=== PATIENT | male | born 1960 | race Caucasian/White ===

== ENCOUNTER 2023-03-04 15:20 | Emergency (ER) | payer MEDICARE, SELFPAY ==
[2023-03-04] VITALS (20 sets, daily range): BP systolic 123–149; BP diastolic 86–107; PULSE 112–156; RESP 24–41; TEMP 37.7–38.7; O2SAT 56–100
--- NOTE | ~2023-03-04 | XR_ITS ---
XR chest 1V portable DATE: 03/04/2023 15:42 INDICATION: Dyspnea. History of COPD. TECHNIQUE: Portable AP chest views on 03/04/2023 at 1545 hours COMPARISON: None FINDINGS: There is bilateral hyperinflation. No pulmonary infiltrate or consolidation, pleural effusi on or pulmonary vascular congestion or pneumothorax is detected. Normal heart size. Mild aortic arch calcification. No hilar or mediastinal enlargement. IMPRESSION: Bilateral hyperinflation; no active cardiopulmonary disease Reviewed, dictated and finalized at location L. EDICAL ENGINEER
--- NOTE | 2023-03-04 15:30 | ECG_ITS ---
Measurements Intervals [place] Rate: 155 P: 73 AL: 133 QRS: 266 QRSD: 93 T: 74 QT: 266 QTc: 428 Interpretive Statements ATRIAL FLUTTER/TACHYCARDIA WITH RAPID VENTRICULAR RESPONSE LEFT AXIS DEVIATION CANNOT RULE OUT SEPTAL INFARCT, AGE INDETERMINATE CONSIDER INFERIOR INFARCT, AGE INDETERMINATE BASELINE ARTIFACT- I, II, III, AVR, AVF, V1-V6 ABNORMAL ECG NO PREVIOUS ECG AVAILABLE FOR COMPARISON Electronically Signed On 03-04-2023 16:02:26 FOREIGN EXCHANGE STUDENT COORDINATOR by Dain Barber D.O.
[2023-03-04] MEDS: IPRATROPIUM 0.5 MG/ALBUTEROL SULFATE 2.5 MG AMPUL.NEB 3 ML (15:32)
[2023-03-04] MEDS: MAGNESIUM SULF 2 GM/WATER 50ML 2 GM/50 ML BAG IVPB (15:51)
[2023-03-04] MEDS: methylPREDNISolone SOD SUCC 125 MG VIAL IV PUSH (15:51)
[2023-03-04 15:55] LABS: Basophils Absolute Auto 0.06 K/mm3 (0.00-0.10); Basophils Percent Auto 0.3 % (0.0-1.0); Eosinophils Absolute Auto 0.08 K/mm3 (0.02-0.50); Eosinophils Percent Auto 0.4 % (1.0-6.0); Hematocrit 47.3 % (40.0-54.0); Hemoglobin 16.5 g/dL (14.0-18.0); Immature Granulocyte Absolute 0.17 K/mm3 (0.00-0.00); Immature Granulocyte Percent A 0.9 % (0.0-0.0); Lymphocytes Absolute Auto 0.39 K/mm3 (1.10-4.50); Lymphocytes Percent Auto 2.2 % (18.0-42.0); Mean Corpuscular HGB Conc 34.9 g/dL (32.0-36.0); Mean Corpuscular Hemoglobin 36.7 pg (27.0-31.0); Mean Corpuscular Volume 105.1 fL (78.0-102.0); Mean Platelet Volume 10.1 fl (8.7-11.0); Monocytes Absolute Auto 1.32 K/mm3 (0.10-0.90); Monocytes Percent Auto 7.3 % (2.0-11.0); Neutrophils Absolute Auto 16.1 K/mm3 (1.7-7.2); Neutrophils Percent Auto 88.9 % (50.0-70.0); Platelet Count Result 157 K/mm3 (150-420); Red Cell Distribution Width 14.5 % (11.6-14.4); White Blood Count 18.1 K/mm3 (4.8-10.8)
--- NOTE | 2023-03-04 16:04 | PC.NURSE ---
PT HAS RECEIVED A NEB TX, COLOR HAS IMPROVED, CAP REFILL HAS IMPROVED. PT IS NOW ON 3L O2. RESP STATUS HAS IMPROVED. PT REMAINS TACHYPNEIC. WILL CONTINUE TO MONITOR.
[2023-03-04 16:05] LABS: Base Excess ABG -0.8 mmol/L (0-2); HCO3 ABG 24.5 mmol/L (23-29); Oxygen Content ABG 23.8 %vol (16.0-22.0); Oxyhemoglobin 94.9 % (94-100); PCO2 ABG 42.6 mmHg (35-45); PO2 ABG 94.1 mmHg (80-90); Total Hemoglobin 17.8 g/dL (12.0-18.0); pH ABG 7.38 (7.35-7.45)
[2023-03-04 16:06] LABS: Device NASAL CANNULA; Modified Allen's Test Pass; Site Drawn LEFT RADIAL
[2023-03-04] MEDS: ACETAMINOPHEN 500 MG TABLET 1000 MG PO (16:10)
[2023-03-04 16:12] LABS: Influenza A QL RT-PCR Positive (Negative); Influenza B QL RT-PCR Negative (Negative); RSV RNA, RT-PCR Negative (Negative); SARS-CoV-2 RNA PCR Negative (Negative)
[2023-03-04 16:14] LABS: D Dimer 0.49 mg/L (0.19-0.50); INR 1.1; Partial Thromboplastin Time 33.6 SEC (23.90-30.70); Prothrombin Time 11.5 Seconds (9.50-12.10)
[2023-03-04 16:18] LABS: Lactic Acid Reflex 2.2 mmol/L (0.4-2.0)
[2023-03-04 16:23] LABS: Alanine Aminotransferase 39 U/L (16-63); Albumin Level 3.4 g/dL (3.4-5.0); Alkaline Phosphatase 99 U/L (46-116); Anion Gap 11 mmol/L (8-16); Aspartate Amino Transferase 56 U/L (15-37); Bilirubin,Total 1.1 mg/dL (0.00-1.00); Blood Urea Nitrogen 35 mg/dL (7-18); Calcium 9.1 mg/dL (8.5-10.1); Carbon Dioxide 28 mmol/L (21-32); Chloride 97 mmol/L (98-108); Estimated CRCL calculation 54 ml/min; Estimated Glomerular Filt Rate > 60; Glucose 142 mg/dL (70-99); Magnesium 2.1 mg/dL (1.8-2.4); NT Pro B Type Natriuretic Pept 977 pg/mL (0-125); Osmolality Calculated 292 mOsm/kg (285-295); Potassium 4.1 mmol/L (3.5-5.1); Sodium 136 mmol/L (136-145); Total Protein 7.5 g/dL (6.4-8.2); Troponin I 40.7 ng/L (0.00-60.4)
[2023-03-04] MEDS: SODIUM CHLORIDE 0.9% IV 1,000 ML 999 ML IV CONT (16:30)
[2023-03-04 16:31] LABS: CRP > 25.0 mg/dL (0.0-0.9)
[2023-03-04] MEDS: dilTIAZem HCl INJ 25 MG/5 ML VIAL 10 MG IV PUSH (16:32)
--- NOTE | 2023-03-04 16:49 | PC.NURSE ---
PT WAS RESTING ON STRETCHER IN EXAM ROOM WITH IVF AND MEDICATION INFUSION WHEN FRIEND ARRIVED AT BEDSIDE. PT IS AWAITING RESULTS AT THIS TIME. PT REPORTS HE NEEDS TO GO HOME, EDUCATED PT ON PT STATUS AND AWAITING RESULTS AT THIS TIME. PT DENIES ANY NEEDS OR COMPLAINTS AT PRESENT. WILL CONTINUE TO MONITOR.
--- NOTE | 2023-03-04 17:03 | ED.SOB ---
HPI - SOB/Dyspnea General Chief Complaint: Shortness of Breath/Dyspnea Stated Complaint: short of breath Time Seen by Provider: 03/04/23 15:29 Source: patient Mode of arrival: ambulatory Limitations: no limitations History of Present Illness HPI Narrative: this is a 62-year-old male that presents with some shortness of breath history of COPD and noncompliant with his medication presents with some shortness of breath with some cough that is nonproductive initially is respiratory rate was around 40 and O2 sats around 56 on room air placed on 3L of oxygen and currently satting at 94%. There is no chest pain, does have a temperature of 101.5?, with no nausea no vomiting no abdominal pain no dysuria. MD elicited complaint: shortness of breath and cough Pertinent past history: COPD Onset (ago): day(s) Severity: moderate Known history of: COPD Related Data Allergies Allergy/AdvReac Type Severity Reaction Status Date / Time No Known Allergies Allergy Verified 03/04/23 15:33 Review of Systems Review of Systems: All systems reviewed & are unremarkable except as noted in HPI and below [facility] Past Medical History Medical History COPD (chronic obstructive pulmonary disease) Exam Const: General: no acute distress and ill appearing Nutritional Appearance: thin Orientation/consciousness: patient oriented x3 Limitations: no limitations Eyes: Conjunctivae: conjunctivae normal Neck: Neck: normal visual inspection, no lymphadenopathy and no meningeal signs Chest: Chest palpation & inspection: normal inspection of the chest Resp: Effort & Inspection: normal respiratory effort Auscultation: diminished lung sounds Cardio: Rate: tachycardic Rhythm: regular rhythm GI: GI Palp: Yes Soft to palpation Auscultation: normal bowel sounds Back/Spine/Pelvis: Back: no CVA tenderness Skin: General skin exam: normal color Rashes: no rashes Neuro: General: patient oriented x3 and moves all extremities Extrem: General: normal to inspection, no clubbing, cyanosis or edema and no pedal edema Course Course Emergency Course: patient had a breathing treatment with DuoNebs currently satting at 94% currently on 3L patient received IV Solu-Medrol and normal [place] [address] and the patient did test positive for influenza. Patient with tachycardia 154 heart rate which appeared to be multifocal atrial tachycardia patient received 10mg IV Cardizem and current heart rate 1 and a dose of p.o. diltiazem was given. Patient after long discussion to be admitted to the hospital refused and is willing to sign out against medical advice. Vital Signs Vital signs: Vital Signs Temperature 38.7 C H 03/04/23 15:20 Pulse Rate 154 H 03/04/23 15:20 Respiratory Rate 40 H 03/04/23 15:20 Pulse Oximetry 56 L 03/04/23 15:20 Oxygen Delivery Room Air 03/04/23 15:20 Oxygen Flow Rate 6 03/04/23 15:20 Temperature 38.2 C H 03/04/23 16:50 Pulse Rate 112 H 03/04/23 16:46 Respiratory Rate 32 H 03/04/23 16:46 Blood Pressure 123/86 03/04/23 16:45 Pulse Oximetry 94 03/04/23 16:46 Oxygen Delivery Nasal Cannula 03/04/23 16:16 Oxygen Flow Rate 3 03/04/23 16:16 MDM - SOB/Dyspnea Lab Data 03/04/23 15:50 03/04/23 15:50 Labs: Lab Results 03/04/23 Range/Units 15:50 WBC 18.1 H (4.8-10.8) K/mm3 RBC 4.50 L (4.70-6.10) M/mm3 Hgb 16.5 (14.0-18.0) g/dL Hct 47.3 (40.0-54.0) % MCV 105.1 H (78.0-102.0) fL MCH 36.7 H (27.0-31.0) pg MCHC 34.9 (32.0-36.0) g/dL RDW 14.5 H (11.6-14.4) % Plt Count 157 (150-420) K/mm3 MPV 10.1 (8.7-11.0) fl Immature Gran % (Auto) 0.9 H (0.0-0.0) % Neut % (Auto) 88.9 H (50.0-70.0) % Lymph % (Auto) 2.2 L (18.0-42.0) % Starke % (Auto) 7.3 (2.0-11.0) % Eos % (Auto) 0.4 L (1.0-6.0) % Baso % (Auto) 0.3 (0.0-1.0) % Lymph # (Auto) 0.39 L (1.10-4.50)
[2023-03-04] MEDS: dilTIAZem HCL CD 120 MG CAP.24HR PO (17:08)
--- NOTE | 2023-03-04 17:13 | PC.NURSE ---
PT IS REFUSING ADMISSION. ERP AT BEDSIDE REVIEWING STATUS AND EDUCATING PT, HE CONTINUES TO REFUSE ADMISSION, REPORTS HE CANNOT STAY, HE HAS TOO MANY ANIMALS AT HOME TO CARE FOR. PT REPORTS HE HAS ACCESS TO OXYGEN AT HOME, IF HE NEEDS IT HE WILL WEAR IT. PT SIGNS AMA.
[2023-03-04 17:56] LABS: Reflex Lactic Acid Yes or No No Lactic Reflex
--- NOTE | 2023-03-10 12:26 | PC.NURSE ---
blood culture reviewed, no growth noted
== END 2023-03-04 17:20 | disposition left against medical advice (07) ==
PROVIDERS: Emergency Provider Emergency Medicine; PCP Emergency Medicine
DX: J44.9 Chronic obstructive pulmonary disease, unspecified (principal); J11.1 Influenza due to unidentified influenza virus with other respiratory manifestations; I47.19 Other supraventricular tachycardia; Z20.822 Contact with and (suspected) exposure to COVID-19
CPT/HCPCS: 36415; 36600; 71045; 80053; 82805; 83605; 83735; 83880; 84484; 85025; 85380; 85610; 85730; 86140; 87040; 87637; 93005; 94640; 96361; 96365; 96375; 99284; A9270; J2930; J3475; J7030

== ENCOUNTER 2023-04-12 14:25 | Emergency (ER) | payer MEDICARE, SELFPAY ==
[2023-04-12] VITALS (27 sets, daily range): BP systolic 129–164; BP diastolic 78–124; PULSE 86–123; RESP 17–20; TEMP 36.6–37.3; O2SAT 89–100
--- NOTE | ~2023-04-12 | XR_ITS ---
EXAMINATION: XR chest 1V portable DATE: 04/12/2023 15:10 INDICATION: Shortness of breath. TECHNIQUE: A single frontal view of the chest was obtained. COMPARISON: Chest single view 03/04/2023 FINDINGS: There is no pneumonia, pleural effusion, or pneumothorax. The heart size is normal. IMPRESSION: 1. No acute cardiopulmonary disease. Reviewed, dictated and finalized at location A. FLUME WATCHER
[2023-04-12] MEDS: IPRATROPIUM 0.5 MG/ALBUTEROL SULFATE 2.5 MG AMPUL.NEB 3 ML INHALATION (14:44)
--- NOTE | 2023-04-12 15:03 | ED.GENADULT ---
HPI - General Adult General Chief complaint: Shortness of Breath/Dyspnea Stated complaint: SOB Time Seen by Provider: 04/12/23 14:28 History of Present Illness HPI narrative: 63yo man history of COPD, recently started on home o2 2 Lpm, recent Influenza infection 2 weeks ago, presents with shortness of breath and feeling like he never get better since diagnosed with the flu. Still having fever over the weekend. +intermittent productive cough. No chest pain, leg pain, or leg swelling. Related Data Allergies Allergy/AdvReac Type Severity Reaction Status Date / Time No Known Allergies Allergy Verified 04/12/23 15:25 Review of Systems Review of Systems: All systems reviewed & are unremarkable except as noted in HPI and below Constitutional: Constitutional: Reports chills, Reports fatigue, Reports fever(s) and Reports weakness ENT: Denies dysphagia and Denies dizziness Cardiovascular: Cardiovascular: Denies chest pain Respiratory: Respiratory: Reports chest congestion, Reports cough, Reports dyspnea and Reports wheezing Gastrointestinal: Gastrointestinal: Denies abdominal pain Musculoskeletal: Musculoskeletal: Reports myalgias PMFSH Past Medical History Medical History COPD (chronic obstructive pulmonary disease) Exam Const: General: healthy appearing and no acute distress Nutritional Appearance: well nourished and thin Orientation/consciousness: patient oriented x3 HENMT: Head: normal to inspection Eyes: Conjunctivae: conjunctivae normal Resp: Effort & Inspection: labored and uses accessory muscles Auscultation: rhonchi and wheezes Cardio: Rate: tachycardic Rhythm: regular rhythm Heart sounds: no murmurs GI: Inspection: non-distended Skin: General skin exam: normal color, no jaundice and no pallor Neuro: General: patient oriented x3 Extrem: General: no clubbing, cyanosis or edema Course Vital Signs Vital signs: Vital Signs Pulse Rate 110 H 04/12/23 14:45 Respiratory Rate 18 04/12/23 14:45 Pulse Oximetry 95 04/12/23 14:45 Oxygen Flow Rate 2 04/12/23 14:45 Pulse Rate 111 H 04/12/23 14:56 Respiratory Rate 18 04/12/23 14:56 Pulse Oximetry 93 04/12/23 14:56 Oxygen Flow Rate 2 04/12/23 14:56 Medical Decision Making MDM Narrative Medical decision making narrative: acute dyspnea with continued postviral malaise or re-sickening, fever not yet resolved. Likely post-Influenza pneumonia. Start community acquired pneumonia coverage. Bronchodilators. Corticosteroids. Level of oxygen support is unchanged from home baseline. Vital Signs Vital Signs: Vital Signs Pulse Rate 110 H 04/12/23 14:45 Respiratory Rate 18 04/12/23 14:45 Pulse Oximetry 95 04/12/23 14:45 Oxygen Flow Rate 2 04/12/23 14:45 Pulse Rate 111 H 04/12/23 14:56 Respiratory Rate 18 04/12/23 14:56 Pulse Oximetry 93 04/12/23 14:56 Oxygen Flow Rate 2 04/12/23 14:56 Discharge Plan Discharge Clinical Impression: Community acquired bacterial pneumonia COPD (chronic obstructive pulmonary disease) Qualifiers: COPD type: COPD with acute lower respiratory infection Qualified Code(s): J44.0 - Chronic obstructive pulmonary disease with (acute) lower respiratory infection Patient Disposition: Home, Self-Care Condition: Stable Instructions: Antibiotic Form Additional Instructions: Take the prescribed medications for the next 5 days to clear infection from your lungs, reduce wheezing, and improve your breathing. Continue to use your home oxygen as prescribed. Prescriptions: New azithromycin 250 mg tablet 250 mg PO DAILY 5 Days Qty: 5 0RF dexamethasone 4 mg tablet 4 mg PO BID Qty: 10 0RF cefdinir 300 mg capsule 300 mg PO BID Qty: 10 0RF Follow-up/Referrals: UNKNOWN,DOCTOR [Primary Care Provider] - Time of Disposition: 16:26
--- NOTE | 2023-04-12 15:30 | PC.NURSE ---
patient receiving breathing treatment at this time. unable to give PO medication, will administer once treatment is done.
[2023-04-12] MEDS: ALBUTEROL SULFATE NEB 2.5 MG/3 ML INH 10 MG INHALATION (15:32)
[2023-04-12] MEDS: ALBUTEROL SULFATE NEB 2.5 MG/3 ML INH 7.5 MG (15:37)
[2023-04-12 15:55] LABS: Influenza A QL RT-PCR Negative (Negative); Influenza B QL RT-PCR Negative (Negative); RSV RNA, RT-PCR Negative (Negative); SARS-CoV-2 RNA PCR Positive (Negative)
[2023-04-12] MEDS: cefTRIAXone 1 GM, LIDOCAINE HCL 1% LOCAL INJ 2.1 ML IM (16:16)
[2023-04-12] MEDS: AZITHROMYCIN 250 MG TABLET 500 MG PO (16:16)
== END 2023-04-12 16:53 | disposition home or self-care (01) ==
PROVIDERS: Emergency Provider Emergency Medicine
DX: J18.9 Pneumonia, unspecified organism (principal); J44.0 Chronic obstructive pulmonary disease with (acute) lower respiratory infection; Z99.81 Dependence on supplemental oxygen; Z20.822 Contact with and (suspected) exposure to COVID-19
CPT/HCPCS: 71045; 87637; 94640; 96372; 99284; A9270; J0696; J1100

== ENCOUNTER 2024-04-08 10:30 | Emergency (ER) | payer MEDICARE, SELFPAY ==
[2024-04-08] VITALS (40 sets, daily range): BP systolic 101–151; BP diastolic 73–108; PULSE 76–120; RESP 13–33; TEMP 36.1–36.9; O2SAT 96–100
--- NOTE | ~2024-04-08 | CT_ITS ---
EXAMINATION: CT brain wo con DATE: 04/08/2024 11:11 INDICATION: Head injury. Altered mental status. TECHNIQUE: Computed tomography (CT) of the head was performed without intravenous contrast. The mA wa s adjusted according to patient size. Iterative reconstruction technique was employed. The dose-lengt h product was 681.00 mGy-cm. COMPARISON: None FINDINGS: Motion artifact is noted. There is no intracranial hemorrhage, acute infarction, or abnorma l intracranial mass lesion. The ventricles are normal in size. There is mucosal thickening in the par anasal sinuses. The mastoid air cells are normal. The orbits are normal. IMPRESSION: 1. Normal brain. Sensitivity is moderately decreased by motion artifact Reviewed, dictated and finalized at location A. AGE ATTENDANT
--- NOTE | ~2024-04-08 | CT_ITS ---
EXAMINATION: CT chest abdomen pelvis w con DATE: 04/08/2024 12:43 INDICATION: Abdominal pain. TECHNIQUE: Computed tomography (CT) of the chest, abdomen, and pelvis was performed with 100 mL Omnip aque 350 intravenous contrast. Automated exposure control and iterative reconstruction technique were employed. The dose-length product was 329.77 mGy-cm. COMPARISON: None FINDINGS: CHEST CT: There is mild scarring at the lung apices. There is moderate emphysema. There is bronchiectasis in th e inferior lungs. There are tree-in-bud opacities in right lower lobe. Calcified left lung nodules ar e consistent with old edematous disease. No pleural effusion. The heart size is normal. There are cor onary artery calcifications. No pericardial effusion. There is mild bilateral gynecomastia. There are compression fractures of T1, T3, T4, T6. There is mild chronic anterior wedging of multiple vertebra l bodies. ABDOMEN/PELVIS CT: There is diffuse hepatic steatosis. The gallbladder is distended. The spleen, pancreas, and adrenal g lands are normal. There is cortical thinning of the kidneys. There are changes of inguinal hernia rep airs. There is diverticulosis of the colon without evidence of diverticulitis. The appendix is normal . There are no dilated loops of bowel. There are no pathologically enlarged lymph nodes. There is no free intraperitoneal fluid. There is mild lumbar spondylosis. IMPRESSION: 1. Mild right lower lobe pneumonia. 2. Moderate emphysema. 3. Compression fractures of T1, T3, T4, and T6, most likely acute or subacute. 4. Gallbladder distention, which may be secondary to fasting or acute cholecystitis. Correlate with p hysical exam. Reviewed, dictated and finalized at location A. ESS CHEESE COOKER IMPRESSION: 1. Mild right lower lobe pneumonia. 2. Moderate emphysema. 3. Compression fractures of T1, T3, T4, and T6, most likely acute or subacute. 4. Gallbladder distention, which may be secondary to fasting or acute cholecyst itis. Correlate with physical exam.
--- OUTSIDE RECORDS SUMMARY | 2024-04-08 10:34 | XMS_ITS | Clinical Summary ---
Author Organization [facility] Address [address] [place] [address] Care Team Providers Care Multiple Needle Stitcher Name Role Phone Akin Lay MD Primary Care Provider [phone] Phoebe Stringer MD Unavailable Allergies No known active allergies Medications albuterol sulfate HFA 108 (90 Base) MCG/ACT inhaler Inhale 2 puffs into the lungs every 6 (six) hours as needed for Wheezing. Active apixaban (ELIQUIS) 5 MG tablet Take 1 tablet (5 mg total) by mouth 2 (two) times daily. 180 tablet 2 09/22/2023 Active aspirin EC (ECOTRIN) 81 MG tablet Take 1 tablet (81 mg total) by mouth daily. Active metoprolol tartrate (LOPRESSOR) 25 MG tablet Take 1 tablet (25 mg total) by mouth 2 (two) times daily. 180 tablet 1 10/28/2023 Active nitroglycerin (NITROSTAT) 0.[address] 1 tablet (0.4 mg total) under the tongue every 5 (five) minutes as needed for Chest Pain. Maximum of 3 doses. 30 tablet 1 10/28/2023 Active rosuvastatin (CRESTOR) 10 MG tablet TAKE 1 TABLET (10 MG TOTAL) BY MOUTH NIGHTLY AT BEDTIME. 90 tablet 1 01/19/2024 Active Active Problems No known active problems Family History Medical History Relation Comments Heart Attack Brother Open Heart Brother Heart Attack Father Open Heart Mother Heart Attack Sister Open Heart Sister Relation Status Comments Brother Father Mother Sister Social History Tobacco Use Types Packs/Day Years Used Date Smoking Tobacco: Every Day Cigarettes Smokeless Tobacco: Never Tobacco Cessation:Ready to Q uit: Not Asked; Counseling Given: Not Answered Alcohol Use Standard Drinks/Week Comments Yes 0 (1 standard drink = 0.6 oz pur e alcohol) socially Sex and Gender Information Value Date Recorded Sex Assigned at Not on file Legal Sex Male 10:26 PM CDT Gender Identity Male 07/02/2021 11:06 AM CDT Sexual Orientation Straight 07/02/2021 11 :06 AM CDT Last Filed Vital Signs Vital Sign Reading Time Taken Comments Blood Pressure 132/84 10/28/2023 10:56 AM CDT Pulse 102 10/28/2023 10:56 AM CDT Temperature 36.1 C (97 F) 12/05/2021 3:37 PM CDT Respiratory Rate 16 10/28/2023 10:56 AM CDT Oxygen Saturation 92% 10/28/2023 10:56 AM CDT Inhaled Oxygen Concentration - - Weight 69.4 kg (153 lb) 10/28/2023 10:56 AM CDT Height 188 cm (6' 2 ) 10/28/2023 10:56 AM CDT Body Mass Index 19.64 10/28/2023 10:56 AM CDT Plan of Treatment Upcoming Encounters Date Type Department Care Team (Late st Contact Info) Description 10/27/2024 11:45 AM CDT Office Visit [facility] [place] [phone] Phoebe Stringer MD [address] [place] [id number] Health Maintenance Due Date Last Done Comments Colorectal Cancer Screening Colonoscopy (10 Years) 1960 Pneumococcal Vaccine: 65+ Ye ars (1 of 2 - PCV) 1965 Pneumococcal Vaccine: Pediat rics (0 to 5 Years) and At-Risk Patients (6 to 64 Years) (1 of 2 - PCV) 1965 Hepatitis C 1977 DTaP, Tdap and Td Vaccines ( 1 - Tdap) 1978 Zoster Vaccines (1 of 2) 2009 RSV Immunization or 60+ Years (1 - Risk 60-74 years 1-dose series) 2019 COVID-19 Vaccine (2023-2 5 season) 2023 Influenza Adult (#1) 2023 AAA SCREENING Completed 10/21/2023 Meningococcal B Vaccine Aged Out No l onger eligible based on patient's age to complete this topic Meningococcal Vaccine Aged Out No lydia tamara eligible based on patient's age to complete this topic RSV Immunizations Under 20 Months Aged Out No longer eligible based on patient's age to complete this topic Procedures Procedure Name Priority Date/Time Associated Diagnosis Comments USV AAA SCREENING Routine 10/21/2023 10: 16 AM CDT CAD (coronary artery disease) A-fib (CMS/HCC [facility]) from Last 3 Months or Most Recently Relevant to Health Maintenance Results * USV AAA SCREENING (10/21/2023 10:16 AM CDT) Anatomical Region Laterality Modality NA Ultrasound 10/21/2023 9:51 AM CDT Narrative 10/22/2023 4:54 AM CDT SJS PVI DUPLEX SCAN-AAA Screening Pat.Name: JAYLAN MELGOZA Pat.ID: [id number] St.Date: 10/21/2023 Refer.MD: PHOEBE STRINGER Exam Time: 9:51:00 AM Study Type:PVI DUPLEX SCAN-AAA Screening Age: 1 1960,63Y Sex: M Sonogrphr: Maranda Mcmullen RVT Pat. Stat.:Outpatient CPT - 4: [id number] AAA Screening Reason for Study:AAA screening Race: W ++++++++++++++++++++++++++++++++++++ FINDINGS: ++++++++++++++++++++++++++++++++++++ AO: Patent aorta noted. Ectasia of the suprarenal abdominal aorta noted measuring 2.7 cm. R Iliac: No evidence of iliac artery aneurysm or ectasia noted. L Iliac: No evidence of iliac artery aneurysm or ectasia noted. ++++++++++++++++++++++++++++++++++++ MEASUREMENTS: ++++++++++++++++++++++++++++++++++++ DOPPLER Supra AO Supra AO PSV 67 cm/s Supra AO Dim 2 2.7 cm Supra AO Dim 1 2.7 cm Juxta AO Juxta AO PSV 40 cm/s Juxta AO Dim 2 2 cm Juxta AO Dim 1 2.1 cm Infra AO Infra AO PSV 62 cm/s Infra AO Dim 2 1.7 cm Infra AO Dim 1 1.7 cm Rt Prox Common Iliac Common Iliac PS 74 cm/s Common Iliac Di 1.24 cm Common Iliac Di 1.3 cm Lt Prox Common Iliac Common Iliac PS 80 cm/s Common Iliac Di 1.3 cm Common Iliac Di 1.3 cm <Electronic Signature> 10/22/2023 04:54 AM Phoebe Stringer M.D. Procedure Note Phoebe Stringer MD - 10/22/2023 [facility] PVI DUPLEX SCAN-AAA Screening Pat.Name: JAYLAN MELGOZA Pat.ID: [id number] St.Date: 10/21/2023 Refer.MD: PHOEBE STRINGER Exam Time: 9:51:00 AM Study Type:PVI DUPLEX SCAN-AAA Screening Age: 1 1960,63Y Sex: M Sonogrphr: Maranda White, RVT Pat. Stat.:Outpatient CPT - 4: [id number] AAA Screening Reason for Study:AAA screening Race: W ++++++++++++++++++++++++++++++++++++ FINDINGS: ++++++++++++++++++++++++++++++++++++ AO: Patent aorta noted. Ectasia of the suprarenal abdominal aorta noted measuring 2.7 cm. R Iliac: No evidence of iliac artery aneurysm or ectasia noted. L Iliac: No evidence of iliac artery aneurysm or ectasia noted. ++++++++++++++++++++++++++++++++++++ MEASUREMENTS: ++++++++++++++++++++++++++++++++++++ DOPPLER Supra AO Supra AO PSV 67 cm/s Supra AO Dim 2 2.7 cm Supra AO Dim 1 2.7 cm Juxta AO Juxta AO PSV 40 cm/s Juxta AO Dim 2 2 cm Juxta AO Dim 1 2.1 cm Infra AO Infra AO PSV 62 cm/s Infra AO Dim 2 1.7 cm Infra AO Dim 1 1.7 cm Rt Prox Common Iliac Common Iliac PS 74 cm/s Common Iliac Di 1.24 cm Common Iliac Di 1.3 cm Lt Prox Common Iliac Common Iliac PS 80 cm/s Common Iliac Di 1.3 cm Common Iliac Di 1.3 cm <Electronic Signature> 10/22/2023 04:54 AM Phoebe Stringer M.D. Phoebe Stringer MD VASC Final Result from Last 3 Months or Most Recently Relevant to Health Maintenance Insurance [employer] Care Teams Multiple Needle Stitcher Relationship Specialty Start Date End Date Akin Lay MD PCP - General FAMILY PRACTICE 06/23/21 Phoebe Stringer MD [address] [place] [address] Consulting Physician CARDIOVASCULAR DISEASE 5/31/24
--- OUTSIDE RECORDS SUMMARY | 2024-04-08 10:34 | XMS_ITS | Encounter Summary ---
Author Organization [facility] Address [address] [place] [address] Care Team Providers Care Sock Folder Name Role Phone Akin Lay MD Primary Care Provider [phone] Phoebe Casper MD Unavailable Encounter Details Date Type Department Care Team (Late Contact Info) Description 08/06/2018 Abstract [facility]FL CONVERSION [address] [place] [address] , Generic ConversionMD Social History Tobacco Use Types Packs/Day Years Used Date Smoking Tobacco: Never Assessed Sex and Gender Information Value Date Recorded Sex Assigned at Not on file Legal Sex Male 10:26 PM CDT Gender Identity Male 07/02/2021 11:06 AM CDT Sexual Orientation Straight 07/02/2021 11 :06 AM CDT documented as of this encounter Plan of Treatment Upcoming Encounters Date Type Department Care Team ([facility] Contact Info) Description 10/27/2024 11:45 AM CDT Office Visit [facility] [phone] Phoebe Casper MD [address] [place], [place] [phone] documented as of this encounter Visit Diagnoses Not on filedocumented in this encounter Additional Health Concerns Infection Onset Date Last Indicated Resolved Time COVID-19 Rule Out 07/05/2021 07/05/2021 07/05/2021 6:52 PM CDT COVID-19 Rule Out 12/05/2021 12/05/2021 12/05/2021 4:04 PM CDT documented as of this encounter Care Teams Sock Folder Relationship Specialty Start Date End Date Akin Lay MD PCP - General FAMILY PRACTICE 06/23/21 Phoebe Casper MD [address] [place] [address] Consulting Physician CARDIOVASCULAR DISEASE 07/30/23 documented as of this encounter
--- OUTSIDE RECORDS SUMMARY | 2024-04-08 10:34 | XMS_ITS | Data Portability ---
Author Organization [facility], [address] Neurology ([place]) Address [address] 4th [place] [address] Care Team Providers Care Serging Machine Operator Name Role Phone SUSHIL CAMPO Primary Care Provider RICARDO HERRERA Human Resources Support Specialist Assessment Encounter Date Assessment Date Assessment LastModified by Organization Details LastModified Time 11/19/2023 11/19/2023 RESULTS/DATA: Room air saturation 91%. He walked 195 meters. It darrell to 93%. Pulmonary function test shows very severe obstruction with air trapping and reduced diffusion capacity. IMPRESSION AND PLAN: Discontinue Trelegy. Trial of Anoro 1 q. day. Continue Ventolin as rescue therapy. Discontinue supplemental oxygen. Check quantitative immunoglobulins . If cough becomes productive, we will collect sputa. Flu shot was given. Prevnar 20 was given. He was advised to get the RSV and COVID vaccines. Repeat CT scan of the chest without contrast. See me after above. [email or web address] Not available 11/19/2023 15:13:09 Plan of Treatment Reminders Order Date Submit Date Provider Last Modified By Organization Details Last Modified Time Details Appointments None recorded. Lab iga, quantitativ e, serum 2023 024 STORMY [facility] Only - [facility], [facility] [address] [place] [address], [id number], 4 10:38:39 igm, quantitativ e, serum 2023 024 ST[facility] Only - [facility], [address] [place] [address], [id number], 4 10:38:41 igg, quantitativ e, serum 2023 STORMY [facility] Only - [facility], [address] [place] [address], [address], 10:38:40 Referral None recorded. Procedures None recorded. Surgeries None recorded. Imaging CT, chest, w/o contrast 2023 [email or web address] [facility] Only - [facility], [address] [facility], [place], [address], 09:21:52 Medication Orders Anoro Ellipta 62.5 mcg-25 mcg/actuati on powder for inhalation 2023 [email or web address] [facility], [address] [place], [address], 15:19:51 Ventolin HFA 90 mcg/actuati on aerosol inhaler 2023 024 [email or web address] [facility], [address] [place], [address], 15:19:51 Patient TargetsNo targets recorded. Patient Instructions Encounter Date Encounter Id Patient Instructions Last Modified By Organization Details Last Modified Time 11/19/2023 [id number] I spent time goi ng over the results of the CAT scan with the patient. I personally interpreted the images. He has advanced emphysema. I should note that a prior alpha-1 antitrypsin test was normal. He has bronchiectasis. I discussed with him that I usually like to work this up by collecting sputa. He insists that he has no mucus and cannot expectorate any at all. I explained to him that there are some indeterminate nodules. He is aware he is at risk for malignancy with his history of smoking. He is aware of the other incidental findings. [email or web address] Not available 11/19/2023 15:12:50 Reason for Referral None Reported. Results Created Date Observation Date Name Description Value Unit Range Abnormal Flag Note LastModifiedBy Organization Detail LastModifiedTime 11/19/19 24 11/20/2023 iga, quant itati ve, serum IgA quantitative 393 mg/dL 61-437 Not Available [facility] [address] [place] [address], [address], 11/20/2023 10:38:39 11/19/19 24 11/20/2023 igg, quant itati ve, serum IgG quantitative 1274 mg/dL 603-16 13 Not Available [facility] [address] [place] [address], [address], 11/20/2023 10:38:40 11/19/19 24 11/20/2023 igm, quant itati ve, serum IgM quantitative 126 mg/dL 20-172 Not Available [facility] [address] [place] [address], [address], 11/20/2023 10:38:41 11/22/19 24 11/19/2023 PFT No observ ation record ed. INTERFACE Al Only - [facility], [address], 11/22/2023 09:20:42 11/22/19 24 11/19/2023 6 minut e walk test* No observ ation record ed. BARCODE Not Available 2023 15:52:27 Result Notes None recorded. Problems Name Problem SNOMED Code Status Onset Date Resolution Date Notes Provider Name and Address Organization Details Recorded Time Bronchiectasis 67402761 Active 2023 Ricardo Herrera MD [address] [place] [address], [phone], [facility] 4 14:50:39 Multiple nodules of lung 646861661 Active 2023 Ricardo Herrera MD [address] [place] [address], [phone], [facility] 4 14:50:51 Chronic obstructive pulmonary disease 14961530 Active 2023 Veronica Maki [facility], [facility] 13:51:36 Problem Notes None recorded. Procedures Surgical History None recorded. Imaging Results Imaging Date Name Status LastModified by Organiz ation Details LastModified Time 11/19/2023 PFT completed INTERFACE Al Only - [facility] [address] [facility], [place], [address], 11/22/2023 09:20:42 11/19/2023 6 minute walk test* completed BARCODE Information not available 11/22/2023 15:52:27 Procedure Notes None recorded. Medical Equipment None Reported. Medications Name Sig Start Date Stop Date Status Note LastModified by Organization Details LastModified Time azithromyci n 250 mg tablet 11/18 completed Not Available Not Available Not Available oseltamivir 75 mg capsule 11/18 completed Not Available Not Available Not Available dexamethaso ne 4 mg tablet 11/18 completed Not Available Not Available Not Available nitroglycer in 0.4 mg sublingual tablet active Not Available Not Available Not Available methylpredn isolone 4 mg tablets in a dose pack 11/18 completed Not Available Not Available Not Available albuterol sulfate HFA 90 mcg/actuati on aerosol inhaler Inhale 2 puffs every 6 hours by inhalatio n route as needed. active Not Available Not Available No t Available cefdinir 300 mg capsule 11/18 completed Not Available Not Available Not Available diltiazem 60 mg tablet active Not Available Not Available Not Available rosuvastati n 10 mg tablet Take 1 tablet every day by oral route. active Not Available Not Available No t Available metoprolol tartrate 25 mg tablet Take 1 tablet twice a day by oral route. active Not Available Not Available No t Available nitroglycer in active Not Available Not Available Not Available Eliquis 5 mg tablet Take 1 tablet twice a day by oral route. active Not Available Not Available No t Available Anoro Ellipta 62.5 mcg-25 mcg/actuati on powder for inhalation Inhale 1 puff every day by inhalatio n route. active Not Available Not Available No t Available aspirin 81 mg capsule Take 1 capsule every day by oral route. active Not Available Not Available No t Available Vitals Date Recorded Body height Body mass index (BMI) Body weight Heart rate Oxygen saturation Oxygen saturation in Arterial blood by Pulse oximetry Systolic blood pressure Diastolic blood pressure Provider Name and Address Organization Details Last Updated DateTime 4 187.96 cm 19.5 kg/m2 89412.0 4 g 97 /min 91 % 91 % 142 mm[Hg] 88 mm[Hg] Veronica Maki [facility] 4 14:35:20 Social History Question Answer Notes LastModified by Organizat ion Details LastModified Time Tobacco Smoking Status Former Smoker Veronica Maki [facility] 11/19/2023 14:37:07 How Many Packs Per Day (PPD)? 1 Information not available 11/19/2023 How Long Have You Smoked? 50 Information not available 11/19/2023 When Did You Quit Smoking? 03/2023 Information not available 11/19/2023 Sex: Unknown Functional Status None recorded. Mental Status None recorded. Family History Nothing Reported. Medical History No medical history recorded. Immunizations Vaccine Type Date Status Note Provider Nam e and Address Organization Details Recorded Time Influenza, MDCK, trivalent, PF 4 completed Ricardo Herrera MD [address] [place] [address], [phone], [facility] 11/19/2023 16:10:50 Pneumococcal conjugate PCV20, polysaccharide XBW696 conjugate, adjuvant, PF 4 completed Ricardo Herrera MD [address] [place] [address], [phone], [facility] 11/19/2023 16:10:50 Past Encounters Encounter ID Performer Location Encounter Start Date Encounter Closed Date Diagnosis/Indication Diagnosis SNOMED-CT Code Diagnosis ICD10 Code Diagnosis Note [id number] Ethan Ordaz [address] [address] [place] [phone] 11/19/2023 13:17:02 11/19/2023 15:31:26 Chronic obstructive pulmonary disease 81786119 J44.9 [id number] Ricardo Herrera MD [facility]) [address] [facility],[address] [place] [address] 11/19/2023 13:18:17 11/19/2023 17:06:22 Chronic obstructive pulmonary disease 51016447 J44.9 Bronchiectasis 72034006 J47.9 Immunizati on education 285485136 Z71.85 Multiple n odules of lung 111175092 R91.8 Vaccination needed 34076 05388 75235 Z23 Health Concerns Section Related Observation LastModified by Organization Detai ls LastModified Time None Recorded Concern Status LastModified by Organization Details LastModified Time None Recorded Advance Directives Directive None Recorded Payers Encounter Date Sequence Insurance Name Policy Number Policy Costello Covered Member ID Costello Member ID Guarantor Name 11/19/2023 1 [employer] (MEDICARE REPLACEMENT PPO) [id number] Jaylan D Rife [id number] Jaylan Rife 11/19/2023 1 [employer] (MEDICARE REPLACEMENT PPO) [id number] Jaylan D Rife [id number] Jaylan Rife Notes Date Note Type Note Provider Name and Address Organization Details Recorded Time 11/19/2023 text/html CHIEF COMPLAINT:COPD and discuss test results. HISTORY OF PRESENT ILLNESS:The patient returns today for follow up accompanied by his sister.I last saw him in June. Long story short, he missed multiple appointments and returns today for follow up. In the interim, he had a lung cancer screening CAT scan performed. This led to a consultation with a commodities trader. He was given the diagnosis of prior myocardial infarction. His COPD has been stable. He denied any shortness of breath. He denied cough. He denied bringing up any mucus. No wheezing. He is tolerating the Trelegy without any side effects. He takes his rescue medicine a couple of times a day. He has oxygen at home but has not used it in a long time. He has no personal history of asthma. Ricardo Herrera MD [address] [place] [address], [phone], [facility] 11/19/2023 16:11:02
--- NOTE | 2024-04-08 10:46 | ECG_ITS ---
Test Date: 2024-04-08 10:52:16 Measurements Intervals Blanca Rate: 109 P: 84 MA: 190 QRS: -85 QRSD: 99 T: 89 QT: 340 QTc: 458 Interpretive Statements SINUS TACHYCARDIA LEFT AXIS DEVIATION INCOMPLETE RIGHT BUNDLE BRANCH BLOCK BORDERLINE ST-T WAVE ABNORMALITY- INF/LAT LEADS BASELINE ARTIFACT- I, II, III, AVR, AVL, AVF, V1-V6 ABNORMAL ECG No previous ECG available for comparison Electronically Signed On 04-08-2024 11:00:48 CHIEF CLERK SHELTER by Dain Barber D.O.
[2024-04-08 10:47] LABS: Glucose Point of Care 178 mg/dl (65-105)
[2024-04-08] MEDS: KETOROLAC 30 MG/ML VIAL (*BKC) IV PUSH (10:57)
[2024-04-08] MEDS: [UNRECOGNIZED DRUG - OTHER] 1 EACH XX (11:01)
[2024-04-08] MEDS: THIAMINE HCL INJ 100 MG, FOLIC ACID 1 MG, MULTIVITAMINS-12 INJ 10 ML, MAGNESIUM SULFATE... IV CONT (11:19)
--- OUTSIDE RECORDS SUMMARY | 2024-04-08 11:24 | XMS_ITS | Encounter Summary ---
Author Organization [facility] Address [address] [place] [address] Care Team Providers Care Melter Supervisor Open Hearth Furnace Name Role Phone Akin Lay MD Primary Care Provider [phone] Phoebe Casper MD Unavailable Encounter Details Date Type Department Care Team (Late Contact Info) Description 08/06/2018 Abstract SFL CONVERSION [address] [place] [address] , Generic ConversionMD Social History Tobacco Use [...] Upcoming Encounters Date Type Department Care Team ([facility] Contact Info) Description 10/27/2024 11:45 AM CDT Office Visit [facility] [address] Phoebe Casper MD [address] [place], [place] [phone] documented as of this encounter Visit Diagnoses Not on filedocumented in this encounter Additional Health Concerns Infection Onset Date Last Indicated Resolved Time COVID-19 Rule Out 07/05/2021 07/05/2021 07/05/2021 6:52 PM CDT COVID-19 Rule Out 12/05/2021 12/05/2021 12/05/2021 4:04 PM CDT documented as of this encounter Care Teams Melter Supervisor Open Hearth Furnace Relationship Specialty Start Date End Date Akin Lay MD PCP - General FAMILY PRACTICE 06/23/21 Phoebe Casper MD [address] [place] [address] Consulting Physician CARDIOVASCULAR DISEASE 07/30/23 documented as of this encounter
--- OUTSIDE RECORDS SUMMARY | 2024-04-08 11:24 | XMS_ITS | Clinical Summary ---
Author Organization [facility] Address [address] [place] [address] Care Team Providers Care Government Affairs Manager Name Role Phone Akin Lay MD Primary Care Provider [phone] Phoebe Stringer MD Unavailable Allergies No known [...] Description 10/27/2024 11:45 AM CDT Office Visit [facility] [place] [phone] Phoebe Stringer MD [address] [place] [address] Health Maintenance Due Date Last Done [...] CDT CAD (coronary artery disease) A-fib (CMS/HCC [facility]) from Last 3 Months or Most Recently Relevant to Health Maintenance Results * USV AAA SCREENING (10/21/2023 10:16 AM CDT) Anatomical Region Laterality Modality NA Ultrasound 10/21/2023 9:51 AM CDT Narrative 10/22/2023 4:54 AM CDT SJS PVI DUPLEX SCAN-AAA Screening Pat.Name: JAYLAN MELGOZA Pat.ID: [id number] St.Date: 10/21/2023 Refer.MD: PHOEBE STRINGER Exam Time: 9:51:00 AM Study Type:PVI DUPLEX SCAN-AAA Screening Age: 1 1960,63Y Sex: M Sonogrphr: Maranda Mcmullen RVT Pat. Stat.:Outpatient CPT - 4: 54966 AAA Screening Reason for Study:AAA screening Race: [...] Procedure Note Phoebe Stringer MD - 10/22/2023 [facility] PVI DUPLEX SCAN-AAA Screening Pat.Name: JAYLAN MELGOZA Pat.ID: [id number] St.Date: 10/21/2023 Refer.MD: PHOEBE STRINGER Exam Time: 9:51:00 AM Study Type:PVI DUPLEX SCAN-AAA Screening Age: 1 1960,63Y Sex: M Sonogrphr: Maranda White, RVT Pat. Stat.:Outpatient CPT - 4: 82075 AAA Screening Reason for Study:AAA screening Race: [...] to Health Maintenance Insurance [employer] Care Teams Government Affairs Manager Relationship Specialty Start Date End Date Akin Lay MD PCP - General FAMILY PRACTICE 06/23/21 Phoebe Stringer MD [address] [place] [address] Consulting Physician CARDIOVASCULAR DISEASE 5/31/24
[2024-04-08] MEDS: THIAMINE HCL 200 MG/2 ML VIAL 100 MG IV PUSH (11:38)
[2024-04-08 11:46] LABS: Influenza A QL RT-PCR Negative (Negative); Influenza B QL RT-PCR Negative (Negative); RSV RNA, RT-PCR Negative (Negative); SARS-CoV-2 RNA PCR Negative (Negative)
[2024-04-08 11:51] LABS: Basophils Absolute Auto 0.07 K/mm3 (0.00-0.10); Basophils Percent Auto 0.7 % (0.0-1.0); Eosinophils Absolute Auto 0.14 K/mm3 (0.02-0.50); Eosinophils Percent Auto 1.3 % (1.0-6.0); Immature Granulocyte Absolute 0.06 K/mm3 (0.00-0.00); Immature Granulocyte Percent A 0.6 % (0.0-0.0); Lymphocytes Absolute Auto 2.28 K/mm3 (1.10-4.50); Lymphocytes Percent Auto 21.5 % (18.0-42.0); Mean Corpuscular HGB Conc 34.4 g/dL (32-36); Mean Corpuscular Hemoglobin 32.7 pg (27.0-31.0); Mean Corpuscular Volume 95.2 fL (78.0-102.0); Mean Platelet Volume 9.5 fl (8.7-11.0); Monocytes Absolute Auto 1.07 K/mm3 (0.10-0.90); Monocytes Percent Auto 10.1 % (2.0-11.0); Neutrophils Absolute Auto 6.98 K/mm3 (1.70-7.20); Neutrophils Percent Auto 65.8 % (50.0-70.0); Platelet Count Result 472 K/mm3 (150-420); Red Blood Count 3.36 M/mm3 (4.70-6.10); Red Cell Distribution Width 15.5 % (11.6-14.4); White Blood Count 10.6 K/mm3 (4.8-10.8)
[2024-04-08 12:00] LABS: Partial Thromboplastin Time 25.5 Sec (23.9-30.70); Prothrombin Time 11.2 Seconds (9.50-12.1)
[2024-04-08 12:05] LABS: Alanine Aminotransferase 20 U/L (16-63); Albumin Level 2.5 g/dL (3.4-5.0); Alkaline Phosphatase 268 U/L (46-116); Ammonia 26 umol/L (11-32); Anion Gap 11 mmol/L (4-12); Aspartate Amino Transferase 33 U/L (15-37); Bilirubin,Total 0.6 mg/dL (0.00-1.00); Blood Urea Nitrogen 4 mg/dL (7-18); Calcium 8.5 mg/dL (8.5-10.1); Carbon Dioxide 32 mmol/L (21-32); Chloride 96 mmol/L (98-108); Estimated CRCL calculation 55 ml/min; Estimated Glomerular Filt Rate > 60; Glucose 115 mg/dL (70-99); Lipase 59 U/L (16-77); Osmolality Calculated 285 mOsm/kg (285-295); Sodium 139 mmol/L (136-145); Total Protein 6.5 g/dL (6.4-8.2); Troponin I 11.6 ng/L (0.00-60.4)
[2024-04-08 12:07] LABS: Potassium 2.3 mmol/L (3.5-5.1)
[2024-04-08] MEDS: LORazepam INJ (*CRX) 2 MG/ML VIAL 0.5 MG IV PUSH (12:07)
[2024-04-08 12:08] LABS: Lactic Acid Reflex 7.7 mmol/L (0.4-2.0)
[2024-04-08 12:17] LABS: Ethanol 328 mg/dL (0-6)
--- NOTE | 2024-04-08 12:23 | ED_ITS ---
HPI - Altered Mental Status General Chief Complaint: Altered Mental Status Stated Complaint: SICK FOR 2 WEEKS, FALLS, ETOH Source: patient and family Mode of arrival: wheelchair Limitations: altered mental status, physical limitation, clinical condition and intoxication History of Present Illness HPI narrative: this is a 64 year male presents with family with some history of alcohol abuse, with a history of hypertension, COPD and hyperlipidemia. Presents with family with some recent falls and ataxia and having altered mental status with visual hallucinations. According to family patient has not been eating for the last couple of weeks and continues to drink heavily. Currently his vitals are stable patient is afebrile blood pressure 146/93. There is no fever chills patient does shows no neurological deficits although there is symptoms over confabulation and ataxia. Patient complains of abdominal pain, flank pain with no nausea vomiting no diarrhea constipation no dysuria or hematuria. MD complaint: altered mental status, confusion and intoxication Onset (ago): week(s) Timing confirmed by: family member Severity: severe Consistency of symptoms: waxing and waning Context: alcohol abuse Related Data Home Medications ?Medication ?Instructions ?Recorded ?Confirmed ?Last Taken ?Type albuterol sulfate 90 mcg/actuation 2 inh inhalation QID PRN shortness 04/08/24 04/08/24 Unknown History aerosol inhaler (Ventolin HFA) of breath or wheezing apixaban 5 mg tablet (Eliquis) 5 mg PO BID 04/08/24 04/08/24 Unknown History metoprolol succinate 25 mg 25 mg PO BID 04/08/24 04/08/24 Unknown History tablet,extended release 24 hr rosuvastatin 10 mg tablet (Crestor) 10 mg PO DAILY 04/08/24 04/08/24 Unknown History Allergies Allergy/AdvReac Type Severity Reaction Status Date / Time No Known Allergies Allergy Verified 04/08/24 10:47 Review of Systems 2 Review of Systems: All systems reviewed & are unremarkable except as noted in HPI and below PMFSH Past Medical History Medical History COPD (chronic obstructive pulmonary disease) Exam 2 Const: General: ill appearing Nutritional Appearance: thin Limitations: altered mental status, behavioral limitations and physical limitations Eyes: Other: Nystagmus Neck: Neck: normal visual inspection, no lymphadenopathy and no meningeal signs Chest: Chest palpation & inspection: normal inspection of the chest Resp: Effort & Inspection: normal respiratory effort Auscultation: clear to auscultation bilaterally Cardio: Rate: tachycardic Rhythm: regular rhythm GI: GI Palp: Yes Soft to palpation and Yes Tenderness to palpation present (GI) Auscultation: normal bowel sounds : General: Yes bladder normal to palpation Back/Spine/Pelvis: Back: CVA tenderness Skin: General skin exam: normal color Rashes: no rashes Wounds: wounds noted Neuro: General: moves all extremities, no meningeal signs and no focal motor deficits Cranial nerves: Yes Nystagmus present Extrem: General: normal to inspection and no clubbing, cyanosis or edema Psych: Affect: Anxious affect present Course Course Emergency Course: patient chronic alcohol abuse and has not been eating for the last couple weeks, blood sugar was 115 with an alk-phos of 268, the patient has a potassium of 2.3. His ammonium level of 26 with a lactic acid of 7.7, alcohol level of 328. Patient had a CT scan of the brain which shows no acute abnormalities. Patient did receive a banana bag with thiamine, Toradol IV for pain Ativan 0.5mg IV and potassium level of 2.3 received K rider. EKG shows normal sinus rhythm with a rate of 109. CT scan abdomen pelvis and chest performed show acute compression fractures of T1, T3, T4, and T6 with some anterior wedging on multiple levels. Will transfer directly to [facility] Emergency Department with accepting ER physician Dr. Lucio. Vital Signs Vital signs: Vital Signs Temperature 36.1 C L 04/08/24 10:30 Pulse Rate 118 H 04/08/24 10:30 Respiratory Rate 24 H 04/08/24 10:30 Blood Pressure 149/108 H 04/08/24 10:30 Pulse Oximetry 96 04/08/24 10:30 Oxygen Delivery Room Air 04/08/24 10:30 Temperature 36.1 C L 04/08/24 10:30 Pulse Rate 106 H 04/08/24 11:53 Respiratory Rate 32 H 04/08/24 11:16 Blood Pressure 146/93 H 04/08/24 11:45 Pulse Oximetry 96 04/08/24 11:45 Oxygen Delivery Room Air 04/08/24 10:30 MDM - Altered Mental Status Lab Data 04/08/24 11:35 04/08/24 11:35 Labs: Lab Results 04/08/24 04/08/24 04/08/24 Range/Units 10:40 10:42 11:35 WBC 10.6 (4.8-10.8) K/mm3 RBC 3.36 L (4.70-6.10) M/mm3 Hgb 11.0 L (12.4-15.3) g/dL Hct 32.0 L (37.0-46.0) % MCV 95.2 (78.0-102.0) fL MCH 32.7 H (27.0-31.0) pg MCHC 34.4 (32-36) g/dL RDW 15.5 H (11.6-14.4) % Plt Count 472 H (150-420) K/mm3 MPV 9.5 (8.7-11.0) fl Immature Gran % (Auto) 0.6 H (0.0-0.0) % Neut % (Auto) 65.8 (50.0-70.0) % Lymph % (Auto) 21.5 (18.0-42.0) % Pine % (Auto) 10.1 (2.0-11.0) % Eos % (Auto) 1.3 (1.0-6.0) % Baso % (Auto) 0.7 (0.0-1.0) % Lymph # (Auto) 2.28 (1.10-4.50) K/mm3 Pine # (Auto) 1.07 H (0.10-0.90) K/mm3 Eos # (Auto) 0.14 (0.02-0.50) K/mm3 Baso # (Auto) 0.07 (0.00-0.10) K/mm3 Abs Immat Gran (auto) 0.06 H (0.00-0.00) K/mm3 Absolute Neuts (auto) 6.98 (1.70-7.20) K/mm3 Absolute Nucleated RBC 0.00 (0.00-0.00) K/mm3 Nucleated RBC % 0.0 (0-0.0) % PT 11.2 (9.50-12.1) Seconds INR 1.0 APTT 25.5 (23.9-30.70) Sec Sodium 139 (136-145) mmol/L Potassium 2.3 L* (3.5-5.1) mmol/L Chloride 96 L (98-108) mmol/L Carbon Dioxide 32 (21-32) mmol/L Anion Gap 11 (4-12) mmol/L BUN 4 L (7-18) mg/dL Creatinine 1.12 (0.70-1.30) mg/dL Estim Creat Clear Calc 55 ml/min Estimated GFR > 60 (59 - ) Glucose 115 H (70-99) mg/dL POC Capillary Glucose 178 H (65-105) mg/dl Calculated Osmolality 285 (285-295) mOsm/kg Lactic Acid 7.7 H (0.4-2.0) mmol/L Calcium 8.5 (8.5-10.1) mg/dL Total Bilirubin 0.6 (0.00-1.00) mg/dL AST 33 (15-37) U/L ALT 20 (16-63) U/L Alkaline Phosphatase 268 H (46-116) U/L Ammonia 26 (11-32) umol/L Troponin I 11.6 (0.00-60.4) ng/L Total Protein 6.5 (6.4-8.2) g/dL Albumin 2.5 L (3.4-5.0) g/dL Lipase 59 (16-77) U/L Ethyl Alcohol 328 H* (0-6) mg/dL Influenza A (RT-PCR) Negative (Negative) Influenza B (RT-PCR) Negative (Negative) RSV (RT-PCR) Negative (Negative) SARS-CoV-2 RNA (RT-PCR) Negative (Negative) Critical Care Time Critical Care Time Critical Care Time: Yes Total Critical Care Time: 30 Discharge Plan Discharge Clinical Impression: Wernicke encephalopathy, Alcohol intoxication delirium Patient Disposition: Acute Care Hospital Condition: Stable Patient Language: Polish Prescriptions: No Action rosuvastatin [Crestor] 10 mg tablet 10 mg PO DAILY metoprolol succinate 25 mg tablet extended release 24 hr 25 mg PO BID albuterol sulfate [Ventolin HFA] 90 mcg/actuation HFA aerosol inhaler 2 inh inhalation QID PRN (Reason: shortness of breath or wheezing) Eliquis 5 mg tablet 5 mg PO BID Follow-up/Referrals: UNKNOWN,DOCTOR [Primary Care Provider] -
[2024-04-08] MEDS: KCL 20 MEQ/SW 100 ML 100 ML 50 MEQ IVPB (12:41)
[2024-04-08 13:16] LABS: Add Urine Microscopic? NO; Appearance Urine Clear (Clear); Bilirubin Urine Negative (Negative); Blood Urine Negative (Negative); Color Urine Light Yellow (Yellow); Glucose Urine UA Negative (Negative); Ketones Urine Negative (Negative); Leukocyte Esterase Ur Negative LEU/UL (Negative); Nitrate Urine Negative (Negative); Protein Urine Negative (Negative); Urobilinogen Urine 0.2 mg/dL (0.2-1.0); pH Urine 5.5 (5.0-8.0)
[2024-04-08 13:25] LABS: Amphetamine Screen Urine Positive (Negative); Barbiturate Screen Urine Negative (Negative); Benzodiazepines Screen Urine Negative (Negative); Cannabinoid Screen Urine Negative (Negative); Cocaine Screen Urine Negative (Negative); Methadone Screen Urine Negative (Negative); Opiate Screen Urine Negative (Negative); Phencyclidine Screen Urine Negative (Negative)
[2024-04-08] MEDS: levoFLOXacin 500 MG/D5W 100 ML 500 MG/100 ML BAG 100 MG IVPB (14:16)
[2024-04-08 14:47] LABS: Reflex Lactic Acid Yes or No Add Lactic
[2024-04-08 15:24] LABS: Lactic Acid 6.6 mmol/L (0.4-2.0)
--- NOTE | 2024-04-11 13:38 | PC.NURSE ---
Preliminary blood culture report; no growth to date
== END 2024-04-08 15:30 | disposition short-term general hospital (02) ==
PROVIDERS: Emergency Provider Emergency Medicine
DX: E51.2 Wernicke's encephalopathy (principal); F10.121 Alcohol abuse with intoxication delirium; I10 Essential (primary) hypertension; J44.9 Chronic obstructive pulmonary disease, unspecified; E78.5 Hyperlipidemia, unspecified; Z79.01 Long term (current) use of anticoagulants; Z79.51 Long term (current) use of inhaled steroids; Z79.899 Other long term (current) drug therapy; Z20.822 Contact with and (suspected) exposure to COVID-19
CPT/HCPCS: 36415; 70450; 71260; 74177; 80053; 80307; 81003; 82077; 82140; 82948; 83605; 83690; 84484; 85025; 85610; 85730; 87040; 87637; 93005; 96361; 96365; 96366; 96367; 96375; 99285; J1885; J1956; J2060; J3411; J3475; J3480; J7030; Q9967

== ENCOUNTER 2024-07-04 15:22 | Outpatient (CLI) | payer MEDICARE, SELFPAY ==
--- OUTSIDE RECORDS SUMMARY | 2024-07-04 15:32 | XMS_ITS | Referral Summary ---
Author Organization [facility] Address [address] [place] [address] Care Team Providers Care Facilities Painter Name Role Phone MARJAN Arevalo Jr., Navni Velasquez Primary Care Provider Encounters Date Type Department Care Team Description 05/05/[address] [place] [address] Janelle Juarez RN 04/28/2024 1:10 PM ASSISTANT PROFESSOR OF PHYSICS - 05/05/2024 2:42 PM ASSISTANT PROFESSOR OF PHYSICS Hospital Encounter [address] [phone] Mayra Kenyon MD Kalvala, MD Kash Wagoner Monique Wietske, MD Alcohol use disorder (Primary Dx); Deficit in activities of daily living (ADL); Generalized weakness; Need for physical therapy assessment; Cellulitis of right foot Discharge Disposition: Discharge to SNF 05/04/[address] [place] [address] Janelle Juarez RN 05/01/2024 8:25 AM ASSISTANT PROFESSOR OF PHYSICS Ancillary Procedure [facility] IP [address] [facility] [address] [place] [phone] 04/08/2024 5:08 PM ASSISTANT PROFESSOR OF PHYSICS - 04/12/2024 1:58 PM ASSISTANT PROFESSOR OF PHYSICS Hospital Encounter [facility] [address] [facility] [place] [address] Herberth Quinones MD Ablordeppey, MD Loenela Roberts Michael Christopher, MD Alcohol withdrawal syndrome, with delirium (HCC) (Primary Dx); Diagnosis unknown; Compression fx, thoracic spine, closed, initial encounter (HCC); Frequent falls; Hypokalemia; Dehydration; Lactic acidosis Discharge Disposition: Discharge to home or self care from Last 3 Months Allergies No known active allergies Medications albuterol HFA (PROVENTIL HFA,VENTOLIN HFA,PROAIR HFA) 90 mcg/actuation inhaler Inhale 2 puffs every 4 (four) hours as needed Active aspirin 81 mg capsule Take 1 capsule every day by oral route. Active metoprolol tartrate (LOPRESSOR) 25 mg immediate release tablet Take 1 tablet twice a day by oral route. 4 Active rosuvastatin (CRESTOR) 10 mg tablet Take 1 tablet every day by oral route. 4 Active umeclidinium-vilan teroL (ANORO ELLIPTA) 62.5-25 mcg/actuation blister with device Inhale 1 puff every day by inhalation route. Active folic acid (FOLVITE) 1 mg tablet Take 1 tablet (1 mg total) by mouth daily 30 tablet 5 Active senna-docusate (PERICOLACE) 8.6-50 mgIndications:cons tipation Take 1 tablet by mouth daily 30 tablet 5 Active vitamin B complex with vitamin C tabletIndications: Vitamin Deficiency Prevention Take 1 tablet by mouth daily 30 tablet 5 Active acetaminophen (TYLENOL) 325 mg tabletIndications: Fever,Pain Take 2 tablets (650 mg total) by mouth every 4 (four) hours as needed for pain, headaches or fever 5 Active apixaban (Eliquis) 5 mg tabletIndications: atrial fibrillation Take 2 tablets (10 mg total) by mouth 2 (two) times a day for 6 doses 5 Active apixaban (Eliquis) 5 mg tablet Take 1 tablet (5 mg total) by mouth 2 (two) times a day Starting 05/09/2024 5 Active ondansetron ODT (ZOFRAN-ODT) 4 mg disintegrating tabletIndications: Nausea and Vomiting Take 1 tablet (4 mg total) by mouth every 6 (six) hours as needed for nausea or vomiting 5 Active sertraline (ZOLOFT) 50 mg tablet Take 1 tablet (50 mg total) by mouth daily 5 026 Active multivitamin with folic acid 400 mcg tablet Take 1 tablet by mouth daily 5 026 Active Active Problems Problem Noted Date Diagnosed Date Depression 05/04/2024 Assessment & Plan (05/05/2024 2:45 PM ASSISTANT PROFESSOR OF PHYSICS): Since in family 9mo ago and now decreased physcial abillity, patient has been experiencing decreased appetite, low mood, anhedonia, and increased daytime sleeping. He likely has depression. He denies hx of depression or prior use of antidepressants -sertraline 50mg daily (05/04-current) Assessment & Plan (05/04/2024 5:08 PM ASSISTANT PROFESSOR OF PHYSICS): Since in family 9mo ago and now decreased physcial abillity, patient has been experiencing decreased appetite, low mood, anhedonia, and increased daytime sleeping. He likely has depression. He denies hx of depression or prior use of antidepressants -sertraline 50mg daily (05/04-current) Macrocytic anemia 05/03/2024 Assessment & Plan (05/05/2024 2:45 PM ASSISTANT PROFESSOR OF PHYSICS): Hgb at baseline ~9, MCV 100.4; likely related to EtOH use -B12 wnl Assessment & Plan (05/04/2024 5:08 PM ASSISTANT PROFESSOR OF PHYSICS): Hgb at baseline ~9, MCV 100.4; likely related to EtOH use -B12 pending Assessment & Plan (05/03/2024 4:48 PM ASSISTANT PROFESSOR OF PHYSICS): Hgb at baseline ~9, MCV 100.4; likely related to EtOH use -B12 pending Noncompliance with medication regimen 05/01/2024 Assessment & Plan (05/05/2024 2:45 PM ASSISTANT PROFESSOR OF PHYSICS): Pt endorse not taking medications including eliquis for afib Assessment & Plan (05/04/2024 5:08 PM ASSISTANT PROFESSOR OF PHYSICS): Pt endorse not taking medications including eliquis for afib Assessment & Plan (05/03/2024 4:48 PM ASSISTANT PROFESSOR OF PHYSICS): Pt endorse not taking medications including eliquis for afib DVT, bilateral lower limbs 05/01/2024 Assessment & Plan (05/05/2024 2:45 PM ASSISTANT PROFESSOR OF PHYSICS): There are bilateral DVT in lower limbs on 05/01/24. Right: right posterior tibial veins, single peroneal vein and gastrocnemius veins. Left: gastrocnemius veins. Pt was on Eliquis 5mg bid at home for afib, does report noncompliance and was not taking it past few weeks. Said had DUI on his way to pharmacy and never picked up his medications. Eliquis 10mg bid for 7 days (end date april) then switch to 5mg bid. Assessment & Plan (05/04/2024 5:08 PM ASSISTANT PROFESSOR OF PHYSICS): There are bilateral DVT in lower limbs on 05/01/24. Right: right posterior tibial veins, single peroneal vein and gastrocnemius veins. Left: gastrocnemius veins. Pt was on Eliquis 5mg bid at home for afib, does report noncompliance and was not taking it past few weeks. Said had DUI on his way to pharmacy and never picked up his medications. Eliquis 10mg bid for 7 days (end date april) then switch to 5mg bid. Assessment & Plan (05/03/2024 4:48 PM ASSISTANT PROFESSOR OF PHYSICS): There are bilateral DVT in lower limbs on 05/01/24. Right: right posterior tibial veins, single peroneal vein and gastrocnemius veins. Left: gastrocnemius veins. Pt was on Eliquis 5mg bid at home for afib, does report noncompliance and was not taking it past few weeks. Said had DUI on his way to pharmacy and never picked up his medications. Eliquis 10mg bid for 7 days (end date april) then switch to 5mg bid. Cellulitis 04/29/2024 Assessment & Plan (05/05/2024 2:45 PM ASSISTANT PROFESSOR OF PHYSICS): Feet with abrasions that per patient started as blisters, possibly related to swelling from DVTs Cellulits primarily in R. Foot, wound in both feet 3/ CT Extensive bilateral soft tissue thickening of the lower extremities without organized fluid collection. -cefazolin (04/28-05/01) to augmentin (05/01-05/03) -wound c/s: Apply Vaseline gauze or adaptic to wounds and cover with a dry drsg and wrap with kerlix daily and PRN Assessment & Plan (05/04/2024 5:08 PM ASSISTANT PROFESSOR OF PHYSICS): Feet with abrasions that per patient started as blisters, possibly related to swelling from DVTs Cellulits primarily in R. Foot, wound in both feet 3/ CT Extensive bilateral soft tissue thickening of the lower extremities without organized fluid collection. -cefazolin (04/28-05/01) to augmentin (05/01-05/03) -wound c/s: Apply Vaseline gauze or adaptic to wounds and cover with a dry drsg and wrap with kerlix daily and PRN Assessment & Plan (05/03/2024 4:48 PM ASSISTANT PROFESSOR OF PHYSICS): Feet with abrasions that per patient started as blisters, possibly related to swelling from DVTs Cellulits primarily in R. Foot, wound in both feet 3/ CT Extensive bilateral soft tissue thickening of the lower extremities without organized fluid collection. -cefazolin (04/28-05/01) to augmentin (05/01-05/03) -wound c/s: Apply Vaseline gauze or adaptic to wounds and cover with a dry drsg and wrap with kerlix daily and PRN Alcohol use disorder 04/28/2024 Assessment & Plan (05/05/2024 2:45 PM ASSISTANT PROFESSOR OF PHYSICS): Drinks 10 shots fireball daily, last drink 04/28 AM. Increased EtOH use x9mo iso accidental in the family. -s/p valium 10mg in ED -s/p CIWA w/ prn ativan -thiamine, folate, MVI -SW c/s for resources - discussed naltrexone, currently patient favors using sertraline for depression, but if he has alcohol cravings after discharge encouraged to consider naltrexone. Assessment & Plan (05/04/2024 5:08 PM ASSISTANT PROFESSOR OF PHYSICS): Drinks 10 shots fireball daily, last drink 04/28 AM. Increased EtOH use x9mo iso accidental in the family. -s/p valium 10mg in ED -s/p CIWA w/ prn ativan -thiamine, folate, MVI -SW c/s for resources - discussed naltrexone, currently patient favors using sertraline for depression, but if he has alcohol cravings after discharge encouraged to consider naltrexone. Assessment & Plan (05/03/2024 4:48 PM ASSISTANT PROFESSOR OF PHYSICS): Drinks 10 shots fireball daily, last drink 04/28 AM. Increased EtOH use x9mo iso accidental in the family. -s/p valium 10mg in ED -s/p CIWA w/ prn ativan -thiamine, folate, MVI -SW c/s for resources -plan for naltrexone on discharge Paroxysmal A-fib 04/28/2024 Assessment & Plan (05/05/2024 2:45 PM ASSISTANT PROFESSOR OF PHYSICS): -cont Eliquis for now (though if pt ultimately elects to return home instead of rehab, may consider holding in the setting of recurrent falls) -cont home metop Assessment & Plan (05/04/2024 5:08 PM ASSISTANT PROFESSOR OF PHYSICS): -cont Eliquis for now (though if pt ultimately elects to return home instead of rehab, may consider holding in the setting of recurrent falls) -cont home metop Assessment & Plan (05/03/2024 4:48 PM ASSISTANT PROFESSOR OF PHYSICS): -cont Eliquis for now (though if pt ultimately elects to return home instead of rehab, may consider holding in the setting of recurrent falls) -cont home metop Severe malnutrition 04/11/2024 Assessment & Plan (05/05/2024 2:45 PM ASSISTANT PROFESSOR OF PHYSICS): -RD c/, rec ensure plus high protein Assessment & Plan (05/04/2024 5:08 PM ASSISTANT PROFESSOR OF PHYSICS): -RD c/, rec ensure Assessment & Plan (05/03/2024 4:48 PM ASSISTANT PROFESSOR OF PHYSICS): -RD c/, rec ensure CAD (coronary artery disease) 04/10/2024 Assessment & Plan (05/05/2024 2:45 PM ASSISTANT PROFESSOR OF PHYSICS): -cont statin, metop Assessment & Plan (05/04/2024 5:08 PM ASSISTANT PROFESSOR OF PHYSICS): -cont statin, metop Assessment & Plan (05/03/2024 4:48 PM ASSISTANT PROFESSOR OF PHYSICS): -cont statin, metop Assessment & Plan (04/10/2024 1:39 PM ASSISTANT PROFESSOR OF PHYSICS): CAD, multivessel per CT lung cancer screen 07/22, with evidence of anterior CA with scar per MPI 10/22: Atorvastatin, Nitroglycerin, HTN (hypertension) 04/10/2024 Assessment & Plan (05/05/2024 2:45 PM ASSISTANT PROFESSOR OF PHYSICS): -cont lopressor 25 bid Assessment & Plan (05/04/2024 5:08 PM ASSISTANT PROFESSOR OF PHYSICS): -cont lopressor 25 bid Assessment & Plan (05/03/2024 4:48 PM ASSISTANT PROFESSOR OF PHYSICS): -cont lopressor 25 bid Assessment & Plan (04/10/2024 1:40 PM ASSISTANT PROFESSOR OF PHYSICS): Chronic Metoprolol 25 mg bid Compression fx, thoracic spine 04/09/2024 Assessment & Plan (05/05/2024 2:45 PM ASSISTANT PROFESSOR OF PHYSICS): He was recently admitted to [facility] 04/08-04/12, where he was found to have T1, T3, T4, and T6 fxs, managed non-operatively, TLSO brace placed for comfort. Has been non-ambulatory/couch-ridden at home related to severe pain and has not been wearing brace. -cont TLSO brace -pain control: APAP PRN -PT/OT c/s: SNF; daughter is considering home with home health rather than current accepting SNF Assessment & Plan (05/04/2024 5:08 PM ASSISTANT PROFESSOR OF PHYSICS): He was recently admitted to [facility] 04/08-04/12, where he was found to have T1, T3, T4, and T6 fxs, managed non-operatively, TLSO brace placed for comfort. Has been non-ambulatory/couch-ridden at home related to severe pain and has not been wearing brace. -cont TLSO brace -pain control: APAP PRN -PT/OT c/s: SNF; daughter is considering home with home health rather than current accepting SNF Assessment & Plan (05/03/2024 4:48 PM ASSISTANT PROFESSOR OF PHYSICS): He was recently admitted to [facility] 04/08-04/12, where he was found to have T1, T3, T4, and T6 fxs, managed non-operatively, TLSO brace placed for comfort. Has been non-ambulatory/couch-ridden at home related to severe pain and has not been wearing brace. -cont TLSO brace -pain control: APAP PRN -PT/OT c/s: SNF; daughter is considering home with home health rather than current accepting SNF Assessment & Plan (04/11/2024 7:09 AM ASSISTANT PROFESSOR OF PHYSICS): Ortho spine consult #Falls - hCT, C-spine CT, CT C/A/P unremarkable aside from T-spine fractures #T1, T3, T4, and T6 fx, age indeterminate 04/09 spine: Total spine MRI w/wo contrast completed 04/10 No operative management Ambulate with assistance 04/11 TLSO brace for comfort Scoli films pending Alcohol abuse 04/09/2024 Assessment & Plan (04/11/2024 12:15 PM ASSISTANT PROFESSOR OF PHYSICS): #AUD - continue to monitor - phenobarb loading dose given in the ED with plan to transition to diazepam -CD completed 04/09 04/11 no signs of withdrawal, no events overnight Bronchiectasis 11/19/2023 Multiple nodules of lung 11/19/2023 Assessment & Plan (05/05/2024 2:45 PM ASSISTANT PROFESSOR OF PHYSICS): Seen on imaging last admit:CT 04/08/2024 with indeterminate lung nodules, recommend follow-up in 6 months (~09/2024) -outpatient f/u Assessment & Plan (05/04/2024 5:08 PM ASSISTANT PROFESSOR OF PHYSICS): Seen on imaging last admit:CT 04/08/2024 with indeterminate lung nodules, recommend follow-up in 6 months (~09/2024) -outpatient f/u Assessment & Plan (05/03/2024 4:48 PM ASSISTANT PROFESSOR OF PHYSICS): Seen on imaging last admit:CT 04/08/2024 with indeterminate lung nodules, recommend follow-up in 6 months (~09/2024) -outpatient f/u Assessment & Plan (04/10/2024 1:33 PM ASSISTANT PROFESSOR OF PHYSICS): Hx of same in past Multiple left lower lobe pulmonary nodules, many of which are calcified likely representing old granulomatous disease. A 6 mm noncalcified nodule is indeterminate but may also represent sequela of old granulomatous disease. Follow-up CT in 6 months could be considered if clinically indicated. Chronic obstructive pulmonary disease 09/17/2023 Assessment & Plan (05/05/2024 2:45 PM ASSISTANT PROFESSOR OF PHYSICS): -cont anoro ellipta, prn albuterol Assessment & Plan (05/04/2024 5:08 PM ASSISTANT PROFESSOR OF PHYSICS): -cont anoro ellipta, prn albuterol Assessment & Plan (05/03/2024 4:48 PM ASSISTANT PROFESSOR OF PHYSICS): -cont anoro ellipta, prn albuterol Assessment & Plan (04/10/2024 1:29 PM ASSISTANT PROFESSOR OF PHYSICS): Home Trelegy Anoro Ellipta 6.25 mcg / 25 mcg Albuterol prn Q 6 hrs No oxygen thearpy Resolved Problems Problem Noted Date Diagnosed Date Resolved Date Open wound of dorsum of foot 04/28/2024 04/29/2024 Assessment & Plan (04/28/2024 6:21 PM ASSISTANT PROFESSOR OF PHYSICS): BL dorsal food blistering wounds w/ associated swelling/erythema/warmth c/f possible superimposed cellulitis. -cont cefazolin -wound c/s -check LED to r/o DVT Social History Tobacco Use Types Packs/Day Years Used Date Smoking Tobacco: Former Cigarettes 1.3 50 1 974 - 2023 Passive Smoke Exposure: Past Smokeless Tobacco: Never Tobacco Cessation:Counseling Given: Yes [place] Answer Date Recorded In the past 12 months has [employer], gas, oil, or water [facility] threatened to shut off services in your home? No 05/03/2024 Social Connection and Isolat ion Panel [NHANES] Answer Date Recorded In a typical week, how many times do you talk on the phone with family, friends, or neighbors? More than three times a week 05/03/2024 How often do you get togethe r with friends or relatives? More than three times a week 05/03/2024 How often do you attend chur ch or denominational services? Never 05/03/2024 Do you belong to any clubs o r organizations such as yarsanism groups, unions, fraternal or athletic groups, or school groups? No 05/03/2024 How often do you attend meet ings of the clubs or organizations you belong to? Never 05/03/2024 Are you , , di vorced, , never , or living with a partner? Never 05/03/2024 Overall Financial Resource Strain (CARDIA) Answe r Date Recorded How hard is it for you to pa y for the very basics like food, housing, medical care, and heating? Not hard at all 05/03/2024 PHQ-2 Answer Date Recorded PHQ-2 Total Score 0 05/02/2024 Hunger Vital Sign Answer Date Recorded Within the past 12 months, y ou worried that your food would run out before you got the money to buy more. Never true 05/04/19 25 Within the past 12 months, t he food you bought just didn't last and you didn't have money to get more. Never true 05/03/2024 PRAPARE - Transportation Answer Date Re corded In the past 12 months, has l ack of transportation kept you from medical appointments or from getting medications? No 06/2024 In the past 12 months, has l ack of transportation kept you from meetings, work, or from getting things needed for daily living? No 05/03/2024 Housing Stability Vital Sign Answer Nikko e Recorded In the last 12 months, was t here a time when you were not able to pay the mortgage or rent on time? No 05/03/2024 In the past 12 months, how m any times have you moved where you were living? 0 05/03/2024 At any time in the past 12 m [facility], were you homeless or living in a nursing home (including now)? No 05/03/2024 Personal Safety Answer Date Recorded Have you ever been in or are you currently in a harmful physical or emotional relationship or is someone making you feel afraid or unsafe? Denies 04/30/2024 Sex and Gender Information Value Date Recorded Sex Assigned at Not on file Legal Sex Male 8:45 PM ASSISTANT PROFESSOR OF PHYSICS Gender Identity Not on file Sexual Orientation Not on file Last Filed Vital Signs Vital Sign Reading Time Taken Comments Blood Pressure 134/94 05/05/2024 9:25 AM ASSISTANT PROFESSOR OF PHYSICS Pulse 92 05/05/2024 9:25 AM ASSISTANT PROFESSOR OF PHYSICS Temperature 37.1 C (98.8 F) 05/05/2024 7:24 AM ASSISTANT PROFESSOR OF PHYSICS Respiratory Rate 19 05/05/2024 7:24 AM ASSISTANT PROFESSOR OF PHYSICS Oxygen Saturation 99% 05/05/2024 7:24 AM ASSISTANT PROFESSOR OF PHYSICS Inhaled Oxygen Concentration - - Weight 68.9 kg (152 lb) 04/30/2024 7:01 AM ASSISTANT PROFESSOR OF PHYSICS Height 188 cm (6' 2 ) 04/30/2024 7:01 AM ASSISTANT PROFESSOR OF PHYSICS Body Mass Index 19.52 04/30/2024 7:01 AM ASSISTANT PROFESSOR OF PHYSICS Plan of Treatment Not on file Procedures Procedure Name Priority Date/Time Associated Diagnosis Comments EGFR Timed 05/05/2024 4:50 AM ASSISTANT PROFESSOR OF PHYSICS DIFFERENTIAL AUTO Timed 05/05/2024 4:5 0 AM ASSISTANT PROFESSOR OF PHYSICS HEPATIC FUNCTION PANEL Timed 05/05/2024 4:50 AM ASSISTANT PROFESSOR OF PHYSICS CBC WITH AUTO DIFFERENTIAL Timed 05/05/2024 4:50 AM ASSISTANT PROFESSOR OF PHYSICS BASIC METABOLIC PANEL Timed 05/05/2024 4:50 AM ASSISTANT PROFESSOR OF PHYSICS VITAMIN B12 Timed 05/03/2024 4:36 AM ASSISTANT PROFESSOR OF PHYSICS EGFR Timed 05/03/2024 4:36 AM ASSISTANT PROFESSOR OF PHYSICS DIFFERENTIAL AUTO Timed 05/03/2024 4:3 6 AM ASSISTANT PROFESSOR OF PHYSICS HEPATIC FUNCTION PANEL Timed 05/03/2024 4:36 AM ASSISTANT PROFESSOR OF PHYSICS CBC WITH AUTO DIFFERENTIAL Timed 05/03/2024 4:36 AM ASSISTANT PROFESSOR OF PHYSICS BASIC METABOLIC PANEL Timed 05/03/2024 4:36 AM ASSISTANT PROFESSOR OF PHYSICS PHOSPHORUS Timed 05/02/2024 7:48 PM ASSISTANT PROFESSOR OF PHYSICS MAGNESIUM Timed 05/02/2024 7:48 PM ASSISTANT PROFESSOR OF PHYSICS US VEIN DUPLEX LOWER EXTREMITY BILATERAL COMPLETE IP Routine 05/01/2024 10:03 AM ASSISTANT PROFESSOR OF PHYSICS EGFR Timed 05/01/2024 4:35 AM ASSISTANT PROFESSOR OF PHYSICS DIFFERENTIAL AUTO Timed 05/01/2024 4:3 5 AM ASSISTANT PROFESSOR OF PHYSICS HEPATIC FUNCTION PANEL Timed 05/01/2024 4:35 AM ASSISTANT PROFESSOR OF PHYSICS CBC WITH AUTO DIFFERENTIAL Timed 05/01/2024 4:35 AM ASSISTANT PROFESSOR OF PHYSICS BASIC METABOLIC PANEL Timed 05/01/2024 4:35 AM ASSISTANT PROFESSOR OF PHYSICS PHOSPHORUS Timed 05/01/2024 4:35 AM ASSISTANT PROFESSOR OF PHYSICS MAGNESIUM Timed 05/01/2024 4:35 AM ASSISTANT PROFESSOR OF PHYSICS CT FOOT BILATERAL W CONTRAST ED 04/29/2024 9:58 AM ASSISTANT PROFESSOR OF PHYSICS EGFR Timed 04/29/2024 5:30 AM ASSISTANT PROFESSOR OF PHYSICS DIFFERENTIAL AUTO Timed 04/29/2024 5:3 0 AM ASSISTANT PROFESSOR OF PHYSICS HEPATIC FUNCTION PANEL Timed 04/29/2024 5:30 AM ASSISTANT PROFESSOR OF PHYSICS CBC WITH AUTO DIFFERENTIAL Timed 04/29/2024 5:30 AM ASSISTANT PROFESSOR OF PHYSICS BASIC METABOLIC PANEL Timed 04/29/2024 5:30 AM ASSISTANT PROFESSOR OF PHYSICS PHOSPHORUS Timed 04/29/2024 5:30 AM ASSISTANT PROFESSOR OF PHYSICS MAGNESIUM Timed 04/29/2024 5:30 AM ASSISTANT PROFESSOR OF PHYSICS URINALYSIS AND REFLEX TO MICROSCOPIC STAT 04/28/2024 1:21 PM ASSISTANT PROFESSOR OF PHYSICS ECG 12-LEAD STAT 04/28/2024 1:13 PM ASSISTANT PROFESSOR OF PHYSICS EGFR STAT 04/28/2024 12:57 PM ASSISTANT PROFESSOR OF PHYSICS DIFFERENTIAL AUTO STAT 04/28/2024 12: 57 PM ASSISTANT PROFESSOR OF PHYSICS COMPREHENSIVE METABOLIC PANEL STAT 04/28/2024 12:57 PM ASSISTANT PROFESSOR OF PHYSICS CBC WITH AUTO DIFFERENTIAL STAT 04/28/2024 12:57 PM ASSISTANT PROFESSOR OF PHYSICS EGFR STAT 04/28/2024 12:42 PM ASSISTANT PROFESSOR OF PHYSICS COMPREHENSIVE METABOLIC PANEL STAT 04/28/2024 12:42 PM ASSISTANT PROFESSOR OF PHYSICS XR SCOLIOSIS AP LAT IP Routine 04/12/2024 1 0:27 AM ASSISTANT PROFESSOR OF PHYSICS DIFFERENTIAL AUTO Routine 04/12/2024 8:2 6 AM ASSISTANT PROFESSOR OF PHYSICS CBC WITH AUTO DIFFERENTIAL Routine 04/12/2024 8:26 AM ASSISTANT PROFESSOR OF PHYSICS DIFFERENTIAL AUTO Routine 04/12/2024 5:1 9 AM ASSISTANT PROFESSOR OF PHYSICS CBC WITH AUTO DIFFERENTIAL Routine 04/12/2024 5:19 AM ASSISTANT PROFESSOR OF PHYSICS RPR Routine 04/12/2024 5:19 AM ASSISTANT PROFESSOR OF PHYSICS HEPATITIS C ANTIBODY Routine 04/12/2024 5:19 AM ASSISTANT PROFESSOR OF PHYSICS HEPATITIS B SURFACE ANTIGEN Routine 04/12/2024 5:19 AM ASSISTANT PROFESSOR OF PHYSICS HIV 1/2 ANTIBODY PLUS P24 ANTIGEN Routine 04/12/2024 5:19 AM ASSISTANT PROFESSOR OF PHYSICS EGFR STAT 04/11/2024 9:17 AM ASSISTANT PROFESSOR OF PHYSICS DIFFERENTIAL AUTO STAT 04/11/2024 9: 17 AM ASSISTANT PROFESSOR OF PHYSICS MAGNESIUM STAT 04/11/2024 9:17 AM ASSISTANT PROFESSOR OF PHYSICS PHOSPHORUS STAT 04/11/2024 9:17 AM ASSISTANT PROFESSOR OF PHYSICS BASIC METABOLIC PANEL STAT 04/11/2024 9:17 AM ASSISTANT PROFESSOR OF PHYSICS CBC WITH AUTO DIFFERENTIAL STAT 04/11/2024 9:17 AM ASSISTANT PROFESSOR OF PHYSICS MRI SPINE TOTAL COMPLETE W WO CONTRAST ED Urgent/IP Urgent 04/10/2024 5:03 PM ASSISTANT PROFESSOR OF PHYSICS EGFR Routine 04/09/2024 8:00 PM ASSISTANT PROFESSOR OF PHYSICS PHOSPHORUS Routine 04/09/2024 8:00 PM ASSISTANT PROFESSOR OF PHYSICS MAGNESIUM Routine 04/09/2024 8:00 PM ASSISTANT PROFESSOR OF PHYSICS BASIC METABOLIC PANEL Routine 04/09/2024 8:00 PM ASSISTANT PROFESSOR OF PHYSICS CBC WITHOUT DIFFERENTIAL Routine 04/09/2024 8:00 PM ASSISTANT PROFESSOR OF PHYSICS EGFR STAT 04/08/2024 11:53 PM ASSISTANT PROFESSOR OF PHYSICS DIFFERENTIAL AUTO STAT 04/08/2024 11: 53 PM ASSISTANT PROFESSOR OF PHYSICS COMPREHENSIVE METABOLIC PANEL STAT 04/08/2024 11:53 PM ASSISTANT PROFESSOR OF PHYSICS CBC WITH AUTO DIFFERENTIAL STAT 04/08/2024 11:53 PM ASSISTANT PROFESSOR OF PHYSICS BLOOD CULTURE STAT 04/08/2024 11:53 PM ASSISTANT PROFESSOR OF PHYSICS BLOOD CULTURE STAT 04/08/2024 11:53 PM ASSISTANT PROFESSOR OF PHYSICS POCT LACTATE - DEVICE Routine 04/08/2024 11:25 PM ASSISTANT PROFESSOR OF PHYSICS RESPIRATORY PATHOGEN PANEL STAT 04/08/2024 10:54 PM ASSISTANT PROFESSOR OF PHYSICS IA CRITICAL CARE ILL/INJURED PATIENT INIT 30-74 MIN Routine 04/08/2024 10:00 PM ASSISTANT PROFESSOR OF PHYSICS CT CERVICAL SPINE WO CONTRAST ED 04/08/2024 8:31 PM ASSISTANT PROFESSOR OF PHYSICS ECG 12-LEAD STAT 04/08/2024 7:53 PM ASSISTANT PROFESSOR OF PHYSICS URINALYSIS, MICROSCOPIC ONLY STAT 04/08/2024 7:35 PM ASSISTANT PROFESSOR OF PHYSICS URINALYSIS AND REFLEX TO MICROSCOPIC AND CULTURE STAT 04/08/2024 7:35 PM ASSISTANT PROFESSOR OF PHYSICS FOLATE Routine 04/08/2024 7:29 PM ASSISTANT PROFESSOR OF PHYSICS B CHECK SAMPLE STAT 04/08/2024 7:29 PM ASSISTANT PROFESSOR OF PHYSICS MAGNESIUM STAT 04/08/2024 6:49 PM ASSISTANT PROFESSOR OF PHYSICS PHOSPHORUS STAT 04/08/2024 6:49 PM ASSISTANT PROFESSOR OF PHYSICS THYROID FUNCTION CASCADE STAT 04/08/2024 6:49 PM ASSISTANT PROFESSOR OF PHYSICS CREATINE KINASE (CK), TOTAL STAT 04/08/2024 6:49 PM ASSISTANT PROFESSOR OF PHYSICS EGFR STAT 04/08/2024 6:49 PM ASSISTANT PROFESSOR OF PHYSICS DIFFERENTIAL AUTO STAT 04/08/2024 6:4 9 PM ASSISTANT PROFESSOR OF PHYSICS PROTIME-INR STAT 04/08/2024 6:49 PM ASSISTANT PROFESSOR OF PHYSICS APTT STAT 04/08/2024 6:49 PM ASSISTANT PROFESSOR OF PHYSICS TYPE AND SCREEN STAT 04/08/2024 6:49 PM ASSISTANT PROFESSOR OF PHYSICS LIPASE STAT 04/08/2024 6:49 PM ASSISTANT PROFESSOR OF PHYSICS COMPREHENSIVE METABOLIC PANEL STAT 04/08/2024 6:49 PM ASSISTANT PROFESSOR OF PHYSICS CBC WITH AUTO DIFFERENTIAL STAT 04/08/2024 6:49 PM ASSISTANT PROFESSOR OF PHYSICS CT BODY OUTSIDE CONSULT Routine 04/08/2024 6:48 PM ASSISTANT PROFESSOR OF PHYSICS Diagnosis unknown NEURO CT OUTSIDE CONSULT Routine 04/08/2024 6:45 PM ASSISTANT PROFESSOR OF PHYSICS Diagnosis unknown from Last 3 Months Results * eGFR (05/05/2024 4:50 AM ASSISTANT PROFESSOR OF PHYSICS) eGFR >90 >=60 mL/min/1. 73 m2 Comment: Interpretive Data Reference Interval Normal >/= 90 mL/min/1.73m2 Mildly decreased* 60 - 89 mL/min/1.73m2 Mildly to moderately decreased 45 - 59 mL/min/1.73m2 Moderately to severely decreased 30 - 44 mL/min/1.73m2 Severely decreased 15 - 29 mL/min/1.73m2 Kidney Failure < 15 mL/min/1.73m2 *Relative to young adult level Estimated glomerular filtration rate is determined by the 2020 CKD-EPI equation recommended by the National Kidney Foundation (A Unifying Approach to GFR Estimation: Recommendations of the NKF-ASK Task Force on Reassessing the Inclusion of Race in Diagnosing Kidney Disease, JASN 2020). The CKD-EPI equation should not be used for patients with unstable renal function and has not been validated in children and those over 70. Current interpretive data was last reviewed 2020. Blood 05/05/2024 4:50 AM ASSISTANT PROFESSOR OF PHYSICS 05/05/2024 5:33 AM ASSISTANT PROFESSOR OF PHYSICS us Chin Hagan MD LAB BLOOD ORDERABLES F inal Result [facility] Department [place] [address] * (ABNORMAL) Differential, auto (05/05/2024 4:50 AM ASSISTANT PROFESSOR OF PHYSICS) Neutrophil abs 8.2(H) 1.5 - 6.5 K/cumm Imm gran abs 0.1 0.0 - 0.1 K/cumm [facility] Lymphocyte abs 2.3 0.8 - 3.3 K/cumm [facility] Monocyte abs 1.3(H) 0.2 - 0.8 K/cumm [facility] Eosinophil abs 0.2 0.0 - 0.5 K/cumm [facility] Basophil abs 0.1 0.0 - 0.1 K/cumm [facility] Neutrophil pct 67.5 % [facility] Comment: Interpretive Data Percent cell count reference ranges are not reported, since discordance with absolute values may lead to misinterpretation of CBC data. Current Interpretive Data was last revised on 2017. Imm gran pct 1.0 % [facility] Comment: Interpretive Data Percent cell count reference ranges are not reported, since discordance with absolute values may lead to misinterpretation of CBC data. Current Interpretive Data was last revised on 2017. Lymphocyte pct 18.7 % [facility] Comment: Interpretive Data Percent cell count reference ranges are not reported, since discordance with absolute values may lead to misinterpretation of CBC data. Current Interpretive Data was last revised on 2017. Monocyte pct 10.7 % [facility] Comment: Interpretive Data Percent cell count reference ranges are not reported, since discordance with absolute values may lead to misinterpretation of CBC data. Current Interpretive Data was last revised on 2017. Eosinophil pct 1.6 % [facility] Comment: Interpretive Data Percent cell count reference ranges are not reported, since discordance with absolute values may lead to misinterpretation of CBC data. Current Interpretive Data was last revised on 2017. Basophil pct 0.5 % [facility] Comment: Interpretive Data Percent cell count reference ranges are not reported, since discordance with absolute values may lead to misinterpretation of CBC data. Current Interpretive Data was last revised on 2017. Blood 05/05/2024 4:50 AM ASSISTANT PROFESSOR OF PHYSICS 05/05/2024 5:36 AM ASSISTANT PROFESSOR OF PHYSICS us Chin Hagan MD LAB BLOOD ORDERABLES F inal Result [facility] Department [place] [address] * (ABNORMAL) CBC with auto differential (05/05/2024 4:50 AM ASSISTANT PROFESSOR OF PHYSICS) WBC 12.1(H) 3.8 - 9.9 K/cumm Hgb 10.3(L) 13.0 - 17.5 g/dL [facility] Hct 30.5(L) 38.9 - 50.3 % [facility] Plt 305 150 - 400 K/cumm [facility] MPV 10.3 9.1 - 12.3 fL [facility] RBC 3.05(L) 4.30 - 5.80 M/cumm [facility] MCV 100.0(H) 81.3 - 96.4 fL [facility] MCH 33.8(H) 27.1 - 33.3 pg [facility] MCHC 33.8 32.3 - 35.7 g/dL [facility] RDW CV 18.3(H) 11.1 - 14.9 % [facility] RDW SD 65.9(H) 35.7 - 48.1 fL [facility] NRBC abs 0.00 0.00 - 0.01 K/cumm [facility] Blood 05/05/2024 4:50 AM ASSISTANT PROFESSOR OF PHYSICS 05/05/2024 5:36 AM ASSISTANT PROFESSOR OF PHYSICS Chin Hagan MD LAB BLOOD ORDERABLES F inal Result Performing Organization Address [facility] de Phone Number [facility] [place] [address] * (ABNORMAL) Hepatic function panel (05/05/2024 4:50 AM ASSISTANT PROFESSOR OF PHYSICS) [facility] Bilirubin, total 0.6 0.1 - 1.2 mg/dL Bilirubin, direct 0.2 0.1 - 0.3 mg/dL [facility] Protein, pl 5.9(L) 6.5 - 8.5 g/dL [facility] Albumin 2.8(L) 3.5 - 5.0 g/dL [facility] Alk phos 212(H) 40 - 130 Units/L [facility] ALT 24 7 - 55 Units/L [facility] AST 37 10 - 50 Units/L [facility] Blood 05/05/2024 4:50 AM ASSISTANT PROFESSOR OF PHYSICS 05/05/2024 5:33 AM ASSISTANT PROFESSOR OF PHYSICS Chin Hagan MD LAB BLOOD ORDERABLES F inal Result Performing Organization Address [facility] Co de Phone Number [facility] [place] [address] * (ABNORMAL) Basic metabolic panel (05/05/2024 4:50 AM ASSISTANT PROFESSOR OF PHYSICS) Pathologist [facility] Sodium 139 135 - 145 mmol/L Potassium, pl 4.2 3.3 - 4.9 mmol/L [facility] Chloride 107 97 - 110 mmol/L [facility] CO2 27 22 - 32 mmol/L [facility] Anion gap 5 2 - 15 mmol/L [facility] BUN 8 6 - 25 mg/dL [facility] Creatinine 0.60(L) 0.80 - 1.30 mg/dL [facility] Glucose 88 70 - 199 mg/dL [facility] Comment: Interpretive Data Fasting glucose >/= 126 mg/dl is diagnostic for diabetes. Fasting is defined as no caloric intake for at least 8 hours. Fasting glucose between 100 mg/dl to 125 mg/dl is diagnostic of prediabetes. In a patient with classic symptoms of hyperglycemia or hyperglycemic crisis, a random glucose >/= 200 mg/dl is diagnostic for diabetes. In the absence of unequivocal hyperglycemia, results should be confirmed by repeat testing. The classification and Diagnosis of Diabetes Diabetes Care 202; 46: S19-S40. Current interpretive data was last revised 2022. Calcium 8.6 8.5 - 10.3 mg/dL [facility] Blood 05/05/2024 4:50 AM ASSISTANT PROFESSOR OF PHYSICS 05/05/2024 5:33 AM ASSISTANT PROFESSOR OF PHYSICS us Chin Hagan MD LAB BLOOD ORDERABLES F inal Result [facility] Department [place] [address] * eGFR (05/03/2024 4:36 AM ASSISTANT PROFESSOR OF PHYSICS) eGFR >90 >=60 mL/min/1. 73 m2 Comment: Interpretive Data Reference Interval Normal >/= 90 mL/min/1.73m2 Mildly decreased* 60 - 89 mL/min/1.73m2 Mildly to moderately decreased 45 - 59 mL/min/1.73m2 Moderately to severely decreased 30 - 44 mL/min/1.73m2 Severely decreased 15 - 29 mL/min/1.73m2 Kidney Failure < 15 mL/min/1.73m2 *Relative to young adult level Estimated glomerular filtration rate is determined by the 2020 CKD-EPI equation recommended by the National Kidney Foundation (A Unifying Approach to GFR Estimation: Recommendations of the NKF-ASK Task Force on Reassessing the Inclusion of Race in Diagnosing Kidney Disease, JASN 2020). The CKD-EPI equation should not be used for patients with unstable renal function and has not been validated in children and those over 70. Current interpretive data was last reviewed 2020. Blood 05/03/2024 4:36 AM ASSISTANT PROFESSOR OF PHYSICS 05/03/2024 5:19 AM ASSISTANT PROFESSOR OF PHYSICS us Chin Hagan MD LAB BLOOD ORDERABLES F inal Result [facility] Department [place] [address] * (ABNORMAL) Differential, auto (05/03/2024 4:36 AM ASSISTANT PROFESSOR OF PHYSICS) Neutrophil abs 6.3 1.5 - 6.5 K/cumm Imm gran abs 0.1 0.0 - 0.1 K/cumm [facility] Lymphocyte abs 2.1 0.8 - 3.3 K/cumm [facility] Monocyte abs 1.2(H) 0.2 - 0.8 K/cumm [facility] Eosinophil abs 0.2 0.0 - 0.5 K/cumm [facility] Basophil abs 0.1 0.0 - 0.1 K/cumm [facility] Neutrophil pct 63.0 % [facility] Comment: Interpretive Data Percent cell count reference ranges are not reported, since discordance with absolute values may lead to misinterpretation of CBC data. Current Interpretive Data was last revised on 2017. Imm gran pct 1.4 % [facility] Comment: Interpretive Data Percent cell count reference ranges are not reported, since discordance with absolute values may lead to misinterpretation of CBC data. Current Interpretive Data was last revised on 2017. Lymphocyte pct 21.2 % [facility] Comment: Interpretive Data Percent cell count reference ranges are not reported, since discordance with absolute values may lead to misinterpretation of CBC data. Current Interpretive Data was last revised on 2017. Monocyte pct 12.1 % [facility] Comment: Interpretive Data Percent cell count reference ranges are not reported, since discordance with absolute values may lead to misinterpretation of CBC data. Current Interpretive Data was last revised on 2017. Eosinophil pct 1.7 % [facility] Comment: Interpretive Data Percent cell count reference ranges are not reported, since discordance with absolute values may lead to misinterpretation of CBC data. Current Interpretive Data was last revised on 2017. Basophil pct 0.6 % [facility] Comment: Interpretive Data Percent cell count reference ranges are not reported, since discordance with absolute values may lead to misinterpretation of CBC data. Current Interpretive Data was last revised on 2017. Blood 05/03/2024 4:36 AM ASSISTANT PROFESSOR OF PHYSICS 05/03/2024 5:19 AM ASSISTANT PROFESSOR OF PHYSICS us Chin Hagan MD LAB BLOOD ORDERABLES F inal Result [facility] Department [place] [address] * (ABNORMAL) CBC with auto differential (05/03/2024 4:36 AM ASSISTANT PROFESSOR OF PHYSICS) WBC 10.0(H) 3.8 - 9.9 K/cumm Hgb 9.4(L) 13.0 - 17.5 g/dL [facility] Hct 27.7(L) 38.9 - 50.3 % [facility] Plt 327 150 - 400 K/cumm [facility] MPV 10.1 9.1 - 12.3 fL [facility] RBC 2.76(L) 4.30 - 5.80 M/cumm [facility] MCV 100.4(H) 81.3 - 96.4 fL [facility] MCH 34.1(H) 27.1 - 33.3 pg [facility] MCHC 33.9 32.3 - 35.7 g/dL [facility] RDW CV 18.2(H) 11.1 - 14.9 % [facility] RDW SD 65.1(H) 35.7 - 48.1 fL [facility] NRBC abs 0.00 0.00 - 0.01 K/cumm [facility] Blood 05/03/2024 4:36 AM ASSISTANT PROFESSOR OF PHYSICS 05/03/2024 5:19 AM ASSISTANT PROFESSOR OF PHYSICS Chin Hagan MD LAB BLOOD ORDERABLES F inal Result Performing Organization Address [facility] Co de Phone Number [facility] [place] [address] * Vitamin B12 (05/03/2024 4:36 AM ASSISTANT PROFESSOR OF PHYSICS) Pathologist [facility] Vitamin B12 1,141 230 - 1,250 pg/mL Blood 05/03/2024 4:36 AM ASSISTANT PROFESSOR OF PHYSICS 05/03/2024 5:19 AM ASSISTANT PROFESSOR OF PHYSICS Tomasa Hewitt MD LAB BLOOD ORDERABLES Final Result Performing Organization Address [facility] Phone Number [facility] Department [place] [address] * (ABNORMAL) Hepatic function panel (05/03/2024 4:36 AM ASSISTANT PROFESSOR OF PHYSICS) Pathologist [facility] Bilirubin, total 0.5 0.1 - 1.2 mg/dL Bilirubin, direct 0.2 0.1 - 0.3 mg/dL [facility] Protein, pl 5.4(L) 6.5 - 8.5 g/dL [facility] Albumin 2.6(L) 3.5 - 5.0 g/dL [facility] Alk phos 294(H) 40 - 130 Units/L [facility] ALT 34 7 - 55 Units/L [facility] AST 104(H) 10 - 50 Units/L [facility] Blood 05/03/2024 4:36 AM ASSISTANT PROFESSOR OF PHYSICS 05/03/2024 5:19 AM ASSISTANT PROFESSOR OF PHYSICS Chin Hagan MD LAB BLOOD ORDERABLES F inal Result Performing Organization Address [facility] de Phone Number [facility] Department [place] [address] * (ABNORMAL) Basic metabolic panel (05/03/2024 4:36 AM ASSISTANT PROFESSOR OF PHYSICS) Pathologist [facility] Sodium 139 135 - 145 mmol/L Potassium, pl 4.0 3.3 - 4.9 mmol/L [facility] Chloride 105 97 - 110 mmol/L [facility] CO2 28 22 - 32 mmol/L [facility] Anion gap 6 2 - 15 mmol/L [facility] BUN 9 6 - 25 mg/dL [facility] Creatinine 0.69(L) 0.80 - 1.30 mg/dL [facility] Glucose 92 70 - 199 mg/dL [facility] Comment: Interpretive Data Fasting glucose >/= 126 mg/dl is diagnostic for diabetes. Fasting is defined as no caloric intake for at least 8 hours. Fasting glucose between 100 mg/dl to 125 mg/dl is diagnostic of prediabetes. In a patient with classic symptoms of hyperglycemia or hyperglycemic crisis, a random glucose >/= 200 mg/dl is diagnostic for diabetes. In the absence of unequivocal hyperglycemia, results should be confirmed by repeat testing. The classification and Diagnosis of Diabetes Diabetes Care 2021; 46: S19-S40. Current interpretive data was last revised 2022. Calcium 8.1(L) 8.5 - 10.3 mg/dL [facility] Blood 05/03/2024 4:36 AM ASSISTANT PROFESSOR OF PHYSICS 05/03/2024 5:19 AM ASSISTANT PROFESSOR OF PHYSICS Chin Hagan MD LAB BLOOD ORDERABLES F inal Result [facility] [place] [address] * Phosphorus (05/02/2024 7:48 PM ASSISTANT PROFESSOR OF PHYSICS) [facility] Phosphorus, pl 2.5 2.3 - 4.5 mg/dL Blood 05/02/2024 7:48 PM ASSISTANT PROFESSOR OF PHYSICS 05/02/2024 8:30 PM ASSISTANT PROFESSOR OF PHYSICS Chin Hagan MD LAB BLOOD ORDERABLES F inal Result Performing Organization Address [facility] Co de [place] [address] * Magnesium (05/02/2024 7:48 PM ASSISTANT PROFESSOR OF PHYSICS) Magnesium 1.8 1.4 - 2.5 mg/dL Blood 05/02/2024 7:48 PM ASSISTANT PROFESSOR OF PHYSICS 05/02/2024 8:30 PM ASSISTANT PROFESSOR OF PHYSICS Chin Hagan MD LAB BLOOD ORDERABLES F inal Result Performing Organization Address [facility] [place] [address] * US Vein Duplex Lower Extremity Bilateral Complete (05/01/2024 10:03 AM ASSISTANT PROFESSOR OF PHYSICS) Anatomical Region Laterality Modality Vascular Bilateral Ultrasound 05/01/2024 9:21 AM ASSISTANT PROFESSOR OF PHYSICS Narrative 05/01/2024 5:44 PM ASSISTANT PROFESSOR OF PHYSICS [facility] - Department of Vascular Surgery, Vascular Laboratory [address] [place] [id number] Lower Extremity Venous Ultrasound Report Patient Name: HARMAN MELGOZA D : 1960 (64y 1m) Study Date: 05/01/2024 9:21:46 AM Gender: M Tech: Location: [id number] Ref Provider: CHIN HAGAN Quality: Adequate Order Provider: CHIN HAGAN PROCEDURES: Vascular Report: Venous Duplex imaging was performed bilaterally in the lower extremities. The common femoral, femoral, popliteal, posterior tibial, peroneal veins were evaluated for patency, spontaneity and phasicity with Doppler, compression and augmentation maneuvers. Great saphenous vein proximal at the junction was evaluated with compression maneuvers. INDICATIONS: Swelling lower extremity, bilateral. FINDINGS: Performing Warp Knit Operator: Consuelo Calixto RVT. Right: Duplex scan reveals dilated vein with echogenic, intraluminal, non-compressible material consistent with acute deep vein thrombosis in the right lower extremity. Deep veins involved include the right posterior tibial veins, single peroneal vein and gastrocnemius veins. All other evaluated veins on the right are patent. Left: Duplex scan reveals dilated vein with echogenic, intraluminal, non-compressible material consistent with acute deep vein thrombosis in the left lower extremity. Deep veins involved include the gastrocnemius veins. All other evaluated veins are patent. Provider Notification: Results called on the above date to Eleanor Cobb MD. Time called 10:00. CONCLUSIONS: 1. There is acute deep vein thrombosis in the bilateral lower extremities involving vein(s) as noted above. HISTORY: CAD, HTN, AF, COPD, Former smoker. PREVIOUS STUDIES: No previous studies for comparison. DISCLAIMER: The study images and the final report will be retained in the patient chart by the Vascular Laboratory for the legally required time period. This chart constitutes the legal record of any testing performed. ATTESTATION: I have reviewed and interpreted the pertinent images and measurements of this study. I attest to the conclusions in the final report that is provided above. Electronically Signed By: Akin Richardson MD [facility] [phone] 05/01/2024 4:55:38 PM ASSISTANT PROFESSOR OF PHYSICS Procedure Note Akin Richardson MD - 05/01/2024 [employer] - Department of Vascular Surgery,Vascular Laboratory [address] [place] [id number] Lower Extremity Venous Ultrasound Report Patient Name: HARMAN MELGOZA D : 1960 (64y 1m) Study Date: 05/01/2024 9:21:46 AM Gender: M Tech: Location: [id number] Ref Provider: CHIN HAGAN Quality: Adequate Order Provider: CHIN HAGAN PROCEDURES: Vascular Report: Venous Duplex imaging was performed bilaterally in the lower extremities.The common femoral, femoral, popliteal, posterior tibial, peroneal veins wereevaluated for patency, spontaneity and phasicity with Doppler, compression and augmentationmaneuvers. Great saphenous vein proximal at the junction was evaluated with compressionmaneuvers. INDICATIONS: Swelling lower extremity, bilateral. FINDINGS: Performing Warp Knit Operator: Consuelo Calixto RVT. Right: Duplex scan reveals dilated vein with echogenic, intraluminal,non-compressible material consistent with acute deep vein thrombosis in the right lower extremity.Deep veins involved include the right posterior tibial veins, single peroneal veinand gastrocnemius veins. All other evaluated veins on the right are patent. Left: Duplex scan reveals dilated vein with echogenic, intraluminal,non-compressible material consistent with acute deep vein thrombosis in the left lower extremity.Deep veins involved include the gastrocnemius veins. All other evaluated veins arepatent. Provider Notification: Results called on the above date to Eleanor Cobb MD. Timecalled 10:00. CONCLUSIONS: 1. There is acute deep vein thrombosis in the bilateral lower extremitiesinvolving vein(s) as noted above. HISTORY: CAD, HTN, AF, COPD, Former smoker. PREVIOUS STUDIES: No previous studies for comparison. DISCLAIMER: The study images and the final report will be retained in the patientchart by the Vascular Laboratory for the legally required time period. This chartconstitutes the legal record of any testing performed. ATTESTATION: I have reviewed and interpreted the pertinent images and measurements ofthis study. I attest to the conclusions in the final report that is provided above. Electronically Signed By: Akin Richardson MD [facility] [phone] 05/01/2024 4:55:38 PM ASSISTANT PROFESSOR OF PHYSICS us Chin Hagan MD [facility] US PROCEDURES Kandace l Result * eGFR (05/01/2024 4:35 AM ASSISTANT PROFESSOR OF PHYSICS) eGFR >90 >=60 mL/min/1. 73 m2 Comment: Interpretive Data Reference Interval Normal >/= 90 mL/min/1.73m2 Mildly decreased* 60 - 89 mL/min/1.73m2 Mildly to moderately decreased 45 - 59 mL/min/1.73m2 Moderately to severely decreased 30 - 44 mL/min/1.73m2 Severely decreased 15 - 29 mL/min/1.73m2 Kidney Failure < 15 mL/min/1.73m2 *Relative to young adult level Estimated glomerular filtration rate is determined by the 2020 CKD-EPI equation recommended by the National Kidney Foundation (A Unifying Approach to GFR Estimation: Recommendations of the NKF-ASK Task Force on Reassessing the Inclusion of Race in Diagnosing Kidney Disease, JASN 202). The CKD-EPI equation should not be used for patients with unstable renal function and has not been validated in children and those over 70. Current interpretive data was last reviewed 2020. Blood 05/01/2024 4:35 AM ASSISTANT PROFESSOR OF PHYSICS 05/01/2024 5:27 AM ASSISTANT PROFESSOR OF PHYSICS us Chin Hagan MD LAB BLOOD ORDERABLES F inal Result [facility] [place] [address] * (ABNORMAL) Differential, auto (05/01/2024 4:35 AM ASSISTANT PROFESSOR OF PHYSICS) Neutrophil abs 5.4 1.5 - 6.5 K/cumm Imm gran abs 0.1 0.0 - 0.1 K/cumm [facility] Lymphocyte abs 1.8 0.8 - 3.3 K/cumm [facility] Monocyte abs 1.0(H) 0.2 - 0.8 K/cumm [facility] Eosinophil abs 0.1 0.0 - 0.5 K/cumm [facility] Basophil abs 0.0 0.0 - 0.1 K/cumm [facility] Neutrophil pct 64.2 % [facility] Comment: Interpretive Data Percent cell count reference ranges are not reported, since discordance with absolute values may lead to misinterpretation of CBC data. Current Interpretive Data was last revised on 2017. Imm gran pct 1.0 % [facility] Comment: Interpretive Data Percent cell count reference ranges are not reported, since discordance with absolute values may lead to misinterpretation of CBC data. Current Interpretive Data was last revised on 2017. Lymphocyte pct 21.2 % [facility] Comment: Interpretive Data Percent cell count reference ranges are not reported, since discordance with absolute values may lead to misinterpretation of CBC data. Current Interpretive Data was last revised on 2017. Monocyte pct 11.4 % [facility] Comment: Interpretive Data Percent cell count reference ranges are not reported, since discordance with absolute values may lead to misinterpretation of CBC data. Current Interpretive Data was last revised on 2017. Eosinophil pct 1.7 % [facility] Comment: Interpretive Data Percent cell count reference ranges are not reported, since discordance with absolute values may lead to misinterpretation of CBC data. Current Interpretive Data was last revised on 2017. Basophil pct 0.5 % [facility] Comment: Interpretive Data Percent cell count reference ranges are not reported, since discordance with absolute values may lead to misinterpretation of CBC data. Current Interpretive Data was last revised on 2017. Blood 05/01/2024 4:35 AM ASSISTANT PROFESSOR OF PHYSICS 05/01/2024 5:27 AM ASSISTANT PROFESSOR OF PHYSICS Chin Hagan MD LAB BLOOD ORDERABLES F inal Result Performing Organization Address [facility] Co de Phone Number [facility] [place] [address] * (ABNORMAL) CBC with auto differential (05/01/2024 4:35 AM ASSISTANT PROFESSOR OF PHYSICS) Pathologist [facility] WBC 8.4 3.8 - 9.9 K/cumm Hgb 9.5(L) 13.0 - 17.5 g/dL [facility] Hct 27.3(L) 38.9 - 50.3 % [facility] Plt 369 150 - 400 K/cumm [facility] MPV 10.3 9.1 - 12.3 fL [facility] RBC 2.78(L) 4.30 - 5.80 M/cumm [facility] MCV 98.2(H) 81.3 - 96.4 fL [facility] MCH 34.2(H) 27.1 - 33.3 pg [facility] MCHC 34.8 32.3 - 35.7 g/dL [facility] RDW CV 17.9(H) 11.1 - 14.9 % [facility] RDW SD 62.4(H) 35.7 - 48.1 fL [facility] NRBC abs 0.00 0.00 - 0.01 K/cumm [facility] Blood 05/01/2024 4:35 AM ASSISTANT PROFESSOR OF PHYSICS 05/01/2024 5:27 AM ASSISTANT PROFESSOR OF PHYSICS Chin Hagan MD LAB BLOOD ORDERABLES F inal Result Performing Organization Address City/[facility]/ZIP Co de Phone Number [facility] [place] [address] * (ABNORMAL) Phosphorus (05/01/2024 4:35 AM ASSISTANT PROFESSOR OF PHYSICS) Phosphorus, pl 2.2(L) 2.3 - 4.5 mg/dL Blood 05/01/2024 4:35 AM ASSISTANT PROFESSOR OF PHYSICS 05/01/2024 5:27 AM ASSISTANT PROFESSOR OF PHYSICS Chin Hagan MD LAB BLOOD ORDERABLES F inal Result Performing Organization Address City/[facility] Co de Phone Number [facility] [place] [address] * Magnesium (05/01/2024 4:35 AM ASSISTANT PROFESSOR OF PHYSICS) Pathologist [facility] Magnesium 1.7 1.4 - 2.5 mg/dL Blood 05/01/2024 4:35 AM ASSISTANT PROFESSOR OF PHYSICS 05/01/2024 5:27 AM ASSISTANT PROFESSOR OF PHYSICS Chin Hagan MD LAB BLOOD ORDERABLES F inal Result Performing Organization Address [facility] Co de Phone Number [facility] [place] [address] * (ABNORMAL) Hepatic function panel (05/01/2024 4:35 AM ASSISTANT PROFESSOR OF PHYSICS) Pathologist [facility] Bilirubin, total 0.6 0.1 - 1.2 mg/dL Bilirubin, direct 0.3 0.1 - 0.3 mg/dL [facility] Comment:Reviewed Protein, pl 5.3(L) 6.5 - 8.5 g/dL [facility] Albumin 2.3(L) 3.5 - 5.0 g/dL [facility] Alk phos 198(H) 40 - 130 Units/L [facility] ALT 12 7 - 55 Units/L [facility] Comment:Reviewed AST 41 10 - 50 Units/L [facility] Comment:Reviewed Blood 05/01/2024 4:35 AM ASSISTANT PROFESSOR OF PHYSICS 05/01/2024 5:27 AM ASSISTANT PROFESSOR OF PHYSICS us Chin Hagan MD LAB BLOOD ORDERABLES F inal Result Performing Organization Address City/[facility]/ZIP Co de Phone Number [facility] Department [place] [address] * (ABNORMAL) Basic metabolic panel (05/01/2024 4:35 AM ASSISTANT PROFESSOR OF PHYSICS) Sodium 139 135 - 145 mmol/L Potassium, pl 3.7 3.3 - 4.9 mmol/L [facility] Comment:Repeated and Verifie d Chloride 102 97 - 110 mmol/L [facility] CO2 30 22 - 32 mmol/L [facility] Anion gap 7 2 - 15 mmol/L [facility] BUN 13 6 - 25 mg/dL [facility] Creatinine 0.78(L) 0.80 - 1.30 mg/dL [facility] Glucose 92 70 - 199 mg/dL [facility] Comment: Interpretive Data Fasting glucose >/= 126 mg/dl is diagnostic for diabetes. Fasting is defined as no caloric intake for at least 8 hours. Fasting glucose between 100 mg/dl to 125 mg/dl is diagnostic of prediabetes. In a patient with classic symptoms of hyperglycemia or hyperglycemic crisis, a random glucose >/= 200 mg/dl is diagnostic for diabetes. In the absence of unequivocal hyperglycemia, results should be confirmed by repeat testing. The classification and Diagnosis of Diabetes Diabetes Care 2021; 46: S19-S40. Current interpretive data was last revised 2022. Calcium 8.1(L) 8.5 - 10.3 mg/dL [facility] Blood 05/01/2024 4:35 AM ASSISTANT PROFESSOR OF PHYSICS 05/01/2024 5:27 AM ASSISTANT PROFESSOR OF PHYSICS Chin Hagan MD LAB BLOOD ORDERABLES F inal Result Performing Organization Address [facility]/ZIP Co de Phone Number [facility] [place] [address] * CT Foot Bilateral W Contrast (04/29/2024 9:58 AM ASSISTANT PROFESSOR OF PHYSICS) Anatomical Region Laterality Modality Lower Extremities Bilateral Computed Tomog lucho 04/29/2024 10:1 0 AM ASSISTANT PROFESSOR OF PHYSICS Impressions 04/29/2024 10:10 AM ASSISTANT PROFESSOR OF PHYSICS 1. Extensive bilateral soft tissue thickening of the lower extremities without organized fluid collection. Electronically signed by: Prosper Michael M.D. Narrative 04/29/2024 10:10 AM ASSISTANT PROFESSOR OF PHYSICS EXAMINATION: CT FOOT BILATERAL W CONTRAST HISTORY: 64-year-old male with chronic metatarsalgia TECHNIQUE: Computed tomographic images of both feet performed after administration of 69 mL Optiray 350 intravenous contrast per standard protocol. Comparison: None FINDINGS: There is extensive bilateral lower extremity soft tissue swelling of both feet extending approximately to the visualized lower extremity and beyond the [id number]. No organized fluid collections are seen on either side. There is no CT evidence of osteomyelitis. Bilateral os peroneum is noted. On the right, there is an irregularity along the the fibular aspect right navicular (series 5, image 75), likely degenerative. Procedure Note Prosper Michael MD - 04/29/2024 EXAMINATION: CT FOOT BILATERAL W CONTRAST HISTORY: 64-year-old male with chronic metatarsalgia TECHNIQUE: Computed tomographic images of both feet performed after administration of 69 mL Optiray 350 intravenous contrast per standard protocol. Comparison: None FINDINGS: There is extensive bilateral lower extremity soft tissue swelling of both feet extending approximately to the visualized lower extremity and beyond the [id number]. No organized fluid collections are seen on either side. There is no CT evidence of osteomyelitis. Bilateral os peroneum is noted. On the right, there is an irregularity along the the fibular aspect right navicular (series 5, image 75), likely degenerative. IMPRESSION: 1. Extensive bilateral soft tissue thickening of the lower extremities without organized fluid collection. Electronically signed by: Prosper Michael M.D. Nawaftasir Farhad Cobb MD IM CT PROCEDURES Fi nal Result * eGFR (04/29/2024 5:30 AM ASSISTANT PROFESSOR OF PHYSICS) eGFR >90 >=60 mL/min/1. 73 m2 Comment: Interpretive Data Reference Interval Normal >/= 90 mL/min/1.73m2 Mildly decreased* 60 - 89 mL/min/1.73m2 Mildly to moderately decreased 45 - 59 mL/min/1.73m2 Moderately to severely decreased 30 - 44 mL/min/1.73m2 Severely decreased 15 - 29 mL/min/1.73m2 Kidney Failure < 15 mL/min/1.73m2 *Relative to young adult level Estimated glomerular filtration rate is determined by the 2020 CKD-EPI equation recommended by the National Kidney Foundation (A Unifying Approach to GFR Estimation: Recommendations of the NKF-ASK Task Force on Reassessing the Inclusion of Race in Diagnosing Kidney Disease, JASN 2020). The CKD-EPI equation should not be used for patients with unstable renal function and has not been validated in children and those over 70. Current interpretive data was last reviewed 2020. Blood 04/29/2024 5:30 AM ASSISTANT PROFESSOR OF PHYSICS 04/29/2024 5:43 AM ASSISTANT PROFESSOR OF PHYSICS Chin Hagan MD LAB BLOOD ORDERABLES F inal Result [facility] Department [place] [address] * (ABNORMAL) Differential, auto (04/29/2024 5:30 AM ASSISTANT PROFESSOR OF PHYSICS) Pathologist [facility] Neutrophil abs 4.2 1.5 - 6.5 K/cumm Imm gran abs 0.1 0.0 - 0.1 K/cumm [facility] Lymphocyte abs 1.3 0.8 - 3.3 K/cumm [facility] Monocyte abs 1.0(H) 0.2 - 0.8 K/cumm [facility] Eosinophil abs 0.1 0.0 - 0.5 K/cumm [facility] Basophil abs 0.1 0.0 - 0.1 K/cumm [facility] Neutrophil pct 62.5 % [facility] Comment: Interpretive Data Percent cell count reference ranges are not reported, since discordance with absolute values may lead to misinterpretation of CBC data. Current Interpretive Data was last revised on 2017. Imm gran pct 0.9 % [facility] Comment: Interpretive Data Percent cell count reference ranges are not reported, since discordance with absolute values may lead to misinterpretation of CBC data. Current Interpretive Data was last revised on 2017. Lymphocyte pct 19.6 % [facility] Comment: Interpretive Data Percent cell count reference ranges are not reported, since discordance with absolute values may lead to misinterpretation of CBC data. Current Interpretive Data was last revised on 2017. Monocyte pct 14.8 % [facility] Comment: Interpretive Data Percent cell count reference ranges are not reported, since discordance with absolute values may lead to misinterpretation of CBC data. Current Interpretive Data was last revised on 2017. Eosinophil pct 1.5 % [facility] Comment: Interpretive Data Percent cell count reference ranges are not reported, since discordance with absolute values may lead to misinterpretation of CBC data. Current Interpretive Data was last revised on 2017. Basophil pct 0.7 % [facility] Comment: Interpretive Data Percent cell count reference ranges are not reported, since discordance with absolute values may lead to misinterpretation of CBC data. Current Interpretive Data was last revised on 2017. Blood 04/29/2024 5:30 AM ASSISTANT PROFESSOR OF PHYSICS 04/29/2024 5:43 AM ASSISTANT PROFESSOR OF PHYSICS us Chin Hagan MD LAB BLOOD ORDERABLES F inal Result [facility] Department [place] [address] * (ABNORMAL) CBC with auto differential (04/29/2024 5:30 AM ASSISTANT PROFESSOR OF PHYSICS) WBC 6.7 3.8 - 9.9 K/cumm Hgb 9.1(L) 13.0 - 17.5 g/dL [facility] Hct 26.0(L) 38.9 - 50.3 % [facility] Plt 326 150 - 400 K/cumm [facility] MPV 10.6 9.1 - 12.3 fL [facility] RBC 2.65(L) 4.30 - 5.80 M/cumm [facility] MCV 98.1(H) 81.3 - 96.4 fL [facility] MCH 34.3(H) 27.1 - 33.3 pg [facility] MCHC 35.0 32.3 - 35.7 g/dL [facility] RDW CV 17.9(H) 11.1 - 14.9 % [facility] RDW SD 62.7(H) 35.7 - 48.1 fL [facility] NRBC abs 0.00 0.00 - 0.01 K/cumm [facility] Blood 04/29/2024 5:30 AM ASSISTANT PROFESSOR OF PHYSICS 04/29/2024 5:43 AM ASSISTANT PROFESSOR OF PHYSICS Chin Hagan MD LAB BLOOD ORDERABLES F inal Result Performing Organization Address [facility] de Phone Number [facility] [place] [address] * Phosphorus (04/29/2024 5:30 AM ASSISTANT PROFESSOR OF PHYSICS) Phosphorus, pl 3.7 2.3 - 4.5 mg/dL Comment:Hemolyzed; result ma y be falsely elevated Blood 04/29/2024 5:30 AM ASSISTANT PROFESSOR OF PHYSICS 04/29/2024 5:43 AM ASSISTANT PROFESSOR OF PHYSICS Chin Hagan MD LAB BLOOD ORDERABLES F inal Result Performing Organization Address [facility] de Phone Number [facility] [place] [address] * Magnesium (04/29/2024 5:30 AM ASSISTANT PROFESSOR OF PHYSICS) Magnesium 1.7 1.4 - 2.5 mg/dL Blood 04/29/2024 5:30 AM ASSISTANT PROFESSOR OF PHYSICS 04/29/2024 5:43 AM ASSISTANT PROFESSOR OF PHYSICS Chin Hagan MD LAB BLOOD ORDERABLES F inal Result Performing Organization Address City/[facility]/ZIP Co de Phone Number [facility] Department [place] [address] * (ABNORMAL) Hepatic function panel (04/29/2024 5:30 AM ASSISTANT PROFESSOR OF PHYSICS) [facility] Bilirubin, total 0.7 0.1 - 1.2 mg/dL Bilirubin, direct See Comment 0.1 - 0.3 mg/dL [facility] Comment:Credited; Hemolyzed Specimen Protein, pl 5.7(L) 6.5 - 8.5 g/dL [facility] Albumin 2.5(L) 3.5 - 5.0 g/dL [facility] Alk phos 200(H) 40 - 130 Units/L [facility] Comment:Hemolyzed; result ma y be falsely decreased ALT See Comment 7 - 55 Units/L [facility] Comment:Credited; Hemolyzed Specimen AST See Comment 10 - 50 Units/L [facility] Comment:Credited; Hemolyzed Specimen Blood 04/29/2024 5:30 AM ASSISTANT PROFESSOR OF PHYSICS 04/29/2024 5:43 AM ASSISTANT PROFESSOR OF PHYSICS us Chin Hagan MD LAB BLOOD ORDERABLES F inal Result Performing Organization Address [facility] de Phone Number [facility] Department [place] [address] * (ABNORMAL) Basic metabolic panel (04/29/2024 5:30 AM ASSISTANT PROFESSOR OF PHYSICS) [facility] Sodium 138 135 - 145 mmol/L Potassium, pl See Comment 3.3 - 4.9 mmol/L [facility] Comment:Credited; Hemolyzed Specimen Chloride 102 97 - 110 mmol/L [facility] CO2 30 22 - 32 mmol/L [facility] Anion gap 6 2 - 15 mmol/L [facility] BUN 10 6 - 25 mg/dL [facility] Creatinine 0.79(L) 0.80 - 1.30 mg/dL [facility] Glucose 100 70 - 199 mg/dL [facility] Comment: Interpretive Data Fasting glucose >/= 126 mg/dl is diagnostic for diabetes. Fasting is defined as no caloric intake for at least 8 hours. Fasting glucose between 100 mg/dl to 125 mg/dl is diagnostic of prediabetes. In a patient with classic symptoms of hyperglycemia or hyperglycemic crisis, a random glucose >/= 200 mg/dl is diagnostic for diabetes. In the absence of unequivocal hyperglycemia, results should be confirmed by repeat testing. The classification and Diagnosis of Diabetes Diabetes Care 2021; 46: S19-S40. Current interpretive data was last revised 2022. Calcium 7.8(L) 8.5 - 10.3 mg/dL [facility] Blood 04/29/2024 5:30 AM ASSISTANT PROFESSOR OF PHYSICS 04/29/2024 5:43 AM ASSISTANT PROFESSOR OF PHYSICS us Chin Hagan MD LAB BLOOD ORDERABLES F inal Result [facility] Department [place] [address] * Urinalysis reflex to microscopic (04/28/2024 1:21 PM ASSISTANT PROFESSOR OF PHYSICS) Color, ur Yellow Yellow Clarity, ur Clear Clear [facility] Specific gravity, ur 1.011 1.003 - 1.030 [facility] pH, urine 6.0 [facility] Comment: Interpretive Data U rine pH is affected by diet, medications, systemic acid-base disturbances, and renal tubular function. pH may affect urinary stone formation. For example, urine pH below 6.0 may help reduce the tendency for calcium phosphate stones and pH greater than 6.0 may reduce the tendency for uric acid stone formation. Source: [facility] eventuosity Current Interpretive Data was last revised on 2017 Protein, ur ql Trace Negative [facility] Glucose, ur ql Negative Negative [facility] Ketones, ur Negative Negative [facility] Bilirubin, ur Negative Negative [facility] Blood, ur Negative Negative [facility] Urobilinogen, ur <2.0 <2.0 mg/dL [facility] Nitrite, ur Negative Negative [facility] Leukocyte esterase, ur Negative Negative [facility] UA reflex comment Reflex conditions for microscopic UA not met. [facility] Urine 04/28/2024 1:21 PM ASSISTANT PROFESSOR OF PHYSICS 04/28/2024 1:31 PM ASSISTANT PROFESSOR OF PHYSICS Mayra Kenyon MD LAB URINE ORDERABLES Fi nal Result [facility] Department [place] [address] * ECG 12-LEAD (04/28/2024 1:13 PM ASSISTANT PROFESSOR OF PHYSICS) Narrative [facility] [place]/28/2024 1:13 PM ASSISTANT PROFESSOR OF PHYSICS Emmanuel Morris MD 04/28/2024 1:16 PM ECG 12 lead Date/Time: 04/28/2024 1:13 PM Performed by: Emmanuel Morris MD Authorized by: Emmanuel Morris MD Comments: 83 bpm, sinus rhythm with PAC, left axis deviation, QTC 448ms. Flattening in I. TWI in v1, avL, aVR prior in 04/08/24 similar appearing Mayra Kenyon MD ECG ORDERABLES Final R esult [facility] * eGFR (04/28/2024 12:57 PM ASSISTANT PROFESSOR OF PHYSICS) eGFR >90 >=60 mL/min/1. 73 m2 Comment: Interpretive Data Reference Interval Normal >/= 90 mL/min/1.73m2 Mildly decreased* 60 - 89 mL/min/1.73m2 Mildly to moderately decreased 45 - 59 mL/min/1.73m2 Moderately to severely decreased 30 - 44 mL/min/1.73m2 Severely decreased 15 - 29 mL/min/1.73m2 Kidney Failure < 15 mL/min/1.73m2 *Relative to young adult level Estimated glomerular filtration rate is determined by the 2020 CKD-EPI equation recommended by the National Kidney Foundation (A Unifying Approach to GFR Estimation: Recommendations of the NKF-ASK Task Force on Reassessing the Inclusion of Race in Diagnosing Kidney Disease, JASN 2020). The CKD-EPI equation should not be used for patients with unstable renal function and has not been validated in children and those over 70. Current interpretive data was last reviewed 2020. Blood 04/28/2024 12:5 7 PM ASSISTANT PROFESSOR OF PHYSICS 04/28/2024 1:11 PM ASSISTANT PROFESSOR OF PHYSICS Emmanuel Morris MD LAB BLOOD ORDERABLES Final R esult [facility] Department [place] [address] * (ABNORMAL) Differential, auto (04/28/2024 12:57 PM ASSISTANT PROFESSOR OF PHYSICS) Neutrophil abs 5.9 1.5 - 6.5 K/cumm Imm gran abs 0.1 0.0 - 0.1 K/cumm [facility] Lymphocyte abs 2.9 0.8 - 3.3 K/cumm [facility] Monocyte abs 1.3(H) 0.2 - 0.8 K/cumm [facility] Eosinophil abs 0.2 0.0 - 0.5 K/cumm [facility] Basophil abs 0.1 0.0 - 0.1 K/cumm [facility] Neutrophil pct 56.3 % [facility] Comment: Interpretive Data Percent cell count reference ranges are not reported, since discordance with absolute values may lead to misinterpretation of CBC data. Current Interpretive Data was last revised on 2017. Imm gran pct 1.1 % [facility] Comment: Interpretive Data Percent cell count reference ranges are not reported, since discordance with absolute values may lead to misinterpretation of CBC data. Current Interpretive Data was last revised on 2017. Lymphocyte pct 27.6 % [facility] Comment: Interpretive Data Percent cell count reference ranges are not reported, since discordance with absolute values may lead to misinterpretation of CBC data. Current Interpretive Data was last revised on 2017. Monocyte pct 12.4 % [facility] Comment: Interpretive Data Percent cell count reference ranges are not reported, since discordance with absolute values may lead to misinterpretation of CBC data. Current Interpretive Data was last revised on 2017. Eosinophil pct 1.8 % [facility] Comment: Interpretive Data Percent cell count reference ranges are not reported, since discordance with absolute values may lead to misinterpretation of CBC data. Current Interpretive Data was last revised on 2017. Basophil pct 0.8 % [facility] Comment: Interpretive Data Percent cell count reference ranges are not reported, since discordance with absolute values may lead to misinterpretation of CBC data. Current Interpretive Data was last revised on 2017. Blood 04/28/2024 12:5 7 PM ASSISTANT PROFESSOR OF PHYSICS 04/28/2024 1:11 PM ASSISTANT PROFESSOR OF PHYSICS Mayra Kenyon MD LAB BLOOD ORDERABLES Fi nal Result [facility] Department [place] [address] * (ABNORMAL) CBC with auto differential (04/28/2024 12:57 PM ASSISTANT PROFESSOR OF PHYSICS) WBC 10.5(H) 3.8 - 9.9 K/cumm Hgb 11.0(L) 13.0 - 17.5 g/dL [facility] Hct 32.7(L) 38.9 - 50.3 % [facility] Plt 466(H) 150 - 400 K/cumm [facility] MPV 9.8 9.1 - 12.3 fL [facility] RBC 3.35(L) 4.30 - 5.80 M/cumm [facility] MCV 97.6(H) 81.3 - 96.4 fL [facility] MCH 32.8 27.1 - 33.3 pg [facility] MCHC 33.6 32.3 - 35.7 g/dL [facility] RDW CV 17.9(H) 11.1 - 14.9 % [facility] RDW SD 62.4(H) 35.7 - 48.1 fL [facility] NRBC abs 0.00 0.00 - 0.01 K/cumm [facility] Blood 04/28/2024 12:5 7 PM ASSISTANT PROFESSOR OF PHYSICS 04/28/2024 1:11 PM ASSISTANT PROFESSOR OF PHYSICS us Mayra Kenyon MD LAB BLOOD ORDERABLES Fi nal Result [facility] Department [place] [address] * (ABNORMAL) Comprehensive metabolic panel (04/28/2024 12:57 PM ASSISTANT PROFESSOR OF PHYSICS) Sodium 139 135 - 145 mmol/L Potassium, pl 3.6 3.3 - 4.9 mmol/L [facility] Chloride 96(L) 97 - 110 mmol/L [facility] CO2 31 22 - 32 mmol/L [facility] Anion gap 12 2 - 15 mmol/L [facility] BUN 10 6 - 25 mg/dL [facility] Creatinine 0.90 0.80 - 1.30 mg/dL [facility] Glucose 96 70 - 199 mg/dL [facility] Comment: Interpretive Data Fasting glucose >/= 126 mg/dl is diagnostic for diabetes. Fasting is defined as no caloric intake for at least 8 hours. Fasting glucose between 100 mg/dl to 125 mg/dl is diagnostic of prediabetes. In a patient with classic symptoms of hyperglycemia or hyperglycemic crisis, a random glucose >/= 200 mg/dl is diagnostic for diabetes. In the absence of unequivocal hyperglycemia, results should be confirmed by repeat testing. The classification and Diagnosis of Diabetes Diabetes Care 2021; 46: S19-S40. Current interpretive data was last revised 2022. Calcium 9.0 8.5 - 10.3 mg/dL [facility] Comment:Reviewed Bilirubin, total 0.6 0.1 - 1.2 mg/dL [facility] Protein, pl 7.2 6.5 - 8.5 g/dL [facility] Albumin 3.3(L) 3.5 - 5.0 g/dL [facility] Alk phos 264(H) 40 - 130 Units/L [facility] ALT 24 7 - 55 Units/L [facility] AST 52(H) 10 - 50 Units/L [facility] Blood 04/28/2024 12:5 7 PM ASSISTANT PROFESSOR OF PHYSICS 04/28/2024 1:11 PM ASSISTANT PROFESSOR OF PHYSICS Mayra Kenyon MD LAB BLOOD ORDERABLES Fi nal Result Performing Organization Address [facility] Co de Phone Number [facility] [place] [address] * eGFR (04/28/2024 12:42 PM ASSISTANT PROFESSOR OF PHYSICS) eGFR >90 >=60 mL/min/1. 73 m2 Comment: Interpretive Data Reference Interval Normal >/= 90 mL/min/1.73m2 Mildly decreased* 60 - 89 mL/min/1.73m2 Mildly to moderately decreased 45 - 59 mL/min/1.73m2 Moderately to severely decreased 30 - 44 mL/min/1.73m2 Severely decreased 15 - 29 mL/min/1.73m2 Kidney Failure < 15 mL/min/1.73m2 *Relative to young adult level Estimated glomerular filtration rate is determined by the 2020 CKD-EPI equation recommended by the National Kidney Foundation (A Unifying Approach to GFR Estimation: Recommendations of the [employer] Task Force on Reassessing the Inclusion of Race in Diagnosing Kidney Disease, JASN 2020). The CKD-EPI equation should not be used for patients with unstable renal function and has not been validated in children and those over 70. Current interpretive data was last reviewed 2020. Blood 04/28/2024 12:4 2 PM ASSISTANT PROFESSOR OF PHYSICS 04/28/2024 1:11 PM ASSISTANT PROFESSOR OF PHYSICS us Emmanuel Morris MD LAB BLOOD ORDERABLES Final R esult Performing Organization Address City/[facility]/ZIP Co de Phone Number [facility] [place] [address] * (ABNORMAL) Comprehensive metabolic panel (04/28/2024 12:42 PM ASSISTANT PROFESSOR OF PHYSICS) Pathologist [facility] Sodium 139 135 - 145 mmol/L Potassium, pl 3.5 3.3 - 4.9 mmol/L [facility] Chloride 97 97 - 110 mmol/L [facility] CO2 31 22 - 32 mmol/L [facility] Anion gap 11 2 - 15 mmol/L [facility] BUN 9 6 - 25 mg/dL [facility] Creatinine 0.87 0.80 - 1.30 mg/dL [facility] Glucose 98 70 - 199 mg/dL [facility] Comment: Interpretive Data Fasting glucose >/= 126 mg/dl is diagnostic for diabetes. Fasting is defined as no caloric intake for at least 8 hours. Fasting glucose between 100 mg/dl to 125 mg/dl is diagnostic of prediabetes. In a patient with classic symptoms of hyperglycemia or hyperglycemic crisis, a random glucose >/= 200 mg/dl is diagnostic for diabetes. In the absence of unequivocal hyperglycemia, results should be confirmed by repeat testing. The classification and Diagnosis of Diabetes Diabetes Care 2021; 46: S19-S40. Current interpretive data was last revised 2022. Calcium 8.6 8.5 - 10.3 mg/dL [facility] Bilirubin, total 0.5 0.1 - 1.2 mg/dL [facility] Protein, pl 7.0 6.5 - 8.5 g/dL [facility] Albumin 3.3(L) 3.5 - 5.0 g/dL [facility] Alk phos 264(H) 40 - 130 Units/L [facility] ALT 21 7 - 55 Units/L [facility] AST 51(H) 10 - 50 Units/L [facility] Blood 04/28/2024 12:4 2 PM ASSISTANT PROFESSOR OF PHYSICS 04/28/2024 1:11 PM ASSISTANT PROFESSOR OF PHYSICS us Mayra Kenyon MD LAB BLOOD ORDERABLES Fi nal Result [facility] Department [place] [address] * XR Scoliosis Ap and Lateral (04/12/2024 10:27 AM ASSISTANT PROFESSOR OF PHYSICS) Anatomical Region Laterality Modality Spine N/A Computed Radiogr aphy 04/12/2024 1:39 PM ASSISTANT PROFESSOR OF PHYSICS Impressions 04/12/2024 3:30 PM ASSISTANT PROFESSOR OF PHYSICS 1. T1, T3, T4, and T6 vertebral body compression deformities with approximately 20% height loss. 2. Mildly exaggerated thoracic kyphosis with positive sagittal imbalance. Dictated by: Rui Wei MD The radiology attending physician has personally reviewed this study, and had reviewed and/or edited this written report and agrees with it. Electronically signed by: Ivan Bowen MD [facility] 04/12/2024 3:30 PM ASSISTANT PROFESSOR OF PHYSICS EXAMINATION: XR SCOLIOSIS AP AND LATERAL HISTORY: Follow-up compression fractures FINDINGS: Frontal and lateral radiographs of the entire spine are submitted for due to rotation. Comparison made to most recent MRI 04/10/2024. There are compression fractures of the T1, T3, T4, T6 vertebral bodies with approximately 20% height loss. Slightly exaggerated thoracic kyphosis. The alignment is otherwise normal. No scoliotic curvature. There is no coronal imbalance. There is positive sagittal imbalance. There is no pelvic obliquity. There is multilevel degenerative disc disease which is most pronounced in the lower thoracic spine. There is lower lumbar level facet osteoarthritis. There is cervical spine facet osteoarthritis. Procedure Note Renetta Bowen MD - 04/12/2024 EXAMINATION: XR SCOLIOSIS AP AND LATERAL HISTORY: Follow-up compression fractures FINDINGS: Frontal and lateral radiographs of the entire spine are submitted for due to rotation. Comparison made to most recent MRI 04/10/2024. There are compression fractures of the T1, T3, T4, T6 vertebral bodies with approximately 20% height loss. Slightly exaggerated thoracic kyphosis. The alignment is otherwise normal. No scoliotic curvature. There is no coronal imbalance. There is positive sagittal imbalance. There is no pelvic obliquity. There is multilevel degenerative disc disease which is most pronounced in the lower thoracic spine. There is lower lumbar level facet osteoarthritis. There is cervical spine facet osteoarthritis. IMPRESSION: 1. T1, T3, T4, and T6 vertebral body compression deformities with approximately 20% height loss. 2. Mildly exaggerated thoracic kyphosis with positive sagittal imbalance. Dictated by: Rui Wei MD The radiology attending physician has personally reviewed this study, and had reviewed and/or edited this written report and agrees with it. Electronically signed by: Ivan Bowen MD Ronan Gipson MD IMG XR PROCEDURES Final Result * Differential, auto (04/12/2024 8:26 AM ASSISTANT PROFESSOR OF PHYSICS) Neutrophil abs 4.5 1.5 - 6.5 K/cumm Imm gran abs 0.1 0.0 - 0.1 K/cumm [facility] Lymphocyte abs 2.3 0.8 - 3.3 K/cumm [facility] Monocyte abs 0.7 0.2 - 0.8 K/cumm [facility] Eosinophil abs 0.2 0.0 - 0.5 K/cumm [facility] Basophil abs 0.1 0.0 - 0.1 K/cumm [facility] Neutrophil pct 57.0 % [facility] Comment: Interpretive Data Percent cell count reference ranges are not reported, since discordance with absolute values may lead to misinterpretation of CBC data. Current Interpretive Data was last revised on 2017. Imm gran pct 1.4 % [facility] Comment: Interpretive Data Percent cell count reference ranges are not reported, since discordance with absolute values may lead to misinterpretation of CBC data. Current Interpretive Data was last revised on 2017. Lymphocyte pct 28.8 % [facility] Comment: Interpretive Data Percent cell count reference ranges are not reported, since discordance with absolute values may lead to misinterpretation of CBC data. Current Interpretive Data was last revised on 2017. Monocyte pct 8.9 % [facility] Comment: Interpretive Data Percent cell count reference ranges are not reported, since discordance with absolute values may lead to misinterpretation of CBC data. Current Interpretive Data was last revised on 2017. Eosinophil pct 3.0 % [facility] Comment: Interpretive Data Percent cell count reference ranges are not reported, since discordance with absolute values may lead to misinterpretation of CBC data. Current Interpretive Data was last revised on 2017. Basophil pct 0.9 % [facility] Comment: Interpretive Data Percent cell count reference ranges are not reported, since discordance with absolute values may lead to misinterpretation of CBC data. Current Interpretive Data was last revised on 2017. Blood 04/12/2024 8:26 AM ASSISTANT PROFESSOR OF PHYSICS 04/12/2024 8:44 AM ASSISTANT PROFESSOR OF PHYSICS Adelina Knight NETWORK SECURITY ENGINEER LAB BLOOD ORDERABLES Final Result Performing Organization Address City/[facility]/ZIP Co de Phone Number [facility] Department [place] [address] * (ABNORMAL) CBC with auto differential (04/12/2024 8:26 AM ASSISTANT PROFESSOR OF PHYSICS) Pathologist [facility] WBC 7.9 3.8 - 9.9 K/cumm Hgb 8.7(L) 13.0 - 17.5 g/dL [facility] Hct 25.3(L) 38.9 - 50.3 % [facility] Plt 308 150 - 400 K/cumm [facility] MPV 10.8 9.1 - 12.3 fL [facility] RBC 2.63(L) 4.30 - 5.80 M/cumm [facility] MCV 96.2 81.3 - 96.4 fL [facility] MCH 33.1 27.1 - 33.3 pg [facility] MCHC 34.4 32.3 - 35.7 g/dL [facility] RDW CV 16.4(H) 11.1 - 14.9 % [facility] RDW SD 56.2(H) 35.7 - 48.1 fL [facility] NRBC abs 0.00 0.00 - 0.01 K/cumm [facility] Blood 04/12/2024 8:26 AM ASSISTANT PROFESSOR OF PHYSICS 04/12/2024 8:44 AM ASSISTANT PROFESSOR OF PHYSICS us Adelina Knight NETWORK SECURITY ENGINEER LAB BLOOD ORDERABLES Final Result [facility] Department [place] [address] * Differential, auto (04/12/2024 5:19 AM ASSISTANT PROFESSOR OF PHYSICS) Pathologist [facility] Neutrophil abs 5.0 1.5 - 6.5 K/cumm Imm gran abs 0.1 0.0 - 0.1 K/cumm [facility] Lymphocyte abs 2.4 0.8 - 3.3 K/cumm [facility] Monocyte abs 0.8 0.2 - 0.8 K/cumm [facility] Eosinophil abs 0.3 0.0 - 0.5 K/cumm [facility] Basophil abs 0.1 0.0 - 0.1 K/cumm [facility] Neutrophil pct 58.1 % [facility] Comment: Interpretive Data Percent cell count reference ranges are not reported, since discordance with absolute values may lead to misinterpretation of CBC data. Current Interpretive Data was last revised on 2017. Imm gran pct 1.3 % [facility] Comment: Interpretive Data Percent cell count reference ranges are not reported, since discordance with absolute values may lead to misinterpretation of CBC data. Current Interpretive Data was last revised on 2017. Lymphocyte pct 27.6 % [facility] Comment: Interpretive Data Percent cell count reference ranges are not reported, since discordance with absolute values may lead to misinterpretation of CBC data. Current Interpretive Data was last revised on 2017. Monocyte pct 9.3 % [facility] Comment: Interpretive Data Percent cell count reference ranges are not reported, since discordance with absolute values may lead to misinterpretation of CBC data. Current Interpretive Data was last revised on 2017. Eosinophil pct 2.9 % [facility] Comment: Interpretive Data Percent cell count reference ranges are not reported, since discordance with absolute values may lead to misinterpretation of CBC data. Current Interpretive Data was last revised on 2017. Basophil pct 0.8 % [facility] Comment: Interpretive Data Percent cell count reference ranges are not reported, since discordance with absolute values may lead to misinterpretation of CBC data. Current Interpretive Data was last revised on 2017. Blood 04/12/2024 5:19 AM ASSISTANT PROFESSOR OF PHYSICS 04/12/2024 5:48 AM ASSISTANT PROFESSOR OF PHYSICS us Adelina Knight NP LAB BLOOD ORDERABLES Final Result [facility] Department [place] [address] * HIV 1/2 Antibody plus p24 Antigen Blood (04/12/2024 5:19 AM ASSISTANT PROFESSOR OF PHYSICS) [facility] HIV 1/2 ab + p24 ag Nonreactive Nonreactive Comment:Nonreactive for HIV- 1 antigen and HIV-1/HIV-2 antibodies. No laboratory evidence of HIV infection. If acute HIV infection is suspected, consider testing for HIV-1 RNA. Current interpretive data was last revised on 21. Blood 04/12/2024 5:19 AM ASSISTANT PROFESSOR OF PHYSICS 04/12/2024 5:37 AM ASSISTANT PROFESSOR OF PHYSICS Ronan Gipson MD LAB MICROBIOLOGY - GENERAL ORDERABLES Final Result [facility] [place] [address] * (ABNORMAL) CBC with auto differential (04/12/2024 5:19 AM ASSISTANT PROFESSOR OF PHYSICS) [facility] WBC 8.6 3.8 - 9.9 K/cumm Hgb 9.0(L) 13.0 - 17.5 g/dL [facility] Hct 26.6(L) 38.9 - 50.3 % [facility] Plt 296 150 - 400 K/cumm [facility] MPV 10.3 9.1 - 12.3 fL [facility] RBC 2.72(L) 4.30 - 5.80 M/cumm [facility] MCV 97.8(H) 81.3 - 96.4 fL [facility] MCH 33.1 27.1 - 33.3 pg [facility] MCHC 33.8 32.3 - 35.7 g/dL [facility] RDW CV 16.4(H) 11.1 - 14.9 % [facility] RDW SD 56.2(H) 35.7 - 48.1 fL [facility] NRBC abs 0.00 0.00 - 0.01 K/cumm [facility] Blood 04/12/2024 5:19 AM ASSISTANT PROFESSOR OF PHYSICS 04/12/2024 5:48 AM ASSISTANT PROFESSOR OF PHYSICS us Adelina Knight NP LAB BLOOD ORDERABLES Final Result Performing Organization Address [facility] Co de Phone Number [facility] [place] [address] * Hepatitis C antibody Blood (04/12/2024 5:19 AM ASSISTANT PROFESSOR OF PHYSICS) Hep C Ab Nonreactive Nonreactive Comment:Antibodies to HCV no t detected. Does NOT exclude the possibility of recent exposure to HCV. Current interpretive data was last revised on 21 Blood 04/12/2024 5:19 AM ASSISTANT PROFESSOR OF PHYSICS 04/12/2024 5:37 AM ASSISTANT PROFESSOR OF PHYSICS us Ronan Gipson MD LAB MICROBIOLOGY - GENERAL ORDERABLES Final Result Performing Organization Address [facility] de Phone Number [facility] [place] [address] * RPR Blood (04/12/2024 5:19 AM ASSISTANT PROFESSOR OF PHYSICS) Pathologist [facility] RPR Nonreactive Nonreactive Blood 04/12/2024 5:19 AM ASSISTANT PROFESSOR OF PHYSICS 04/12/2024 5:36 AM ASSISTANT PROFESSOR OF PHYSICS us Ronan Gipson MD LAB MICROBIOLOGY - GENERAL ORDERABLES Final Result Performing Organization Address [facility] de Phone Number [facility] [place] [address] * Hepatitis B Surface Antigen Blood (04/12/2024 5:19 AM ASSISTANT PROFESSOR OF PHYSICS) Pathologist [facility] HepBsAg Nonreactive Nonreactive Blood 04/12/2024 5:19 AM ASSISTANT PROFESSOR OF PHYSICS 04/12/2024 5:37 AM ASSISTANT PROFESSOR OF PHYSICS Ronan Gipson MD LAB MICROBIOLOGY - GENERAL ORDERABLES Final Result Performing Organization Address [facility] Co de Phone Number [facility] [place] [address] * eGFR (04/11/2024 9:17 AM ASSISTANT PROFESSOR OF PHYSICS) eGFR >90 >=60 mL/min/1. 73 m2 Comment: Interpretive Data Reference Interval Normal >/= 90 mL/min/1.73m2 Mildly decreased* 60 - 89 mL/min/1.73m2 Mildly to moderately decreased 45 - 59 mL/min/1.73m2 Moderately to severely decreased 30 - 44 mL/min/1.73m2 Severely decreased 15 - 29 mL/min/1.73m2 Kidney Failure < 15 mL/min/1.73m2 *Relative to young adult level Estimated glomerular filtration rate is determined by the 2020 CKD-EPI equation recommended by the National Kid[employer] (A Unifying Approach to GFR Estimation: Recommendations of the NKF-ASK Task Force on Reassessing the Inclusion of Race in Diagnosing Kidney Disease, JASN 2020). The CKD-EPI equation should not be used for patients with unstable renal function and has not been validated in children and those over 70. Current interpretive data was last reviewed 2020. Blood 04/11/2024 9:17 AM ASSISTANT PROFESSOR OF PHYSICS 04/11/2024 9:45 AM ASSISTANT PROFESSOR OF PHYSICS us Adelina Knight NP LAB BLOOD ORDERABLES Final Result Performing Organization Address [facility] Co de Phone Number [facility] [place] [address] * Differential, auto (04/11/2024 9:17 AM ASSISTANT PROFESSOR OF PHYSICS) Neutrophil abs 4.5 1.5 - 6.5 K/cumm Imm gran abs 0.1 0.0 - 0.1 K/cumm [facility] Lymphocyte abs 2.3 0.8 - 3.3 K/cumm [facility] Monocyte abs 0.7 0.2 - 0.8 K/cumm [facility] Eosinophil abs 0.2 0.0 - 0.5 K/cumm [facility] Basophil abs 0.1 0.0 - 0.1 K/cumm [facility] Neutrophil pct 57.4 % [facility] Comment: Interpretive Data Percent cell count reference ranges are not reported, since discordance with absolute values may lead to misinterpretation of CBC data. Current Interpretive Data was last revised on 2017. Imm gran pct 1.1 % [facility] Comment: Interpretive Data Percent cell count reference ranges are not reported, since discordance with absolute values may lead to misinterpretation of CBC data. Current Interpretive Data was last revised on 2017. Lymphocyte pct 29.4 % [facility] Comment: Interpretive Data Percent cell count reference ranges are not reported, since discordance with absolute values may lead to misinterpretation of CBC data. Current Interpretive Data was last revised on 2017. Monocyte pct 8.6 % [facility] Comment: Interpretive Data Percent cell count reference ranges are not reported, since discordance with absolute values may lead to misinterpretation of CBC data. Current Interpretive Data was last revised on 2017. Eosinophil pct 2.9 % [facility] Comment: Interpretive Data Percent cell count reference ranges are not reported, since discordance with absolute values may lead to misinterpretation of CBC data. Current Interpretive Data was last revised on 2017. Basophil pct 0.6 % [facility] Comment: Interpretive Data Percent cell count reference ranges are not reported, since discordance with absolute values may lead to misinterpretation of CBC data. Current Interpretive Data was last revised on 2017. Blood 04/11/2024 9:17 AM ASSISTANT PROFESSOR OF PHYSICS 04/11/2024 9:44 AM ASSISTANT PROFESSOR OF PHYSICS us Adelina Knight NETWORK SECURITY ENGINEER LAB BLOOD ORDERABLES Final Result [facility] Department [place] [address] * (ABNORMAL) CBC with auto differential (04/11/2024 9:17 AM ASSISTANT PROFESSOR OF PHYSICS) WBC 7.9 3.8 - 9.9 K/cumm Hgb 8.6(L) 13.0 - 17.5 g/dL [facility] Hct 24.6(L) 38.9 - 50.3 % [facility] Plt 274 150 - 400 K/cumm [facility] MPV 10.3 9.1 - 12.3 fL [facility] RBC 2.58(L) 4.30 - 5.80 M/cumm [facility] MCV 95.3 81.3 - 96.4 fL [facility] MCH 33.3 27.1 - 33.3 pg [facility] MCHC 35.0 32.3 - 35.7 g/dL [facility] RDW CV 16.2(H) 11.1 - 14.9 % [facility] RDW SD 54.5(H) 35.7 - 48.1 fL [facility] NRBC abs 0.00 0.00 - 0.01 K/cumm [facility] Blood 04/11/2024 9:17 AM ASSISTANT PROFESSOR OF PHYSICS 04/11/2024 9:44 AM ASSISTANT PROFESSOR OF PHYSICS us Adelina Knight NETWORK SECURITY ENGINEER LAB BLOOD ORDERABLES Final Result [facility] [place] [address] * (ABNORMAL) Phosphorus (04/11/2024 9:17 AM ASSISTANT PROFESSOR OF PHYSICS) Pathologist [facility] Phosphorus, pl 2.1(L) 2.3 - 4.5 mg/dL Blood 04/11/2024 9:17 AM ASSISTANT PROFESSOR OF PHYSICS 04/11/2024 9:45 AM ASSISTANT PROFESSOR OF PHYSICS Adelina Knight NETWORK SECURITY ENGINEER LAB BLOOD ORDERABLES Final Result [facility] [place] [address] * Magnesium (04/11/2024 9:17 AM ASSISTANT PROFESSOR OF PHYSICS) Pathologist [facility] Magnesium 1.6 1.4 - 2.5 mg/dL Blood 04/11/2024 9:17 AM ASSISTANT PROFESSOR OF PHYSICS 04/11/2024 9:45 AM ASSISTANT PROFESSOR OF PHYSICS Adelina Knight NETWORK SECURITY ENGINEER LAB BLOOD ORDERABLES Final Result [facility] Department [place] [address] * (ABNORMAL) Basic metabolic panel (04/11/2024 9:17 AM ASSISTANT PROFESSOR OF PHYSICS) [facility] Sodium 136 135 - 145 mmol/L Potassium, pl 3.6 3.3 - 4.9 mmol/L [facility] Comment:Hemolyzed; Potassium value may be falsely elevated by as much as 0.3-0.5 mmol/L. Suggest redraw and reanalysis. Chloride 105 97 - 110 mmol/L [facility] CO2 25 22 - 32 mmol/L [facility] Anion gap 6 2 - 15 mmol/L [facility] BUN 8 6 - 25 mg/dL [facility] Creatinine 0.71(L) 0.80 - 1.30 mg/dL [facility] Glucose 70 70 - 199 mg/dL [facility] Comment: Interpretive Data Fasting glucose >/= 126 mg/dl is diagnostic for diabetes. Fasting is defined as no caloric intake for at least 8 hours. Fasting glucose between 100 mg/dl to 125 mg/dl is diagnostic of prediabetes. In a patient with classic symptoms of hyperglycemia or hyperglycemic crisis, a random glucose >/= 200 mg/dl is diagnostic for diabetes. In the absence of unequivocal hyperglycemia, results should be confirmed by repeat testing. The classification and Diagnosis of Diabetes Diabetes Care 202; 46: S19-S40. Current interpretive data was last revised 2022. Calcium 6.8(L) 8.5 - 10.3 mg/dL [facility] Blood 04/11/2024 9:17 AM ASSISTANT PROFESSOR OF PHYSICS 04/11/2024 9:45 AM ASSISTANT PROFESSOR OF PHYSICS Adelina Knight NETWORK SECURITY ENGINEER LAB BLOOD ORDERABLES Final Result [facility] Department [place] [address] * MRI Spine Total Complete W WO Contrast (04/10/2024 5:03 PM ASSISTANT PROFESSOR OF PHYSICS) Anatomical Region Laterality Modality Spine N/A Magnetic Resonan ce 04/10/2024 5:50 PM ASSISTANT PROFESSOR OF PHYSICS Impressions 04/10/2024 7:33 PM ASSISTANT PROFESSOR OF PHYSICS 1. Mild degenerative changes of the cervical spine as described above. Severe left C3-C4 and C5-C6 neural foraminal narrowing. No high-grade spinal canal stenosis. 2. Acute/subacute T1, T3, T4 and T6 vertebral body compression deformities with approximately 20% height loss. No osseous retropulsion or significant spinal canal stenosis at these levels. Otherwise, mild degenerative changes of the thoracic spine with no high-grade spinal canal stenosis or neuroforaminal narrowing. No epidural fluid collection. 3. Mild degenerative changes of the lumbar spine, worst at L4-L5 with associated moderate spinal canal stenosis. No high-grade neuroforaminal narrowing. Indeterminate well-circumscribed 2.0 cm left iliac bone lesion is of unclear etiology but may represent a benign bone island. Dictated by: Cedric Bentley M.D. The radiology attending physician has personally reviewed this study, and had reviewed and/or edited this written report and agrees with it. Electronically signed by: MD Fidel Reyna 04/10/2024 7:33 PM ASSISTANT PROFESSOR OF PHYSICS EXAMINATION: 1. Magnetic resonance imaging (MRI) of the cervical spine without and with contrast 2. Magnetic resonance imaging (MRI) of the thoracic spine without and with contrast 3. Magnetic resonance imaging (MRI) of the lumbar spine without and with contrast HISTORY: 64 years-old Male s/p multiple falls with T1,3,4, and T6 Fx concerning for epidural hematoma. TECHNIQUE: Multiplanar multi-weighted MRI of the cervical spine was performed without and with intravenous contrast using the standard protocol. Multiplanar multi-weighted MRI of the thoracic was performed without and with intravenous contrast using the standard protocol. Multiplanar multi-weighted MRI of the lumbar spine was performed without and with intravenous contrast using the standard protocol. Contrast information: 12 mL Gadoterate Meglumine COMPARISON: None Available. FINDINGS: CERVICAL SPINE: The alignment of the cervical spine is normal. Vertebral bodies demonstrate normal signal intensity on all sequences. No acute fracture is identified. The craniocervical junction is normal. The visualized portions of the skull base and the posterior fossa are normal. The spinal cord demonstrates normal signal intensity on all sequences. Multilevel disc desiccation and mild disc loss throughout the cervical spine. Small annular fissures spanning C3-C7. No soft tissue abnormality is identified. Normal signal voids are present in the vertebral arteries. There is no abnormal contrast enhancement. Multilevel disc bulges including C3-C4, C4-C5, C5-C6 and C6-C7 contributing to mild spinal canal stenosis. Mild to moderate multilevel facet arthropathy and uncovertebral hypertrophy contributing to severe left C3-C4 and left C5-C6 neural foraminal narrowing. No high-grade spinal canal stenosis. THORACIC SPINE: There are acute/subacute T1, T3, T4 and T6 vertebral body compression deformities with approximately 20% height loss, STIR hyperintensity and enhancement. No associated osseous retropulsion or significant spinal canal stenosis. No visualized epidural hematoma. Mildly exaggerated thoracic kyphosis. The spinal cord demonstrates normal signal intensity on all sequences. Multilevel disc desiccation and mild disc height loss throughout the thoracic spine. Small bilateral pleural effusions. The aorta is normal. Mild multilevel disc bulges within the thoracic spine with up to mild spinal canal stenosis and neuroforaminal narrowing. No high-grade spinal canal stenosis or neuroforaminal narrowing. LUMBAR SPINE: The alignment of the lumbar spine is normal. Vertebral bodies demonstrate normal signal intensity on all sequences. There are no compression fractures. The conus medullaris terminates at the level of L1. The distal spinal cord signal intensity is normal. Multilevel disc desiccation and mild disc height loss of the lumbar spine. L4-L5 disc annular fissure. Nonenhancing 1.1 cm right cortical renal cyst. The aorta is normal. There is a 2.0 cm well-circumscribed T2 hypointense with intrinsic T1 hyperintense signal versus postcontrast enhancement left iliac bone lesion which is of unclear etiology. Multilevel disc bulges throughout the lumbar spine, worst at L4-L5 with associated ligamentum flavum infolding contributing to moderate spinal canal stenosis at that level. Mild L4-L5 bilateral neuroforaminal narrowing. Procedure Note Luis Crowder MD - 04/10/2024 EXAMINATION: 1. Magnetic resonance imaging (MRI) of the cervical spine without and with contrast 2. Magnetic resonance imaging (MRI) of the thoracic spine without and with contrast 3. Magnetic resonance imaging (MRI) of the lumbar spine without and with contrast HISTORY: 64 years-old Male s/p multiple falls with T1,3,4, and T6 Fx concerning for epidural hematoma. TECHNIQUE: Multiplanar multi-weighted MRI of the cervical spine was performed without and with intravenous contrast using the standard protocol. Multiplanar multi-weighted MRI of the thoracic was performed without and with intravenous contrast using the standard protocol. Multiplanar multi-weighted MRI of the lumbar spine was performed without and with intravenous contrast using the standard protocol. Contrast information: 12 mL Gadoterate Meglumine COMPARISON: None Available. FINDINGS: CERVICAL SPINE: The alignment of the cervical spine is normal. Vertebral bodies demonstrate normal signal intensity on all sequences. No acute fracture is identified. The craniocervical junction is normal. The visualized portions of the skull base and the posterior fossa are normal. The spinal cord demonstrates normal signal intensity on all sequences. Multilevel disc desiccation and mild disc loss throughout the cervical spine. Small annular fissures spanning C3-C7. No soft tissue abnormality is identified. Normal signal voids are present in the vertebral arteries. There is no abnormal contrast enhancement. Multilevel disc bulges including C3-C4, C4-C5, C5-C6 and C6-C7 contributing to mild spinal canal stenosis. Mild to moderate multilevel facet arthropathy and uncovertebral hypertrophy contributing to severe left C3-C4 and left C5-C6 neural foraminal narrowing. No high-grade spinal canal stenosis. THORACIC SPINE: There are acute/subacute T1, T3, T4 and T6 vertebral body compression deformities with approximately 20% height loss, STIR hyperintensity and enhancement. No associated osseous retropulsion or significant spinal canal stenosis. No visualized epidural hematoma. Mildly exaggerated thoracic kyphosis. The spinal cord demonstrates normal signal intensity on all sequences. Multilevel disc desiccation and mild disc height loss throughout the thoracic spine. Small bilateral pleural effusions. The aorta is normal. Mild multilevel disc bulges within the thoracic spine with up to mild spinal canal stenosis and neuroforaminal narrowing. No high-grade spinal canal stenosis or neuroforaminal narrowing. LUMBAR SPINE: The alignment of the lumbar spine is normal. Vertebral bodies demonstrate normal signal intensity on all sequences. There are no compression fractures. The conus medullaris terminates at the level of L1. The distal spinal cord signal intensity is normal. Multilevel disc desiccation and mild disc height loss of the lumbar spine. L4-L5 disc annular fissure. Nonenhancing 1.1 cm right cortical renal cyst. The aorta is normal. There is a 2.0 cm well-circumscribed T2 hypointense with intrinsic T1 hyperintense signal versus postcontrast enhancement left iliac bone lesion which is of unclear etiology. Multilevel disc bulges throughout the lumbar spine, worst at L4-L5 with associated ligamentum flavum infolding contributing to moderate spinal canal stenosis at that level. Mild L4-L5 bilateral neuroforaminal narrowing. IMPRESSION: 1. Mild degenerative changes of the cervical spine as described above. Severe left C3-C4 and C5-C6 neural foraminal narrowing. No high-grade spinal canal stenosis. 2. Acute/subacute T1, T3, T4 and T6 vertebral body compression deformities with approximately 20% height loss. No osseous retropulsion or significant spinal canal stenosis at these levels. Otherwise, mild degenerative changes of the thoracic spine with no high-grade spinal canal stenosis or neuroforaminal narrowing. No epidural fluid collection. 3. Mild degenerative changes of the lumbar spine, worst at L4-L5 with associated moderate spinal canal stenosis. No high-grade neuroforaminal narrowing. Indeterminate well-circumscribed 2.0 cm left iliac bone lesion is of unclear etiology but may represent a benign bone island. Dictated by: Cedric Bentley M.D. The radiology attending physician has personally reviewed this study, and had reviewed and/or edited this written report and agrees with it. Electronically signed by: Luis Crowder MD Ronan Gipson MD IMG MRI PROCEDURE S Final Result * eGFR (04/09/2024 8:00 PM ASSISTANT PROFESSOR OF PHYSICS) eGFR 70 >=60 mL/min/1. 73 m2 Comment: Interpretive Data Reference Interval Normal >/= 90 mL/min/1.73m2 Mildly decreased* 60 - 89 mL/min/1.73m2 Mildly to moderately decreased 45 - 59 mL/min/1.73m2 Moderately to severely decreased 30 - 44 mL/min/1.73m2 Severely decreased 15 - 29 mL/min/1.73m2 Kidney Failure < 15 mL/min/1.73m2 *Relative to young adult level Estimated glomerular filtration rate is determined by the 2020 CKD-EPI equation recommended by the National Kidney Foundation (A Unifying Approach to GFR Estimation: Recommendations of the NKF-ASK Task Force on Reassessing the Inclusion of Race in Diagnosing Kidney Disease, JASN 2020). The CKD-EPI equation should not be used for patients with unstable renal function and has not been validated in children and those over 70. Current interpretive data was last reviewed 2020. Blood 04/09/2024 8:00 PM ASSISTANT PROFESSOR OF PHYSICS 04/09/2024 8:24 PM ASSISTANT PROFESSOR OF PHYSICS us Ronan Gipson MD LAB BLOOD ORDERAB LES Final Result [facility] Department [place] [address] * (ABNORMAL) CBC without differential (04/09/2024 8:00 PM ASSISTANT PROFESSOR OF PHYSICS) WBC 10.9(H) 3.8 - 9.9 K/cumm Hgb 9.6(L) 13.0 - 17.5 g/dL [facility] Hct 27.3(L) 38.9 - 50.3 % [facility] Plt 335 150 - 400 K/cumm [facility] MPV 10.4 9.1 - 12.3 fL [facility] RBC 2.84(L) 4.30 - 5.80 M/cumm [facility] MCV 96.1 81.3 - 96.4 fL [facility] MCH 33.8(H) 27.1 - 33.3 pg [facility] MCHC 35.2 32.3 - 35.7 g/dL [facility] RDW CV 15.9(H) 11.1 - 14.9 % [facility] RDW SD 54.9(H) 35.7 - 48.1 fL [facility] NRBC abs 0.00 0.00 - 0.01 K/cumm [facility] Blood 04/09/2024 8:00 PM ASSISTANT PROFESSOR OF PHYSICS 04/09/2024 8:26 PM ASSISTANT PROFESSOR OF PHYSICS us Ronan Gipson MD LAB BLOOD ORDERAB LES Final Result Performing Organization Address City/[facility] Co de Phone Number [facility] [place] [address] * (ABNORMAL) Phosphorus (04/09/2024 8:00 PM ASSISTANT PROFESSOR OF PHYSICS) Pathologist [facility] Phosphorus, pl 2.2(L) 2.3 - 4.5 mg/dL Blood 04/09/2024 8:00 PM ASSISTANT PROFESSOR OF PHYSICS 04/09/2024 8:24 PM ASSISTANT PROFESSOR OF PHYSICS us Ronan Gipson MD LAB BLOOD ORDERAB LES Final Result Performing Organization Address [facility] Co de Phone Number [facility] [place] [address] * Magnesium (04/09/2024 8:00 PM ASSISTANT PROFESSOR OF PHYSICS) [facility] Magnesium 1.8 1.4 - 2.5 mg/dL Blood 04/09/2024 8:00 PM ASSISTANT PROFESSOR OF PHYSICS 04/09/2024 8:24 PM ASSISTANT PROFESSOR OF PHYSICS Ronan Gipson MD LAB BLOOD ORDERAB LES Final Result Performing Organization Address [facility] [place] [address] * (ABNORMAL) Basic metabolic panel (04/09/2024 8:00 PM ASSISTANT PROFESSOR OF PHYSICS) Pathologist [facility] Sodium 138 135 - 145 mmol/L Potassium, pl 4.0 3.3 - 4.9 mmol/L [facility] Chloride 98 97 - 110 mmol/L [facility] CO2 32 22 - 32 mmol/L [facility] Anion gap 8 2 - 15 mmol/L [facility] BUN 12 6 - 25 mg/dL [facility] Creatinine 1.16 0.80 - 1.30 mg/dL [facility] Glucose 141 70 - 199 mg/dL [facility] Comment: Interpretive Data Fasting glucose >/= 126 mg/dl is diagnostic for diabetes. Fasting is defined as no caloric intake for at least 8 hours. Fasting glucose between 100 mg/dl to 125 mg/dl is diagnostic of prediabetes. In a patient with classic symptoms of hyperglycemia or hyperglycemic crisis, a random glucose >/= 200 mg/dl is diagnostic for diabetes. In the absence of unequivocal hyperglycemia, results should be confirmed by repeat testing. The classification and Diagnosis of Diabetes Diabetes Care 202; 46: S19-S40. Current interpretive data was last revised 2022. Calcium 8.3(L) 8.5 - 10.3 mg/dL [facility] Blood 04/09/2024 8:00 PM ASSISTANT PROFESSOR OF PHYSICS 04/09/2024 8:24 PM ASSISTANT PROFESSOR OF PHYSICS Ronan Gipson MD LAB BLOOD ORDERAB LES Final Result [facility] Department [place] [address] * eGFR (04/08/2024 11:53 PM ASSISTANT PROFESSOR OF PHYSICS) eGFR >90 >=60 mL/min/1. 73 m2 Comment: Interpretive Data Reference Interval Normal >/= 90 mL/min/1.73m2 Mildly decreased* 60 - 89 mL/min/1.73m2 Mildly to moderately decreased 45 - 59 mL/min/1.73m2 Moderately to severely decreased 30 - 44 mL/min/1.73m2 Severely decreased 15 - 29 mL/min/1.73m2 Kidney Failure < 15 mL/min/1.73m2 *Relative to young adult level Estimated glomerular filtration rate is determined by the 2020 CKD-EPI equation recommended by the National Kidney Foundation (A Unifying Approach to GFR Estimation: Recommendations of the NKF-ASK Task Force on Reassessing the Inclusion of Race in Diagnosing Kidney Disease, JASN 2020). The CKD-EPI equation should not be used for patients with unstable renal function and has not been validated in children and those over 70. Current interpretive data was last reviewed 2020. Blood 04/08/2024 11:5 3 PM ASSISTANT PROFESSOR OF PHYSICS 04/09/2024 12:33 AM ASSISTANT PROFESSOR OF PHYSICS us Donya Sotelo MD LAB BLOOD ORDERABLES Fin al Result [facility] Department [place] [address] * (ABNORMAL) Differential, auto (04/08/2024 11:53 PM ASSISTANT PROFESSOR OF PHYSICS) Neutrophil abs 9.2(H) 1.5 - 6.5 K/cumm Imm gran abs 0.1 0.0 - 0.1 K/cumm [facility] Lymphocyte abs 1.5 0.8 - 3.3 K/cumm [facility] Monocyte abs 0.9(H) 0.2 - 0.8 K/cumm [facility] Eosinophil abs 0.1 0.0 - 0.5 K/cumm [facility] Basophil abs 0.1 0.0 - 0.1 K/cumm [facility] Neutrophil pct 77.2 % [facility] Comment: Interpretive Data Percent cell count reference ranges are not reported, since discordance with absolute values may lead to misinterpretation of CBC data. Current Interpretive Data was last revised on 2017. Imm gran pct 0.8 % [facility] Comment: Interpretive Data Percent cell count reference ranges are not reported, since discordance with absolute values may lead to misinterpretation of CBC data. Current Interpretive Data was last revised on 2017. Lymphocyte pct 12.8 % [facility] Comment: Interpretive Data Percent cell count reference ranges are not reported, since discordance with absolute values may lead to misinterpretation of CBC data. Current Interpretive Data was last revised on 2017. Monocyte pct 7.7 % [facility] Comment: Interpretive Data Percent cell count reference ranges are not reported, since discordance with absolute values may lead to misinterpretation of CBC data. Current Interpretive Data was last revised on 2017. Eosinophil pct 1.0 % [facility] Comment: Interpretive Data Percent cell count reference ranges are not reported, since discordance with absolute values may lead to misinterpretation of CBC data. Current Interpretive Data was last revised on 2017. Basophil pct 0.5 % [facility] Comment: Interpretive Data Percent cell count reference ranges are not reported, since discordance with absolute values may lead to misinterpretation of CBC data. Current Interpretive Data was last revised on 2017. Blood 04/08/2024 11:5 3 PM ASSISTANT PROFESSOR OF PHYSICS 04/09/2024 12:33 AM ASSISTANT PROFESSOR OF PHYSICS us Donya Sotelo MD LAB BLOOD ORDERABLES Fin al Result [facility] Department [place] [address] * (ABNORMAL) CBC with auto differential (04/08/2024 11:53 PM ASSISTANT PROFESSOR OF PHYSICS) WBC 11.9(H) 3.8 - 9.9 K/cumm Hgb 11.0(L) 13.0 - 17.5 g/dL [facility] Hct 30.3(L) 38.9 - 50.3 % [facility] Plt 424(H) 150 - 400 K/cumm [facility] MPV 10.3 9.1 - 12.3 fL [facility] RBC 3.30(L) 4.30 - 5.80 M/cumm [facility] MCV 91.8 81.3 - 96.4 fL [facility] MCH 33.3 27.1 - 33.3 pg [facility] MCHC 36.3(H) 32.3 - 35.7 g/dL [facility] RDW CV 15.7(H) 11.1 - 14.9 % [facility] RDW SD 52.0(H) 35.7 - 48.1 fL [facility] NRBC abs 0.00 0.00 - 0.01 K/cumm [facility] Blood 04/08/2024 11:5 3 PM ASSISTANT PROFESSOR OF PHYSICS 04/09/2024 12:33 AM ASSISTANT PROFESSOR OF PHYSICS us Donya Sotelo MD LAB BLOOD ORDERABLES Fin al Result Performing Organization Address [facility] Co de Phone Number [facility] Department [place] [address] * Blood culture Blood Peripheral (04/08/2024 11:53 PM ASSISTANT PROFESSOR OF PHYSICS) Report Final Report: No growth Blood (Peripheral) 04/08/2024 11:53 PM ASSISTANT PROFESSOR OF PHYSICS 04/09/2024 12:02 AM ASSISTANT PROFESSOR OF PHYSICS Narrative [facility] - 04/13/2024 7:00 AM ASSISTANT PROFESSOR OF PHYSICS From a different site than #1. Draw Blood cultures before administration of Antibiotics Collection->Peripheral 1. Blood cultures are incubated for 4 days on a continuously monitored blood culture system. The first report of a negative culture is issued within 24 hours of receipt of the specimen in the laboratory. 2. Positive culture results are reported as soon as they are detected. 3. The most important factor for detection of microbes in the setting of bloodstream infection is the volume of blood submitted for culture. Failure to collect an optimal blood volume can result in false negative blood cultures. 4. For pediatric patients, the recommended blood volume to collect follows a weight based strategy. See the electronic test catalog for collection instructions. 5. For positive blood cultures, a rapid molecular test may be performed for organism identification using the mimi ePlex blood culture identification panel for gram positive (BCID-GP) and gram negative (BCID-GN) organisms. This nucleic acid amplification test detects microbial DNA in positive blood culture broth. This assay has been cleared by the [place] Food and Drug Administration and its performance characteristics have been verified by the [facility]. For questions about this culture, contact the Microbiology Laboratory at [phone]. Interpretive data was last revised on 23. us Herberth Quinones MD LAB MICROBIOLOGY - GENERA L ORDERABLES Final Result [facility] Department [place] [address] * Blood culture Blood Peripheral (04/08/2024 11:53 PM ASSISTANT PROFESSOR OF PHYSICS) Pathologist [facility] Report Final Report: No growth Blood (Peripheral) 04/08/2024 11:53 PM ASSISTANT PROFESSOR OF PHYSICS 04/09/2024 12:02 AM ASSISTANT PROFESSOR OF PHYSICS Narrative [facility] - 04/13/2024 7:00 AM ASSISTANT PROFESSOR OF PHYSICS Draw Blood cultures before administration of Antibiotics Collection->Peripheral 1. Blood cultures are incubated for 4 days on a continuously monitored blood culture system. The first report of a negative culture is issued within 24 hours of receipt of the specimen in the laboratory. 2. Positive culture results are reported as soon as they are detected. 3. The most important factor for detection of microbes in the setting of bloodstream infection is the volume of blood submitted for culture. Failure to collect an optimal blood volume can result in false negative blood cultures. 4. For pediatric patients, the recommended blood volume to collect follows a weight based strategy. See the electronic test catalog for collection instructions. 5. For positive blood cultures, a rapid molecular test may be performed for organism identification using the mimi ePlex blood culture identification panel for gram positive (BCID-GP) and gram negative (BCID-GN) organisms. This nucleic acid amplification test detects microbial DNA in positive blood culture broth. This assay has been cleared by the [place] Food and Drug Administration and its performance characteristics have been verified by the [facility]. For questions about this culture, contact the Microbiology Laboratory at [phone]. Interpretive data was last revised on 23. Herberth Quinones MD LAB MICROBIOLOGY - GENERA L ORDERABLES Final Result [facility] Department [place] [address] * (ABNORMAL) Comprehensive metabolic panel (04/08/2024 11:53 PM ASSISTANT PROFESSOR OF PHYSICS) Sodium 139 135 - 145 mmol/L Potassium, pl 3.3 3.3 - 4.9 mmol/L [facility] Chloride 97 97 - 110 mmol/L [facility] CO2 27 22 - 32 mmol/L [facility] Anion gap 15 2 - 15 mmol/L [facility] BUN 5(L) 6 - 25 mg/dL [facility] Creatinine 0.84 0.80 - 1.30 mg/dL [facility] Glucose 98 70 - 199 mg/dL [facility] Comment: Interpretive Data Fasting glucose >/= 126 mg/dl is diagnostic for diabetes. Fasting is defined as no caloric intake for at least 8 hours. Fasting glucose between 100 mg/dl to 125 mg/dl is diagnostic of prediabetes. In a patient with classic symptoms of hyperglycemia or hyperglycemic crisis, a random glucose >/= 200 mg/dl is diagnostic for diabetes. In the absence of unequivocal hyperglycemia, results should be confirmed by repeat testing. The classification and Diagnosis of Diabetes Diabetes Care 202; 46: S19-S40. Current interpretive data was last revised 2022. Calcium 8.5 8.5 - 10.3 mg/dL [facility] Bilirubin, total 1.3(H) 0.1 - 1.2 mg/dL [facility] Protein, pl 6.2(L) 6.5 - 8.5 g/dL [facility] Albumin 3.0(L) 3.5 - 5.0 g/dL [facility] Alk phos 256(H) 40 - 130 Units/L [facility] ALT 18 7 - 55 Units/L [facility] AST 39 10 - 50 Units/L [facility] Blood 04/08/2024 11:5 3 PM ASSISTANT PROFESSOR OF PHYSICS 04/09/2024 12:33 AM ASSISTANT PROFESSOR OF PHYSICS us Donya Sotelo MD LAB BLOOD ORDERABLES Fin al Result [facility] Department [place] [address] * (ABNORMAL) POCT lactate (04/08/2024 11:25 PM ASSISTANT PROFESSOR OF PHYSICS) [facility] Lactate POC i-STAT 4.6(C) 0.7 - 2.0 mmol/L Blood 04/08/2024 11:2 5 PM ASSISTANT PROFESSOR OF PHYSICS 04/08/2024 11:25 PM ASSISTANT PROFESSOR OF PHYSICS us Herberth Quinones MD LAB POCT ORDERABLES - DEV ICE Final Result [facility] Department [place] [address] * Respiratory pathogen panel Nasopharyngeal (04/08/2024 10:54 PM ASSISTANT PROFESSOR OF PHYSICS) [facility] Influenza A RNA Not Detected Not Detected Influenza B RNA Not Detected Not Detected [facility] RSV RNA Not Detected Not Detected [facility] COVID-19 RNA Not Detected Not Detected [facility] Coronavirus 229E RNA Not Detected Not Detected [facility] Coronavirus HKU1 RNA Not Detected Not Detected [facility] Coronavirus NL63 RNA Not Detected Not Detected [facility] Coronavirus OC43 RNA Not Detected Not Detected [facility] Adenovirus DNA Not Detected Not Detected [facility] Metapneumovirus RNA Not Detected Not Detected [facility] Rhinovirus/Enterov irus RNA Not Detected Not Detected [facility] Parainfluenza 1 RNA Not Detected Not Detected [facility] Parainfluenza 2 RNA Not Detected Not Detected [facility] Parainfluenza 3 RNA Not Detected Not Detected [facility] Parainfluenza 4 RNA Not Detected Not Detected [facility] B. pertussis DNA Not Detected Not Detected [facility] B. parapertussis DNA Not Detected Not Detected [facility] C. pneumoniae DNA Not Detected Not Detected [facility] M. pneumoniae DNA Not Detected Not Detected [facility] Nasopharyngeal 04/08/2024 10 :54 PM ASSISTANT PROFESSOR OF PHYSICS 04/08/2024 11:08 PM ASSISTANT PROFESSOR OF PHYSICS Narrative [facility] - 04/09/2024 12:10 AM ASSISTANT PROFESSOR OF PHYSICS Is the Patient experiencing symptoms consistent with COVID?->No Surveillance testing for transplant patient?->No Interpretive Data The [employer] FilmArray Respiratory Panel (RP2.1) assay is a multiplexed real-time PCR based nucleic acid test capable of simultaneous qualitative detection and identification of multiple respiratory viral and bacterial nucleic acids, including SARS Coronavirus 2 (the causative agent of COVID-19). The following bacteria, viruses and virus subtypes can be identified using the FilmArray RP2.1 assay: Bordetella pertussis, Bordetella parapertussis, Chlamydia pneumoniae, Mycoplasma pneumoniae, Adenovirus, SARS Coronavirus 2, seasonal coronaviruses (Coronavirus HKU1, Coronavirus NL63, Coronavirus 229E, and Coronavirus OC43), Influenza A, Influenza A subtype H1, Influenza A subtype H3, Influenza A subtype 2009 H1, Influenza B, Metapneumovirus, Parainfluenza 1, Parainfluenza 2, Parainfluenza 3, Parainfluenza 4, RSV, Rhinovirus/Enterovirus. Due to the genetic similarity between human Rhinovirus and Enterovirus, the FilmArray RP2.1 assay cannot reliably differentiate them. Coronavirus OC43 may cross-react with some isolates of Coronavirus HKU1. A dual positive result may be due to cross-reactivity or may indicate a co- infection. The detection and identification of specific viral and bacterial nucleic acids from individuals exhibiting signs and symptoms of a respiratory infection aids in the diagnosis of respiratory infection if used in conjunction with other clinical and epidemiological information. The results of this test should not be used as the sole basis for diagnosis, treatment, or other management decisions. Negative results in the setting of a respiratory illness may be due to infection with pathogens that are not detected by this test. Positive results do not rule out infection/co-infection with other organisms. The agent(s) detected by the FilmArray RP2.1 may not be the definite cause of disease. Additional testing (lab, imaging, etc.) may be necessary when evaluating a patient with possible respiratory tract infection. The FilmArray RP2.1 assay has FDA clearance for testing of NETWORK SECURITY ENGINEER swabs. The performance of additional specimen types has been assessed by the performing laboratory. The performance characteristics of this assay have been determined by [facility]. Current interpretive data was last revised on 21. us Donya Sotelo MD LAB MICROBIOLOGY - [facility] ORDERABLES Final Result [facility] Department [place] [address] * IA CRITICAL CARE ILL/INJURED PATIENT INIT 30-74 MIN (04/08/2024 10:00 PM ASSISTANT PROFESSOR OF PHYSICS) Narrative Herberth Quinones MD - 04/08/2024 10:00 PM ASSISTANT PROFESSOR OF PHYSICS Herberth Quinones MD 04/09/2024 12:21 AM Critical Care Performed by: Herberth Quinones MD Authorized by: Herberth Quinones MD Critical care provider statement: As reflected in the history, physical exam, orders, notes, and/or MDM, I was personally present while the patient was critically ill and provided critical care services for 35 minutes, excluding time involved in separately billable procedures. Critical care was necessary to treat or prevent imminent or life-threatening deterioration of the following condition(s): acute delirium Alcohol withdrawal, new spine fractures Critical care was time spent by me providing the following: continuous telemetry, continuous pulse oximetry and interpretation of bedside monitors, imaging, and arterial/venous lab draws Repeat dosing of benzodiazepines for withdrawal, coordination of care with orthopedic spine surgery and Trauma surgery I provided emergent necessary critical care medicine services to this patient. I ordered and reviewed test results and/or imaging studies. I spent time discussing the management of this critically ill patient with consultants and the medical staff. I spent time discussing the management and therapeutic options for this critically ill patient with the patient themselves or with the appropriate designated surrogate decision-maker. I spent time documenting in the medical record. us Herberth Quinones MD IN CLINIC/BEDSIDE ORDERAB LES Edited Result - Final * CT Cervical Spine WO Contrast (04/08/2024 8:31 PM ASSISTANT PROFESSOR OF PHYSICS) Anatomical Region Laterality Modality Spine N/A Computed Tomogra phy 04/08/2024 8:54 PM ASSISTANT PROFESSOR OF PHYSICS Impressions 04/08/2024 9:11 PM ASSISTANT PROFESSOR OF PHYSICS 1. No acute fracture of the cervical spine. 2. Multilevel degenerative changes of the cervical spine with up to moderate neuroforaminal stenosis on the left at C3-C4 and bilaterally at C5-C6. Dictated by: Clarence Roy MD The radiology attending physician has personally reviewed this study, and had reviewed and/or edited this written report and agrees with it. Electronically signed by: Binu Hurtado M.D. Narrative 04/08/2024 9:11 PM ASSISTANT PROFESSOR OF PHYSICS EXAMINATION: CT of the cervical spine without contrast HISTORY: Multiple falls. TECHNIQUE: CT of the cervical spine was performed according to the standard protocol without intravenous contrast. COMPARISON: None Available. FINDINGS: The alignment of the cervical spine is normal. There is no acute fracture. Vertebral bodies are normal in height without compression fractures. Multilevel degenerative disc height loss, up to moderate at C6-C7. Gas seen within the C3 vertebral body likely degenerative in nature, extending from the C3-C4 disc space. There are degenerative changes about the dens. Otherwise, the craniocervical junction is normal. Limited views of the skull base appear normal. The sphenoid sinus is well aerated. No soft tissue abnormality is identified. Small central disc protrusion at C3-C4. There is multilevel facet arthropathy up to moderate on the right at C4-C5. There is multilevel uncovertebral joint disease is, up to moderate at C5-C6 and C6-C7 bilaterally and on the left at C3-C4.. There is moderate neuroforaminal stenosis on the left at C3-C4 and bilaterally at C5-C6. There is no high-grade spinal canal stenosis. Procedure Note Binu Hurtado MD - 04/08/2024 EXAMINATION: CT of the cervical spine without contrast HISTORY: Multiple falls. TECHNIQUE: CT of the cervical spine was performed according to the standard protocol without intravenous contrast. COMPARISON: None Available. FINDINGS: The alignment of the cervical spine is normal. There is no acute fracture. Vertebral bodies are normal in height without compression fractures. Multilevel degenerative disc height loss, up to moderate at C6-C7. Gas seen within the C3 vertebral body likely degenerative in nature, extending from the C3-C4 disc space. There are degenerative changes about the dens. Otherwise, the craniocervical junction is normal. Limited views of the skull base appear normal. The sphenoid sinus is well aerated. No soft tissue abnormality is identified. Small central disc protrusion at C3-C4. There is multilevel facet arthropathy up to moderate on the right at C4-C5. There is multilevel uncovertebral joint disease is, up to moderate at C5-C6 and C6-C7 bilaterally and on the left at C3-C4.. There is moderate neuroforaminal stenosis on the left at C3-C4 and bilaterally at C5-C6. There is no high-grade spinal canal stenosis. IMPRESSION: 1. No acute fracture of the cervical spine. 2. Multilevel degenerative changes of the cervical spine with up to moderate neuroforaminal stenosis on the left at C3-C4 and bilaterally at C5-C6. Dictated by: Clarence Roy MD The radiology attending physician has personally reviewed this study, and had reviewed and/or edited this written report and agrees with it. Electronically signed by: Binu Hurtado M.D. Herberth Quinones MD IMG CT PROCEDURES Final R esult * ECG 12-LEAD (04/08/2024 7:53 PM ASSISTANT PROFESSOR OF PHYSICS) Narrative [facility] - 04/08/2024 7:53 PM ASSISTANT PROFESSOR OF PHYSICS Herberth Quinones MD 04/08/2024 7:53 PM ECG 12 lead Date/Time: 04/08/2024 7:53 PM Performed by: Herberth Quinones MD Authorized by: Donya Sotelo MD Rate: ECG rate: 119 ECG rate assessment: tachycardic Rhythm: Rhythm: sinus tachycardia Ectopy: Ectopy: PVCs PVCs: Infrequent QRS: QRS axis: Left QRS intervals: Normal Conduction: Conduction: normal ST segments: ST segments: Normal T waves: T waves: normal Other findings: Other findings: LVH Previous ECG: Previous ECG: Unavailable Interpretation: Interpretation: non-specific Recommended Follow-up: Recommended follow up: further workup in the ED Comments: ECG obtained for AMS Procedure Note Herberth Quinones MD - 04/08/2024 7:53 PM CST Procedure ECG 12 lead Date/Time: 04/08/2024 7:53 PM Performed by: Herberth Quinones MD Authorized by: Donya Sotelo MD Rate: ECG rate: 119 ECG rate assessment: tachycardic Rhythm: Rhythm: sinus tachycardia Ectopy: Ectopy: PVCs PVCs: Infrequent QRS: QRS axis: Left QRS intervals: Normal Conduction: Conduction: normal ST segments: ST segments: Normal T waves: T waves: normal Other findings: Other findings: LVH Previous ECG: Previous ECG: Unavailable Interpretation: Interpretation: non-specific Recommended Follow-up: Recommended follow up: further workup in the ED Comments: ECG obtained for AMS Herberth Quinones MD 04/08/241952 us Donya Sotelo MD ECG ORDERABLES Final Re sult [facility] * (ABNORMAL) Urinalysis reflex to microscopic and culture Urine (04/08/2024 7:35 PM ASSISTANT PROFESSOR OF PHYSICS) Color, ur Straw Yellow Clarity, ur Clear Clear [facility] Specific gravity, ur >1.042(H) 1.003 - 1.030 [facility] pH, urine 6.5 [facility] Comment: Interpretive Data U rine pH is affected by diet, medications, systemic acid-base disturbances, and renal tubular function. pH may affect urinary stone formation. For example, urine pH below 6.0 may help reduce the tendency for calcium phosphate stones and pH greater than 6.0 may reduce the tendency for uric acid stone formation. Source: [facility] eventuosity Current Interpretive Data was last revised on 2017 Protein, ur ql 1+(A) Negative [facility] Glucose, ur ql Negative Negative [facility] Ketones, ur Negative Negative [facility] Bilirubin, ur Negative Negative [facility] Blood, ur Trace(A) Negative [facility] Urobilinogen, ur <2.0 <2.0 mg/dL [facility] Nitrite, ur Negative Negative [facility] Leukocyte esterase, ur Negative Negative [facility] UA reflex comment Reflex to microscopic UA will be performed. [facility] Urine 04/08/2024 7:35 PM ASSISTANT PROFESSOR OF PHYSICS 04/08/2024 7:41 PM ASSISTANT PROFESSOR OF PHYSICS us Herberth Quinones MD LAB MICROBIOLOGY - GENERA L ORDERABLES Final Result [facility] Department [place] [address] * (ABNORMAL) Urinalysis, microscopic only (04/08/2024 7:35 PM ASSISTANT PROFESSOR OF PHYSICS) WBC, ur 0-5 0 - 5 /HPF RBC, ur 6-10(A) 0 - 2 /HPF [facility] Epithelial cells, squamous, ur 1-5 0 - 5 /HPF [facility] Culture Reflex Comment Reflex conditions for urine culture (WBC >10) not met. [facility] Urine 04/08/2024 7:35 PM ASSISTANT PROFESSOR OF PHYSICS 04/08/2024 7:41 PM ASSISTANT PROFESSOR OF PHYSICS Herberth Quinones MD LAB URINE ORDERABLES Kandace l Result Performing Organization Address [facility] Co de Phone Number [facility] [place] [address] * Check Sample (04/08/2024 7:29 PM ASSISTANT PROFESSOR OF PHYSICS) ABO Rh O Positive [facility] OTHER 04/08/2024 7:29 PM ASSISTANT PROFESSOR OF PHYSICS 04/08/2024 7:56 PM ASSISTANT PROFESSOR OF PHYSICS Herberth Quinones MD LAB BLOOD ORDERABLES Kandace l Result Performing Organization Address [facility] de Phone Number [facility] Department [place] [address] [facility] * Folate (04/08/2024 7:29 PM ASSISTANT PROFESSOR OF PHYSICS) Pathologist [facility] Folic acid See Comment >=5.0 ng/mL Comment: Credited; Hemolyzed Specimen Telephone report made to: herberth on 04/08/2024 20:43:14 ASSISTANT PROFESSOR OF PHYSICS by rxy . Blood 04/08/2024 7:29 PM ASSISTANT PROFESSOR OF PHYSICS 04/08/2024 7:51 PM ASSISTANT PROFESSOR OF PHYSICS Herberth Quinones MD LAB BLOOD ORDERABLES Kandace l Result Performing Organization Address [facility] Co de Phone Number [facility] [place] [address] * eGFR (04/08/2024 6:49 PM ASSISTANT PROFESSOR OF PHYSICS) Pathologist [facility] eGFR >90 >=60 mL/min/1. 73 m2 Comment: Interpretive Data Reference Interval Normal >/= 90 mL/min/1.73m2 Mildly decreased* 60 - 89 mL/min/1.73m2 Mildly to moderately decreased 45 - 59 mL/min/1.73m2 Moderately to severely decreased 30 - 44 mL/min/1.73m2 Severely decreased 15 - 29 mL/min/1.73m2 Kidney Failure < 15 mL/min/1.73m2 *Relative to young adult level Estimated glomerular filtration rate is determined by the 2020 CKD-EPI equation recommended by the National Kidney Foundation (A Unifying Approach to GFR Estimation: Recommendations of the NKF-ASK Task Force on Reassessing the Inclusion of Race in Diagnosing Kidney Disease, JASN 2020). The CKD-EPI equation should not be used for patients with unstable renal function and has not been validated in children and those over 70. Current interpretive data was last reviewed 2020. Blood 04/08/2024 6:49 PM ASSISTANT PROFESSOR OF PHYSICS 04/08/2024 6:58 PM ASSISTANT PROFESSOR OF PHYSICS Herberth Quinones MD LAB BLOOD ORDERABLES Kandace l Result [facility] Department [place] [address] * Differential, auto (04/08/2024 6:49 PM ASSISTANT PROFESSOR OF PHYSICS) Pathologist [facility] Neutrophil abs 5.5 1.5 - 6.5 K/cumm Imm gran abs 0.0 0.0 - 0.1 K/cumm [facility] Lymphocyte abs 1.5 0.8 - 3.3 K/cumm [facility] Monocyte abs 0.7 0.2 - 0.8 K/cumm [facility] Eosinophil abs 0.1 0.0 - 0.5 K/cumm [facility] Basophil abs 0.0 0.0 - 0.1 K/cumm [facility] Neutrophil pct 69.4 % [facility] Comment: Interpretive Data Percent cell count reference ranges are not reported, since discordance with absolute values may lead to misinterpretation of CBC data. Current Interpretive Data was last revised on 2017. Imm gran pct 0.5 % [facility] Comment: Interpretive Data Percent cell count reference ranges are not reported, since discordance with absolute values may lead to misinterpretation of CBC data. Current Interpretive Data was last revised on 2017. Lymphocyte pct 18.9 % [facility] Comment: Interpretive Data Percent cell count reference ranges are not reported, since discordance with absolute values may lead to misinterpretation of CBC data. Current Interpretive Data was last revised on 2017. Monocyte pct 9.2 % [facility] Comment: Interpretive Data Percent cell count reference ranges are not reported, since discordance with absolute values may lead to misinterpretation of CBC data. Current Interpretive Data was last revised on 2017. Eosinophil pct 1.5 % [facility] Comment: Interpretive Data Percent cell count reference ranges are not reported, since discordance with absolute values may lead to misinterpretation of CBC data. Current Interpretive Data was last revised on 2017. Basophil pct 0.5 % [facility] Comment: Interpretive Data Percent cell count reference ranges are not reported, since discordance with absolute values may lead to misinterpretation of CBC data. Current Interpretive Data was last revised on 2017. Blood 04/08/2024 6:49 PM ASSISTANT PROFESSOR OF PHYSICS 04/08/2024 6:58 PM ASSISTANT PROFESSOR OF PHYSICS eHrberth Quinones MD LAB BLOOD ORDERABLES Kandace l Result Performing Organization Address [facility] Co de Phone Number [facility] [place] [address] * Thyroid Function [place] (04/08/2024 6:49 PM ASSISTANT PROFESSOR OF PHYSICS) TSH 2.26 0.30 - 4.20 mcIUnit/mL Blood 04/08/2024 6:49 PM ASSISTANT PROFESSOR OF PHYSICS 04/08/2024 6:58 PM ASSISTANT PROFESSOR OF PHYSICS Herberth Quinones MD LAB BLOOD ORDERABLES Kandace l Result Performing Organization Address [facility] Co de Phone Number [facility] Department [place] [address] * (ABNORMAL) CBC with auto differential (04/08/2024 6:49 PM ASSISTANT PROFESSOR OF PHYSICS) [facility] WBC 8.0 3.8 - 9.9 K/cumm Hgb 11.8(L) 13.0 - 17.5 g/dL [facility] Hct 32.5(L) 38.9 - 50.3 % [facility] Plt 417(H) 150 - 400 K/cumm [facility] MPV 10.1 9.1 - 12.3 fL [facility] RBC 3.52(L) 4.30 - 5.80 M/cumm [facility] MCV 92.3 81.3 - 96.4 fL [facility] MCH 33.5(H) 27.1 - 33.3 pg [facility] MCHC 36.3(H) 32.3 - 35.7 g/dL [facility] RDW CV 15.7(H) 11.1 - 14.9 % [facility] RDW SD 51.9(H) 35.7 - 48.1 fL [facility] NRBC abs 0.00 0.00 - 0.01 K/cumm [facility] Blood 04/08/2024 6:49 PM ASSISTANT PROFESSOR OF PHYSICS 04/08/2024 6:58 PM ASSISTANT PROFESSOR OF PHYSICS Herberth Quinones MD LAB BLOOD ORDERABLES Kandace ray Result [facility] Department [place] [address] * (ABNORMAL) aPTT (04/08/2024 6:49 PM ASSISTANT PROFESSOR OF PHYSICS) [facility] aPTT 21(L) 28 - 38 sec Comment: Interpretive Data Heparin therapeutic range: 66.0 - 100.0 seconds. Range based on correlation with therapeutic heparin activity range of 0.3 - 0.7 Units/mL. Current interpretive data was last revised on 2022. Blood 04/08/2024 6:49 PM ASSISTANT PROFESSOR OF PHYSICS 04/08/2024 6:57 PM ASSISTANT PROFESSOR OF PHYSICS Herberth Quinones MD LAB BLOOD ORDERABLES Kandace l Result Performing Organization Address [facility] Co de Phone Number [facility] [place] [address] * Protime-INR (04/08/2024 6:49 PM ASSISTANT PROFESSOR OF PHYSICS) PT 11.9 9.7 - 13.0 sec INR 1.10 0.90 - 1.20 [facility] Comment: Interpretive data Oral anticoagulant therapeutic ranges: Venous thromboembolism prophylaxis or treatment: 2.0-3.0 CARDIOLOGY Standard range: 2.0-3.0 High-intensity range: 2.5-3.5 Refer to indication-specific guidelines for appropriate target ranges for prosthetic heart valve replacement. Current interpretive data was last revised on 2019. Blood 04/08/2024 6:49 PM ASSISTANT PROFESSOR OF PHYSICS 04/08/2024 6:57 PM ASSISTANT PROFESSOR OF PHYSICS Herberth Quinones MD LAB BLOOD ORDERABLES Kandace l Result Performing Organization Address [facility] [place] [address] * Type and screen (04/08/2024 6:49 PM ASSISTANT PROFESSOR OF PHYSICS) Eladio, indirect Negative ABO Rh O Positive [facility] Blood 04/08/2024 6:49 PM ASSISTANT PROFESSOR OF PHYSICS 04/08/2024 6:56 PM ASSISTANT PROFESSOR OF PHYSICS Narrative [facility] - 04/08/2024 7:42 PM ASSISTANT PROFESSOR OF PHYSICS Has the patient had Daratumumab or Isatuximab in the past 6 months?->Unknown Herberth Quinones MD LAB BLOOD BANK TEST ORDER TIMOTHY Final Result Performing Organization Address City/[facility] Co de Phone Number [facility] [place] [address] * Phosphorus (04/08/2024 6:49 PM ASSISTANT PROFESSOR OF PHYSICS) Pathologist [facility] Phosphorus, pl 3.2 2.3 - 4.5 mg/dL Blood 04/08/2024 6:49 PM ASSISTANT PROFESSOR OF PHYSICS 04/08/2024 6:58 PM ASSISTANT PROFESSOR OF PHYSICS Herberth Quinones MD LAB BLOOD ORDERABLES Kandace l Result Performing Organization Address City/State/[facility] Co de Phone Number [facility] [place] [address] * Magnesium (04/08/2024 6:49 PM ASSISTANT PROFESSOR OF PHYSICS) [facility] Magnesium 2.5 1.4 - 2.5 mg/dL Blood 04/08/2024 6:49 PM ASSISTANT PROFESSOR OF PHYSICS 04/08/2024 6:58 PM ASSISTANT PROFESSOR OF PHYSICS Herberth Quinones MD LAB BLOOD ORDERABLES Kandace l Result Performing Organization Address [facility] Co de Phone Number [facility] [place] [address] * Lipase (04/08/2024 6:49 PM ASSISTANT PROFESSOR OF PHYSICS) [facility] Lipase 29 10 - 99 Units/L Blood 04/08/2024 6:49 PM ASSISTANT PROFESSOR OF PHYSICS 04/08/2024 6:58 PM ASSISTANT PROFESSOR OF PHYSICS Herberth Quinones MD LAB BLOOD ORDERABLES Kandace l Result Performing Organization Address City/[facility] Co de Phone Number [facility] [place] [address] * (ABNORMAL) Creatine kinase (CK), total (04/08/2024 6:49 PM ASSISTANT PROFESSOR OF PHYSICS) [facility] CK 38(L) 40 - 300 Units/L Blood 04/08/2024 6:49 PM ASSISTANT PROFESSOR OF PHYSICS 04/08/2024 6:58 PM ASSISTANT PROFESSOR OF PHYSICS us Herberth Quinones MD LAB BLOOD ORDERABLES Kandace ray Result [facility] Department [place] [address] * (ABNORMAL) Comprehensive metabolic panel (04/08/2024 6:49 PM ASSISTANT PROFESSOR OF PHYSICS) Sodium 139 135 - 145 mmol/L Potassium, pl 2.9(L) 3.3 - 4.9 mmol/L [facility] Chloride 96(L) 97 - 110 mmol/L [facility] CO2 29 22 - 32 mmol/L [facility] Anion gap 14 2 - 15 mmol/L [facility] BUN 5(L) 6 - 25 mg/dL [facility] Creatinine 0.87 0.80 - 1.30 mg/dL [facility] Glucose 111 70 - 199 mg/dL [facility] Comment: Interpretive Data Fasting glucose >/= 126 mg/dl is diagnostic for diabetes. Fasting is defined as no caloric intake for at least 8 hours. Fasting glucose between 100 mg/dl to 125 mg/dl is diagnostic of prediabetes. In a patient with classic symptoms of hyperglycemia or hyperglycemic crisis, a random glucose >/= 200 mg/dl is diagnostic for diabetes. In the absence of unequivocal hyperglycemia, results should be confirmed by repeat testing. The classification and Diagnosis of Diabetes Diabetes Care 202; 46: S19-S40. Current interpretive data was last revised 2022. Calcium 8.6 8.5 - 10.3 mg/dL [facility] Bilirubin, total 0.8 0.1 - 1.2 mg/dL [facility] Protein, pl 6.5 6.5 - 8.5 g/dL [facility] Albumin 3.1(L) 3.5 - 5.0 g/dL [facility] Alk phos 273(H) 40 - 130 Units/L [facility] ALT 18 7 - 55 Units/L [facility] AST 38 10 - 50 Units/L [facility] Blood 04/08/2024 6:49 PM ASSISTANT PROFESSOR OF PHYSICS 04/08/2024 6:58 PM ASSISTANT PROFESSOR OF PHYSICS us Herberth Quinones MD LAB BLOOD ORDERABLES Kandace ray Result [facility] [place] [address] * CT Body Outside Consult (04/08/2024 6:48 PM ASSISTANT PROFESSOR OF PHYSICS) Anatomical Region Laterality Modality Body N/A Computed Tomogra phy 04/08/2024 8:00 PM ASSISTANT PROFESSOR OF PHYSICS Impressions 04/09/2024 11:44 AM ASSISTANT PROFESSOR OF PHYSICS 1. Mild age-indeterminate compression fractures of T1, T3, T4, and T6. 2. Faint right lung tree-in-bud nodularity and bronchial wall thickening suggestive of likely long-standing aspiration. No large consolidations to suggest a large acute aspiration. 3. Multiple left lower lobe pulmonary nodules, many of which are calcified likely representing old granulomatous disease. A 6 mm noncalcified nodule is indeterminate but may also represent sequela of old granulomatous disease. Follow-up CT in 6 months could be considered if clinically indicated. 4. Hyperenhancing hepatic lesion likely represents a flash filling hemangioma. Recommend comparison with any outside prior imaging to evaluate for stability. If clinically indicated this can be further evaluated with abdominal MRI. The findings, conclusions and recommendations within this report do not replace the initial findings, conclusions and recommendations made at the facility where the study was performed based upon the imaging and clinical condition at that time. Comparison with the prior report and clinical history is necessary. The provided images may or may not represent the [place] source data set and thus may contain changes that may lower the accuracy of this second-opinion interpretation. Dictated by: Jose Francisco Beasley M.D. The radiology attending physician has personally reviewed this study, and had reviewed and/or edited this written report and agrees with it. Electronically signed by: Adilson Torres M.D. Narrative 04/09/2024 11:44 AM ASSISTANT PROFESSOR OF PHYSICS EXAMINATION: RADIOLOGY CONSULTATION ON OUTSIDE IMAGING STUDY STUDY INITIALLY PERFORMED: 04/08/2024 at [facility]. TYPE OF STUDY: Multiple CT images of the chest, abdomen, and pelvis with contrast are provided at the time of this interpretation. CONTRAST ROUTE: Contrast was administered via the intravenous route. The protocol was adequate to address the clinical question. The outside final report was not available at the time of this second opinion interpretation. TYPE OF CONSULTATION: Consult on outside imaging study with images submitted through Outside Image Sharing Service DATE OF CONSULTATION: 04/08/2024 7:48 PM HISTORY: Fall COMPARISON: None available. FINDINGS: Faint right lung, basilar predominant tree-in-bud nodularity with right lower lobe bronchial wall thickening suggestive of aspiration. There is moderate bilateral emphysema. No pleural effusion or pneumothorax. There are multiple left lower lobe predominantly calcified pulmonary nodules. A 6 mm subpleural nodule in the superior segment of the left lower lobe on table position -120.3 is not definitely calcified. Heart size is normal. Moderate severe coronary vascular calcifications. Normal caliber thoracic aorta. No thoracic adenopathy. Normal esophagus. Mild hepatic steatosis. 12 mm hepatic segment 2 hyperenhancing lesion likely represents a flash filling hemangioma. No biliary ductal dilatation. Distended gallbladder without acute cholecystitis. Normal pancreas, spleen, and adrenal glands. Kidneys enhance symmetrically without hydronephrosis or nephrolithiasis. The urinary bladder is normal. Small fat-containing left inguinal hernia. Normal prostate gland. Colonic diverticula without acute diverticulitis. No evidence of bowel obstruction. Normal appendix. No abdominal or pelvic lymphadenopathy. Mild focal ectasia of the infrarenal abdominal aorta measuring up to 2.4 cm. Moderate to severe calcific atherosclerosis of the abdominal aorta. Age-indeterminate mild compression fractures of T1, T3, T4, and T6 with mild (less than 25%) height loss involving superior endplates. Procedure Note Adilson Torres MD - 04/09/2024 EXAMINATION: RADIOLOGY CONSULTATION ON OUTSIDE IMAGING STUDY STUDY INITIALLY PERFORMED: 04/08/2024 at [facility]. TYPE OF STUDY: Multiple CT images of the chest, abdomen, and pelvis with contrast are provided at the time of this interpretation. CONTRAST ROUTE: Contrast was administered via the intravenous route. The protocol was adequate to address the clinical question. The outside final report was not available at the time of this second opinion interpretation. TYPE OF CONSULTATION: Consult on outside imaging study with images submitted through Outside Image Sharing Service DATE OF CONSULTATION: 04/08/2024 7:48 PM HISTORY: Fall COMPARISON: None available. FINDINGS: Faint right lung, basilar predominant tree-in-bud nodularity with right lower lobe bronchial wall thickening suggestive of aspiration. There is moderate bilateral emphysema. No pleural effusion or pneumothorax. There are multiple left lower lobe predominantly calcified pulmonary nodules. A 6 mm subpleural nodule in the superior segment of the left lower lobe on table position -120.3 is not definitely calcified. Heart size is normal. Moderate severe coronary vascular calcifications. Normal caliber thoracic aorta. No thoracic adenopathy. Normal esophagus. Mild hepatic steatosis. 12 mm hepatic segment 2 hyperenhancing lesion likely represents a flash filling hemangioma. No biliary ductal dilatation. Distended gallbladder without acute cholecystitis. Normal pancreas, spleen, and adrenal glands. Kidneys enhance symmetrically without hydronephrosis or nephrolithiasis. The urinary bladder is normal. Small fat-containing left inguinal hernia. Normal prostate gland. Colonic diverticula without acute diverticulitis. No evidence of bowel obstruction. Normal appendix. No abdominal or pelvic lymphadenopathy. Mild focal ectasia of the infrarenal abdominal aorta measuring up to 2.4 cm. Moderate to severe calcific atherosclerosis of the abdominal aorta. Age-indeterminate mild compression fractures of T1, T3, T4, and T6 with mild (less than 25%) height loss involving superior endplates. IMPRESSION: 1. Mild age-indeterminate compression fractures of T1, T3, T4, and T6. 2. Faint right lung tree-in-bud nodularity and bronchial wall thickening suggestive of likely long-standing aspiration. No large consolidations to suggest a large acute aspiration. 3. Multiple left lower lobe pulmonary nodules, many of which are calcified likely representing old granulomatous disease. A 6 mm noncalcified nodule is indeterminate but may also represent sequela of old granulomatous disease. Follow-up CT in 6 months could be considered if clinically indicated. 4. Hyperenhancing hepatic lesion likely represents a flash filling hemangioma. Recommend comparison with any outside prior imaging to evaluate for stability. If clinically indicated this can be further evaluated with abdominal MRI. The findings, conclusions and recommendations within this report do not replace the initial findings, conclusions and recommendations made at the facility where the study was performed based upon the imaging and clinical condition at that time. Comparison with the prior report and clinical history is necessary. The provided images may or may not represent the [place] source data set and thus may contain changes that may lower the accuracy of this second-opinion interpretation. Dictated by: Jose Francisco Beasley M.D. The radiology attending physician has personally reviewed this study, and had reviewed and/or edited this written report and agrees with it. Electronically signed by: Adilson Torres M.D. Regina Dawson MD IMG CT PROCEDURES Kandace l Result * Neuro CT Outside Consult (04/08/2024 6:45 PM ASSISTANT PROFESSOR OF PHYSICS) Anatomical Region Laterality Modality N/A Computed Tomogra phy 04/08/2024 8:49 PM ASSISTANT PROFESSOR OF PHYSICS Impressions 04/08/2024 9:13 PM ASSISTANT PROFESSOR OF PHYSICS Markedly limited examination due to to artifact. There is no gross acute intracranial abnormality but if there is clinical concern for an intracranial process, repeat head CT could be obtained. The findings, conclusions and recommendations within this report do not replace the initial findings, conclusions and recommendations made at the facility where the study was performed based upon the imaging and clinical condition at that time. Comparison with the prior report and clinical history is necessary. The provided images may or may not represent the [place] source data set and thus may contain changes that may lower the accuracy of this second-opinion interpretation. Dictated by: Vlad Brown MD The radiology attending physician has personally reviewed this study, and had reviewed and/or edited this written report and agrees with it. Electronically signed by: Binu Hurtado M.D. Narrative 04/08/2024 9:13 PM ASSISTANT PROFESSOR OF PHYSICS EXAMINATION: RADIOLOGY CONSULTATION ON OUTSIDE IMAGING STUDY STUDY INITIALLY PERFORMED: 04/08/2024 at [facility]. TYPE OF STUDY: Multiple CT images of the head without intravenous contrast are provided at the time of this interpretation. CONTRAST ROUTE: No contrast was administered. The protocol was adequate to address the clinical question. The outside final report was not available at the time of this second opinion interpretation. TYPE OF CONSULTATION: Consult on outside imaging study with images submitted through Outside Image Sharing Service DATE OF CONSULTATION: 04/08/2024 8:43 PM HISTORY: 64-year-old gentleman with multiple recent falls, compression fractures COMPARISON: None available. FINDINGS: Exam is markedly limited due to extensive streak artifact, as well as stairstep artifact. There is no large intracranial hemorrhage. There is no significant mass effect. Ventricles are of normal size. The nguyen-white differentiation is difficult to assess on this exam. Imaged orbits are grossly unremarkable. Paranasal sinuses are unremarkable. Mastoids are normal. There are atherosclerotic calcifications of the intracranial vessels. No definite fracture is identified. Procedure Note Binu Hurtado MD - 04/08/2024 EXAMINATION: RADIOLOGY CONSULTATION ON OUTSIDE IMAGING STUDY STUDY INITIALLY PERFORMED: 04/08/2024 at [facility]. TYPE OF STUDY: Multiple CT images of the head without intravenous contrast are provided at the time of this interpretation. CONTRAST ROUTE: No contrast was administered. The protocol was adequate to address the clinical question. The outside final report was not available at the time of this second opinion interpretation. TYPE OF CONSULTATION: Consult on outside imaging study with images submitted through Outside Image Sharing Service DATE OF CONSULTATION: 04/08/2024 8:43 PM HISTORY: 64-year-old gentleman with multiple recent falls, compression fractures COMPARISON: None available. FINDINGS: Exam is markedly limited due to extensive streak artifact, as well as stairstep artifact. There is no large intracranial hemorrhage. There is no significant mass effect. Ventricles are of normal size. The nguyen-white differentiation is difficult to assess on this exam. Imaged orbits are grossly unremarkable. Paranasal sinuses are unremarkable. Mastoids are normal. There are atherosclerotic calcifications of the intracranial vessels. No definite fracture is identified. IMPRESSION: Markedly limited examination due to to artifact. There is no gross acute intracranial abnormality but if there is clinical concern for an intracranial process, repeat head CT could be obtained. The findings, conclusions and recommendations within this report do not replace the initial findings, conclusions and recommendations made at the facility where the study was performed based upon the imaging and clinical condition at that time. Comparison with the prior report and clinical history is necessary. The provided images may or may not represent the [place] source data set and thus may contain changes that may lower the accuracy of this second-opinion interpretation. Dictated by: Vlad Brown MD The radiology attending physician has personally reviewed this study, and had reviewed and/or edited this written report and agrees with it. Electronically signed by: Binu Hurtado M.D. 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 Expl anation ADVANCE DIRECTIVE 05/09/2024 8:55 AM POLST ADVANCE DIRECTIVE 04/12/2024 9:27 AM POWER OF PROBATION SUPERVISOR-MEDICAL ADVANCE DIRECTIVE 04/12/2024 9:27 AM POWER OF PROBATION SUPERVISOR-MEDICAL * Full Code (Latest Code Status on File) Date Activated Date Inactivated Comments 04/28/2024 6:17 PM 05/05/2024 8:02 PM * Full Code Date Activated Date Inactivated Comments 04/09/2024 2:02 AM 04/12/2024 6:05 PM Healthcare Agents on File Name Relationship Healthcare Agent Relationshi p Communication Consuelo Wilber Daughter Health Care Agent Care Teams Facilities Painter Relationship Specialty Start [place] [address] [address] [place] [address] PCP - General Family Practice 04/11/24
--- OUTSIDE RECORDS SUMMARY | 2024-07-04 15:32 | XMS_ITS | Encounter Summary ---
Author Organization [facility] Address [address] [place] [address] Care Team Providers Care Knuckler Name Role Phone Akin Lay MD Primary Care Provider [phone] Phoebe Casper MD Unavailable Encounter Details Date Type Department Care Team (Late Contact Info) Description 08/06/2018 Abstract [facility] CONVERSION [address] [place] [address] , Generic ConversionMD Social History Tobacco Use [...] Upcoming Encounters Date Type Department Care Team ([facility] Contact Info) Description 11/01/2024 11:45 AM CDT Office Visit [facility] [place] [address] Phoebe Casper MD [address] [place], [place] [id number] documented as of this encounter Visit Diagnoses Not on filedocumented in this encounter Additional Health Concerns Infection Onset Date Last Indicated Resolved Time COVID-19 Rule Out 07/05/2021 07/05/2021 07/05/2021 6:52 PM CDT COVID-19 Rule Out 12/05/2021 12/05/2021 12/05/2021 4:04 PM CDT documented as of this encounter Care Teams Knuckler Relationship Specialty Start Date End Date Akin Lay MD PCP - General FAMILY PRACTICE 06/23/21 Phoebe Casper MD [address] [place] [address] Consulting Physician CARDIOVASCULAR DISEASE 07/30/23 documented as of this encounter
--- OUTSIDE RECORDS SUMMARY | 2024-07-04 15:33 | XMS_ITS | Clinical Summary ---
Author Organization [facility] al Address [address] [place] [address] Care Team Providers Care Test Pilot Name Role Phone MARJAN Arevalo Jr., Navin Velasquez Primary Care Provider Allergies No known active allergies Medications albuterol [...] (50 mg total) by mouth daily 5 Active multivitamin with folic acid 400 mcg tablet Take 1 tablet by mouth daily 5 026 Active Active Problems Problem Noted Date Diagnosed Date Depression 05/04/2024 Assessment & Plan (05/05/2024 2:45 PM LINE COOK): Since in family 9mo ago and now decreased physcial abillity, patient has been experiencing decreased appetite, low mood, anhedonia, and increased daytime sleeping. He likely has depression. He denies hx of depression or prior use of antidepressants -sertraline 50mg daily (05/04-current) Assessment & Plan (05/04/2024 5:08 PM LINE COOK): Since in family 9mo ago and now decreased physcial abillity, patient has been experiencing decreased appetite, low mood, anhedonia, and increased daytime sleeping. He likely has depression. He denies hx of depression or prior use of antidepressants -sertraline 50mg daily (05/04-current) Macrocytic anemia 05/03/2024 Assessment & Plan (05/05/2024 2:45 PM LINE COOK): Hgb at baseline ~9, MCV 100.4; likely related to EtOH use -B12 wnl Assessment & Plan (05/04/2024 5:08 PM LINE COOK): Hgb at baseline ~9, MCV 100.4; likely related to EtOH use -B12 pending Assessment & Plan (05/03/2024 4:48 PM LINE COOK): Hgb at baseline ~9, MCV 100.4; likely related to EtOH use -B12 pending Noncompliance with medication regimen 05/01/2024 Assessment & Plan (05/05/2024 2:45 PM LINE COOK): Pt endorse not taking medications including eliquis for afib Assessment & Plan (05/04/2024 5:08 PM LINE COOK): Pt endorse not taking medications including eliquis for afib Assessment & Plan (05/03/2024 4:48 PM LINE COOK): Pt endorse not taking medications including eliquis for afib DVT, bilateral lower limbs 05/01/2024 Assessment & Plan (05/05/2024 2:45 PM LINE COOK): There are bilateral DVT in lower limbs [...] bid. Assessment & Plan (05/04/2024 5:08 PM LINE COOK): There are bilateral DVT in lower limbs [...] bid. Assessment & Plan (05/03/2024 4:48 PM LINE COOK): There are bilateral DVT in lower limbs on US 05/01/24. Right: right posterior tibial veins, single [...] 04/29/2024 Assessment & Plan (05/05/2024 2:45 PM LINE COOK): Feet with abrasions that per patient started as blisters, possibly related to swelling from DVTs Cellulits primarily in R. Foot, wound in both feet 04/29 CT Extensive bilateral soft tissue thickening of the lower extremities without organized fluid collection. -cefazolin (04/28-05/01) to augmentin (05/01-05/03) -wound c/s: Apply Vaseline gauze or adaptic to wounds and cover with a dry drsg and wrap with kerlix daily and PRN Assessment & Plan (05/04/2024 5:08 PM LINE COOK): Feet with abrasions that per patient started as blisters, possibly related to swelling from DVTs Cellulits primarily in R. Foot, wound in both feet 04/29 CT Extensive bilateral soft tissue thickening of the lower extremities without organized fluid collection. -cefazolin (04/28-05/01) to augmentin (05/01-05/03) -wound c/s: Apply Vaseline gauze or adaptic to wounds and cover with a dry drsg and wrap with kerlix daily and PRN Assessment & Plan (05/03/2024 4:48 PM LINE COOK): Feet with abrasions that per patient started as blisters, possibly related to swelling from DVTs Cellulits primarily in R. Foot, wound in both feet 04/29 CT Extensive bilateral soft tissue thickening of the lower extremities without organized fluid collection. -cefazolin (04/28-05/01) to augmentin (05/01-05/03) -wound c/s: Apply Vaseline gauze or adaptic to wounds and cover with a dry drsg and wrap with kerlix daily and PRN Alcohol use disorder 04/28/2024 Assessment & Plan (05/05/2024 2:45 PM LINE COOK): Drinks 10 shots fireball daily, last drink 04/28 AM. Increased EtOH use x9mo iso accidental in the family. -s/p valium 10mg in ED -s/p CIWA w/ prn ativan -thiamine, folate, MVI -SW c/s for resources - discussed naltrexone, currently patient favors using sertraline for depression, but if he has alcohol cravings after discharge encouraged to consider naltrexone. Assessment & Plan (05/04/2024 5:08 PM LINE COOK): Drinks 10 shots fireball daily, last drink 04/28 AM. Increased EtOH use x9mo iso accidental in the family. -s/p valium 10mg in ED -s/p CIWA w/ prn ativan -thiamine, folate, MVI -SW c/s for resources - discussed naltrexone, currently patient favors using sertraline for depression, but if he has alcohol cravings after discharge encouraged to consider naltrexone. Assessment & Plan (05/03/2024 4:48 PM LINE COOK): Drinks 10 shots fireball daily, last drink 04/28 AM. Increased EtOH use x9mo iso accidental in the family. -s/p valium 10mg in ED -s/p CIWA w/ prn ativan -thiamine, folate, MVI -SW c/s for resources -plan for naltrexone on discharge Paroxysmal A-fib 04/28/2024 Assessment & Plan (05/05/2024 2:45 PM LINE COOK): -cont Eliquis for now (though if pt ultimately elects to return home instead of rehab, may consider holding in the setting of recurrent falls) -cont home metop Assessment & Plan (05/04/2024 5:08 PM LINE COOK): -cont Eliquis for now (though if pt ultimately elects to return home instead of rehab, may consider holding in the setting of recurrent falls) -cont home metop Assessment & Plan (05/03/2024 4:48 PM LINE COOK): -cont Eliquis for now (though if pt ultimately elects to return home instead of rehab, may consider holding in the setting of recurrent falls) -cont home metop Severe malnutrition 04/11/2024 Assessment & Plan (05/05/2024 2:45 PM LINE COOK): -RD c/, rec ensure plus high protein Assessment & Plan (05/04/2024 5:08 PM LINE COOK): -RD c/, rec ensure Assessment & Plan (05/03/2024 4:48 PM LINE COOK): -RD c/, rec ensure CAD (coronary artery disease) 04/10/2024 Assessment & Plan (05/05/2024 2:45 PM LINE COOK): -cont statin, metop Assessment & Plan (05/04/2024 5:08 PM LINE COOK): -cont statin, metop Assessment & Plan (05/03/2024 4:48 PM LINE COOK): -cont statin, metop Assessment & Plan (04/10/2024 1:39 PM LINE COOK): CAD, multivessel per CT lung cancer screen 07/22, with evidence of anterior HI with scar per MPI 10/22: Atorvastatin, Nitroglycerin, HTN (hypertension) 04/10/2024 Assessment & Plan (05/05/2024 2:45 PM LINE COOK): -cont lopressor 25 bid Assessment & Plan (05/04/2024 5:08 PM LINE COOK): -cont lopressor 25 bid Assessment & Plan (05/03/2024 4:48 PM LINE COOK): -cont lopressor 25 bid Assessment & Plan (04/10/2024 1:40 PM LINE COOK): Chronic Metoprolol 25 mg bid Compression fx, thoracic spine 04/09/2024 Assessment & Plan (05/05/2024 2:45 PM LINE COOK): He was recently admitted to [facility] 04/08-04/12, where he was found to [...] SNF Assessment & Plan (05/04/2024 5:08 PM LINE COOK): He was recently admitted to [facility] 04/08-04/12, where he was found to [...] SNF Assessment & Plan (05/03/2024 4:48 PM LINE COOK): He was recently admitted to [facility] 04/08-04/12, where he was found to [...] SNF Assessment & Plan (04/11/2024 7:09 AM LINE COOK): Ortho spine consult #Falls - hCT, C-spine CT, CT C/A/P unremarkable aside from T-spine fractures #T1, T3, T4, and T6 fx, age indeterminate 04/09 spine: Total spine MRI w/wo contrast completed 04/10 No operative management Ambulate with assistance 04/11 TLSO brace for comfort Scoli films pending Alcohol abuse 04/09/2024 Assessment & Plan (04/11/2024 12:15 PM LINE COOK): #AUD - continue to monitor - phenobarb loading dose given in the ED with plan to transition to diazepam -CD completed 04/09 04/11 no signs of withdrawal, no events overnight Bronchiectasis 11/19/2023 Multiple nodules of lung 11/19/2023 Assessment & Plan (05/05/2024 2:45 PM LINE COOK): Seen on imaging last admit:CT 04/08/2024 with indeterminate lung nodules, recommend follow-up in 6 months (~09/2024) -outpatient f/u Assessment & Plan (05/04/2024 5:08 PM LINE COOK): Seen on imaging last admit:CT 04/08/2024 with indeterminate lung nodules, recommend follow-up in 6 months (~09/2024) -outpatient f/u Assessment & Plan (05/03/2024 4:48 PM LINE COOK): Seen on imaging last admit:CT 04/08/2024 with indeterminate lung nodules, recommend follow-up in 6 months (~09/2024) -outpatient f/u Assessment & Plan (04/10/2024 1:33 PM LINE COOK): Hx of same in past Multiple left lower lobe pulmonary nodules, many of which are calcified likely representing old granulomatous disease. A 6 mm noncalcified nodule is indeterminate but may also represent sequela of old granulomatous disease. Follow-up CT in 6 months could be considered if clinically indicated. Chronic obstructive pulmonary disease 09/17/2023 Assessment & Plan (05/05/2024 2:45 PM LINE COOK): -cont anoro ellipta, prn albuterol Assessment & Plan (05/04/2024 5:08 PM LINE COOK): -cont anoro ellipta, prn albuterol Assessment & Plan (05/03/2024 4:48 PM LINE COOK): -cont anoro ellipta, prn albuterol Assessment & Plan (04/10/2024 1:29 PM LINE COOK): Home Trelegy Anoro Ellipta 6.25 mcg / 25 mcg Albuterol prn Q 6 hrs No oxygen thearpy Resolved Problems Problem Noted Date Diagnosed Date Resolved Date Open wound of dorsum of foot 04/28/2024 04/29/2024 Assessment & Plan (04/28/2024 6:21 PM LINE COOK): BL dorsal food blistering wounds w/ associated swelling/erythema/warmth c/f possible superimposed cellulitis. -cont cefazolin -wound c/s -check LED to r/o DVT Encounters Date Type Department Care Team Description 05/05/2024 [address]phone [address] [address] [address] [place] [address] Janelle Juarez RN 05/04/[address] [place] [address] Janelle Juarez RN 05/01/2024 8:25 AM LINE COOK Ancillary Procedure [facility] IP [address] [facility] [address] [place] [address] 04/28/2024 1:10 PM LINE COOK - 05/05/2024 2:42 PM LINE COOK Hospital Encounter [facility] [address] [place] [address] Mayra Kenyon MD Kalvala, MD Kash Wagoner, Tomasa Wietske, MD Alcohol use disorder (Primary Dx); Deficit in activities of daily living (ADL); Generalized weakness; Need for physical therapy assessment; Cellulitis of right foot Discharge Disposition: Discharge to SNF 04/08/2024 5:08 PM LINE COOK - 04/12/2024 1:58 PM LINE COOK Hospital Encounter [facility] [address] [place] [address] Herberth Quniones MD Ablordeppey, MD Leonela Roberts Michael Christopher, MD Alcohol withdrawal syndrome, with delirium (HCC) (Primary Dx); Diagnosis unknown; Compression fx, thoracic spine, closed, initial encounter (HCC); Frequent falls; Hypokalemia; Dehydration; Lactic acidosis Discharge Disposition: Discharge to home or self care from Last 3 Months Social History Tobacco Use Types Packs/Day Years Used Date Smoking Tobacco: Former Cigarettes 1.3 50 1 - 2023 Passive Smoke Exposure: Past Smokeless Tobacco: Never Tobacco Cessation:Counseling Given: Yes [employer] Utilities Answer Date Recorded In the past 12 months has [employer], oil, or water [employer] threatened to shut off services in your [...] 05/03/2024 How often do you attend chur or methodist services? Never 05/03/2024 Do you belong to any clubs o r organizations such as confucianism groups, unions, fraternal or athletic groups, or [...] any time in the past [address] [facility], were you homeless or living in a jail (including now)? No 05/03/2024 Personal Safety Answer Date Recorded Have you ever been in or are you currently in a harmful physical or emotional relationship or is someone making you feel afraid or unsafe? Denies 04/30/2024 Sex and Gender Information Value Date Recorded Sex Assigned at Not on file Legal Sex Male 8:45 PM LINE COOK Gender Identity Not on file Sexual Orientation Not on file Obstetrics History Last Filed Vital Signs Vital Sign Reading Time Taken Comments Blood Pressure 134/94 05/05/2024 9:25 AM LINE COOK Pulse 92 05/05/2024 9:25 AM LINE COOK Temperature 37.1 C (98.8 F) 05/05/2024 7:24 AM LINE COOK Respiratory Rate 19 05/05/2024 7:24 AM LINE COOK Oxygen Saturation 99% 05/05/2024 7:24 AM LINE COOK Inhaled Oxygen Concentration - - Weight 68.9 kg (152 lb) 04/30/2024 7:01 AM LINE COOK Height 188 cm (6' 2 ) 04/30/2024 7:01 AM LINE COOK Body Mass Index 19.52 04/30/2024 7:01 AM LINE COOK Plan of Treatment Health Maintenance Due Date Last Done Comments Colon Cancer Screening-Colonoscopy 1959 Prostate Cancer Screening-PSA 1959 DTaP/Tdap/Td Vaccine (1 - Tdap) 1970 Hepatitis B Screening 1977 Lung Cancer Screening 2009 Zoster Vaccine (1 of 2) 2009 Abdominal Aortic Aneurysm (AAA) Screen 2024 Well Visit 65+ 2024 Depression Screening 04/28/2025 04/28/2024 Fall Risk Assessment 05/05/2025 05/05/2024 Influenza Vaccine Completed 11/19/2023 Pneumococcal vaccine 65+ Completed 11/19/2023 Hepatitis C Screening Completed 04/12/2024 Procedures Procedure Name Priority Date/Time Associated Diagnosis Comments EGFR Timed 05/05/2024 4:50 AM LINE COOK DIFFERENTIAL AUTO Timed 05/05/2024 4:5 0 AM LINE COOK HEPATIC FUNCTION PANEL Timed 05/05/2024 4:50 AM LINE COOK CBC WITH AUTO DIFFERENTIAL Timed 05/05/2024 4:50 AM LINE COOK BASIC METABOLIC PANEL Timed 05/05/2024 4:50 AM LINE COOK VITAMIN B12 Timed 05/03/2024 4:36 AM LINE COOK EGFR Timed 05/03/2024 4:36 AM LINE COOK DIFFERENTIAL AUTO Timed 05/03/2024 4:3 6 AM LINE COOK HEPATIC FUNCTION PANEL Timed 05/03/2024 4:36 AM LINE COOK CBC WITH AUTO DIFFERENTIAL Timed 05/03/2024 4:36 AM LINE COOK BASIC METABOLIC PANEL Timed 05/03/2024 4:36 AM LINE COOK PHOSPHORUS Timed 05/02/2024 7:48 PM LINE COOK MAGNESIUM Timed 05/02/2024 7:48 PM LINE COOK US VEIN DUPLEX LOWER EXTREMITY BILATERAL COMPLETE IP Routine 05/01/2024 10:03 AM LINE COOK EGFR Timed 05/01/2024 4:35 AM LINE COOK DIFFERENTIAL AUTO Timed 05/01/2024 4:3 5 AM LINE COOK HEPATIC FUNCTION PANEL Timed 05/01/2024 4:35 AM LINE COOK CBC WITH AUTO DIFFERENTIAL Timed 05/01/2024 4:35 AM LINE COOK BASIC METABOLIC PANEL Timed 05/01/2024 4:35 AM LINE COOK PHOSPHORUS Timed 05/01/2024 4:35 AM LINE COOK MAGNESIUM Timed 05/01/2024 4:[address] FOOT BILATERAL W CONTRAST ED 04/29/2024 9:58 AM LINE COOK EGFR Timed 04/29/2024 5:30 AM LINE COOK DIFFERENTIAL AUTO Timed 04/29/2024 5:3 0 AM LINE COOK HEPATIC FUNCTION PANEL Timed 04/29/2024 5:30 AM LINE COOK CBC WITH AUTO DIFFERENTIAL Timed 04/29/2024 5:30 AM LINE COOK BASIC METABOLIC PANEL Timed 04/29/2024 5:30 AM LINE COOK PHOSPHORUS Timed 04/29/2024 5:30 AM LINE COOK MAGNESIUM Timed 04/29/2024 5:30 AM LINE COOK URINALYSIS AND REFLEX TO MICROSCOPIC STAT 04/28/2024 1:21 PM LINE COOK ECG 12-LEAD STAT 04/28/2024 1:13 PM LINE COOK EGFR STAT 04/28/2024 12:57 PM LINE COOK DIFFERENTIAL AUTO STAT 04/28/2024 12: 57 PM LINE COOK COMPREHENSIVE METABOLIC PANEL STAT 04/28/2024 12:57 PM LINE COOK CBC WITH AUTO DIFFERENTIAL STAT 04/28/2024 12:57 PM LINE COOK EGFR STAT 04/28/2024 12:42 PM LINE COOK COMPREHENSIVE METABOLIC PANEL STAT 04/28/2024 12:42 PM LINE COOK XR SCOLIOSIS AP LAT IP Routine 04/12/2024 1 0:27 AM LINE COOK DIFFERENTIAL AUTO Routine 04/12/2024 8:2 6 AM LINE COOK CBC WITH AUTO DIFFERENTIAL Routine 04/12/2024 8:26 AM LINE COOK DIFFERENTIAL AUTO Routine 04/12/2024 5:1 9 AM LINE COOK CBC WITH AUTO DIFFERENTIAL Routine 04/12/2024 5:19 AM LINE COOK RPR Routine 04/12/2024 5:19 AM LINE COOK HEPATITIS C ANTIBODY Routine 04/12/2024 5:19 AM LINE COOK HEPATITIS B SURFACE ANTIGEN Routine 04/12/2024 5:19 AM LINE COOK HIV 1/2 ANTIBODY PLUS P24 ANTIGEN Routine 04/12/2024 5:19 AM LINE COOK EGFR STAT 04/11/2024 9:17 AM LINE COOK DIFFERENTIAL AUTO STAT 04/11/2024 9:1 7 AM LINE COOK MAGNESIUM STAT 04/11/2024 9:17 AM LINE COOK PHOSPHORUS STAT 04/11/2024 9:17 AM LINE COOK BASIC METABOLIC PANEL STAT 04/11/2024 9:17 AM LINE COOK CBC WITH AUTO DIFFERENTIAL STAT 04/11/2024 9:17 AM LINE COOK MRI SPINE TOTAL COMPLETE W WO CONTRAST ED Urgent/IP Urgent 04/10/2024 5:03 PM LINE COOK EGFR Routine 04/09/2024 8:00 PM LINE COOK PHOSPHORUS Routine 04/09/2024 8:00 PM LINE COOK MAGNESIUM Routine 04/09/2024 8:00 PM LINE COOK BASIC METABOLIC PANEL Routine 04/09/2024 8:00 PM LINE COOK CBC WITHOUT DIFFERENTIAL Routine 04/09/2024 8:00 PM LINE COOK EGFR STAT 04/08/2024 11:53 PM LINE COOK DIFFERENTIAL AUTO STAT 04/08/2024 11: 53 PM LINE COOK COMPREHENSIVE METABOLIC PANEL STAT 04/08/2024 11:53 PM LINE COOK CBC WITH AUTO DIFFERENTIAL STAT 04/08/2024 11:53 PM LINE COOK BLOOD CULTURE STAT 04/08/2024 11:53 PM LINE COOK BLOOD CULTURE STAT 04/08/2024 11:53 PM LINE COOK POCT LACTATE - DEVICE Routine 04/08/2024 11:25 PM LINE COOK RESPIRATORY PATHOGEN PANEL STAT 04/08/2024 10:54 PM LINE COOK [facility] ILL/INJURED PATIENT INIT 30-74 MIN Routine 04/08/2024 10:[address] CERVICAL SPINE WO CONTRAST ED 04/08/2024 8:31 PM LINE COOK ECG 12-LEAD STAT 04/08/2024 7:53 PM LINE COOK URINALYSIS, MICROSCOPIC ONLY STAT 04/08/2024 7:35 PM LINE COOK URINALYSIS AND REFLEX TO MICROSCOPIC AND CULTURE STAT 04/08/2024 7:35 PM LINE COOK FOLATE Routine 04/08/2024 7:29 PM LINE COOK B CHECK SAMPLE STAT 04/08/2024 7:29 PM LINE COOK MAGNESIUM STAT 04/08/2024 6:49 PM LINE COOK PHOSPHORUS STAT 04/08/2024 6:49 PM LINE COOK THYROID FUNCTION CASCADE STAT 04/08/2024 6:49 PM LINE COOK CREATINE KINASE (CK), TOTAL STAT 04/08/2024 6:49 PM LINE COOK EGFR STAT 04/08/2024 6:49 PM LINE COOK DIFFERENTIAL AUTO STAT 04/08/2024 6:4 9 PM LINE COOK PROTIME-INR STAT 04/08/2024 6:49 PM LINE COOK APTT STAT 04/08/2024 6:49 PM LINE COOK TYPE AND SCREEN STAT 04/08/2024 6:49 PM LINE COOK LIPASE STAT 04/08/2024 6:49 PM LINE COOK COMPREHENSIVE METABOLIC PANEL STAT 04/08/2024 6:49 PM LINE COOK CBC WITH AUTO DIFFERENTIAL STAT 04/08/2024 6:[address] BODY OUTSIDE CONSULT Routine 04/08/2024 6:48 PM LINE COOK Diagnosis unknown NEURO CT OUTSIDE CONSULT Routine 04/08/2024 6:45 PM LINE COOK Diagnosis unknown from Last 3 Months Results * eGFR (05/05/2024 4:50 AM LINE COOK) eGFR >90 >=60 mL/min/1. 73 m2 Comment: [...] last reviewed 2020. Blood 05/05/2024 4:50 AM LINE COOK 05/05/2024 5:33 AM LINE COOK us Chin Hagan MD LAB BLOOD ORDERABLES F inal Result [facility] Department [place] [address] * (ABNORMAL) Differential, auto (05/05/2024 4:50 AM LINE COOK) Neutrophil abs 8.2(H) 1.5 - 6.5 K/cumm Imm gran abs 0.1 0.0 - 0.1 K/cumm [facility] Lymphocyte abs 2.3 0.8 - 3.3 K/cumm [facility] Monocyte abs 1.3(H) 0.2 - 0.8 K/cumm [facility] Eosinophil abs 0.2 0.0 - 0.5 K/cumm [facility] Basophil abs 0.1 0.0 - 0.1 K/cumm [facility] Neutrophil pct 67.5 % [facility] Comment: Interpretive Data Percent cell count reference ranges are not reported, since discordance with absolute values may lead to misinterpretation of CBC data. Current Interpretive Data was last revised on 2017. Imm gran pct 1.0 % [facility] Comment: Interpretive Data Percent cell count reference ranges are not reported, since discordance with absolute values may lead to misinterpretation of CBC data. Current Interpretive Data was last revised on 2017. Lymphocyte pct 18.7 % [facility] Comment: Interpretive Data Percent cell count reference ranges are not reported, since discordance with absolute values may lead to misinterpretation of CBC data. Current Interpretive Data was last revised on 2017. Monocyte pct 10.7 % [facility] Comment: Interpretive Data Percent cell count reference ranges are not reported, since discordance with absolute values may lead to misinterpretation of CBC data. Current Interpretive Data was last revised on 2017. Eosinophil pct 1.6 % [facility] Comment: Interpretive Data Percent cell count reference ranges are not reported, since discordance with absolute values may lead to misinterpretation of CBC data. Current Interpretive Data was last revised on 2017. Basophil pct 0.5 % [facility] Comment: Interpretive Data Percent cell count reference ranges are not reported, since discordance with absolute values may lead to misinterpretation of CBC data. Current Interpretive Data was last revised on 2017. Blood 05/05/2024 4:50 AM LINE COOK 05/05/2024 5:36 AM LINE COOK us Chin Hagan MD LAB BLOOD ORDERABLES F inal Result [facility] Department [place] [address] * (ABNORMAL) CBC with auto differential (05/05/2024 4:50 AM LINE COOK) WBC 12.1(H) 3.8 - 9.9 K/cumm Hgb 10.3(L) 13.0 - 17.5 g/dL [facility] Hct 30.5(L) 38.9 - 50.3 % [facility] Plt 305 150 - 400 K/cumm [facility] MPV 10.3 9.1 - 12.3 fL [facility] RBC 3.05(L) 4.30 - 5.80 M/cumm [facility] MCV 100.0(H) 81.3 - 96.4 fL [facility] MCH 33.8(H) 27.1 - 33.3 pg [facility] MCHC 33.8 32.3 - 35.7 g/dL [facility] RDW CV 18.3(H) 11.1 - 14.9 % [facility] RDW SD 65.9(H) 35.7 - 48.1 fL [facility] NRBC abs 0.00 0.00 - 0.01 K/cumm [facility] Blood 05/05/2024 4:50 AM LINE COOK 05/05/2024 5:36 AM LINE COOK us Chin Hagan MD LAB BLOOD ORDERABLES F inal Result [facility] Department [place] [address] * (ABNORMAL) Hepatic function panel (05/05/2024 4:50 AM LINE COOK) Bilirubin, total 0.6 0.1 - 1.2 mg/dL Bilirubin, direct 0.2 0.1 - 0.3 mg/dL [facility] Protein, pl 5.9(L) 6.5 - 8.5 g/dL [facility] Albumin 2.8(L) 3.5 - 5.0 g/dL [facility] Alk phos 212(H) 40 - 130 Units/L [facility] ALT 24 7 - 55 Units/L [facility] AST 37 10 - 50 Units/L [facility] Blood 05/05/2024 4:50 AM LINE COOK 05/05/2024 5:33 AM LINE COOK Chin Hagan MD LAB BLOOD ORDERABLES F inal Result Performing Organization Address City/[facility]/ZIP Co de Phone Number [facility] Department [place] [address] * (ABNORMAL) Basic metabolic panel (05/05/2024 4:50 AM LINE COOK) [facility] Sodium 139 135 - 145 mmol/L Potassium, pl 4.2 3.3 - 4.9 mmol/L [facility] Chloride 107 97 - 110 mmol/L [facility] CO2 27 22 - 32 mmol/L [facility] Anion gap 5 2 - 15 mmol/L [facility] BUN 8 6 - 25 mg/dL [facility] Creatinine 0.60(L) 0.80 - 1.30 mg/dL [facility] Glucose 88 70 - 199 mg/dL [facility] Comment: Interpretive Data Fasting glucose >/= 126 [...] 2022. Calcium 8.6 8.5 - 10.3 mg/dL [facility] Blood 05/05/2024 4:50 AM LINE COOK 05/05/2024 5:33 AM LINE COOK Chin Hagan MD LAB BLOOD ORDERABLES F inal Result Performing Organization Address [facility] Co de Phone Number [facility] Department [place] [address] * eGFR (05/03/2024 4:36 AM LINE COOK) [facility] eGFR >90 >=60 mL/min/1. 73 m2 Comment: [...] last reviewed 2020. Blood 05/03/2024 4:36 AM LINE COOK 05/03/2024 5:19 AM LINE COOK us Chin Hagan MD LAB BLOOD ORDERABLES F inal Result [facility] Department [place] [address] * (ABNORMAL) Differential, auto (05/03/2024 4:36 AM LINE COOK) [facility] Neutrophil abs 6.3 1.5 - 6.5 K/cumm Imm gran abs 0.1 0.0 - 0.1 K/cumm [facility] Lymphocyte abs 2.1 0.8 - 3.3 K/cumm [facility] Monocyte abs 1.2(H) 0.2 - 0.8 K/cumm [facility] Eosinophil abs 0.2 0.0 - 0.5 K/cumm [facility] Basophil abs 0.1 0.0 - 0.1 K/cumm [facility] Neutrophil pct 63.0 % [facility] Comment: Interpretive Data Percent cell count reference ranges are not reported, since discordance with absolute values may lead to misinterpretation of CBC data. Current Interpretive Data was last revised on 2017. Imm gran pct 1.4 % [facility] Comment: Interpretive Data Percent cell count reference ranges are not reported, since discordance with absolute values may lead to misinterpretation of CBC data. Current Interpretive Data was last revised on 2017. Lymphocyte pct 21.2 % [facility] Comment: Interpretive Data Percent cell count reference ranges are not reported, since discordance with absolute values may lead to misinterpretation of CBC data. Current Interpretive Data was last revised on 2017. Monocyte pct 12.1 % [facility] Comment: Interpretive Data Percent cell count reference ranges are not reported, since discordance with absolute values may lead to misinterpretation of CBC data. Current Interpretive Data was last revised on 2017. Eosinophil pct 1.7 % [facility] Comment: Interpretive Data Percent cell count reference ranges are not reported, since discordance with absolute values may lead to misinterpretation of CBC data. Current Interpretive Data was last revised on 2017. Basophil pct 0.6 % [facility] Comment: Interpretive Data Percent cell count reference ranges are not reported, since discordance with absolute values may lead to misinterpretation of CBC data. Current Interpretive Data was last revised on 2017. Blood 05/03/2024 4:36 AM LINE COOK 05/03/2024 5:19 AM LINE COOK us Chin Hagan MD LAB BLOOD ORDERABLES F inal Result [facility] Department [place] [address] * (ABNORMAL) CBC with auto differential (05/03/2024 4:36 AM LINE COOK) WBC 10.0(H) 3.8 - 9.9 K/cumm Hgb 9.4(L) 13.0 - 17.5 g/dL [facility] Hct 27.7(L) 38.9 - 50.3 % [facility] Plt 327 150 - 400 K/cumm [facility] MPV 10.1 9.1 - 12.3 fL [facility] RBC 2.76(L) 4.30 - 5.80 M/cumm [facility] MCV 100.4(H) 81.3 - 96.4 fL [facility] MCH 34.1(H) 27.1 - 33.3 pg [facility] MCHC 33.9 32.3 - 35.7 g/dL [facility] RDW CV 18.2(H) 11.1 - 14.9 % [facility] RDW SD 65.1(H) 35.7 - 48.1 fL [facility] NRBC abs 0.00 0.00 - 0.01 K/cumm [facility] Blood 05/03/2024 4:36 AM LINE COOK 05/03/2024 5:19 AM LINE COOK Chin Hagan MD LAB BLOOD ORDERABLES F inal Result Performing Organization Address City/[facility]/ZIP Co de Phone Number [facility] Department [place] [address] * Vitamin B12 (05/03/2024 4:36 AM LINE COOK) [facility] Vitamin B12 1,141 230 - 1,250 pg/mL Blood 05/03/2024 4:36 AM LINE COOK 05/03/2024 5:19 AM LINE COOK Tomasa Hewitt MD LAB BLOOD ORDERABLES Final Result Performing Organization Address City/[facility]/ZIP Co de Phone Number [facility] Department [place] [address] * (ABNORMAL) Hepatic function panel (05/03/2024 4:36 AM LINE COOK) [facility] Bilirubin, total 0.5 0.1 - 1.2 mg/dL Bilirubin, direct 0.2 0.1 - 0.3 mg/dL [facility] Protein, pl 5.4(L) 6.5 - 8.5 g/dL [facility] Albumin 2.6(L) 3.5 - 5.0 g/dL [facility] Alk phos 294(H) 40 - 130 Units/L [facility] ALT 34 7 - 55 Units/L [facility] AST 104(H) 10 - 50 Units/L [facility] Blood 05/03/2024 4:36 AM LINE COOK 05/03/2024 5:19 AM LINE COOK Chin Hagan MD LAB BLOOD ORDERABLES F inal Result [facility] Department [place] [address] * (ABNORMAL) Basic metabolic panel (05/03/2024 4:36 AM LINE COOK) Sodium 139 135 - 145 mmol/L Potassium, pl 4.0 3.3 - 4.9 mmol/L [facility] Chloride 105 97 - 110 mmol/L [facility] CO2 28 22 - 32 mmol/L [facility] Anion gap 6 2 - 15 mmol/L [facility] BUN 9 6 - 25 mg/dL [facility] Creatinine 0.69(L) 0.80 - 1.30 mg/dL [facility] Glucose 92 70 - 199 mg/dL [facility] Comment: Interpretive Data Fasting glucose >/= 126 [...] 2022. Calcium 8.1(L) 8.5 - 10.3 mg/dL [facility] Blood 05/03/2024 4:36 AM LINE COOK 05/03/2024 5:19 AM LINE COOK Chin Hagan MD LAB BLOOD ORDERABLES F inal Result Performing Organization Address City/[facility] Co de Phone Number [facility] [place] [address] * Phosphorus (05/02/2024 7:48 PM LINE COOK) Phosphorus, pl 2.5 2.3 - 4.5 mg/dL Blood 05/02/2024 7:48 PM LINE COOK 05/02/2024 8:30 PM LINE COOK Chin Hagan MD LAB BLOOD ORDERABLES F inal Result Performing Organization Address [facility] Co de Phone Number [facility] [place] [address] * Magnesium (05/02/2024 7:48 PM LINE COOK) Magnesium 1.8 1.4 - 2.5 mg/dL Blood 05/02/2024 7:48 PM LINE COOK 05/02/2024 8:30 PM LINE COOK Chin Hagan MD LAB BLOOD ORDERABLES F inal Result Performing Organization Address [facility] Co de Phone Number [facility] [place] [address] * US Vein Duplex Lower Extremity Bilateral Complete (05/01/2024 10:03 AM LINE COOK) Anatomical Region Laterality Modality Vascular Bilateral Ultrasound 05/01/2024 9:21 AM LINE COOK Narrative 05/01/2024 5:44 PM LINE COOK [facility] [employer] [facility] - Department of Vascular Surgery, Vascular Laboratory [address] [place] [id number] Lower Extremity Venous Ultrasound Report Patient Name: JAIROHARMAN D : 1960 (64y 1m) Study Date: 05/01/2024 9:21:46 AM Gender: M Tech: Location: [id number] Ref Provider: CHIN HAGAN Quality: Adequate Order [...] INDICATIONS: Swelling lower extremity, bilateral. FINDINGS: Performing Lime Vat Tender: Consuelo Calixto RVT. Right: Duplex scan reveals [...] Signed By: Akin Richardson MD [facility] [phone] 05/01/2024 4:55:38 PM LINE COOK Procedure Note Akin Richardson MD - 05/01/2024 [facility] - Department of Vascular Surgery,Vascular Laboratory [address] [place] [address] Lower Extremity Venous Ultrasound Report Patient Name: HARMAN MELGOZA D : 1960 (64y 1m) Study Date: 05/01/2024 9:21:46 AM Gender: M Tech: Location: [id number] Ref Provider: CHIN HAGAN Quality: Adequate Order Provider: CHIN HAGAN PROCEDURES: Vascular Report: Venous Duplex imaging was performed bilaterally in the lower extremities.The common femoral, femoral, popliteal, posterior tibial, peroneal veins wereevaluated for patency, spontaneity and phasicity with Doppler, compression and augmentationmaneuvers. Great saphenous vein proximal at the junction was evaluated with compressionmaneuvers. INDICATIONS: Swelling lower extremity, bilateral. FINDINGS: Performing Lime Vat Tender: Consuelo Calixto RVT. Right: Duplex scan reveals [...] Signed By: Akin Richardson MD [facility] [phone] 05/01/2024 4:55:38 PM LINE COOK Chin Hagan MD [facility] US PROCEDURES Kandace l Result * eGFR (05/01/2024 4:35 AM LINE COOK) eGFR >90 >=60 mL/min/1. 73 m2 Comment: [...] last reviewed 2020. Blood 05/01/2024 4:35 AM LINE COOK 05/01/2024 5:27 AM LINE COOK us Chin Hagan MD LAB BLOOD ORDERABLES F inal Result [facility] Department [place] [address] * (ABNORMAL) Differential, auto (05/01/2024 4:35 AM LINE COOK) Pathologist [facility] Neutrophil abs 5.4 1.5 - 6.5 K/cumm Imm gran abs 0.1 0.0 - 0.1 K/cumm [facility] Lymphocyte abs 1.8 0.8 - 3.3 K/cumm [facility] Monocyte abs 1.0(H) 0.2 - 0.8 K/cumm [facility] Eosinophil abs 0.1 0.0 - 0.5 K/cumm [facility] Basophil abs 0.0 0.0 - 0.1 K/cumm [facility] Neutrophil pct 64.2 % [facility] Comment: Interpretive Data Percent cell count reference ranges are not reported, since discordance with absolute values may lead to misinterpretation of CBC data. Current Interpretive Data was last revised on 2017. Imm gran pct 1.0 % [facility] Comment: Interpretive Data Percent cell count reference ranges are not reported, since discordance with absolute values may lead to misinterpretation of CBC data. Current Interpretive Data was last revised on 2017. Lymphocyte pct 21.2 % [facility] Comment: Interpretive Data Percent cell count reference ranges are not reported, since discordance with absolute values may lead to misinterpretation of CBC data. Current Interpretive Data was last revised on 2017. Monocyte pct 11.4 % [facility] Comment: Interpretive Data Percent cell count reference ranges are not reported, since discordance with absolute values may lead to misinterpretation of CBC data. Current Interpretive Data was last revised on 2017. Eosinophil pct 1.7 % [facility] Comment: Interpretive Data Percent cell count reference ranges are not reported, since discordance with absolute values may lead to misinterpretation of CBC data. Current Interpretive Data was last revised on 2017. Basophil pct 0.5 % [facility] Comment: Interpretive Data Percent cell count reference ranges are not reported, since discordance with absolute values may lead to misinterpretation of CBC data. Current Interpretive Data was last revised on 2017. Blood 05/01/2024 4:35 AM LINE COOK 05/01/2024 5:27 AM LINE COOK us Chin Hagan MD LAB BLOOD ORDERABLES F inal Result [facility] Department [place] [address] * (ABNORMAL) CBC with auto differential (05/01/2024 4:35 AM LINE COOK) WBC 8.4 3.8 - 9.9 K/cumm Hgb 9.5(L) 13.0 - 17.5 g/dL [facility] Hct 27.3(L) 38.9 - 50.3 % [facility] Plt 369 150 - 400 K/cumm [facility] MPV 10.3 9.1 - 12.3 fL [facility] RBC 2.78(L) 4.30 - 5.80 M/cumm [facility] MCV 98.2(H) 81.3 - 96.4 fL [facility] MCH 34.2(H) 27.1 - 33.3 pg [facility] MCHC 34.8 32.3 - 35.7 g/dL [facility] RDW CV 17.9(H) 11.1 - 14.9 % [facility] RDW SD 62.4(H) 35.7 - 48.1 fL [facility] NRBC abs 0.00 0.00 - 0.01 K/cumm [facility] Blood 05/01/2024 4:35 AM LINE COOK 05/01/2024 5:27 AM LINE COOK Chin Hagan MD LAB BLOOD ORDERABLES F inal Result Performing Organization Address City/[facility] Co de Phone Number [facility] [place] [address] * (ABNORMAL) Phosphorus (05/01/2024 4:35 AM LINE COOK) Pathologist [facility] Phosphorus, pl 2.2(L) 2.3 - 4.5 mg/dL Blood 05/01/2024 4:35 AM LINE COOK 05/01/2024 5:27 AM LINE COOK Chin Hagan MD LAB BLOOD ORDERABLES F inal Result Performing Organization Address [facility] de Phone Number [facility] [place] [address] * Magnesium (05/01/2024 4:35 AM LINE COOK) Pathologist [facility] Magnesium 1.7 1.4 - 2.5 mg/dL Blood 05/01/2024 4:35 AM LINE COOK 05/01/2024 5:27 AM LINE COOK Chin Hagan MD LAB BLOOD ORDERABLES F inal Result Performing Organization Address [facility] de Phone Number [place], [place] [id number] * (ABNORMAL) Hepatic function panel (05/01/2024 4:35 AM LINE COOK) Pathologist [facility] Bilirubin, total 0.6 0.1 - 1.2 mg/dL Bilirubin, direct 0.3 0.1 - 0.3 mg/dL [facility] Comment:Reviewed Protein, pl 5.3(L) 6.5 - 8.5 g/dL [facility] Albumin 2.3(L) 3.5 - 5.0 g/dL [facility] Alk phos 198(H) 40 - 130 Units/L [facility] ALT 12 7 - 55 Units/L [facility] Comment:Reviewed AST 41 10 - 50 Units/L [facility] Comment:Reviewed Blood 05/01/2024 4:35 AM LINE COOK 05/01/2024 5:27 AM LINE COOK us Chin Hagan MD LAB BLOOD ORDERABLES F inal Result [facility] Department [place] [address] * (ABNORMAL) Basic metabolic panel (05/01/2024 4:35 AM LINE COOK) Pathologist [facility] Sodium 139 135 - 145 mmol/L Potassium, pl 3.7 3.3 - 4.9 mmol/L [facility] Comment:Repeated and Verifie d Chloride 102 97 - 110 mmol/L [facility] CO2 30 22 - 32 mmol/L [facility] Anion gap 7 2 - 15 mmol/L [facility] BUN 13 6 - 25 mg/dL [facility] Creatinine 0.78(L) 0.80 - 1.30 mg/dL [facility] Glucose 92 70 - 199 mg/dL [facility] Comment: Interpretive Data Fasting glucose >/= 126 [...] 2022. Calcium 8.1(L) 8.5 - 10.3 mg/dL [facility] Blood 05/01/2024 4:35 AM LINE COOK 05/01/2024 5:27 AM LINE COOK us Chin Hagan MD LAB BLOOD ORDERABLES F inal Result [facility] Department [place] [address] * CT Foot Bilateral W Contrast (04/29/2024 9:58 AM LINE COOK) Anatomical Region Laterality Modality Lower Extremities Bilateral Computed Tomog lucho 04/29/2024 10:1 0 AM LINE COOK Impressions 04/29/2024 10:10 AM LINE COOK 1. Extensive bilateral soft tissue thickening of the lower extremities without organized fluid collection. Electronically signed by: Prosper Michael M.D. Narrative 04/29/2024 10:10 AM LINE COOK EXAMINATION: CT FOOT BILATERAL W CONTRAST HISTORY: 64-year-old male with chronic metatarsalgia TECHNIQUE: Computed tomographic images of both feet performed after administration of 69 mL Optiray 350 intravenous contrast per standard protocol. Comparison: None FINDINGS: There is extensive bilateral lower extremity soft tissue swelling of both feet extending approximately to the visualized lower extremity and beyond the [id number]. No organized fluid collections are seen on [...] the visualized lower extremity and beyond the [id number]. No organized fluid collections are seen on either side. There is no CT evidence of osteomyelitis. Bilateral os peroneum is noted. On the right, there is an irregularity along the the fibular aspect right navicular (series 5, image 75), likely degenerative. IMPRESSION: 1. Extensive bilateral soft tissue thickening of the lower extremities without organized fluid collection. Electronically signed by: Prosper Michael M.D. Eleanor Cobb MD IMG CT PROCEDURES Fi nal Result * eGFR (04/29/2024 5:30 AM LINE COOK) eGFR >90 >=60 mL/min/1. 73 m2 Comment: [...] last reviewed 2020. Blood 04/29/2024 5:30 AM LINE COOK 04/29/2024 5:43 AM LINE COOK us Chin Hagan MD LAB BLOOD ORDERABLES F inal Result [facility] Department [place] [address] * (ABNORMAL) Differential, auto (04/29/2024 5:30 AM LINE COOK) Neutrophil abs 4.2 1.5 - 6.5 K/cumm Imm gran abs 0.1 0.0 - 0.1 K/cumm [facility] Lymphocyte abs 1.3 0.8 - 3.3 K/cumm [facility] Monocyte abs 1.0(H) 0.2 - 0.8 K/cumm [facility] Eosinophil abs 0.1 0.0 - 0.5 K/cumm [facility] Basophil abs 0.1 0.0 - 0.1 K/cumm [facility] Neutrophil pct 62.5 % [facility] Comment: Interpretive Data Percent cell count reference ranges are not reported, since discordance with absolute values may lead to misinterpretation of CBC data. Current Interpretive Data was last revised on 2017. Imm gran pct 0.9 % [facility] Comment: Interpretive Data Percent cell count reference ranges are not reported, since discordance with absolute values may lead to misinterpretation of CBC data. Current Interpretive Data was last revised on 2017. Lymphocyte pct 19.6 % [facility] Comment: Interpretive Data Percent cell count reference ranges are not reported, since discordance with absolute values may lead to misinterpretation of CBC data. Current Interpretive Data was last revised on 2017. Monocyte pct 14.8 % [facility] Comment: Interpretive Data Percent cell count reference ranges are not reported, since discordance with absolute values may lead to misinterpretation of CBC data. Current Interpretive Data was last revised on 2017. Eosinophil pct 1.5 % [facility] Comment: Interpretive Data Percent cell count reference ranges are not reported, since discordance with absolute values may lead to misinterpretation of CBC data. Current Interpretive Data was last revised on 2017. Basophil pct 0.7 % [facility] Comment: Interpretive Data Percent cell count reference ranges are not reported, since discordance with absolute values may lead to misinterpretation of CBC data. Current Interpretive Data was last revised on 2017. Blood 04/29/2024 5:30 AM LINE COOK 04/29/2024 5:43 AM LINE COOK us Chin Hagan MD LAB BLOOD ORDERABLES F inal Result [facility] Department [place] [address] * (ABNORMAL) CBC with auto differential (04/29/2024 5:30 AM LINE COOK) [facility] WBC 6.7 3.8 - 9.9 K/cumm Hgb 9.1(L) 13.0 - 17.5 g/dL [facility] Hct 26.0(L) 38.9 - 50.3 % [facility] Plt 326 150 - 400 K/cumm [facility] MPV 10.6 9.1 - 12.3 fL [facility] RBC 2.65(L) 4.30 - 5.80 M/cumm [facility] MCV 98.1(H) 81.3 - 96.4 fL [facility] MCH 34.3(H) 27.1 - 33.3 pg [facility] MCHC 35.0 32.3 - 35.7 g/dL [facility] RDW CV 17.9(H) 11.1 - 14.9 % [facility] RDW SD 62.7(H) 35.7 - 48.1 fL [facility] NRBC abs 0.00 0.00 - 0.01 K/cumm [facility] Blood 04/29/2024 5:30 AM LINE COOK 04/29/2024 5:43 AM LINE COOK Chin Hagan MD LAB BLOOD ORDERABLES F inal Result [facility] [place] [address] * Phosphorus (04/29/2024 5:30 AM LINE COOK) [facility] Phosphorus, pl 3.7 2.3 - 4.5 mg/dL Comment:Hemolyzed; result ma y be falsely elevated Blood 04/29/2024 5:30 AM LINE COOK 04/29/2024 5:43 AM LINE COOK Chin Hagan MD LAB BLOOD ORDERABLES F inal Result Performing Organization Address City/[facility] Co de Phone Number [facility] [employer] [place] [address] * Magnesium (04/29/2024 5:30 AM LINE COOK) [facility] Magnesium 1.7 1.4 - 2.5 mg/dL Blood 04/29/2024 5:30 AM LINE COOK 04/29/2024 5:43 AM LINE COOK Chin Hagan MD LAB BLOOD ORDERABLES F inal Result Performing Organization Address [facility] de Phone Number [facility] [employer] [place] [address] * (ABNORMAL) Hepatic function panel (04/29/2024 5:30 AM LINE COOK) Pathologist [facility] Bilirubin, total 0.7 0.1 - 1.2 mg/dL Bilirubin, direct See Comment 0.1 - 0.3 mg/dL [facility] Comment:Credited; Hemolyzed Specimen Protein, pl 5.7(L) 6.5 - 8.5 g/dL [facility] Albumin 2.5(L) 3.5 - 5.0 g/dL [facility] Alk phos 200(H) 40 - 130 Units/L [facility] Comment:Hemolyzed; result ma y be falsely decreased ALT See Comment 7 - 55 Units/L [facility] Comment:Credited; Hemolyzed Specimen AST See Comment 10 - 50 Units/L [facility] Comment:Credited; Hemolyzed Specimen Blood 04/29/2024 5:30 AM LINE COOK 04/29/2024 5:43 AM LINE COOK Chin Hagan MD LAB BLOOD ORDERABLES F inal Result Performing Organization Address [facility] Co de Phone Number [facility] [employer] [place] [address] * (ABNORMAL) Basic metabolic panel (04/29/2024 5:30 AM LINE COOK) Sodium 138 135 - 145 mmol/L Potassium, pl See Comment 3.3 - 4.9 mmol/L [facility] Comment:Credited; Hemolyzed Specimen Chloride 102 97 - 110 mmol/L [facility] CO2 30 22 - 32 mmol/L [facility] Anion gap 6 2 - 15 mmol/L [facility] BUN 10 6 - 25 mg/dL [facility] Creatinine 0.79(L) 0.80 - 1.30 mg/dL [facility] Glucose 100 70 - 199 mg/dL [facility] Comment: Interpretive Data Fasting glucose >/= 126 [...] 2022. Calcium 7.8(L) 8.5 - 10.3 mg/dL [facility] Blood 04/29/2024 5:30 AM LINE COOK 04/29/2024 5:43 AM LINE COOK us Chin Haagn MD LAB BLOOD ORDERABLES F inal Result [facility] Department [place] [address] * Urinalysis reflex to microscopic (04/28/2024 1:21 PM LINE COOK) Pathologist [facility] Color, ur Yellow Yellow Clarity, ur Clear Clear [facility] Specific gravity, ur 1.011 1.003 - 1.030 [facility] pH, urine 6.0 [facility] Comment: Interpretive Data U rine pH is affected by diet, medications, systemic acid-base disturbances, and renal tubular function. pH may affect urinary stone formation. For example, urine pH below 6.0 may help reduce the tendency for calcium phosphate stones and pH greater than 6.0 may reduce the tendency for uric acid stone formation. Source: [facility] Current Interpretive Data was last revised on 2017 Protein, ur ql Trace Negative [facility] Glucose, ur ql Negative Negative [facility] Ketones, ur Negative Negative [facility] Bilirubin, ur Negative Negative [facility] Blood, ur Negative Negative [facility] Urobilinogen, ur <2.0 <2.0 mg/dL [facility] Nitrite, ur Negative Negative [facility] Leukocyte esterase, ur Negative Negative [facility] UA reflex comment Reflex conditions for microscopic UA not met. [facility] Urine 04/28/2024 1:21 PM LINE COOK 04/28/2024 1:31 PM LINE COOK Mayra Kenyon MD LAB URINE ORDERABLES Fi nal Result Performing Organization Address City/[facility] Co de Phone Number [facility] [place] [address] * ECG 12-LEAD (04/28/2024 1:13 PM LINE COOK) Narrative [facility] - 04/28/2024 1:13 PM LINE COOK Emmanuel Morris MD 04/28/2024 1:16 PM ECG 12 lead Date/Time: 04/28/2024 1:13 PM Performed by: Emmanuel Morris MD Authorized by: Emmanuel Morris MD Comments: 83 bpm, sinus rhythm with PAC, left axis deviation, QTC 448ms. Flattening in I. TWI in v1, avL, aVR prior in 04/08/24 similar appearing Mayra Kenyon MD ECG ORDERABLES Final R esult Performing Organization Address City/[facility]/ZIP Co de Phone Number [facility] * eGFR (04/28/2024 12:57 PM LINE COOK) eGFR >90 >=60 mL/min/1. 73 m2 Comment: [...] reviewed 2020. Blood 04/28/2024 12:5 7 PM LINE COOK 04/28/2024 1:11 PM LINE COOK Emmanuel Morris MD LAB BLOOD ORDERABLES Final R esult [facility] [place] [address] * (ABNORMAL) Differential, auto (04/28/2024 12:57 PM LINE COOK) Pathologist [facility] Neutrophil abs 5.9 1.5 - 6.5 K/cumm Imm gran abs 0.1 0.0 - 0.1 K/cumm [facility] Lymphocyte abs 2.9 0.8 - 3.3 K/cumm [facility] Monocyte abs 1.3(H) 0.2 - 0.8 K/cumm [facility] Eosinophil abs 0.2 0.0 - 0.5 K/cumm [facility] Basophil abs 0.1 0.0 - 0.1 K/cumm [facility] Neutrophil pct 56.3 % [facility] Comment: Interpretive Data Percent cell count reference ranges are not reported, since discordance with absolute values may lead to misinterpretation of CBC data. Current Interpretive Data was last revised on 2017. Imm gran pct 1.1 % [facility] Comment: Interpretive Data Percent cell count reference ranges are not reported, since discordance with absolute values may lead to misinterpretation of CBC data. Current Interpretive Data was last revised on 2017. Lymphocyte pct 27.6 % [facility] Comment: Interpretive Data Percent cell count reference ranges are not reported, since discordance with absolute values may lead to misinterpretation of CBC data. Current Interpretive Data was last revised on 2017. Monocyte pct 12.4 % [facility] Comment: Interpretive Data Percent cell count reference ranges are not reported, since discordance with absolute values may lead to misinterpretation of CBC data. Current Interpretive Data was last revised on 2017. Eosinophil pct 1.8 % [facility] Comment: Interpretive Data Percent cell count reference ranges are not reported, since discordance with absolute values may lead to misinterpretation of CBC data. Current Interpretive Data was last revised on 2017. Basophil pct 0.8 % [facility] Comment: Interpretive Data Percent cell count reference ranges are not reported, since discordance with absolute values may lead to misinterpretation of CBC data. Current Interpretive Data was last revised on 2017. Blood 04/28/2024 12:5 7 PM LINE COOK 04/28/2024 1:11 PM LINE COOK us Mayra Kenyon MD LAB BLOOD ORDERABLES Fi nal Result [facility] Department [place] [address] * (ABNORMAL) CBC with auto differential (04/28/2024 12:57 PM LINE COOK) WBC 10.5(H) 3.8 - 9.9 K/cumm Hgb 11.0(L) 13.0 - 17.5 g/dL [facility] Hct 32.7(L) 38.9 - 50.3 % [facility] Plt 466(H) 150 - 400 K/cumm [facility] MPV 9.8 9.1 - 12.3 fL [facility] RBC 3.35(L) 4.30 - 5.80 M/cumm [facility] MCV 97.6(H) 81.3 - 96.4 fL [facility] MCH 32.8 27.1 - 33.3 pg [facility] MCHC 33.6 32.3 - 35.7 g/dL [facility] RDW CV 17.9(H) 11.1 - 14.9 % [facility] RDW SD 62.4(H) 35.7 - 48.1 fL [facility] NRBC abs 0.00 0.00 - 0.01 K/cumm [facility] Blood 04/28/2024 12:5 7 PM LINE COOK 04/28/2024 1:11 PM LINE COOK Mayra Kenyon MD LAB BLOOD ORDERABLES Fi nal Result [facility] Department [place] [address] * (ABNORMAL) Comprehensive metabolic panel (04/28/2024 12:57 PM LINE COOK) [facility] Signature Sodium 139 135 - 145 mmol/L Potassium, pl 3.6 3.3 - 4.9 mmol/L [facility] Chloride 96(L) 97 - 110 mmol/L [facility] CO2 31 22 - 32 mmol/L [facility] Anion gap 12 2 - 15 mmol/L [facility] BUN 10 6 - 25 mg/dL [facility] Creatinine 0.90 0.80 - 1.30 mg/dL [facility] Glucose 96 70 - 199 mg/dL [facility] Comment: Interpretive Data Fasting glucose >/= 126 [...] 2022. Calcium 9.0 8.5 - 10.3 mg/dL [facility] Comment:Reviewed Bilirubin, total 0.6 0.1 - 1.2 mg/dL [facility] Protein, pl 7.2 6.5 - 8.5 g/dL [facility] Albumin 3.3(L) 3.5 - 5.0 g/dL [facility] Alk phos 264(H) 40 - 130 Units/L [facility] ALT 24 7 - 55 Units/L [facility] AST 52(H) 10 - 50 Units/L [facility] Blood 04/28/2024 12:5 7 PM LINE COOK 04/28/2024 1:11 PM LINE COOK Mayra Kenyon MD LAB BLOOD ORDERABLES Fi nal Result [facility] Department [place] [address] * eGFR (04/28/2024 12:42 PM LINE COOK) eGFR >90 >=60 mL/min/1. 73 m2 Comment: [...] reviewed 2020. Blood 04/28/2024 12:4 2 PM LINE COOK 04/28/2024 1:11 PM LINE COOK Emmanuel Morris MD LAB BLOOD ORDERABLES Final R esult [facility] Department [place] [address] * (ABNORMAL) Comprehensive metabolic panel (04/28/2024 12:42 PM LINE COOK) Sodium 139 135 - 145 mmol/L Potassium, pl 3.5 3.3 - 4.9 mmol/L [facility] Chloride 97 97 - 110 mmol/L [facility] CO2 31 22 - 32 mmol/L [facility] Anion gap 11 2 - 15 mmol/L [facility] BUN 9 6 - 25 mg/dL [facility] Creatinine 0.87 0.80 - 1.30 mg/dL [facility] Glucose 98 70 - 199 mg/dL [facility] Comment: Interpretive Data Fasting glucose >/= 126 [...] 2022. Calcium 8.6 8.5 - 10.3 mg/dL [facility] Bilirubin, total 0.5 0.1 - 1.2 mg/dL [facility] Protein, pl 7.0 6.5 - 8.5 g/dL [facility] Albumin 3.3(L) 3.5 - 5.0 g/dL [facility] Alk phos 264(H) 40 - 130 Units/L [facility] ALT 21 7 - 55 Units/L [facility] AST 51(H) 10 - 50 Units/L [facility] Blood 04/28/2024 12:4 2 PM LINE COOK 04/28/2024 1:11 PM LINE COOK Mayra Kenyon MD LAB BLOOD ORDERABLES Fi nal Result [facility] Department [place] [address] * XR Scoliosis Ap and Lateral (04/12/2024 10:27 AM LINE COOK) Anatomical Region Laterality Modality Spine N/A Computed Radiogr aphy 04/12/2024 1:39 PM LINE COOK Impressions 04/12/2024 3:30 PM LINE COOK 1. T1, T3, T4, and T6 vertebral body compression deformities with approximately 20% height loss. 2. Mildly exaggerated thoracic kyphosis with positive sagittal imbalance. Dictated by: Rui Wei MD The radiology attending physician has personally reviewed this study, and had reviewed and/or edited this written report and agrees with it. Electronically signed by: Ivan Bowen MD Narrative 04/12/2024 3:30 PM LINE COOK EXAMINATION: XR SCOLIOSIS AP AND LATERAL HISTORY: [...] it. Electronically signed by: Ivan Bowen MD us Ronan Gipson MD IMG XR PROCEDURES Final Result * Differential, auto (04/12/2024 8:26 AM LINE COOK) Neutrophil abs 4.5 1.5 - 6.5 K/cumm Imm gran abs 0.1 0.0 - 0.1 K/cumm [facility] Lymphocyte abs 2.3 0.8 - 3.3 K/cumm [facility] Monocyte abs 0.7 0.2 - 0.8 K/cumm [facility] Eosinophil abs 0.2 0.0 - 0.5 K/cumm [facility] Basophil abs 0.1 0.0 - 0.1 K/cumm [facility] Neutrophil pct 57.0 % [facility] Comment: Interpretive Data Percent cell count reference ranges are not reported, since discordance with absolute values may lead to misinterpretation of CBC data. Current Interpretive Data was last revised on 2017. Imm gran pct 1.4 % [facility] Comment: Interpretive Data Percent cell count reference ranges are not reported, since discordance with absolute values may lead to misinterpretation of CBC data. Current Interpretive Data was last revised on 2017. Lymphocyte pct 28.8 % [facility] Comment: Interpretive Data Percent cell count reference ranges are not reported, since discordance with absolute values may lead to misinterpretation of CBC data. Current Interpretive Data was last revised on 2017. Monocyte pct 8.9 % [facility] Comment: Interpretive Data Percent cell count reference ranges are not reported, since discordance with absolute values may lead to misinterpretation of CBC data. Current Interpretive Data was last revised on 2017. Eosinophil pct 3.0 % [facility] Comment: Interpretive Data Percent cell count reference ranges are not reported, since discordance with absolute values may lead to misinterpretation of CBC data. Current Interpretive Data was last revised on 2017. Basophil pct 0.9 % [facility] Comment: Interpretive Data Percent cell count reference ranges are not reported, since discordance with absolute values may lead to misinterpretation of CBC data. Current Interpretive Data was last revised on 2017. Blood 04/12/2024 8:26 AM LINE COOK 04/12/2024 8:44 AM LINE COOK us Adelina Knight NP LAB BLOOD ORDERABLES Final Result [facility] Department [place] [address] * (ABNORMAL) CBC with auto differential (04/12/2024 8:26 AM LINE COOK) WBC 7.9 3.8 - 9.9 K/cumm Hgb 8.7(L) 13.0 - 17.5 g/dL [facility] Hct 25.3(L) 38.9 - 50.3 % [facility] Plt 308 150 - 400 K/cumm [facility] MPV 10.8 9.1 - 12.3 fL [facility] RBC 2.63(L) 4.30 - 5.80 M/cumm [facility] MCV 96.2 81.3 - 96.4 fL [facility] MCH 33.1 27.1 - 33.3 pg [facility] MCHC 34.4 32.3 - 35.7 g/dL [facility] RDW CV 16.4(H) 11.1 - 14.9 % [facility] RDW SD 56.2(H) 35.7 - 48.1 fL [facility] NRBC abs 0.00 0.00 - 0.01 K/cumm [facility] Blood 04/12/2024 8:26 AM LINE COOK 04/12/2024 8:44 AM LINE COOK us Adelina Knight NP LAB BLOOD ORDERABLES Final Result [facility] Department [place] [address] * Differential, auto (04/12/2024 5:19 AM LINE COOK) Neutrophil abs 5.0 1.5 - 6.5 K/cumm Imm gran abs 0.1 0.0 - 0.1 K/cumm [facility] Lymphocyte abs 2.4 0.8 - 3.3 K/cumm [facility] Monocyte abs 0.8 0.2 - 0.8 K/cumm [facility] Eosinophil abs 0.3 0.0 - 0.5 K/cumm [facility] Basophil abs 0.1 0.0 - 0.1 K/cumm [facility] Neutrophil pct 58.1 % [facility] Comment: Interpretive Data Percent cell count reference ranges are not reported, since discordance with absolute values may lead to misinterpretation of CBC data. Current Interpretive Data was last revised on 2017. Imm gran pct 1.3 % [facility] Comment: Interpretive Data Percent cell count reference ranges are not reported, since discordance with absolute values may lead to misinterpretation of CBC data. Current Interpretive Data was last revised on 2017. Lymphocyte pct 27.6 % [facility] Comment: Interpretive Data Percent cell count reference ranges are not reported, since discordance with absolute values may lead to misinterpretation of CBC data. Current Interpretive Data was last revised on 2017. Monocyte pct 9.3 % [facility] Comment: Interpretive Data Percent cell count reference ranges are not reported, since discordance with absolute values may lead to misinterpretation of CBC data. Current Interpretive Data was last revised on 2017. Eosinophil pct 2.9 % [facility] Comment: Interpretive Data Percent cell count reference ranges are not reported, since discordance with absolute values may lead to misinterpretation of CBC data. Current Interpretive Data was last revised on 2017. Basophil pct 0.8 % [facility] Comment: Interpretive Data Percent cell count reference ranges are not reported, since discordance with absolute values may lead to misinterpretation of CBC data. Current Interpretive Data was last revised on 2017. Blood 04/12/2024 5:19 AM LINE COOK 04/12/2024 5:48 AM LINE COOK us Adelina Knight NP LAB BLOOD ORDERABLES Final Result Performing Organization Address [facility] Co de Phone Number [facility] [place] [address] * HIV 1/2 Antibody plus p24 Antigen Blood (04/12/2024 5:19 AM LINE COOK) [facility] HIV 1/2 ab + p24 ag Nonreactive Nonreactive Comment:Nonreactive for HIV- 1 antigen and HIV-1/HIV-2 antibodies. No laboratory evidence of HIV infection. If acute HIV infection is suspected, consider testing for HIV-1 RNA. Current interpretive data was last revised on 21. Blood 04/12/2024 5:19 AM LINE COOK 04/12/2024 5:37 AM LINE COOK us Ronan Gipson MD LAB MICROBIOLOGY - GENERAL ORDERABLES Final Result Performing Organization Address [facility] de Phone Number [facility] Department [place] [address] * (ABNORMAL) CBC with auto differential (04/12/2024 5:19 AM LINE COOK) [facility] WBC 8.6 3.8 - 9.9 K/cumm Hgb 9.0(L) 13.0 - 17.5 g/dL [facility] Hct 26.6(L) 38.9 - 50.3 % [facility] Plt 296 150 - 400 K/cumm [facility] MPV 10.3 9.1 - 12.3 fL [facility] RBC 2.72(L) 4.30 - 5.80 M/cumm [facility] MCV 97.8(H) 81.3 - 96.4 fL [facility] MCH 33.1 27.1 - 33.3 pg [facility] MCHC 33.8 32.3 - 35.7 g/dL [facility] RDW CV 16.4(H) 11.1 - 14.9 % [facility] RDW SD 56.2(H) 35.7 - 48.1 fL [facility] NRBC abs 0.00 0.00 - 0.01 K/cumm [facility] Blood 04/12/2024 5:19 AM LINE COOK 04/12/2024 5:48 AM LINE COOK Adelina Knight NP LAB BLOOD ORDERABLES Final Result Performing Organization Address [facility] Co de Phone Number [facility] Department of [email or web address] [place] [address] * Hepatitis C antibody Blood (04/12/2024 5:19 AM LINE COOK) Pathologist [facility] Hep C Ab Nonreactive Nonreactive Comment:Antibodies to HCV no t detected. Does NOT exclude the possibility of recent exposure to HCV. Current interpretive data was last revised on 21 Blood 04/12/2024 5:19 AM LINE COOK 04/12/2024 5:37 AM LINE COOK Ronan Gipson MD LAB MICROBIOLOGY - GENERAL ORDERABLES Final Result [facility] [employer] [place] [address] * RPR Blood (04/12/2024 5:19 AM LINE COOK) Pathologist [facility] RPR Nonreactive Nonreactive Blood 04/12/2024 5:19 AM LINE COOK 04/12/2024 5:36 AM LINE COOK Ronan Gipson MD LAB MICROBIOLOGY - GENERAL ORDERABLES Final Result Performing Organization Address [facility] Co de Phone Number [facility] [place] [address] * Hepatitis B Surface Antigen Blood (04/12/2024 5:19 AM LINE COOK) HepBsAg Nonreactive Nonreactive Blood 04/12/2024 5:19 AM LINE COOK 04/12/2024 5:37 AM LINE COOK us Ronan Gipson MD LAB MICROBIOLOGY - GENERAL ORDERABLES Final Result Performing Organization Address [facility] de Phone Number [facility] [place] [address] * eGFR (04/11/2024 9:17 AM LINE COOK) eGFR >90 >=60 mL/min/1. 73 m2 Comment: [...] last reviewed 2020. Blood 04/11/2024 9:17 AM LINE COOK 04/11/2024 9:45 AM LINE COOK us Adelina Knight NP LAB BLOOD ORDERABLES Final Result Performing Organization Address [facility] Co de Phone Number [facility] Department [place] [address] * Differential, auto (04/11/2024 9:17 AM LINE COOK) Neutrophil abs 4.5 1.5 - 6.5 K/cumm Imm gran abs 0.1 0.0 - 0.1 K/cumm [facility] Lymphocyte abs 2.3 0.8 - 3.3 K/cumm [facility] Monocyte abs 0.7 0.2 - 0.8 K/cumm [facility] Eosinophil abs 0.2 0.0 - 0.5 K/cumm [facility] Basophil abs 0.1 0.0 - 0.1 K/cumm [facility] Neutrophil pct 57.4 % [facility] Comment: Interpretive Data Percent cell count reference ranges are not reported, since discordance with absolute values may lead to misinterpretation of CBC data. Current Interpretive Data was last revised on 2017. Imm gran pct 1.1 % [facility] Comment: Interpretive Data Percent cell count reference ranges are not reported, since discordance with absolute values may lead to misinterpretation of CBC data. Current Interpretive Data was last revised on 2017. Lymphocyte pct 29.4 % [facility] Comment: Interpretive Data Percent cell count reference ranges are not reported, since discordance with absolute values may lead to misinterpretation of CBC data. Current Interpretive Data was last revised on 2017. Monocyte pct 8.6 % [facility] Comment: Interpretive Data Percent cell count reference ranges are not reported, since discordance with absolute values may lead to misinterpretation of CBC data. Current Interpretive Data was last revised on 2017. Eosinophil pct 2.9 % [facility] Comment: Interpretive Data Percent cell count reference ranges are not reported, since discordance with absolute values may lead to misinterpretation of CBC data. Current Interpretive Data was last revised on 2017. Basophil pct 0.6 % [facility] Comment: Interpretive Data Percent cell count reference ranges are not reported, since discordance with absolute values may lead to misinterpretation of CBC data. Current Interpretive Data was last revised on 2017. Blood 04/11/2024 9:17 AM LINE COOK 04/11/2024 9:44 AM LINE COOK Adelina Knight [employer] LAB BLOOD ORDERABLES Final Result Performing Organization Address [facility] Co de Phone Number [facility] Department [place] [address] * (ABNORMAL) CBC with auto differential (04/11/2024 9:17 AM LINE COOK) Pathologist [facility] WBC 7.9 3.8 - 9.9 K/cumm Hgb 8.6(L) 13.0 - 17.5 g/dL [facility] Hct 24.6(L) 38.9 - 50.3 % [facility] Plt 274 150 - 400 K/cumm [facility] MPV 10.3 9.1 - 12.3 fL [facility] RBC 2.58(L) 4.30 - 5.80 M/cumm [facility] MCV 95.3 81.3 - 96.4 fL [facility] MCH 33.3 27.1 - 33.3 pg [facility] MCHC 35.0 32.3 - 35.7 g/dL [facility] RDW CV 16.2(H) 11.1 - 14.9 % [facility] RDW SD 54.5(H) 35.7 - 48.1 fL [facility] NRBC abs 0.00 0.00 - 0.01 K/cumm [facility] Blood 04/11/2024 9:17 AM LINE COOK 04/11/2024 9:44 AM LINE COOK us Adelina Knight [employer] LAB BLOOD ORDERABLES Final Result Performing Organization Address City/[facility]/ZIP Co de Phone Number [facility] Department [place] [address] * (ABNORMAL) Phosphorus (04/11/2024 9:17 AM LINE COOK) Pathologist [facility] Phosphorus, pl 2.1(L) 2.3 - 4.5 mg/dL Blood 04/11/2024 9:17 AM LINE COOK 04/11/2024 9:45 AM LINE COOK Adelina Knight LAB BLOOD ORDERABLES Final Result Performing Organization Address [facility] de Phone Number [facility] [employer] [place] [address] * Magnesium (04/11/2024 9:17 AM LINE COOK) [facility] Magnesium 1.6 1.4 - 2.5 mg/dL Blood 04/11/2024 9:17 AM LINE COOK 04/11/2024 9:45 AM LINE COOK Adelina Knight LAB BLOOD ORDERABLES Final Result Performing Organization Address [facility] de Phone Number [facility] [employer] [place] [address] * (ABNORMAL) Basic metabolic panel (04/11/2024 9:17 AM LINE COOK) [facility] Sodium 136 135 - 145 mmol/L Potassium, pl 3.6 3.3 - 4.9 mmol/L [facility] Comment:Hemolyzed; Potassium value may be falsely elevated by as much as 0.3-0.5 mmol/L. Suggest redraw and reanalysis. Chloride 105 97 - 110 mmol/L [facility] CO2 25 22 - 32 mmol/L [facility] Anion gap 6 2 - 15 mmol/L [facility] BUN 8 6 - 25 mg/dL [facility] Creatinine 0.71(L) 0.80 - 1.30 mg/dL [facility] Glucose 70 70 - 199 mg/dL [facility] Comment: Interpretive Data Fasting glucose >/= 126 [...] 2022. Calcium 6.8(L) 8.5 - 10.3 mg/dL [facility] Blood 04/11/2024 9:17 AM LINE COOK 04/11/2024 9:45 AM LINE COOK us Adelina Knight [employer] LAB BLOOD ORDERABLES Final Result [facility] Department [place] [address] * MRI Spine Total Complete W WO Contrast (04/10/2024 5:03 PM LINE COOK) Anatomical Region Laterality Modality Spine N/A Magnetic Resonan ce 04/10/2024 5:50 PM LINE COOK Impressions 04/10/2024 7:33 PM LINE COOK 1. Mild degenerative changes of the cervical [...] it. Electronically signed by: Luis Crowder MD Narrative 04/10/2024 7:33 PM LINE COOK EXAMINATION: 1. Magnetic resonance imaging (MRI) of [...] it. Electronically signed by: Luis Crowder MD us Ronan Gipson MD IMG MRI PROCEDURE S Final Result * eGFR (04/09/2024 8:00 PM LINE COOK) Pathologist [facility] eGFR 70 >=60 mL/min/1. 73 m2 Comment: [...] last reviewed 2020. Blood 04/09/2024 8:00 PM LINE COOK 04/09/2024 8:24 PM LINE COOK us Ronan Gipson MD LAB BLOOD ORDERAB LES Final Result [facility] Department [place] [address] * (ABNORMAL) CBC without differential (04/09/2024 8:00 PM LINE COOK) Pathologist [facility] WBC 10.9(H) 3.8 - 9.9 K/cumm Hgb 9.6(L) 13.0 - 17.5 g/dL [facility] Hct 27.3(L) 38.9 - 50.3 % [facility] Plt 335 150 - 400 K/cumm [facility] MPV 10.4 9.1 - 12.3 fL [facility] RBC 2.84(L) 4.30 - 5.80 M/cumm [facility] MCV 96.1 81.3 - 96.4 fL [facility] MCH 33.8(H) 27.1 - 33.3 pg [facility] MCHC 35.2 32.3 - 35.7 g/dL [facility] RDW CV 15.9(H) 11.1 - 14.9 % [facility] RDW SD 54.9(H) 35.7 - 48.1 fL [facility] NRBC abs 0.00 0.00 - 0.01 K/cumm [facility] Blood 04/09/2024 8:00 PM LINE COOK 04/09/2024 8:26 PM LINE COOK Ronan Gipson MD LAB BLOOD ORDERAB LES Final Result Performing Organization Address [facility] de Phone Number [facility] [place] [address] * (ABNORMAL) Phosphorus (04/09/2024 8:00 PM LINE COOK) Phosphorus, pl 2.2(L) 2.3 - 4.5 mg/dL Blood 04/09/2024 8:00 PM LINE COOK 04/09/2024 8:24 PM LINE COOK us Ronan Gipson MD LAB BLOOD ORDERAB LES Final Result Performing Organization Address [facility] [facility] de Phone Number [facility] Department of [employer] [place] [address] * Magnesium (04/09/2024 8:00 PM LINE COOK) Magnesium 1.8 1.4 - 2.5 mg/dL Blood 04/09/2024 8:00 PM LINE COOK 04/09/2024 8:24 PM LINE COOK Ronan Gipson MD LAB BLOOD ORDERAB LES Final Result Performing Organization Address City/[facility]/ZIP Co de Phone Number [facility] [place] [address] * (ABNORMAL) Basic metabolic panel (04/09/2024 8:00 PM LINE COOK) Pathologist [facility] Sodium 138 135 - 145 mmol/L Potassium, pl 4.0 3.3 - 4.9 mmol/L [facility] Chloride 98 97 - 110 mmol/L [facility] CO2 32 22 - 32 mmol/L [facility] Anion gap 8 2 - 15 mmol/L [facility] BUN 12 6 - 25 mg/dL [facility] Creatinine 1.16 0.80 - 1.30 mg/dL [facility] Glucose 141 70 - 199 mg/dL [facility] Comment: Interpretive Data Fasting glucose >/= 126 [...] 2022. Calcium 8.3(L) 8.5 - 10.3 mg/dL [facility] Blood 04/09/2024 8:00 PM LINE COOK 04/09/2024 8:24 PM LINE COOK Ronan Gipson MD LAB BLOOD ORDERAB LES Final Result JULIAN [facility] Department [place] [address] * eGFR (04/08/2024 11:53 PM LINE COOK) [facility] eGFR >90 >=60 mL/min/1. 73 m2 Comment: [...] reviewed 2020. Blood 04/08/2024 11:5 3 PM LINE COOK 04/09/2024 12:33 AM LINE COOK us Donya Sotelo MD LAB BLOOD ORDERABLES Fin al Result [facility] Department [place] [address] * (ABNORMAL) Differential, auto (04/08/2024 11:53 PM LINE COOK) Neutrophil abs 9.2(H) 1.5 - 6.5 K/cumm Imm gran abs 0.1 0.0 - 0.1 K/cumm [facility] Lymphocyte abs 1.5 0.8 - 3.3 K/cumm [facility] Monocyte abs 0.9(H) 0.2 - 0.8 K/cumm [facility] Eosinophil abs 0.1 0.0 - 0.5 K/cumm [facility] Basophil abs 0.1 0.0 - 0.1 K/cumm [facility] Neutrophil pct 77.2 % [facility] Comment: Interpretive Data Percent cell count reference ranges are not reported, since discordance with absolute values may lead to misinterpretation of CBC data. Current Interpretive Data was last revised on 2017. Imm gran pct 0.8 % [facility] Comment: Interpretive Data Percent cell count reference ranges are not reported, since discordance with absolute values may lead to misinterpretation of CBC data. Current Interpretive Data was last revised on 2017. Lymphocyte pct 12.8 % [facility] Comment: Interpretive Data Percent cell count reference ranges are not reported, since discordance with absolute values may lead to misinterpretation of CBC data. Current Interpretive Data was last revised on 2017. Monocyte pct 7.7 % [facility] Comment: Interpretive Data Percent cell count reference ranges are not reported, since discordance with absolute values may lead to misinterpretation of CBC data. Current Interpretive Data was last revised on 2017. Eosinophil pct 1.0 % [facility] Comment: Interpretive Data Percent cell count reference ranges are not reported, since discordance with absolute values may lead to misinterpretation of CBC data. Current Interpretive Data was last revised on 2017. Basophil pct 0.5 % [facility] Comment: Interpretive Data Percent cell count reference ranges are not reported, since discordance with absolute values may lead to misinterpretation of CBC data. Current Interpretive Data was last revised on 2017. Blood 04/08/2024 11:5 3 PM LINE COOK 04/09/2024 12:33 AM LINE COOK Dnoya Sotelo MD LAB BLOOD ORDERABLES Fin al Result [facility] Department [place] [address] * (ABNORMAL) CBC with auto differential (04/08/2024 11:53 PM LINE COOK) WBC 11.9(H) 3.8 - 9.9 K/cumm Hgb 11.0(L) 13.0 - 17.5 g/dL [facility] Hct 30.3(L) 38.9 - 50.3 % [facility] Plt 424(H) 150 - 400 K/cumm [facility] MPV 10.3 9.1 - 12.3 fL [facility] RBC 3.30(L) 4.30 - 5.80 M/cumm [facility] MCV 91.8 81.3 - 96.4 fL [facility] MCH 33.3 27.1 - 33.3 pg [facility] MCHC 36.3(H) 32.3 - 35.7 g/dL [facility] RDW CV 15.7(H) 11.1 - 14.9 % [facility] RDW SD 52.0(H) 35.7 - 48.1 fL [facility] NRBC abs 0.00 0.00 - 0.01 K/cumm [facility] Blood 04/08/2024 11:5 3 PM LINE COOK 04/09/2024 12:33 AM LINE COOK us Donya Sotelo MD LAB BLOOD ORDERABLES Fin al Result [facility] Department [place] [address] * Blood culture Blood Peripheral (04/08/2024 11:53 PM LINE COOK) Report Final Report: No growth Blood (Peripheral) 04/08/2024 11:53 PM LINE COOK 04/09/2024 12:02 AM LINE COOK Narrative [facility] - 04/13/2024 7:00 AM LINE COOK From a different site than #1. Draw [...] characteristics have been verified by the [facility] Microbiology Laboratory. For questions about this culture, contact the Microbiology Laboratory at [phone]. Interpretive data was last revised on 23. Herberth Quinones MD LAB MICROBIOLOGY - GENERA L ORDERABLES Final Result JULIAN CHAMBERLAIN [facility] Department [place] [address] * Blood culture Blood Peripheral (04/08/2024 11:53 PM LINE COOK) Report Final Report: No growth Blood (Peripheral) 04/08/2024 11:53 PM LINE COOK 04/09/2024 12:02 AM LINE COOK Narrative JULIAN [facility] - 04/13/2024 7:00 AM LINE COOK Draw Blood cultures before administration of Antibiotics [...] characteristics have been verified by the [facility] Microbiology Laboratory. For questions about this culture, contact the Microbiology Laboratory at [phone]. Interpretive data was last revised on 23. Herberth Quinones MD LAB MICROBIOLOGY - GENERA L ORDERABLES Final Result [facility] Department [place] [address] * (ABNORMAL) Comprehensive metabolic panel (04/08/2024 11:53 PM LINE COOK) Sodium 139 135 - 145 mmol/L Potassium, pl 3.3 3.3 - 4.9 mmol/L [facility] Chloride 97 97 - 110 mmol/L [facility] CO2 27 22 - 32 mmol/L [facility] Anion gap 15 2 - 15 mmol/L [facility] BUN 5(L) 6 - 25 mg/dL [facility] Creatinine 0.84 0.80 - 1.30 mg/dL [facility] Glucose 98 70 - 199 mg/dL [facility] Comment: Interpretive Data Fasting glucose >/= 126 [...] 2022. Calcium 8.5 8.5 - 10.3 mg/dL [facility] Bilirubin, total 1.3(H) 0.1 - 1.2 mg/dL [facility] Protein, pl 6.2(L) 6.5 - 8.5 g/dL [facility] Albumin 3.0(L) 3.5 - 5.0 g/dL [facility] Alk phos 256(H) 40 - 130 Units/L [facility] ALT 18 7 - 55 Units/L [facility] AST 39 10 - 50 Units/L [facility] Blood 04/08/2024 11:5 3 PM LINE COOK 04/09/2024 12:33 AM LINE COOK us Donya Sotelo MD LAB BLOOD ORDERABLES Fin al Result [facility] Department [place] [address] * (ABNORMAL) POCT lactate (04/08/2024 11:25 PM LINE COOK) [facility] Lactate POC i-STAT 4.6(C) 0.7 - 2.0 mmol/L Blood 04/08/2024 11:2 5 PM LINE COOK 04/08/2024 11:25 PM LINE COOK Herberth Quinones MD LAB POCT ORDERABLES - DEV ICE Final Result Performing Organization Address [facility] Co de Phone Number [facility] Department [place] [address] * Respiratory pathogen panel Nasopharyngeal (04/08/2024 10:54 PM LINE COOK) [facility] Influenza A RNA Not Detected Not Detected Influenza B RNA Not Detected Not Detected [facility] RSV RNA Not Detected Not Detected [facility] COVID-19 RNA Not Detected Not Detected [facility] Coronavirus 229E RNA Not Detected Not Detected [facility] Coronavirus HKU1 RNA Not Detected Not Detected [facility] Coronavirus NL63 RNA Not Detected Not Detected [facility] Coronavirus OC43 RNA Not Detected Not Detected [facility] Adenovirus DNA Not Detected Not Detected [facility] Metapneumovirus RNA Not Detected Not Detected [facility] Rhinovirus/Enterov irus RNA Not Detected Not Detected [facility] Parainfluenza 1 RNA Not Detected Not Detected [facility] Parainfluenza 2 RNA Not Detected Not Detected [facility] Parainfluenza 3 RNA Not Detected Not Detected [facility] Parainfluenza 4 RNA Not Detected Not Detected [facility] B. pertussis DNA Not Detected Not Detected [facility] B. parapertussis DNA Not Detected Not Detected [facility] C. pneumoniae DNA Not Detected Not Detected [facility] M. pneumoniae DNA Not Detected Not Detected [facility] Nasopharyngeal 04/08/2024 10 :54 PM LINE COOK 04/08/2024 11:08 PM LINE COOK Fidel JORDAN [facility] - 04/09/2024 12:10 AM LINE COOK Is the Patient experiencing symptoms consistent with COVID?->No Surveillance testing for transplant patient?->No Interpretive Data The [employer] FilmArray Respiratory Panel (RP2.1) assay is a [...] assay has FDA clearance for testing of [employer] swabs. The performance of additional specimen types has been assessed by the performing laboratory. The performance characteristics of this assay have been determined by [facility] Molecular Infectious Disease Laboratory. Current interpretive data was last revised on 21. us Donya Sotelo MD LAB MICROBIOLOGY - [place] AL ORDERABLES Final Result [facility] Department [place] [address] * [place] [facility] ILL/INJURED PATIENT INIT 30-74 MIN (04/08/2024 10:00 PM LINE COOK) Narrative Herberth Quinones MD - 04/08/2024 10:00 PM LINE COOK Herberth Quinones MD 04/09/2024 12:21 AM Critical [...] Cervical Spine WO Contrast (04/08/2024 8:31 PM LINE COOK) Anatomical Region Laterality Modality Spine N/A Computed Tomogra phy 04/08/2024 8:54 PM LINE COOK Impressions 04/08/2024 9:11 PM LINE COOK 1. No acute fracture of the cervical [...] Binu Hurtado M.D. Narrative 04/08/2024 9:11 PM LINE COOK EXAMINATION: CT of the cervical spine without [...] it. Electronically signed by: Binu Hurtado M.D. us Herberth Quinones MD IMG CT PROCEDURES Final R esult * ECG 12-LEAD (04/08/2024 7:53 PM LINE COOK) Narrative [facility] - 04/08/2024 7:53 PM LINE COOK Herberth Quinones MD 04/08/2024 7:53 PM ECG [...] in the ED Comments: ECG obtained for Herberth García MD 04/08/241952 us Donya Sotelo MD ECG ORDERABLES Final Re sult [facility] * (ABNORMAL) Urinalysis reflex to microscopic and culture Urine (04/08/2024 7:35 PM LINE COOK) Color, ur Straw Yellow Clarity, ur Clear Clear [facility] Specific gravity, ur >1.042(H) 1.003 - 1.030 [facility] pH, urine 6.5 [facility] Comment: Interpretive Data U rine pH is affected by diet, medications, systemic acid-base disturbances, and renal tubular function. pH may affect urinary stone formation. For example, urine pH below 6.0 may help reduce the tendency for calcium phosphate stones and pH greater than 6.0 may reduce the tendency for uric acid stone formation. Source: Elizabeth 3Nod Current Interpretive Data was last revised on 2017 Protein, ur ql 1+(A) Negative [facility] Glucose, ur ql Negative Negative [facility] Ketones, ur Negative Negative [facility] Bilirubin, ur Negative Negative [facility] Blood, ur Trace(A) Negative [facility] Urobilinogen, ur <2.0 <2.0 mg/dL [facility] Nitrite, ur Negative Negative [facility] Leukocyte esterase, ur Negative Negative [facility] UA reflex comment Reflex to microscopic UA will be performed. [facility] Urine 04/08/2024 7:35 PM LINE COOK 04/08/2024 7:41 PM LINE COOK Herberth Quinones MD LAB MICROBIOLOGY - GENERA L ORDERABLES Final Result Performing Organization Address [facility] Co de Phone Number [facility] [employer] [place] [address] * (ABNORMAL) Urinalysis, microscopic only (04/08/2024 7:35 PM LINE COOK) Pathologist [facility] WBC, ur 0-5 0 - 5 /HPF RBC, ur 6-10(A) 0 - 2 /HPF [facility] Epithelial cells, squamous, ur 1-5 0 - 5 /HPF [facility] Culture Reflex Comment Reflex conditions for urine culture (WBC >10) not met. [facility] Urine 04/08/2024 7:35 PM LINE COOK 04/08/2024 7:41 PM LINE COOK Herberth Quinones MD LAB URINE ORDERABLES Kandace l Result Performing Organization Address [facility] de Phone Number [facility] [employer] [place] [address] * Check Sample (04/08/2024 7:29 PM LINE COOK) Pathologist [facility] ABO Rh O Positive [facility] HCLL OTHER 04/08/2024 7:29 PM LINE COOK 04/08/2024 7:56 PM LINE COOK Result [facility] Herberth Quinones MD LAB BLOOD ORDERABLES Kandace l Result Performing Organization Address [facility] [place] [address] [facility] * Folate (04/08/2024 7:29 PM LINE COOK) Pathologist [facility] Folic acid See Comment >=5.0 ng/mL Comment: Credited; Hemolyzed Specimen Telephone report made to: herberth on 04/08/2024 20:43:14 LINE COOK by rxy . Blood 04/08/2024 7:29 PM LINE COOK 04/08/2024 7:51 PM LINE COOK Herberth Quinones MD LAB BLOOD ORDERABLES Kandace l Result Performing Organization Address [facility] Co de Phone Number [facility] [place] [address] * eGFR (04/08/2024 6:49 PM LINE COOK) eGFR >90 >=60 mL/min/1. 73 m2 Comment: [...] last reviewed 2020. Blood 04/08/2024 6:49 PM LINE COOK 04/08/2024 6:58 PM LINE COOK Herberth Quinones MD LAB BLOOD ORDERABLES Kandace l Result Performing Organization Address [facility]/ZIP Co de Phone Number [facility] Department [place] [address] * Differential, auto (04/08/2024 6:49 PM LINE COOK) Neutrophil abs 5.5 1.5 - 6.5 K/cumm Imm gran abs 0.0 0.0 - 0.1 K/cumm [facility] Lymphocyte abs 1.5 0.8 - 3.3 K/cumm [facility] Monocyte abs 0.7 0.2 - 0.8 K/cumm [facility] Eosinophil abs 0.1 0.0 - 0.5 K/cumm [facility] Basophil abs 0.0 0.0 - 0.1 K/cumm [facility] Neutrophil pct 69.4 % [facility] Comment: Interpretive Data Percent cell count reference ranges are not reported, since discordance with absolute values may lead to misinterpretation of CBC data. Current Interpretive Data was last revised on 2017. Imm gran pct 0.5 % [facility] Comment: Interpretive Data Percent cell count reference ranges are not reported, since discordance with absolute values may lead to misinterpretation of CBC data. Current Interpretive Data was last revised on 2017. Lymphocyte pct 18.9 % [facility] Comment: Interpretive Data Percent cell count reference ranges are not reported, since discordance with absolute values may lead to misinterpretation of CBC data. Current Interpretive Data was last revised on 2017. Monocyte pct 9.2 % [facility] Comment: Interpretive Data Percent cell count reference ranges are not reported, since discordance with absolute values may lead to misinterpretation of CBC data. Current Interpretive Data was last revised on 2017. Eosinophil pct 1.5 % [facility] Comment: Interpretive Data Percent cell count reference ranges are not reported, since discordance with absolute values may lead to misinterpretation of CBC data. Current Interpretive Data was last revised on 2017. Basophil pct 0.5 % [facility] Comment: Interpretive Data Percent cell count reference ranges are not reported, since discordance with absolute values may lead to misinterpretation of CBC data. Current Interpretive Data was last revised on 2017. Blood 04/08/2024 6:49 PM LINE COOK 04/08/2024 6:58 PM LINE COOK us Herberth Quinones MD LAB BLOOD ORDERABLES Kandace l Result [facility] [place] [address] * Thyroid Function [place] (04/08/2024 6:49 PM LINE COOK) [facility] TSH 2.26 0.30 - 4.20 mcIUnit/mL Blood 04/08/2024 6:49 PM LINE COOK 04/08/2024 6:58 PM LINE COOK us Herberth Quinones MD LAB BLOOD ORDERABLES Kandace l Result Performing Organization Address City/[facility] Co de Phone Number [facility] [place] [address] * (ABNORMAL) CBC with auto differential (04/08/2024 6:49 PM LINE COOK) [facility] WBC 8.0 3.8 - 9.9 K/cumm Hgb 11.8(L) 13.0 - 17.5 g/dL [facility] Hct 32.5(L) 38.9 - 50.3 % [facility] Plt 417(H) 150 - 400 K/cumm [facility] MPV 10.1 9.1 - 12.3 fL [facility] RBC 3.52(L) 4.30 - 5.80 M/cumm [facility] MCV 92.3 81.3 - 96.4 fL [facility] MCH 33.5(H) 27.1 - 33.3 pg [facility] MCHC 36.3(H) 32.3 - 35.7 g/dL [facility] RDW CV 15.7(H) 11.1 - 14.9 % [facility] RDW SD 51.9(H) 35.7 - 48.1 fL [facility] NRBC abs 0.00 0.00 - 0.01 K/cumm [facility] Blood 04/08/2024 6:49 PM LINE COOK 04/08/2024 6:58 PM LINE COOK Herberth Quinones MD LAB BLOOD ORDERABLES Kandace l Result Performing Organization Address City/[facility] de Phone Number [facility] [employer] [place] [address] * (ABNORMAL) aPTT (04/08/2024 6:49 PM LINE COOK) aPTT 21(L) 28 - 38 sec Comment: Interpretive Data Heparin therapeutic range: 66.0 - 100.0 seconds. Range based on correlation with therapeutic heparin activity range of 0.3 - 0.7 Units/mL. Current interpretive data was last revised on 2022. Blood 04/08/2024 6:49 PM LINE COOK 04/08/2024 6:57 PM LINE COOK Herberth Quinones MD LAB BLOOD ORDERABLES Kandace l Result Performing Organization Address [facility] [place] [address] * Protime-INR (04/08/2024 6:49 PM LINE COOK) PT 11.9 9.7 - 13.0 sec INR 1.10 0.90 - 1.20 [facility] Comment: Interpretive data Oral anticoagulant therapeutic ranges: Venous thromboembolism prophylaxis or treatment: 2.0-3.0 CARDIOLOGY Standard range: 2.0-3.0 High-intensity range: 2.5-3.5 Refer to indication-specific guidelines for appropriate target ranges for prosthetic heart valve replacement. Current interpretive data was last revised on 2019. Blood 04/08/2024 6:49 PM LINE COOK 04/08/2024 6:57 PM LINE COOK Herberth Quinones MD LAB BLOOD ORDERABLES Kandace l Result Performing Organization Address [facility] Co de Phone Number [facility] of [employer] [place] [address] * Type and screen (04/08/2024 6:49 PM LINE COOK) [facility] Eladio, indirect Negative ABO Rh O Positive [facility] Blood 04/08/2024 6:49 PM LINE COOK 04/08/2024 6:56 PM LINE COOK Narrative [facility] - 04/08/2024 7:42 PM LINE COOK Has the patient had Daratumumab or Isatuximab in the past 6 months?->Unknown Herberth Quinones MD LAB BLOOD BANK TEST ORDER TIMOTHY Final Result Performing Organization Address City/State/[facility] Co de Phone Number [facility] [employer] [place] [address] * Phosphorus (04/08/2024 6:49 PM LINE COOK) [facility] Phosphorus, pl 3.2 2.3 - 4.5 mg/dL Blood 04/08/2024 6:49 PM LINE COOK 04/08/2024 6:58 PM LINE COOK Herberth Quinones MD LAB BLOOD ORDERABLES Kandace l Result Performing Organization Address [facility] Co de Phone Number [facility] of [employer] [place] [address] * Magnesium (04/08/2024 6:49 PM LINE COOK) [facility] Magnesium 2.5 1.4 - 2.5 mg/dL Blood 04/08/2024 6:49 PM LINE COOK 04/08/2024 6:58 PM LINE COOK Herberth Quinones MD LAB BLOOD ORDERABLES Kandace l Result Performing Organization Address [facility] Co de Phone Number [facility] [employer] [place] [address] * Lipase (04/08/2024 6:49 PM LINE COOK) [facility] Lipase 29 10 - 99 Units/L Blood 04/08/2024 6:49 PM LINE COOK 04/08/2024 6:58 PM LINE COOK Herberth Quinones MD LAB BLOOD ORDERABLES Kandace l Result [facility] [place] [address] * (ABNORMAL) Creatine kinase (CK), total (04/08/2024 6:49 PM LINE COOK) Pathologist [facility] CK 38(L) 40 - 300 Units/L Blood 04/08/2024 6:49 PM LINE COOK 04/08/2024 6:58 PM LINE COOK Herberth Quinones MD LAB BLOOD ORDERABLES Kandace l Result Performing Organization Address [facility] Co de Phone Number [facility] Department [place] [address] * (ABNORMAL) Comprehensive metabolic panel (04/08/2024 6:49 PM LINE COOK) Pathologist [facility] Sodium 139 135 - 145 mmol/L Potassium, pl 2.9(L) 3.3 - 4.9 mmol/L [facility] Chloride 96(L) 97 - 110 mmol/L [facility] CO2 29 22 - 32 mmol/L [facility] Anion gap 14 2 - 15 mmol/L [facility] BUN 5(L) 6 - 25 mg/dL [facility] Creatinine 0.87 0.80 - 1.30 mg/dL [facility] Glucose 111 70 - 199 mg/dL [facility] Comment: Interpretive Data Fasting glucose >/= 126 [...] Calcium 8.6 8.5 - 10.3 mg/dL [facility] Bilirubin, total 0.8 0.1 - 1.2 mg/dL [facility] Protein, pl 6.5 6.5 - 8.5 g/dL [facility] Albumin 3.1(L) 3.5 - 5.0 g/dL [facility] Alk phos 273(H) 40 - 130 Units/L [facility] ALT 18 7 - 55 Units/L [facility] AST 38 10 - 50 Units/L [facility] Blood 04/08/2024 6:49 PM LINE COOK 04/08/2024 6:58 PM LINE COOK us Herberth Quinones MD LAB BLOOD ORDERABLES Kandace l Result [facility] [place] [address] * CT Body Outside Consult (04/08/2024 6:48 PM LINE COOK) Anatomical Region Laterality Modality Body N/A Computed Tomogra phy 04/08/2024 8:00 PM LINE COOK Impressions 04/09/2024 11:44 AM LINE COOK 1. Mild age-indeterminate compression fractures of T1, [...] images may or may not represent the wiyot source data set and thus may contain changes that may lower the accuracy of this second-opinion interpretation. Dictated by: Jose Francisco Beasley M.D. The radiology attending physician has personally reviewed this study, and had reviewed and/or edited this written report and agrees with it. Electronically signed by: Adilson Torres M.D. Narrative 04/09/2024 11:44 AM LINE COOK EXAMINATION: RADIOLOGY CONSULTATION ON OUTSIDE IMAGING STUDY STUDY INITIALLY PERFORMED: 04/08/2024 at [facility]. TYPE OF STUDY: Multiple CT images of [...] IMAGING STUDY STUDY INITIALLY PERFORMED: 04/08/2024 at [facility]. TYPE OF STUDY: Multiple CT images of [...] images may or may not represent the wiyot source data set and thus may contain [...] Neuro CT Outside Consult (04/08/2024 6:45 PM LINE COOK) Anatomical Region Laterality Modality N/A Computed Tomogra phy 04/08/2024 8:49 PM LINE COOK Impressions 04/08/2024 9:13 PM LINE COOK Markedly limited examination due to to artifact. [...] images may or may not represent the wiyot source data set and thus may contain changes that may lower the accuracy of this second-opinion interpretation. Dictated by: Vlad Brown MD The radiology attending physician has personally reviewed this study, and had reviewed and/or edited this written report and agrees with it. Electronically signed by: Binu Hurtado M.D. Narrative 04/08/2024 9:13 PM LINE COOK EXAMINATION: RADIOLOGY CONSULTATION ON OUTSIDE IMAGING STUDY STUDY INITIALLY PERFORMED: 04/08/2024 at [facility]. TYPE OF STUDY: Multiple CT images of [...] IMAGING STUDY STUDY INITIALLY PERFORMED: 04/08/2024 at [facility]. TYPE OF STUDY: Multiple CT images of [...] images may or may not represent the wiyot source data set and thus may contain changes that may lower the accuracy of this second-opinion interpretation. Dictated by: Vlad Brown MD The radiology attending physician has personally reviewed this study, and had reviewed and/or edited this written report and agrees with it. Electronically signed by: Binu Hurtado M.D. Regina Dawson MD IMG CT PROCEDURES Kandace l Result from Last 3 Months Insurance [employer] MEDICARE ADVANTAGE U[employer] MEDICARE ADVANTAGE Advance Directives For more information, please contact: [phone] Documents on File Type Date Recorded Patient Client Resolution Specialist Expl anation ADVANCE DIRECTIVE 05/09/2024 8:55 AM POLST ADVANCE DIRECTIVE 04/12/2024 9:27 AM [employer] ADVANCE DIRECTIVE 04/12/2024 9:27 AM [employer] * Full Code (Latest Code Status on File) Date Activated Date Inactivated Comments 04/28/2024 6:17 PM 05/05/2024 8:02 PM * Full Code Date Activated Date Inactivated Comments 04/09/2024 2:02 AM 04/12/2024 6:05 PM Healthcare Agents on File Name Relationship Healthcare Agent Relationshi p Communication Consuelo Wilber Daughter Health Care Agent Care Teams Test Pilot Relationship Specialty Start [place] [address] [address] [place] [address] PCP - General Family Practice 04/11/24
--- OUTSIDE RECORDS SUMMARY | 2024-07-04 15:33 | XMS_ITS | Clinical Summary ---
Author Organization [facility] Address [address] [place] [address] Care Team Providers Care Customs Guard Name Role Phone Akin Lay MD Primary Care Provider [phone] Phoebe Stringer MD Unavailable Allergies No known [...] (81 mg total) by mouth daily. Active nitroglycerin (NITROSTAT) 0.[address] 1 tablet (0.4 mg total) under the tongue every 5 (five) minutes as needed for Chest Pain. Maximum of 3 doses. 30 tablet 1 10/28/2023 Active rosuvastatin (CRESTOR) 10 MG tablet TAKE 1 TABLET (10 MG TOTAL) BY MOUTH NIGHTLY AT BEDTIME. 90 tablet 3 04/13/2024 Active metoprolol tartrate (LOPRESSOR) 25 MG tablet TAKE 1 TABLET (25 MG TOTAL) BY MOUTH 2 (TWO) TIMES DAILY. 180 tablet 3 04/19/2024 Active Active Problems No known active problems [...] Care Team (Late st Contact Info) Description 11/01/2024 11:45 AM CDT Office Visit [facility] [place] [phone] Phoebe Stringer MD [address] [place] [address] Health Maintenance Due Date Last Done Comments Colorectal Cancer Screening Colonoscopy (10 Years) 1960 Hepatitis C 1977 DTaP, Tdap and Td Vaccines ( 1 - Tdap) 1978 Pneumococcal Vaccine: 50+ Ye ars (1 of 2 - PCV) 1978 Zoster Vaccines (1 of 2) 2009 RSV Immunization or 60+ Years (1 - Risk 60-74 years 1-dose series) 2019 COVID-19 Vaccine (1 - 2023-2 5 season) 2023 AAA SCREENING Completed 10/21/2023 Meningococcal B [...] AM CDT CAD (coronary artery disease) A-fib from Last 3 Months or Most Recently Relevant to Health Maintenance Results * USV AAA SCREENING (10/21/2023 10:16 AM CDT) Anatomical Region Laterality Modality NA Ultrasound 10/21/2023 9:51 AM CDT Narrative 10/22/2023 4:54 AM CDT SJS PVI DUPLEX SCAN-AAA Screening Pat.Name: JAYLAN MELGOZA Pat.ID: [id number] St.Date: 10/21/2023 Refer.MD: PHOEBE STRINGER Exam Time: 9:51:00 AM Study Type:PVI DUPLEX SCAN-AAA Screening Age: 1 1960,63Y Sex: M Sonogrphr: Maranda Mcmullen RVT Pat. Stat.:Outpatient CPT - 4: 10686 AAA Screening Reason for Study:AAA screening Race: [...] Procedure Note Phoebe Stringer MD - 10/22/2023 [facility] PVI DUPLEX SCAN-AAA Screening Pat.Name: JAYLAN MELGOZA Pat.ID: [id number] .Date: 10/21/2023 Refer.MD: PHOEBE STRINGER Exam Time: 9:51:00 AM Study Type:PVI DUPLEX SCAN-AAA Screening Age: 1 1960,63Y Sex: M Sonogrphr: Maranda Mcmullen RVT Pat. Stat.:Outpatient CPT - 4: 61000 AAA Screening Reason for Study:AAA screening Race: [...] Signature> 10/22/2023 04:54 AM Phoebe Stringer M.D. us Phoebe Stringer MD VASC Final Result from Last 3 Months or Most Recently Relevant to Health Maintenance Insurance [employer] Care Teams Customs Guard Relationship Specialty Start Date End Date Akin Lay MD PCP - General FAMILY PRACTICE 06/23/21 Phoebe Stringer MD [address] [place] [address] Consulting Physician CARDIOVASCULAR DISEASE 07/30/23
--- OUTSIDE RECORDS SUMMARY | 2024-07-04 15:33 | XMS_ITS | Data Portability ---
Author Organization [facility], [address] [place] [address] Neurology ([place]) Address [address] [place] [address] Care Team Providers Care Vfx Artist Name Role Phone SUSHIL CAMPO Primary Care Provider [phone] RICARDO HERRERA Maintenance Controller Assessment Encounter Date Assessment Date Assessment LastModified [...] without contrast. See me after above. clb [email or web address] Not available 11/19/2023 15:13:09 Plan of Treatment Reminders Order Date Submit Date Provider Last Modified By Organization Details Last Modified Time Details Appointments Hematolog y 30.NEW 2024 02:00P M Dr. Simon Mejia Not available Not available Not available Lab iga, quantitat lizeth, serum 2023 024 [facility], [address] [place] [address], [address], 11/20/2023 10:38:39 igm, quantitat lizeth, serum 2023 024 [facility], [address] [place] [address], [address], 11/20/2023 10:38:41 igg, quantitat lizeth, serum 2023 024 [facility], [address] [place] [address], [address], 11/20/2023 10:38:40 Referral None recorded. Procedures None recorded. Surgeries None recorded. Imaging CT, chest, w/o contrast 2023 024 [email or web address] [facility], [address] [place] [address], [address], 01/03/2024 09:21:52 Medication Orders Anoro Ellipta 62.5 mcg-25 mcg/actua tion powder for inhalatio n 2023 024 [email or web address] [facility], [facility] [address] [facility] [address] [facility], [place], [address], 11/19/2023 15:19:51 Ventolin HFA 90 mcg/actua tion aerosol inhaler 2023 024 [email or web address] [facility], [facility] [address] [facility] [address], [place], [address], 11/19/2023 15:19:51 Patient TargetsNo targets recorded. Patient Instructions Encounter Date Encounter Id Patient Instructions Last Modified By Organization Details Last Modified Time 11/19/2023 [id number] I spent time isiah chi over the results of the CAT scan [...] is aware of the other incidental findings. [email or web address] Not available 11/19/2023 15:12:50 Reason for Referral None Reported. Results Created Date Observation Date Name Description Value Unit Range Abnormal Flag Note LastModifiedBy Organization Detail LastModifiedTime 11/19/19 24 11/20/2023 iga, quant itati ve, serum IgA quantitative 393 mg/dL 61-437 Not Available [facility] [address] [place] [address], [address], 11/20/2023 10:38:39 11/19/19 24 11/20/2023 igg, quant itati ve, serum IgG quantitative 1274 mg/dL 603-16 13 Not Available [facility] [address] [place] [address], [address], 11/20/2023 10:38:40 11/19/19 24 11/20/2023 igm, quant itati ve, serum IgM quantitative 126 mg/dL 20-172 Not Available [facility] [address], [address], 11/20/2023 10:38:41 11/22/19 24 11/19/2023 PFT No observ ation record ed. INTERFACE [facility] [address] [place] [address], [address], 11/22/2023 09:20:42 11/22/19 24 11/19/2023 6 minut e walk test* No observ ation record ed. BARCODE Not Available 2023 15:52:27 Result Notes None recorded. 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 Procedures Surgical History None recorded. Imaging Results Imaging Date Name Status LastModified by Organiz ation Details LastModified Time 11/19/2023 PFT completed INTERFACE [facility] [address] [place] [address], [address], 11/22/2023 09:20:42 11/19/2023 6 minute walk test* [...] Updated DateTime 4 187.96 cm 19.5 kg/m2 33888.0 4 g 97 /min 91 % 91 % 142 mm[Hg] 88 mm[Hg] Veronica Maki [facility] 4 14:35:20 Social History Question Answer Notes LastModified by Organizat ion Details LastModified Time Tobacco Smoking Status Former Smoker Veronica Maki [facility] 11/19/2023 14:37:07 How Many Packs Per Day [...] trivalent, PF 4 completed Ricardo Herrera MD [address] [place] [address], [phone], [facility] 11/19/2023 16:10:50 Pneumococcal conjugate PCV20, polysaccharide DDM923 conjugate, adjuvant, PF 4 completed Ricardo Herrera MD [address] [place] [address], [phone], [facility] 11/19/2023 16:10:50 Past Encounters Encounter ID Performer Location Encounter Start Date Encounter Closed Date Diagnosis/Indication Diagnosis SNOMED-CT Code Diagnosis ICD10 Code Diagnosis Note [id number] MD DK Yang [address] [address] 11/19/2023 13:17:02 11/19/2023 15:31:26 Chronic obstructive pulmonary disease 09974717 J44.9 [id number] MD DK Yang 2nd [facility]m ([place]) [address] [facility] [place] [address] 11/19/2023 13:18:17 11/19/2023 17:06:22 Chronic obstructive pulmonary disease 78119348 J44.9 Bronchiectasis 55267091 J47.9 Immunizati on education 899018562 Z71.85 Multiple n odules of lung 649480375 R91.8 Vaccination needed 27955 29114 14866 Z23 Health Concerns Section Related Observation LastModified by Organization Detai ls LastModified Time None Recorded Concern Status LastModified by Organization Details LastModified Time None Recorded Advance Directives Directive None Recorded Payers Encounter Date Sequence Insurance Name Policy Number Policy Costello Covered Member ID Costello Member ID Guarantor Name 11/19/2023 1 [employer] (MEDICARE REPLACEMENT PPO) [id number] Jaylan Alec Miramontese [id number] Jaylan Rhona 11/19/2023 1 [employer] (MEDICARE REPLACEMENT PPO) [id number] Jaylan Alec Rife [id number] Jaylan Rhona Notes Date Note Type Note Provider Name [...] This led to a consultation with a senior environmental technician. He was given the diagnosis of prior [...] of asthma. Ricardo Herrera MD [address] [place] [address], [phone], [facility] 11/19/2023 16:11:02
[2024-07-04 15:50] LABS: Hematocrit 36.3 % (37.0-46.0); Hemoglobin 12.2 g/dL (12.4-15.3); Mean Corpuscular HGB Conc 33.6 g/dL (32-36); Mean Corpuscular Hemoglobin 32.7 pg (27.0-31.0); Mean Corpuscular Volume 97.3 fL (78.0-102.0); Mean Platelet Volume 10.8 fl (8.7-11.0); Platelet Count Result 283 K/mm3 (150-420); Red Blood Count 3.73 M/mm3 (4.70-6.10); Red Cell Distribution Width 15.2 % (11.6-14.4)
[2024-07-04 16:29] LABS: Alanine Aminotransferase 62 U/L (16-63); Albumin Level 3.1 g/dL (3.4-5.0); Alkaline Phosphatase 157 U/L (46-116); Anion Gap 8 mmol/L (4-12); Aspartate Amino Transferase 77 U/L (15-37); Bilirubin,Total 0.8 mg/dL (0.00-1.00); Blood Urea Nitrogen 9 mg/dL (7-18); Calcium 8.6 mg/dL (8.5-10.1); Carbon Dioxide 32 mmol/L (21-32); Chloride 101 mmol/L (98-108); Estimated Glomerular Filt Rate > 60; Glucose 152 mg/dL (70-99); Osmolality Calculated 293 mOsm/kg (285-295); Potassium 3.5 mmol/L (3.5-5.1); Sodium 141 mmol/L (136-145); Total Protein 6.3 g/dL (6.4-8.2)
[2024-07-04 16:47] LABS: Band Neutrophils Percent 0 % (0-6); Eosinophils Absolute Manual 0.24 K/mm3 (0.02-0.50); Eosinophils Percent Manual 3 % (1-6); Lymphocytes Absolute Manual 2.32 K/mm3 (1.1-4.5); Lymphocytes Percent Manual 29 % (18-44); Monocytes Absolute Manual 0.88 K/mm3 (0.1-0.90); Monocytes Percent Manual 11 % (3-9); Neutrophils Absolute Manual 4.48 K/mm3 (1.3-6.7); Neutrophils Percent Manual 56 % (46-73); Total Cells Counted 100
[2024-07-04 16:48] LABS: Basophils Absolute Manual 0.08 K/mm3 (0-0.1); Basophils Percent Manual 1 % (0-1); Platelet Estimate Adequate (Adequate)
== END 2024-07-04 15:23 | disposition home or self-care (01) ==
LOC: CHSLAB 15:30
PROVIDERS: PCP Emergency Medicine; Visit Provider Nurse Practitioner Adult Health
DX: I10 Essential (primary) hypertension (principal)
CPT/HCPCS: 36415; 80053; 85025

== ENCOUNTER 2024-09-14 00:56 | Emergency (ER) | payer MEDICARE, SELFPAY ==
[2024-09-14] VITALS (13 sets, daily range): BP systolic 103–140; BP diastolic 77–109; PULSE 98–142; RESP 18–22; TEMP 36.1; O2SAT 90–96
--- NOTE | ~2024-09-14 | XR_ITS ---
Portable chest x-ray Comparison: 04/12/2023 Clinical History: Shortness of breath Findings: Lungs are clear, without focal consolidation or pleural effusion. Possible COPD. Cardiome diastinal silhouette is stable. Bones and soft tissues are unremarkable. Impression: Clear lungs. Possible COPD. Reviewed, dictated and finalized at location M. Impression: Clear lungs. Possible COPD.
--- NOTE | ~2024-09-14 | CT_ITS ---
Non-contrast Head CT History: Altered mental status COMPARISON: 04/08/2024 Technique: Axial non-contrast imaging of the brain was performed. Dose reduction technique was used on this scan by utilizing automated exposure control and iterative reconstruction technique. The dose -length product (DLP) was 681.00 mGy-cm. Findings: There is no evidence of intracranial hemorrhage, mass lesion, or acute infarct. Brain par enchyma appears normal. The ventricles and subarachnoid spaces are normal in size. The calvarium ap pears normal. The visualized paranasal sinuses and mastoid air cells are clear. Impression: No significant abnormality seen. Reviewed, dictated and finalized at location . Impression: No significant abnormality seen.
--- NOTE | 2024-09-14 00:59 | ECG_ITS ---
Test Date: 2024-09-14 01:06:38 Measurements Intervals Prentiss Rate: 122 P: -22 SC: 160 QRS: 158 QRSD: 90 T: -11 QT: 254 QTc: 362 Interpretive Statements SINUS TACHYCARDIA WITH OCCASIONAL ECTOPIC PREMATURE COMPLEXES LATERAL MYOCARDIAL INFARCTION , OF INDETERMINATE AGE [40+ ms Q WAVE AND/OR ST/T ABNORMALITY IN I/aVL/V5/V6] baseline artifact may affect interpretation Compared to ECG 04/08/2024 10:52:16 Atrial abnormality now present Myocardial infarct finding now present Left-axis deviation no longer present Incomplete right bundle-branch block no longer present Electronically Signed On 09-14-2024 14:41:06 CDT by Santi Espinosa M.D.
--- OUTSIDE RECORDS SUMMARY | 2024-09-14 00:59 | XMS_ITS | Clinical Summary ---
Author Organization [facility] Address [address] [place] [address] Care Team Providers Care Production Hardener Name Role Phone Akin Lay MD Primary Care Provider [phone] Phoebe Stringer MD Unavailable Allergies No known [...] 10:56 AM CDT Height 188 cm (6' 2) 10/28/2023 10:56 AM CDT Body Mass Index 19.64 10/28/2023 10:56 AM CDT Plan of Treatment Upcoming Encounters Date Type Department Care Team (Late st Contact Info) Description 11/01/2024 11:45 AM CDT Office Visit [facility] [place] [phone] Phoebe Stringer MD [address] [place] [address] Health Maintenance Due Date Last Done Comments [...] DUPLEX SCAN-AAA Screening Pat.Name: JAYLAN MELGOZA Pat.ID: [id number] St.Date: 10/21/2023 Refer.MD: PHOEBE STRINGER Exam Time: 9:51:00 AM Study Type:PVI DUPLEX SCAN-AAA Screening Age: 1 1960,63Y Sex: M Sonogrphr: Maranda Mcmullen RVT Pat. Stat.:Outpatient CPT - 4: 05194 AAA Screening Reason for Study:AAA screening Race: [...] Procedure Note Phoebe Stringer MD - 10/22/2023 [facility] PVI DUPLEX SCAN-AAA Screening Pat.Name: JAYLAN MELGOZA Pat.ID: [id number] .Date: 10/21/2023 Refer.MD: PHOEBE STRINGER Exam Time: 9:51:00 AM Study Type:PVI DUPLEX SCAN-AAA Screening Age: 1 1960,63Y Sex: M Sonogrphr: Maranda Mcmullen RVT Pat. Stat.:Outpatient CPT - 4: 15775 AAA Screening Reason for Study:AAA screening Race: [...] to Health Maintenance Insurance [employer] Care Teams Production Hardener Relationship Specialty Start Date End Date Akin Lay MD PCP - General FAMILY PRACTICE 06/23/21 Phoebe Stringer MD [address] [place] [address] Consulting Physician CARDIOVASCULAR DISEASE 07/30/23
--- OUTSIDE RECORDS SUMMARY | 2024-09-14 00:59 | XMS_ITS | Encounter Summary ---
Author Organization [facility] Address [address] [place] [address] Care Team Providers Care Auto Mechanics Teacher Name Role Phone Akin Lay MD Primary Care Provider [phone] Phoebe Casper MD Unavailable Encounter Details Date Type Department Care Team (Late Contact Info) Description 08/06/2018 Abstract [facility] CONVERSION [address] [place] [address] , Generic ConversionMD Social History Tobacco Use [...] Upcoming Encounters Date Type Department Care Team ([facility] Contact Info) Description 11/01/2024 11:45 AM CDT Office Visit [facility] [place] [address] Phoebe Casper MD [address] [place], [place] [phone] documented as of this encounter Visit Diagnoses Not on filedocumented in this encounter Additional Health Concerns Infection Onset Date Last Indicated Resolved Time COVID-19 Rule Out 07/05/2021 07/05/2021 07/05/2021 6:52 PM CDT COVID-19 Rule Out 12/05/2021 12/05/2021 12/05/2021 4:04 PM CDT documented as of this encounter Care Teams Auto Mechanics Teacher Relationship Specialty Start Date End Date Akin Lay MD PCP - General FAMILY PRACTICE 06/23/21 Phoebe Casper MD [address] [place] [address] Consulting Physician CARDIOVASCULAR DISEASE 07/30/23 documented as of this encounter
--- OUTSIDE RECORDS SUMMARY | 2024-09-14 00:59 | XMS_ITS | Referral Summary ---
Author Organization [facility] al Address [address] [place] [address] Care Team Providers Care Gore Maker Name Role Phone MARJAN Arevalo Jr., Navin [...] 05/04/2024 Assessment & Plan (05/05/2024 2:45 PM SERICULTURE TEACHER): Since in family 9mo ago and now decreased physcial abillity, patient has been experiencing decreased appetite, low mood, anhedonia, and increased daytime sleeping. He likely has depression. He denies hx of depression or prior use of antidepressants -sertraline 50mg daily (05/04-current) Assessment & Plan (05/04/2024 5:08 PM SERICULTURE TEACHER): Since in family 9mo ago and now decreased physcial abillity, patient has been experiencing decreased appetite, low mood, anhedonia, and increased daytime sleeping. He likely has depression. He denies hx of depression or prior use of antidepressants -sertraline 50mg daily (05/04-current) Macrocytic anemia 05/03/2024 Assessment & Plan (05/05/2024 2:45 PM SERICULTURE TEACHER): Hgb at baseline ~9, MCV 100.4; likely related to EtOH use -B12 wnl Assessment & Plan (05/04/2024 5:08 PM SERICULTURE TEACHER): Hgb at baseline ~9, MCV 100.4; likely related to EtOH use -B12 pending Assessment & Plan (05/03/2024 4:48 PM SERICULTURE TEACHER): Hgb at baseline ~9, MCV 100.4; likely related to EtOH use -B12 pending Noncompliance with medication regimen 05/01/2024 Assessment & Plan (05/05/2024 2:45 PM SERICULTURE TEACHER): Pt endorse not taking medications including eliquis for afib Assessment & Plan (05/04/2024 5:08 PM SERICULTURE TEACHER): Pt endorse not taking medications including eliquis for afib Assessment & Plan (05/03/2024 4:48 PM SERICULTURE TEACHER): Pt endorse not taking medications including eliquis for afib DVT, bilateral lower limbs 05/01/2024 Assessment & Plan (05/05/2024 2:45 PM SERICULTURE TEACHER): There are bilateral DVT in lower limbs [...] bid. Assessment & Plan (05/04/2024 5:08 PM SERICULTURE TEACHER): There are bilateral DVT in lower limbs [...] bid. Assessment & Plan (05/03/2024 4:48 PM SERICULTURE TEACHER): There are bilateral DVT in lower limbs [...] 04/29/2024 Assessment & Plan (05/05/2024 2:45 PM SERICULTURE TEACHER): Feet with abrasions that per patient started [...] PRN Assessment & Plan (05/04/2024 5:08 PM SERICULTURE TEACHER): Feet with abrasions that per patient started [...] PRN Assessment & Plan (05/03/2024 4:48 PM SERICULTURE TEACHER): Feet with abrasions that per patient started [...] 04/28/2024 Assessment & Plan (05/05/2024 2:45 PM SERICULTURE TEACHER): Drinks 10 shots fireball daily, last drink 04/28 AM. Increased EtOH use x9mo iso accidental in the family. -s/p valium 10mg in ED -s/p CIWA w/ prn ativan -thiamine, folate, MVI -SW c/s for resources - discussed naltrexone, currently patient favors using sertraline for depression, but if he has alcohol cravings after discharge encouraged to consider naltrexone. Assessment & Plan (05/04/2024 5:08 PM SERICULTURE TEACHER): Drinks 10 shots fireball daily, last drink 04/28 AM. Increased EtOH use x9mo iso accidental in the family. -s/p valium 10mg in ED -s/p CIWA w/ prn ativan -thiamine, folate, MVI -SW c/s for resources - discussed naltrexone, currently patient favors using sertraline for depression, but if he has alcohol cravings after discharge encouraged to consider naltrexone. Assessment & Plan (05/03/2024 4:48 PM SERICULTURE TEACHER): Drinks 10 shots fireball daily, last drink 04/28 AM. Increased EtOH use x9mo iso accidental in the family. -s/p valium 10mg in ED -s/p CIWA w/ prn ativan -thiamine, folate, MVI -SW c/s for resources -plan for naltrexone on discharge Paroxysmal A-fib 04/28/2024 Assessment & Plan (05/05/2024 2:45 PM SERICULTURE TEACHER): -cont Eliquis for now (though if pt ultimately elects to return home instead of rehab, may consider holding in the setting of recurrent falls) -cont home metop Assessment & Plan (05/04/2024 5:08 PM SERICULTURE TEACHER): -cont Eliquis for now (though if pt ultimately elects to return home instead of rehab, may consider holding in the setting of recurrent falls) -cont home metop Assessment & Plan (05/03/2024 4:48 PM SERICULTURE TEACHER): -cont Eliquis for now (though if pt ultimately elects to return home instead of rehab, may consider holding in the setting of recurrent falls) -cont home metop Severe malnutrition 04/11/2024 Assessment & Plan (05/05/2024 2:45 PM SERICULTURE TEACHER): -RD c/, rec ensure plus high protein Assessment & Plan (05/04/2024 5:08 PM SERICULTURE TEACHER): -RD c/, rec ensure Assessment & Plan (05/03/2024 4:48 PM SERICULTURE TEACHER): -RD c/, rec ensure CAD (coronary artery disease) 04/10/2024 Assessment & Plan (05/05/2024 2:45 PM SERICULTURE TEACHER): -cont statin, metop Assessment & Plan (05/04/2024 5:08 PM SERICULTURE TEACHER): -cont statin, metop Assessment & Plan (05/03/2024 4:48 PM SERICULTURE TEACHER): -cont statin, metop Assessment & Plan (04/10/2024 1:39 PM SERICULTURE TEACHER): CAD, multivessel per CT lung cancer screen 07/22, with evidence of anterior ID with scar per MPI 10/22: Atorvastatin, Nitroglycerin, HTN (hypertension) 04/10/2024 Assessment & Plan (05/05/2024 2:45 PM SERICULTURE TEACHER): -cont lopressor 25 bid Assessment & Plan (05/04/2024 5:08 PM SERICULTURE TEACHER): -cont lopressor 25 bid Assessment & Plan (05/03/2024 4:48 PM SERICULTURE TEACHER): -cont lopressor 25 bid Assessment & Plan (04/10/2024 1:40 PM SERICULTURE TEACHER): Chronic Metoprolol 25 mg bid Compression fx, thoracic spine 04/09/2024 Assessment & Plan (05/05/2024 2:45 PM SERICULTURE TEACHER): He was recently admitted to [facility] 04/08-04/12, where he was found to [...] SNF Assessment & Plan (05/04/2024 5:08 PM SERICULTURE TEACHER): He was recently admitted to [facility] 04/08-04/12, where he was found to [...] SNF Assessment & Plan (05/03/2024 4:48 PM SERICULTURE TEACHER): He was recently admitted to [facility] 04/08-04/12, where he was found to [...] SNF Assessment & Plan (04/11/2024 7:09 AM SERICULTURE TEACHER): Ortho spine consult #Falls - hCT, C-spine CT, CT C/A/P unremarkable aside from T-spine fractures #T1, T3, T4, and T6 fx, age indeterminate 04/09 spine: Total spine MRI w/wo contrast completed 04/10 No operative management Ambulate with assistance 04/11 TLSO brace for comfort Scoli films pending Alcohol abuse 04/09/2024 Assessment & Plan (04/11/2024 12:15 PM SERICULTURE TEACHER): #AUD - continue to monitor - phenobarb loading dose given in the ED with plan to transition to diazepam -CD completed 04/09 04/11 no signs of withdrawal, no events overnight Bronchiectasis 11/19/2023 Multiple nodules of lung 11/19/2023 Assessment & Plan (05/05/2024 2:45 PM SERICULTURE TEACHER): Seen on imaging last admit:CT 04/08/2024 with indeterminate lung nodules, recommend follow-up in 6 months (~09/2024) -outpatient f/u Assessment & Plan (05/04/2024 5:08 PM SERICULTURE TEACHER): Seen on imaging last admit:CT 04/08/2024 with indeterminate lung nodules, recommend follow-up in 6 months (~09/2024) -outpatient f/u Assessment & Plan (05/03/2024 4:48 PM SERICULTURE TEACHER): Seen on imaging last admit:CT 04/08/2024 with indeterminate lung nodules, recommend follow-up in 6 months (~09/2024) -outpatient f/u Assessment & Plan (04/10/2024 1:33 PM SERICULTURE TEACHER): Hx of same in past Multiple left lower lobe pulmonary nodules, many of which are calcified likely representing old granulomatous disease. A 6 mm noncalcified nodule is indeterminate but may also represent sequela of old granulomatous disease. Follow-up CT in 6 months could be considered if clinically indicated. Chronic obstructive pulmonary disease 09/17/2023 Assessment & Plan (05/05/2024 2:45 PM SERICULTURE TEACHER): -cont anoro ellipta, prn albuterol Assessment & Plan (05/04/2024 5:08 PM SERICULTURE TEACHER): -cont anoro ellipta, prn albuterol Assessment & Plan (05/03/2024 4:48 PM SERICULTURE TEACHER): -cont anoro ellipta, prn albuterol Assessment & Plan (04/10/2024 1:29 PM SERICULTURE TEACHER): Home Trelegy Anoro Ellipta 6.25 mcg / 25 mcg Albuterol prn Q 6 hrs No oxygen thearpy Resolved Problems Problem Noted Date Diagnosed Date Resolved Date Open wound of dorsum of foot 04/28/2024 04/29/2024 Assessment & Plan (04/28/2024 6:21 PM SERICULTURE TEACHER): BL dorsal food blistering wounds w/ associated swelling/erythema/warmth c/f possible superimposed cellulitis. -cont cefazolin -wound c/s -check LED to r/o DVT Social History Tobacco Use Types Packs/Day Years Used Date Smoking Tobacco: Former Cigarettes 1.3 50 1 974 - 2023 Passive Smoke Exposure: Past Smokeless Tobacco: Never Tobacco Cessation:Counseling Given: Yes [facility] [employer] Answer Date Recorded In the past 12 months has Serious Energy, gas, oil, or water Drawn to Scale threatened to shut off services in your [...] often do you attend chur ch or yazidi services? Never 05/03/2024 Do you belong to any clubs o r organizations such as adventist groups, unions, fraternal or athletic groups, or [...] any time in the past 12 m [facility], were you homeless or living in a fdc (including now)? No 05/03/2024 Personal Safety Answer Date Recorded Have you ever been in or are you currently in a harmful physical or emotional relationship or is someone making you feel afraid or unsafe? Denies 04/30/2024 Sex and Gender Information Value Date Recorded Sex Assigned at Not on file Legal Sex Male 8:45 PM SERICULTURE TEACHER Gender Identity Not on file Sexual Orientation Not on file Last Filed Vital Signs Vital Sign Reading Time Taken Comments Blood Pressure 134/94 05/05/2024 9:25 AM SERICULTURE TEACHER Pulse 92 05/05/2024 9:25 AM SERICULTURE TEACHER Temperature 37.1 C (98.8 F) 05/05/2024 7:24 AM SERICULTURE TEACHER Respiratory Rate 19 05/05/2024 7:24 AM SERICULTURE TEACHER Oxygen Saturation 99% 05/05/2024 7:24 AM SERICULTURE TEACHER Inhaled Oxygen Concentration - - Weight 68.9 kg (152 lb) 04/30/2024 7:01 AM SERICULTURE TEACHER Height 188 cm (6' 2) 04/30/2024 7:01 AM SERICULTURE TEACHER Body Mass Index 19.52 04/30/2024 7:01 AM SERICULTURE TEACHER Plan of Treatment Not on file Procedures Procedure Name Priority Date/Time Associated Diagnosis Comments HEPATITIS C ANTIBODY Routine 04/12/2024 5:19 AM SERICULTURE TEACHER from Last 3 Months or Most Recently Relevant to Health Maintenance Results * Hepatitis C antibody Blood (04/12/2024 5:19 AM SERICULTURE TEACHER) Hep C Ab Nonreactive Nonreactive Comment:Antibodies to HCV no t detected. Does NOT exclude the possibility of recent exposure to HCV. Current interpretive data was last revised on 21 Blood 04/12/2024 5:19 AM SERICULTURE TEACHER 04/12/2024 5:37 AM SERICULTURE TEACHER Ronan Gipson MD LAB MICROBIOLOGY - GENERAL ORDERABLES Final Result [facility] Department [place] [address] from Last 3 Months or Most Recently Relevant to Health Maintenance Insurance [facility] MED[facility] ADV[facility] Advance Directives For more information, please contact: [phone] Documents on File Type Date Recorded Patient Soa Architect Expl anation ADVANCE DIRECTIVE 05/09/2024 8:55 AM POLST ADVANCE DIRECTIVE 04/12/2024 9:27 AM POWER OF V BELT MOLD ASSEMBLER AND [employer] ADVANCE DIRECTIVE 04/12/2024 9:27 AM POWER OF V BELT MOLD ASSEMBLER AND [employer]ER-MEDICAL * Full Code (Latest Code Status on File) Date Activated Date Inactivated Comments 04/28/2024 6:17 PM 05/05/2024 8:02 PM * Full Code Date Activated Date Inactivated Comments 04/09/2024 2:02 AM 04/12/2024 6:05 PM Healthcare Agents on File Name Relationship Healthcare Agent Relationshi p Communication Consuelo Merino Daughter Health Care Agent Care Teams Gore Maker Relationship Specialty Start Date End Date Navin Arevalo Jr., MARJAN [address] [place] [address] PCP - General Family Practice 04/11/24
--- OUTSIDE RECORDS SUMMARY | 2024-09-14 00:59 | XMS_ITS | Data Portability ---
Author Organization [facility], [address] [facility] ([place]) Address [address] [place] [address] Care Team Providers Care Crab Steamer Name Role Phone SUSHIL CAMPO Primary Care Provider [phone] RICARDO HERRERA Project Management Manager Assessment Encounter Date Assessment Date Assessment LastModified [...] without contrast. See me after above. [email or web address] Not available 11/19/2023 15:13:09 Plan of Treatment Reminders Order Date Submit Date Provider Last Modified By Organization Details Last Modified Time Details Appointments Hematolog y 30.NEW 2024 02:00P M Dr. Simon Mejia Not available Not available Not available Lab iga, quantitat lizeth, serum 2023 024 [facility] Only [facility], [address] [place] [address], [id number], 11/20/2023 10:38:39 igm, quantitat lizeth, serum 2023 024 [facility], [address] [place] [address], [address], 11/20/2023 10:38:41 igg, quantitat lizeth, serum 2023 [facility], [address] [place] [address], [address], 11/20/2023 10:38:40 Referral None recorded. Procedures None recorded. Surgeries None recorded. Imaging CT, chest, w/o contrast 2023 024 [email or web address] [facility] Only [facility], [address] [place] [address], [address], 01/03/2024 09:21:52 Medication Orders Anoro Ellipta 62.5 mcg-25 mcg/actua tion powder for inhalatio n 2023 024 [email or web address] [facility], [address], [address], 11/19/2023 15:19:51 Ventolin HFA 90 mcg/actua tion aerosol inhaler 2023 024 [email or web address] [facility], [address] [facility] [address] [facility], [place], [address], 11/19/2023 15:19:51 Patient TargetsNo targets recorded. Patient Instructions Encounter Date Encounter Id Patient Instructions Last Modified By Organization Details Last Modified Time 11/19/2023 [id number] I spent time isiah chi over the [...] is aware of the other incidental findings. [email or web address] Not available 11/19/2023 15:12:50 Reason for Referral None Reported. Results Created Date Observation Date Name Description Value Unit Range Abnormal Flag Note LastModifiedBy Organization Detail LastModifiedTime 11/19/19 24 11/20/2023 iga, quant itati ve, serum IgA quantitative 393 mg/dL 61-437 Not Available [facility] [address] [place] [address], [address], 11/20/2023 10:38:39 11/19/19 24 11/20/2023 igg, quant itati ve, serum IgG quantitative 1274 mg/dL 603-16 13 Not Available [facility] [address], [address], 11/20/2023 10:38:40 11/19/19 24 11/20/2023 igm, quant itati ve, serum IgM quantitative 126 mg/dL 20-172 Not Available [facility] [address], [address], 11/20/2023 10:38:41 11/22/19 24 11/19/2023 PFT No observ ation record ed. INTERFACE [facility] [address], [address], 11/22/2023 09:20:42 11/22/19 24 11/19/2023 6 minut e walk test* No observ ation record ed. BARCODE Not Available 2023 15:52:27 Result Notes None recorded. Problems Name Problem SNOMED Code Status Onset Date Resolution Date Notes Provider Name and Address Organization Details Recorded Time Chronic obstructive pulmonary disease 69010799 Active 2023 Veronica Maki [facility] 4 13:51:36 Bronchiectasis 15940669 Active 2023 Ricardo Herrera MD [address] [place] [address], [phone] [place] [address] 4 14:50:39 Multiple nodules of lung 458206053 Active 2023 Ricardo Herrera MD [address] [place] [address], [phone] [place] [address] 4 14:50:51 Problem Notes None recorded. Medical Equipment None Reported. [...] in Arterial blood by Pulse oximetry Systolic And Diastolic Provider Name and Address Organization Details Last Updated DateTime 4 187.96 cm 19.5 kg/m2 06350.0 4 g 97 /min 91 % 91 % 142/88 mm[Hg] Veronica Maki [facility] 4 14:35:20 Social History Question Answer Notes LastModified by Organizat ion Details LastModified Time Tobacco Smoking Status [facility] 11/19/2023 14:37:07 How Many Packs Per Day [...] Organization Details Recorded Time Influenza, MDCK, trivalent, 4 completed Ricardo Herrera MD [address] [place] [address], [phone], [facility] 11/19/2023 16:10:50 Pneumococcal conjugate PCV20, polysaccharide YOT137 conjugate, adjuvant, PF 4 completed Ricardo Herrera MD [address] [place] [address], [phone], [facility] 11/19/2023 16:10:50 Past Encounters Encounter ID Performer Location Encounter Start Date Encounter Closed Date Diagnosis/Indication Diagnosis SNOMED-CT Code Diagnosis ICD10 Code Diagnosis Note [id number] Ricardo Herrera MD [facility] [address] [address] [address] [place] [id number] 11/19/2023 13:17:02 11/19/2023 15:31:26 Chronic obstructive pulmonary disease 52249677 J44.9 [id number] Ricardo Herrera MD [facility] ([place]) [address] [facility],[address] [place] [phone] 11/19/2023 13:18:17 11/19/2023 17:06:22 Chronic obstructive pulmonary disease 30417254 J44.9 Bronchiectasis 44377694 J47.9 Immunizati on education 072081954 Z71.85 Multiple n odules of lung 371412465 R91.8 Vaccination needed 34746 26658 90250 Z23 Health Concerns Section Related Observation LastModified by Organization Detai ls LastModified Time None Recorded Concern Status LastModified by Organization Details LastModified Time None Recorded Advance Directives Directive None Recorded Payers Insurance Date Sequence Insurance Name Policy Number Policy Costello Covered Member ID Costello Member ID Guarantor Name 08/17/2024 1 [facility] (MEDICARE REPLACEMENT/A DVANTAGE - PPO) [id number] Jaylan Rife [id number] Jaylan Rife 08/17/2024 1 [employer] (MEDICARE REPLACEMENT/A DVANTAGE - PPO) [id number] Jaylan D Rife [id number] Jaylan Rife 08/17/2024 1 [place] Jaylan Rife [id number] Jaylan Rife 08/17/2024 1 [place] Jaylan Rife [id number] Jaylan Rife Notes Date Note Type Note [...] This led to a consultation with a medical physics teacher. He was given the diagnosis of prior [...] of asthma. Ricardo Herrera MD [address] [facility], [place], [address], [facility] 11/19/2023 16:11:02
--- OUTSIDE RECORDS SUMMARY | 2024-09-14 00:59 | XMS_ITS | Clinical Summary ---
Author Organization [facility] al Address [address] [place] [address] Care Team Providers Care Brine Tank Operator Name Role Phone MARJAN Arevalo Jr., Navin [...] 05/04/2024 Assessment & Plan (05/05/2024 2:45 PM HAND MIXER): Since in family 9mo ago and now decreased physcial abillity, patient has been experiencing decreased appetite, low mood, anhedonia, and increased daytime sleeping. He likely has depression. He denies hx of depression or prior use of antidepressants -sertraline 50mg daily (05/04-current) Assessment & Plan (05/04/2024 5:08 PM HAND MIXER): Since in family 9mo ago and now decreased physcial abillity, patient has been experiencing decreased appetite, low mood, anhedonia, and increased daytime sleeping. He likely has depression. He denies hx of depression or prior use of antidepressants -sertraline 50mg daily (05/04-current) Macrocytic anemia 05/03/2024 Assessment & Plan (05/05/2024 2:45 PM HAND MIXER): Hgb at baseline ~9, MCV 100.4; likely related to EtOH use -B12 wnl Assessment & Plan (05/04/2024 5:08 PM HAND MIXER): Hgb at baseline ~9, MCV 100.4; likely related to EtOH use -B12 pending Assessment & Plan (05/03/2024 4:48 PM HAND MIXER): Hgb at baseline ~9, MCV 100.4; likely related to EtOH use -B12 pending Noncompliance with medication regimen 05/01/2024 Assessment & Plan (05/05/2024 2:45 PM HAND MIXER): Pt endorse not taking medications including eliquis for afib Assessment & Plan (05/04/2024 5:08 PM HAND MIXER): Pt endorse not taking medications including eliquis for afib Assessment & Plan (05/03/2024 4:48 PM HAND MIXER): Pt endorse not taking medications including eliquis for afib DVT, bilateral lower limbs 05/01/2024 Assessment & Plan (05/05/2024 2:45 PM HAND MIXER): There are bilateral DVT in lower limbs [...] bid. Assessment & Plan (05/04/2024 5:08 PM HAND MIXER): There are bilateral DVT in lower limbs [...] bid. Assessment & Plan (05/03/2024 4:48 PM HAND MIXER): There are bilateral DVT in lower limbs [...] 04/29/2024 Assessment & Plan (05/05/2024 2:45 PM HAND MIXER): Feet with abrasions that per patient started [...] PRN Assessment & Plan (05/04/2024 5:08 PM HAND MIXER): Feet with abrasions that per patient started [...] PRN Assessment & Plan (05/03/2024 4:48 PM HAND MIXER): Feet with abrasions that per patient started [...] 04/28/2024 Assessment & Plan (05/05/2024 2:45 PM HAND MIXER): Drinks 10 shots fireball daily, last drink 04/28 AM. Increased EtOH use x9mo iso accidental in the family. -s/p valium 10mg in ED -s/p CIWA w/ prn ativan -thiamine, folate, MVI -SW c/s for resources - discussed naltrexone, currently patient favors using sertraline for depression, but if he has alcohol cravings after discharge encouraged to consider naltrexone. Assessment & Plan (05/04/2024 5:08 PM HAND MIXER): Drinks 10 shots fireball daily, last drink 04/28 AM. Increased EtOH use x9mo iso accidental in the family. -s/p valium 10mg in ED -s/p CIWA w/ prn ativan -thiamine, folate, MVI -SW c/s for resources - discussed naltrexone, currently patient favors using sertraline for depression, but if he has alcohol cravings after discharge encouraged to consider naltrexone. Assessment & Plan (05/03/2024 4:48 PM HAND MIXER): Drinks 10 shots fireball daily, last drink 04/28 AM. Increased EtOH use x9mo iso accidental in the family. -s/p valium 10mg in ED -s/p CIWA w/ prn ativan -thiamine, folate, MVI -SW c/s for resources -plan for naltrexone on discharge Paroxysmal A-fib 04/28/2024 Assessment & Plan (05/05/2024 2:45 PM HAND MIXER): -cont Eliquis for now (though if pt ultimately elects to return home instead of rehab, may consider holding in the setting of recurrent falls) -cont home metop Assessment & Plan (05/04/2024 5:08 PM HAND MIXER): -cont Eliquis for now (though if pt ultimately elects to return home instead of rehab, may consider holding in the setting of recurrent falls) -cont home metop Assessment & Plan (05/03/2024 4:48 PM HAND MIXER): -cont Eliquis for now (though if pt ultimately elects to return home instead of rehab, may consider holding in the setting of recurrent falls) -cont home metop Severe malnutrition 04/11/2024 Assessment & Plan (05/05/2024 2:45 PM HAND MIXER): -RD c/, rec ensure plus high protein Assessment & Plan (05/04/2024 5:08 PM HAND MIXER): -RD c/, rec ensure Assessment & Plan (05/03/2024 4:48 PM HAND MIXER): -RD c/, rec ensure CAD (coronary artery disease) 04/10/2024 Assessment & Plan (05/05/2024 2:45 PM HAND MIXER): -cont statin, metop Assessment & Plan (05/04/2024 5:08 PM HAND MIXER): -cont statin, metop Assessment & Plan (05/03/2024 4:48 PM HAND MIXER): -cont statin, metop Assessment & Plan (04/10/2024 1:39 PM HAND MIXER): CAD, multivessel per CT lung cancer screen 07/22, with evidence of anterior MD with scar per MPI 10/22: Atorvastatin, Nitroglycerin, HTN (hypertension) 04/10/2024 Assessment & Plan (05/05/2024 2:45 PM HAND MIXER): -cont lopressor 25 bid Assessment & Plan (05/04/2024 5:08 PM HAND MIXER): -cont lopressor 25 bid Assessment & Plan (05/03/2024 4:48 PM HAND MIXER): -cont lopressor 25 bid Assessment & Plan (04/10/2024 1:40 PM HAND MIXER): Chronic Metoprolol 25 mg bid Compression fx, thoracic spine 04/09/2024 Assessment & Plan (05/05/2024 2:45 PM HAND MIXER): He was recently admitted to [facility] 04/08-04/12, where he was found to have T1, T3, T4, and T6 fxs, managed non-operatively, TLSO brace placed for comfort. Has been non-ambulatory/couch-ridden at home related to severe pain and has not been wearing brace. -cont TLSO brace -pain control: APAP PRN -PT/OT c/s: SNF; daughter is considering home with home health rather than current accepting SNF Assessment & Plan (05/04/2024 5:08 PM HAND MIXER): He was recently admitted to [facility] 04/08-04/12, where he was found to have T1, T3, T4, and T6 fxs, managed non-operatively, TLSO brace placed for comfort. Has been non-ambulatory/couch-ridden at home related to severe pain and has not been wearing brace. -cont TLSO brace -pain control: APAP PRN -PT/OT c/s: SNF; daughter is considering home with home health rather than current accepting SNF Assessment & Plan (05/03/2024 4:48 PM HAND MIXER): He was recently admitted to [facility] 04/08-04/12, where he was found to have T1, T3, T4, and T6 fxs, managed non-operatively, TLSO brace placed for comfort. Has been non-ambulatory/couch-ridden at home related to severe pain and has not been wearing brace. -cont TLSO brace -pain control: APAP PRN -PT/OT c/s: SNF; daughter is considering home with home health rather than current accepting SNF Assessment & Plan (04/11/2024 7:09 AM HAND MIXER): Ortho spine consult #Falls - hCT, C-spine CT, CT C/A/P unremarkable aside from T-spine fractures #T1, T3, T4, and T6 fx, age indeterminate 04/09 spine: Total spine MRI w/wo contrast completed 04/10 No operative management Ambulate with assistance 04/11 TLSO brace for comfort Scoli films pending Alcohol abuse 04/09/2024 Assessment & Plan (04/11/2024 12:15 PM HAND MIXER): #AUD - continue to monitor - phenobarb loading dose given in the ED with plan to transition to diazepam -CD completed 04/09 04/11 no signs of withdrawal, no events overnight Bronchiectasis 11/19/2023 Multiple nodules of lung 11/19/2023 Assessment & Plan (05/05/2024 2:45 PM HAND MIXER): Seen on imaging last admit:CT 04/08/2024 with indeterminate lung nodules, recommend follow-up in 6 months (~09/2024) -outpatient f/u Assessment & Plan (05/04/2024 5:08 PM HAND MIXER): Seen on imaging last admit:CT 04/08/2024 with indeterminate lung nodules, recommend follow-up in 6 months (~09/2024) -outpatient f/u Assessment & Plan (05/03/2024 4:48 PM HAND MIXER): Seen on imaging last admit:CT 04/08/2024 with indeterminate lung nodules, recommend follow-up in 6 months (~09/2024) -outpatient f/u Assessment & Plan (04/10/2024 1:33 PM HAND MIXER): Hx of same in past Multiple left lower lobe pulmonary nodules, many of which are calcified likely representing old granulomatous disease. A 6 mm noncalcified nodule is indeterminate but may also represent sequela of old granulomatous disease. Follow-up CT in 6 months could be considered if clinically indicated. Chronic obstructive pulmonary disease 09/17/2023 Assessment & Plan (05/05/2024 2:45 PM HAND MIXER): -cont anoro ellipta, prn albuterol Assessment & Plan (05/04/2024 5:08 PM HAND MIXER): -cont anoro ellipta, prn albuterol Assessment & Plan (05/03/2024 4:48 PM HAND MIXER): -cont anoro ellipta, prn albuterol Assessment & Plan (04/10/2024 1:29 PM HAND MIXER): Home Trelegy Anoro Ellipta 6.25 mcg / 25 mcg Albuterol prn Q 6 hrs No oxygen thearpy Resolved Problems Problem Noted Date Diagnosed Date Resolved Date Open wound of dorsum of foot 04/28/2024 04/29/2024 Assessment & Plan (04/28/2024 6:21 PM HAND MIXER): BL dorsal food blistering wounds w/ associated swelling/erythema/warmth c/f possible superimposed cellulitis. -cont cefazolin -wound c/s -check LED to r/o DVT Social History Tobacco Use Types Packs/Day Years Used Date Smoking Tobacco: Former Cigarettes 1.3 50 1 974 - 2023 Passive Smoke Exposure: Past Smokeless Tobacco: Never Tobacco Cessation:Counseling Given: Yes [facility] [employer] Answer Date Recorded In the past 12 months has Crush on original products, gas, oil, or water [employer] threatened to shut off services in your [...] often do you attend chur ch or sikhism services? Never 05/03/2024 Do you belong to any clubs o r organizations such as congregational groups, unions, fraternal or athletic groups, or [...] any time in the past 12 m the rehabilitation institute, were you homeless or living in a halfway (including now)? No 05/03/2024 Personal Safety Answer Date Recorded Have you ever been in or are you currently in a harmful physical or emotional relationship or is someone making you feel afraid or unsafe? Denies 04/30/2024 Sex and Gender Information Value Date Recorded Sex Assigned at Not on file Legal Sex Male 8:45 PM HAND MIXER Gender Identity Not on file Sexual Orientation Not on file Obstetrics History Last Filed Vital Signs Vital Sign Reading Time Taken Comments Blood Pressure 134/94 05/05/2024 9:25 AM HAND MIXER Pulse 92 05/05/2024 9:25 AM HAND MIXER Temperature 37.1 C (98.8 F) 05/05/2024 7:24 AM HAND MIXER Respiratory Rate 19 05/05/2024 7:24 AM HAND MIXER Oxygen Saturation 99% 05/05/2024 7:24 AM HAND MIXER Inhaled Oxygen Concentration - - Weight 68.9 kg (152 lb) 04/30/2024 7:01 AM HAND MIXER Height 188 cm (6' 2) 04/30/2024 7:01 AM HAND MIXER Body Mass Index 19.52 04/30/2024 7:01 AM HAND MIXER Plan of Treatment Health Maintenance Due Date Last Done Comments Colon Cancer Screening-Colonoscopy 1960 Prostate Cancer Screening-PSA 1959 DTaP/Tdap/Td Vaccine (1 - Tdap) 1970 Hepatitis B Screening 1977 Lung Cancer Screening 2009 Zoster Vaccine (1 of 2) 2009 Abdominal Aortic Aneurysm (AAA) Screen 2024 Well Visit 65+ 2024 Influenza Vaccine (#1) 2024 11/19/2023 Depression Screening 04/28/2025 04/28/2024 Fall Risk Assessment 05/05/2025 05/05/2024 Pneumococcal vaccine 65+ Completed 11/19/2023 Hepatitis C Screening Completed 04/12/2024 Procedures Procedure Name Priority Date/Time Associated Diagnosis Comments HEPATITIS C ANTIBODY Routine 04/12/2024 5:19 AM HAND MIXER from Last 3 Months or Most Recently Relevant to Health Maintenance Results * Hepatitis C antibody Blood (04/12/2024 5:19 AM HAND MIXER) Hep C Ab Nonreactive Nonreactive Comment:Antibodies to HCV no t detected. Does NOT exclude the possibility of recent exposure to HCV. 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 Expl anation ADVANCE DIRECTIVE 05/09/2024 8:55 AM POLST ADVANCE DIRECTIVE 04/12/2024 9:27 AM [employer] HAND-MEDICAL ADVANCE DIRECTIVE 04/12/2024 9:27 AM [employer] HAND-MEDICAL * Full Code (Latest Code Status on File) Date Activated Date Inactivated Comments 04/28/2024 6:17 PM 05/05/2024 8:02 PM * Full Code Date Activated Date Inactivated Comments 04/09/2024 2:02 AM 04/12/2024 6:05 PM Healthcare Agents on File Name Relationship Healthcare Agent Relationshi p Communication Consuelo Wilber Daughter Health Care Agent Care Teams Brine Tank Operator Relationship Specialty Start [place] [address] [address] [place] [address] PCP - General Family Practice 04/11/24
--- NOTE | 2024-09-14 01:02 | ED_ITS ---
HPI - Chest Pain General Chief Complaint: Chest Pain Stated Complaint: chest pain Time Seen by Provider: 09/14/24 01:02 Source: patient Mode of arrival: wheelchair History of Present Illness HPI narrative: 64-year-old male with a history of smoking, dyslipidemia, COPD, atrial fibrillation on metoprolol and Eliquis presents to the ED with -- anterior chest pain off and on for the past few days. He had chest pain a little while ago and took sublingual nitro with resolution of pain. No nausea vomiting. -- Patient is restless and unable to answer questions appropriately. -- Chronic shortness of breath -- Epigastric pain patient admitted to using meth and drinking alcohol today. complaint: chest pain Onset (ago): day(s) ( 5 days) Timing of current episode: episodic Prior episodes: Yes Onset: during rest Pain location: substernal Pain radiation: none Severity: mild Quality: aching Relieving factors: nitroglycerin Exacerbating factors: nothing Treatment prior to arrival: nitroglycerin Risk Factors Coronary artery disease risk factors: smoking history, hyperlipidemia and hypertension Related Data Home Medications ?Medication ?Instructions ?Recorded ?Confirmed ?Last Taken ?Type albuterol sulfate 90 mcg/actuation 2 inh inhalation QID PRN shortness 04/08/24 04/08/24 Unknown History aerosol inhaler (Ventolin HFA) of breath or wheezing apixaban 5 mg tablet (Eliquis) 5 mg PO BID 04/08/24 04/08/24 Unknown History metoprolol succinate 25 mg 25 mg PO BID 04/08/24 04/08/24 Unknown History tablet,extended release 24 hr rosuvastatin 10 mg tablet (Crestor) 10 mg PO DAILY 04/08/24 04/08/24 Unknown History Allergies Allergy/AdvReac Type Severity Reaction Status Date / Time No Known Allergies Allergy Verified 09/14/24 02:49 Review of Systems 2 Review of Systems: patient is confused and restless and unable to answer questions appropriately. ROS unobtainable: Yes unobtainable due to mental status PMFSH Past Medical History Medical History (Updated 09/14/24 @ 02:40 by Fabián Morris MD) Hypertension Dyslipidemia COPD (chronic obstructive pulmonary disease) Social History Social History (Updated 09/14/24 @ 01:29 by Fabián Morris MD) Social History: alcoholic and smoker Exam 2 Narrative: sinus tachycardia Const: General: ill appearing Nutritional Appearance: thin O rientation/consciousness: patient oriented x3 ( patient is confused) L imitations: altered mental status HENMT: Head: normal to inspection Ears: external ears normal F cathleen/Nose/Sinus: Normal external nose present Face and sinus: normal facial exam Mouth: Yes Normal oral and palatal mucosa present Throat: posterior oropharynx normal Eyes: Conjunctivae: conjunctivae normal Pupils: Equal, round and reactive pupils present EOM: EOMs intact bilaterally Direct Ophthalmoscopy: no photophobia Neck: Neck: normal visual inspection, no lymphadenopathy and no meningeal signs Chest: Chest palpation & inspection: normal inspection of the chest Resp: Effort & Inspection: normal respiratory effort Auscultation: rhonchi and diminished lung sounds Cardio: Rate: tachycardic Rhythm: regular rhythm GI: Auscultation: normal bowel sounds Other: epigastric tenderness. no rigidity /rebound. : General: Yes no CVA tenderness Back/Spine/Pelvis: Back: no CVA tenderness Skin: General skin exam: normal color Rashes: no rashes Wounds: no wounds Neuro: General: patient oriented x3 ( Patient is confused), moves all extremities, no meningeal signs and no focal motor deficits Speech: normal speech Extrem: General: normal to inspection and no clubbing, cyanosis or edema Psych: Mental Status: mental status grossly normal ( patient is confused and unable to stay still.) Course Course Emergency Course: altered mental status/ fluctuating levels of consciousness-- patient admitted to having used methamphetamine and alcohol. Blood alcohol level is 0.17. CT of the head is unremarkable. chest pain/ non-STEMI-- no acute ST elevation. Patient is noted to have a troponin of 5.1. Patient received aspirin and is anticoagulated with Eliquis. Epigastric pain-- give 40 IV Protonix. alcoholic hepatitis/ Alcoholism-- patient got Ativan 1 mg, thiamine 100 and folic acid 1 mg. lactic acidosis/ WBC of 14.7-- no obvious focus of infection. Unable to give IV fluids per protocol secondary to elevated proBNP. Blood cultures are pending. UA is pending electrolyte imbalance-- low K, Mg-- patient got 40 of K by mouth and 20 IV. Patient is getting 2 g of magnesium. patient has been accepted by [facility]-- accepted by Vital Signs Vital signs: Vital Signs Temperature 36.1 C L 09/14/24 00:56 Pulse Rate 132 H 09/14/24 00:56 Respiratory Rate 22 H 09/14/24 00:56 Blood Pressure 140/95 H 09/14/24 00:56 Pulse Oximetry 92 09/14/24 00:56 Oxygen Delivery Room Air 09/14/24 00:56 Temperature 36.1 C L 09/14/24 00:56 Pulse Rate 109 H 09/14/24 02:31 Respiratory Rate 18 09/14/24 02:31 Blood Pressure 135/98 H 09/14/24 02:31 Pulse Oximetry 94 09/14/24 02:31 Oxygen Delivery Room Air 09/14/24 02:31 MDM - Chest Pain MDM Narrative Medical decision making narrative: Chest pain /non STEMI electrolyte imbalance altered mental status alcoholic hepatitis lactic acidosis Lab Data 09/14/24 01:14 09/14/24 01:14 Labs: Lab Results 09/14/24 Range/Units 01:14 WBC 14.7 H (4.8-10.8) K/mm3 RBC 3.36 L (4.70-6.10) M/mm3 Hgb 11.9 L (12.4-15.3) g/dL Hct 33.5 L (37.0-46.0) % MCV 99.7 (78.0-102.0) fL MCH 35.4 H (27.0-31.0) pg MCHC 35.5 (32-36) g/dL RDW 16.0 H (11.6-14.4) % Plt Count 430 H (150-420) K/mm3 MPV 10.0 (8.7-11.0) fl Immature Gran % (Auto) 1.0 H (0.0-0.0) % Neut % (Auto) 76.6 H (50.0-70.0) % Lymph % (Auto) 13.0 L (18.0-42.0) % Mcclain % (Auto) 8.2 (2.0-11.0) % Eos % (Auto) 0.7 L (1.0-6.0) % Baso % (Auto) 0.5 (0.0-1.0) % Lymph # (Auto) 1.92 (1.10-4.50) K/mm3 Mcclain # (Auto) 1.21 H (0.10-0.90) K/mm3 Eos # (Auto) 0.11 (0.02-0.50) K/mm3 Baso # (Auto) 0.07 (0.00-0.10) K/mm3 Abs Immat Gran (auto) 0.14 H (0.00-0.00) K/mm3 Absolute Neuts (auto) 11.27 H (1.70-7.20) K/mm3 Absolute Nucleated RBC 0.00 (0.00-0.00) K/mm3 Nucleated RBC % 0.0 (0-0.0) % Sodium 135 L (137-145) mmol/L Potassium 2.6 L* (3.4-5.0) mmol/L Chloride 94 L (98-107) mmol/L Carbon Dioxide 26 (22-30) mmol/L Anion Gap 15 H (4-12) mmol/L BUN 4 L (9-20) mg/dL Creatinine 0.97 (0.7-1.3) mg/dL Estim Creat Clear Calc 61 ml/min Estimated GFR > 60 (59 - ) Glucose 134 H (65-110) mg/dL Calculated Osmolality 278 L (285-295) mOsm/kg Lactic Acid 7.4 H (0.4-2.0) mmol/L Calcium 8.4 (8.4-10.2) mg/dL Magnesium 1.5 L (1.6-2.3) mg/dL Total Bilirubin 1.6 H (0.2-1.3) mg/dL AST 140 H (17-59) U/L ALT 54 H (6-50) U/L Alkaline Phosphatase 211 H (38-126) U/L Troponin I 5.120 H* (0.000-0.034) ng/mL NT-Pro-B Natriuret Pep 2110 H (19.9-100) pg/mL Total Protein 7.0 (6.3-8.2) g/dL Albumin 3.6 (3.5-5.1) g/dL Lipase 54 (23-300) U/L Ethyl Alcohol 171 (<10) mg/dL Imaging Data Attestation: I personally reviewed and interpreted this imaging study as follows: My impression: chest x-ray revealed hyperinflated lung rizzo without any infiltrates evidence of ECG Data EKG #1: ECG completion date: 09/14/24 ECG completion time: 01:06 Interpretation: sinus tachycardia. Right axis deviation. RVH. No ST elevation. Discharge Plan Discharge Clinical Impression: Chest pain, Non-ST elevated myocardial infarction (non-STEMI), Altered mental status, Electrolyte imbalance, Alcoholic hepatitis, Alcohol intoxication, Amphetamine use Patient Disposition: Still a Patient Condition: Stable Additional Instructions: transfer patient to [facility] Patient Language: Citizen Of [place] Prescriptions: No Action rosuvastatin [Crestor] 10 mg tablet 10 mg PO DAILY metoprolol succinate 25 mg tablet extended release 24 hr 25 mg PO BID albuterol sulfate [Ventolin HFA] 90 mcg/actuation HFA aerosol inhaler 2 inh inhalation QID PRN (Reason: shortness of breath or wheezing) Eliquis 5 mg tablet 5 mg PO BID Follow-up/Referrals: Irina,MARJAN Amador [Primary Care Provider] - Time of Disposition: 02:55
--- NOTE | 2024-09-14 01:19 | PC.NURSE ---
PATIENT HAS CALL LIGHT IN REACH. PATIENT INFORMED ABOUT PLAN OF CARE. PATIENT VERBALIZED UNDERSTANDING. PATIENT HAVING SPASTIC MOVEMENTS. ASKED PATIENT WHAT PAIN HE WAS HAVING. STATES MY CHEST.
--- NOTE | 2024-09-14 01:24 | PC.NURSE ---
XRAY AT THE BEDSIDE
[2024-09-14] MEDS: ASPIRIN 81 MG CHEWABLE TABLET 324 MG PO (01:31)
[2024-09-14] MEDS: METOPROLOL TARTRATE 25 MG TABLET PO (01:32)
[2024-09-14] MEDS: THIAMINE HCL 200 MG/2 ML VIAL 100 MG IV PUSH (01:32)
[2024-09-14] MEDS: LORazepam INJ (*CRX) 2 MG/ML VIAL 1 MG IV PUSH (01:36)
--- OUTSIDE RECORDS SUMMARY | 2024-09-14 01:38 | XMS_ITS | Clinical Summary ---
Author Organization [facility] Address [address] [place] [address] Care Team Providers Care Narcotics And Vice Detective Name Role Phone Akin Lay MD Primary Care Provider [phone] Phoebe Stringer MD Unavailable Allergies No known [...] Description 11/01/2024 11:45 AM CDT Office Visit [facility] [place] [id number] Phoebe Stringer MD [address] [place] [id number] Health Maintenance Due Date Last Done Comments [...] DUPLEX SCAN-AAA Screening Pat.Name: JAYLAN MELGOZA Pat.ID: [id number] St.Date: 10/21/2023 Refer.MD: PHOEBE STRINGER Exam Time: 9:51:00 AM Study Type:PVI DUPLEX SCAN-AAA Screening Age: 1 1960,63Y Sex: M Sonogrphr: Maranda Mcmullen RVT Pat. Stat.:Outpatient CPT - 4: 74985 AAA Screening Reason for Study:AAA screening Race: [...] Procedure Note Phoebe Stringer MD - 10/22/2023 [facility] PVI DUPLEX SCAN-AAA Screening Pat.Name: JAYLAN MELGOZA Pat.ID: [id number] .Date: 10/21/2023 Refer.MD: PHOEBE STRINGER Exam Time: 9:51:00 AM Study Type:PVI DUPLEX SCAN-AAA Screening Age: 1 1960,63Y Sex: M Sonogrphr: Maranda Mcmullen RVT Pat. Stat.:Outpatient CPT - 4: 39119 AAA Screening Reason for Study:AAA screening Race: [...] to Health Maintenance Insurance [employer] Care Teams Narcotics And Vice Detective Relationship Specialty Start Date End Date Akin Lay MD PCP - General FAMILY PRACTICE 06/23/21 Phoebe Stringer MD [address] [place] [address] Consulting Physician CARDIOVASCULAR DISEASE 07/30/23
--- OUTSIDE RECORDS SUMMARY | 2024-09-14 01:38 | XMS_ITS | Encounter Summary ---
Author Organization [facility] Address [address] [place] [address] Care Team Providers Care Wardrobe Custodian Name Role Phone Akin Lay MD Primary Care Provider [phone] Phoebe Casper MD Unavailable Encounter Details Date Type Department Care Team (Late Contact Info) Description 08/06/2018 Abstract [facility]FL CONVERSION [address] [place] [address] , Generic ConversionMD Social History Tobacco Use [...] Upcoming Encounters Date Type Department Care Team ([facility] Contact Info) Description 11/01/2024 11:45 AM CDT Office Visit [facility] [place] [address] Phoebe Casper MD [address] [place], [place] [id number] documented as of this encounter Visit Diagnoses Not on filedocumented in this encounter Additional Health Concerns Infection Onset Date Last Indicated Resolved Time COVID-19 Rule Out 07/05/2021 07/05/2021 07/05/2021 6:52 PM CDT COVID-19 Rule Out 12/05/2021 12/05/2021 12/05/2021 4:04 PM CDT documented as of this encounter Care Teams Wardrobe Custodian Relationship Specialty Start Date End Date Akin Lay MD PCP - General FAMILY PRACTICE 06/23/21 Phoebe Casper MD [address] [place] [address] Consulting Physician CARDIOVASCULAR DISEASE 07/30/23 documented as of this encounter
--- OUTSIDE RECORDS SUMMARY | 2024-09-14 01:38 | XMS_ITS | Clinical Summary ---
Author Organization [facility] al Address [address] [place] [address] Care Team Providers Care Survey Research Manager Name Role Phone MARJAN Arevalo Jr., Navin [...] 05/04/2024 Assessment & Plan (05/05/2024 2:45 PM VP INTEGRATION): Since in family 9mo ago and now decreased physcial abillity, patient has been experiencing decreased appetite, low mood, anhedonia, and increased daytime sleeping. He likely has depression. He denies hx of depression or prior use of antidepressants -sertraline 50mg daily (05/04-current) Assessment & Plan (05/04/2024 5:08 PM VP INTEGRATION): Since in family 9mo ago and now decreased physcial abillity, patient has been experiencing decreased appetite, low mood, anhedonia, and increased daytime sleeping. He likely has depression. He denies hx of depression or prior use of antidepressants -sertraline 50mg daily (05/04-current) Macrocytic anemia 05/03/2024 Assessment & Plan (05/05/2024 2:45 PM VP INTEGRATION): Hgb at baseline ~9, MCV 100.4; likely related to EtOH use -B12 wnl Assessment & Plan (05/04/2024 5:08 PM VP INTEGRATION): Hgb at baseline ~9, MCV 100.4; likely related to EtOH use -B12 pending Assessment & Plan (05/03/2024 4:48 PM VP INTEGRATION): Hgb at baseline ~9, MCV 100.4; likely related to EtOH use -B12 pending Noncompliance with medication regimen 05/01/2024 Assessment & Plan (05/05/2024 2:45 PM VP INTEGRATION): Pt endorse not taking medications including eliquis for afib Assessment & Plan (05/04/2024 5:08 PM VP INTEGRATION): Pt endorse not taking medications including eliquis for afib Assessment & Plan (05/03/2024 4:48 PM VP INTEGRATION): Pt endorse not taking medications including eliquis for afib DVT, bilateral lower limbs 05/01/2024 Assessment & Plan (05/05/2024 2:45 PM VP INTEGRATION): There are bilateral DVT in lower limbs [...] bid. Assessment & Plan (05/04/2024 5:08 PM VP INTEGRATION): There are bilateral DVT in lower limbs [...] bid. Assessment & Plan (05/03/2024 4:48 PM VP INTEGRATION): There are bilateral DVT in lower limbs [...] 04/29/2024 Assessment & Plan (05/05/2024 2:45 PM VP INTEGRATION): Feet with abrasions that per patient started [...] PRN Assessment & Plan (05/04/2024 5:08 PM VP INTEGRATION): Feet with abrasions that per patient started [...] PRN Assessment & Plan (05/03/2024 4:48 PM VP INTEGRATION): Feet with abrasions that per patient started [...] 04/28/2024 Assessment & Plan (05/05/2024 2:45 PM VP INTEGRATION): Drinks 10 shots fireball daily, last drink 04/28 AM. Increased EtOH use x9mo iso accidental in the family. -s/p valium 10mg in ED -s/p CIWA w/ prn ativan -thiamine, folate, MVI -SW c/s for resources - discussed naltrexone, currently patient favors using sertraline for depression, but if he has alcohol cravings after discharge encouraged to consider naltrexone. Assessment & Plan (05/04/2024 5:08 PM VP INTEGRATION): Drinks 10 shots fireball daily, last drink 04/28 AM. Increased EtOH use x9mo iso accidental in the family. -s/p valium 10mg in ED -s/p CIWA w/ prn ativan -thiamine, folate, MVI -SW c/s for resources - discussed naltrexone, currently patient favors using sertraline for depression, but if he has alcohol cravings after discharge encouraged to consider naltrexone. Assessment & Plan (05/03/2024 4:48 PM VP INTEGRATION): Drinks 10 shots fireball daily, last drink 04/28 AM. Increased EtOH use x9mo iso accidental in the family. -s/p valium 10mg in ED -s/p CIWA w/ prn ativan -thiamine, folate, MVI -SW c/s for resources -plan for naltrexone on discharge Paroxysmal A-fib 04/28/2024 Assessment & Plan (05/05/2024 2:45 PM VP INTEGRATION): -cont Eliquis for now (though if pt ultimately elects to return home instead of rehab, may consider holding in the setting of recurrent falls) -cont home metop Assessment & Plan (05/04/2024 5:08 PM VP INTEGRATION): -cont Eliquis for now (though if pt ultimately elects to return home instead of rehab, may consider holding in the setting of recurrent falls) -cont home metop Assessment & Plan (05/03/2024 4:48 PM VP INTEGRATION): -cont Eliquis for now (though if pt ultimately elects to return home instead of rehab, may consider holding in the setting of recurrent falls) -cont home metop Severe malnutrition 04/11/2024 Assessment & Plan (05/05/2024 2:45 PM VP INTEGRATION): -RD c/, rec ensure plus high protein Assessment & Plan (05/04/2024 5:08 PM VP INTEGRATION): -RD c/, rec ensure Assessment & Plan (05/03/2024 4:48 PM VP INTEGRATION): -RD c/, rec ensure CAD (coronary artery disease) 04/10/2024 Assessment & Plan (05/05/2024 2:45 PM VP INTEGRATION): -cont statin, metop Assessment & Plan (05/04/2024 5:08 PM VP INTEGRATION): -cont statin, metop Assessment & Plan (05/03/2024 4:48 PM VP INTEGRATION): -cont statin, metop Assessment & Plan (04/10/2024 1:39 PM VP INTEGRATION): CAD, multivessel per CT lung cancer screen 07/22, with evidence of anterior [place] with scar per MPI 10/22: Atorvastatin, Nitroglycerin, HTN (hypertension) 04/10/2024 Assessment & Plan (05/05/2024 2:45 PM VP INTEGRATION): -cont lopressor 25 bid Assessment & Plan (05/04/2024 5:08 PM VP INTEGRATION): -cont lopressor 25 bid Assessment & Plan (05/03/2024 4:48 PM VP INTEGRATION): -cont lopressor 25 bid Assessment & Plan (04/10/2024 1:40 PM VP INTEGRATION): Chronic Metoprolol 25 mg bid Compression fx, thoracic spine 04/09/2024 Assessment & Plan (05/05/2024 2:45 PM VP INTEGRATION): He was recently admitted to [facility] 04/08-04/12, where he was found to [...] SNF Assessment & Plan (05/04/2024 5:08 PM VP INTEGRATION): He was recently admitted to [facility] 04/08-04/12, where he was found to [...] SNF Assessment & Plan (05/03/2024 4:48 PM VP INTEGRATION): He was recently admitted to [facility] 04/08-04/12, where he was found to [...] SNF Assessment & Plan (04/11/2024 7:09 AM VP INTEGRATION): Ortho spine consult #Falls - hCT, C-spine CT, CT C/A/P unremarkable aside from T-spine fractures #T1, T3, T4, and T6 fx, age indeterminate 04/09 spine: Total spine MRI w/wo contrast completed 04/10 No operative management Ambulate with assistance 04/11 TLSO brace for comfort Scoli films pending Alcohol abuse 04/09/2024 Assessment & Plan (04/11/2024 12:15 PM VP INTEGRATION): #AUD - continue to monitor - phenobarb loading dose given in the ED with plan to transition to diazepam -CD completed 04/09 04/11 no signs of withdrawal, no events overnight Bronchiectasis 11/19/2023 Multiple nodules of lung 11/19/2023 Assessment & Plan (05/05/2024 2:45 PM VP INTEGRATION): Seen on imaging last admit:CT 04/08/2024 with indeterminate lung nodules, recommend follow-up in 6 months (~09/2024) -outpatient f/u Assessment & Plan (05/04/2024 5:08 PM VP INTEGRATION): Seen on imaging last admit:CT 04/08/2024 with indeterminate lung nodules, recommend follow-up in 6 months (~09/2024) -outpatient f/u Assessment & Plan (05/03/2024 4:48 PM VP INTEGRATION): Seen on imaging last admit:CT 04/08/2024 with indeterminate lung nodules, recommend follow-up in 6 months (~09/2024) -outpatient f/u Assessment & Plan (04/10/2024 1:33 PM VP INTEGRATION): Hx of same in past Multiple left lower lobe pulmonary nodules, many of which are calcified likely representing old granulomatous disease. A 6 mm noncalcified nodule is indeterminate but may also represent sequela of old granulomatous disease. Follow-up CT in 6 months could be considered if clinically indicated. Chronic obstructive pulmonary disease 09/17/2023 Assessment & Plan (05/05/2024 2:45 PM VP INTEGRATION): -cont anoro ellipta, prn albuterol Assessment & Plan (05/04/2024 5:08 PM VP INTEGRATION): -cont anoro ellipta, prn albuterol Assessment & Plan (05/03/2024 4:48 PM VP INTEGRATION): -cont anoro ellipta, prn albuterol Assessment & Plan (04/10/2024 1:29 PM VP INTEGRATION): Home Trelegy Anoro Ellipta 6.25 mcg / 25 mcg Albuterol prn Q 6 hrs No oxygen thearpy Resolved Problems Problem Noted Date Diagnosed Date Resolved Date Open wound of dorsum of foot 04/28/2024 04/29/2024 Assessment & Plan (04/28/2024 6:21 PM VP INTEGRATION): BL dorsal food blistering wounds w/ associated swelling/erythema/warmth c/f possible superimposed cellulitis. -cont cefazolin -wound c/s -check LED to r/o DVT Social History Tobacco Use Types Packs/Day Years Used Date Smoking Tobacco: Former Cigarettes 1.3 50 1 974 - 2023 Passive Smoke Exposure: Past Smokeless Tobacco: Never Tobacco Cessation:Counseling Given: Yes [facility] [employer] Answer Date Recorded In the past 12 months has [employer], gas, oil, or water [employer] threatened to shut off services in your [...] often do you attend chur ch or methodist services? Never 05/03/2024 Do you belong to any clubs o r organizations such as worship groups, unions, fraternal or athletic groups, or [...] any time in the past 12 m [facility], were you homeless or living in a senior care (including now)? No 05/03/2024 Personal Safety Answer Date Recorded Have you ever been in or are you currently in a harmful physical or emotional relationship or is someone making you feel afraid or unsafe? Denies 04/30/2024 Sex and Gender Information Value Date Recorded Sex Assigned at Not on file Legal Sex Male 8:45 PM VP INTEGRATION Gender Identity Not on file Sexual Orientation Not on file Obstetrics History Last Filed Vital Signs Vital Sign Reading Time Taken Comments Blood Pressure 134/94 05/05/2024 9:25 AM VP INTEGRATION Pulse 92 05/05/2024 9:25 AM VP INTEGRATION Temperature 37.1 C (98.8 F) 05/05/2024 7:24 AM VP INTEGRATION Respiratory Rate 19 05/05/2024 7:24 AM VP INTEGRATION Oxygen Saturation 99% 05/05/2024 7:24 AM VP INTEGRATION Inhaled Oxygen Concentration - - Weight 68.9 kg (152 lb) 04/30/2024 7:01 AM VP INTEGRATION Height 188 cm (6' 2) 04/30/2024 7:01 AM VP INTEGRATION Body Mass Index 19.52 04/30/2024 7:01 AM VP INTEGRATION Plan of Treatment Health Maintenance Due Date [...] HEPATITIS C ANTIBODY Routine 04/12/2024 5:19 AM VP INTEGRATION from Last 3 Months or Most Recently Relevant to Health Maintenance Results * Hepatitis C antibody Blood (04/12/2024 5:19 AM VP INTEGRATION) Hep C Ab Nonreactive Nonreactive Comment:Antibodies to HCV no t detected. Does NOT exclude the possibility of recent exposure to HCV. Current interpretive data was last revised on 21 Blood 04/12/2024 5:19 AM VP INTEGRATION 04/12/2024 5:37 AM VP INTEGRATION us Ronan Gipson MD LAB MICROBIOLOGY - GENERAL ORDERABLES Final Result [facility] [place] [address] from Last 3 Months or Most Recently Relevant to Health Maintenance Insurance Advance Directives For more information, please contact: [phone] Documents on File Type Date Recorded Patient Application Security Consultant Expl anation ADVANCE DIRECTIVE 05/09/2024 8:55 AM POLST ADVANCE DIRECTIVE 04/12/2024 9:27 AM POWER OF WATER SUPERVISOR-MEDICAL ADVANCE DIRECTIVE 04/12/2024 9:27 AM POWER OF WATER SUPERVISOR-MEDICAL * Full Code (Latest Code Status on File) Date Activated Date Inactivated Comments 04/28/2024 6:17 PM 05/05/2024 8:02 PM * Full Code Date Activated Date Inactivated Comments 04/09/2024 2:02 AM 04/12/2024 6:05 PM Healthcare Agents on File Name Relationship Healthcare Agent Relationshi p Communication Consuelo Wilber Daughter Health Care Agent Care Teams Survey Research Manager Relationship Specialty Start [place] [address] [address] [place] [address] PCP - General Family Practice 04/11/24
--- OUTSIDE RECORDS SUMMARY | 2024-09-14 01:38 | XMS_ITS | Referral Summary ---
Author Organization [facility] al Address [address] [place] [address] Care Team Providers Care Converter Supervisor Name Role Phone MARJAN Arevalo Jr., Navin [...] 05/04/2024 Assessment & Plan (05/05/2024 2:45 PM LONGSHORE EQUIPMENT OPERATOR): Since in family 9mo ago and now decreased physcial abillity, patient has been experiencing decreased appetite, low mood, anhedonia, and increased daytime sleeping. He likely has depression. He denies hx of depression or prior use of antidepressants -sertraline 50mg daily (05/04-current) Assessment & Plan (05/04/2024 5:08 PM LONGSHORE EQUIPMENT OPERATOR): Since in family 9mo ago and now decreased physcial abillity, patient has been experiencing decreased appetite, low mood, anhedonia, and increased daytime sleeping. He likely has depression. He denies hx of depression or prior use of antidepressants -sertraline 50mg daily (05/04-current) Macrocytic anemia 05/03/2024 Assessment & Plan (05/05/2024 2:45 PM LONGSHORE EQUIPMENT OPERATOR): Hgb at baseline ~9, MCV 100.4; likely related to EtOH use -B12 wnl Assessment & Plan (05/04/2024 5:08 PM LONGSHORE EQUIPMENT OPERATOR): Hgb at baseline ~9, MCV 100.4; likely related to EtOH use -B12 pending Assessment & Plan (05/03/2024 4:48 PM LONGSHORE EQUIPMENT OPERATOR): Hgb at baseline ~9, MCV 100.4; likely related to EtOH use -B12 pending Noncompliance with medication regimen 05/01/2024 Assessment & Plan (05/05/2024 2:45 PM LONGSHORE EQUIPMENT OPERATOR): Pt endorse not taking medications including eliquis for afib Assessment & Plan (05/04/2024 5:08 PM LONGSHORE EQUIPMENT OPERATOR): Pt endorse not taking medications including eliquis for afib Assessment & Plan (05/03/2024 4:48 PM LONGSHORE EQUIPMENT OPERATOR): Pt endorse not taking medications including eliquis for afib DVT, bilateral lower limbs 05/01/2024 Assessment & Plan (05/05/2024 2:45 PM LONGSHORE EQUIPMENT OPERATOR): There are bilateral DVT in lower limbs [...] bid. Assessment & Plan (05/04/2024 5:08 PM LONGSHORE EQUIPMENT OPERATOR): There are bilateral DVT in lower limbs [...] bid. Assessment & Plan (05/03/2024 4:48 PM LONGSHORE EQUIPMENT OPERATOR): There are bilateral DVT in lower limbs [...] 04/29/2024 Assessment & Plan (05/05/2024 2:45 PM LONGSHORE EQUIPMENT OPERATOR): Feet with abrasions that per patient started [...] PRN Assessment & Plan (05/04/2024 5:08 PM LONGSHORE EQUIPMENT OPERATOR): Feet with abrasions that per patient started [...] PRN Assessment & Plan (05/03/2024 4:48 PM LONGSHORE EQUIPMENT OPERATOR): Feet with abrasions that per patient started [...] 04/28/2024 Assessment & Plan (05/05/2024 2:45 PM LONGSHORE EQUIPMENT OPERATOR): Drinks 10 shots fireball daily, last drink 04/28 AM. Increased EtOH use x9mo iso accidental in the family. -s/p valium 10mg in ED -s/p CIWA w/ prn ativan -thiamine, folate, MVI -SW c/s for resources - discussed naltrexone, currently patient favors using sertraline for depression, but if he has alcohol cravings after discharge encouraged to consider naltrexone. Assessment & Plan (05/04/2024 5:08 PM LONGSHORE EQUIPMENT OPERATOR): Drinks 10 shots fireball daily, last drink 04/28 AM. Increased EtOH use x9mo iso accidental in the family. -s/p valium 10mg in ED -s/p CIWA w/ prn ativan -thiamine, folate, MVI -SW c/s for resources - discussed naltrexone, currently patient favors using sertraline for depression, but if he has alcohol cravings after discharge encouraged to consider naltrexone. Assessment & Plan (05/03/2024 4:48 PM LONGSHORE EQUIPMENT OPERATOR): Drinks 10 shots fireball daily, last drink 04/28 AM. Increased EtOH use x9mo iso accidental in the family. -s/p valium 10mg in ED -s/p CIWA w/ prn ativan -thiamine, folate, MVI -SW c/s for resources -plan for naltrexone on discharge Paroxysmal A-fib 04/28/2024 Assessment & Plan (05/05/2024 2:45 PM LONGSHORE EQUIPMENT OPERATOR): -cont Eliquis for now (though if pt ultimately elects to return home instead of rehab, may consider holding in the setting of recurrent falls) -cont home metop Assessment & Plan (05/04/2024 5:08 PM LONGSHORE EQUIPMENT OPERATOR): -cont Eliquis for now (though if pt ultimately elects to return home instead of rehab, may consider holding in the setting of recurrent falls) -cont home metop Assessment & Plan (05/03/2024 4:48 PM LONGSHORE EQUIPMENT OPERATOR): -cont Eliquis for now (though if pt ultimately elects to return home instead of rehab, may consider holding in the setting of recurrent falls) -cont home metop Severe malnutrition 04/11/2024 Assessment & Plan (05/05/2024 2:45 PM LONGSHORE EQUIPMENT OPERATOR): -RD c/, rec ensure plus high protein Assessment & Plan (05/04/2024 5:08 PM LONGSHORE EQUIPMENT OPERATOR): -RD c/, rec ensure Assessment & Plan (05/03/2024 4:48 PM LONGSHORE EQUIPMENT OPERATOR): -RD c/, rec ensure CAD (coronary artery disease) 04/10/2024 Assessment & Plan (05/05/2024 2:45 PM LONGSHORE EQUIPMENT OPERATOR): -cont statin, metop Assessment & Plan (05/04/2024 5:08 PM LONGSHORE EQUIPMENT OPERATOR): -cont statin, metop Assessment & Plan (05/03/2024 4:48 PM LONGSHORE EQUIPMENT OPERATOR): -cont statin, metop Assessment & Plan (04/10/2024 1:39 PM LONGSHORE EQUIPMENT OPERATOR): CAD, multivessel per CT lung cancer screen 07/22, with evidence of anterior [place] with scar per MPI 10/22: Atorvastatin, Nitroglycerin, HTN (hypertension) 04/10/2024 Assessment & Plan (05/05/2024 2:45 PM LONGSHORE EQUIPMENT OPERATOR): -cont lopressor 25 bid Assessment & Plan (05/04/2024 5:08 PM LONGSHORE EQUIPMENT OPERATOR): -cont lopressor 25 bid Assessment & Plan (05/03/2024 4:48 PM LONGSHORE EQUIPMENT OPERATOR): -cont lopressor 25 bid Assessment & Plan (04/10/2024 1:40 PM LONGSHORE EQUIPMENT OPERATOR): Chronic Metoprolol 25 mg bid Compression fx, thoracic spine 04/09/2024 Assessment & Plan (05/05/2024 2:45 PM LONGSHORE EQUIPMENT OPERATOR): He was recently admitted to [facility] 04/08-04/12, where he was found [...] SNF Assessment & Plan (05/04/2024 5:08 PM LONGSHORE EQUIPMENT OPERATOR): He was recently admitted to [facility] 04/08-04/12, where he was found [...] SNF Assessment & Plan (05/03/2024 4:48 PM LONGSHORE EQUIPMENT OPERATOR): He was recently admitted to [facility] 04/08-04/12, where he was found [...] SNF Assessment & Plan (04/11/2024 7:09 AM LONGSHORE EQUIPMENT OPERATOR): Ortho spine consult #Falls - hCT, C-spine CT, CT C/A/P unremarkable aside from T-spine fractures #T1, T3, T4, and T6 fx, age indeterminate 04/09 spine: Total spine MRI w/wo contrast completed 04/10 No operative management Ambulate with assistance 04/11 TLSO brace for comfort Scoli films pending Alcohol abuse 04/09/2024 Assessment & Plan (04/11/2024 12:15 PM LONGSHORE EQUIPMENT OPERATOR): #AUD - continue to monitor - phenobarb loading dose given in the ED with plan to transition to diazepam -CD completed 04/09 04/11 no signs of withdrawal, no events overnight Bronchiectasis 11/19/2023 Multiple nodules of lung 11/19/2023 Assessment & Plan (05/05/2024 2:45 PM LONGSHORE EQUIPMENT OPERATOR): Seen on imaging last admit:CT 04/08/2024 with indeterminate lung nodules, recommend follow-up in 6 months (~09/2024) -outpatient f/u Assessment & Plan (05/04/2024 5:08 PM LONGSHORE EQUIPMENT OPERATOR): Seen on imaging last admit:CT 04/08/2024 with indeterminate lung nodules, recommend follow-up in 6 months (~09/2024) -outpatient f/u Assessment & Plan (05/03/2024 4:48 PM LONGSHORE EQUIPMENT OPERATOR): Seen on imaging last admit:CT 04/08/2024 with indeterminate lung nodules, recommend follow-up in 6 months (~09/2024) -outpatient f/u Assessment & Plan (04/10/2024 1:33 PM LONGSHORE EQUIPMENT OPERATOR): Hx of same in past Multiple left lower lobe pulmonary nodules, many of which are calcified likely representing old granulomatous disease. A 6 mm noncalcified nodule is indeterminate but may also represent sequela of old granulomatous disease. Follow-up CT in 6 months could be considered if clinically indicated. Chronic obstructive pulmonary disease 09/17/2023 Assessment & Plan (05/05/2024 2:45 PM LONGSHORE EQUIPMENT OPERATOR): -cont anoro ellipta, prn albuterol Assessment & Plan (05/04/2024 5:08 PM LONGSHORE EQUIPMENT OPERATOR): -cont anoro ellipta, prn albuterol Assessment & Plan (05/03/2024 4:48 PM LONGSHORE EQUIPMENT OPERATOR): -cont anoro ellipta, prn albuterol Assessment & Plan (04/10/2024 1:29 PM LONGSHORE EQUIPMENT OPERATOR): Home Trelegy Anoro Ellipta 6.25 mcg / 25 mcg Albuterol prn Q 6 hrs No oxygen thearpy Resolved Problems Problem Noted Date Diagnosed Date Resolved Date Open wound of dorsum of foot 04/28/2024 04/29/2024 Assessment & Plan (04/28/2024 6:21 PM LONGSHORE EQUIPMENT OPERATOR): BL dorsal food blistering wounds w/ associated swelling/erythema/warmth c/f possible superimposed cellulitis. -cont cefazolin -wound c/s -check LED to r/o DVT Social History Tobacco Use Types Packs/Day Years Used Date Smoking Tobacco: Former Cigarettes 1.3 50 1 974 - 2023 Passive Smoke Exposure: Past Smokeless Tobacco: Never Tobacco Cessation:Counseling Given: Yes [facility] [employer] Answer Date Recorded In the past 12 months has [employer], gas, oil, or water [employer] threatened to shut off services in your [...] often do you attend chur ch or sikh services? Never 05/03/2024 Do you belong to any clubs o r organizations such as baptism groups, unions, fraternal or athletic groups, or [...] any time in the past 12 m [facility], were you homeless or living in a intermediate (including now)? No 05/03/2024 Personal Safety Answer Date Recorded Have you ever been in or are you currently in a harmful physical or emotional relationship or is someone making you feel afraid or unsafe? Denies 04/30/2024 Sex and Gender Information Value Date Recorded Sex Assigned at Not on file Legal Sex Male 8:45 PM LONGSHORE EQUIPMENT OPERATOR Gender Identity Not on file Sexual Orientation Not on file Last Filed Vital Signs Vital Sign Reading Time Taken Comments Blood Pressure 134/94 05/05/2024 9:25 AM LONGSHORE EQUIPMENT OPERATOR Pulse 92 05/05/2024 9:25 AM LONGSHORE EQUIPMENT OPERATOR Temperature 37.1 C (98.8 F) 05/05/2024 7:24 AM LONGSHORE EQUIPMENT OPERATOR Respiratory Rate 19 05/05/2024 7:24 AM LONGSHORE EQUIPMENT OPERATOR Oxygen Saturation 99% 05/05/2024 7:24 AM LONGSHORE EQUIPMENT OPERATOR Inhaled Oxygen Concentration - - Weight 68.9 kg (152 lb) 04/30/2024 7:01 AM LONGSHORE EQUIPMENT OPERATOR Height 188 cm (6' 2) 04/30/2024 7:01 AM LONGSHORE EQUIPMENT OPERATOR Body Mass Index 19.52 04/30/2024 7:01 AM LONGSHORE EQUIPMENT OPERATOR Plan of Treatment Not on file Procedures Procedure Name Priority Date/Time Associated Diagnosis Comments HEPATITIS C ANTIBODY Routine 04/12/2024 5:19 AM LONGSHORE EQUIPMENT OPERATOR from Last 3 Months or Most Recently Relevant to Health Maintenance Results * Hepatitis C antibody Blood (04/12/2024 5:19 AM LONGSHORE EQUIPMENT OPERATOR) Hep C Ab Nonreactive Nonreactive Comment:Antibodies to HCV no t detected. Does NOT exclude the possibility of recent exposure to HCV. Current interpretive data was last revised on 21 Blood 04/12/2024 5:19 AM LONGSHORE EQUIPMENT OPERATOR 04/12/2024 5:37 AM LONGSHORE EQUIPMENT OPERATOR Ronan Gipson MD LAB MICROBIOLOGY - GENERAL ORDERABLES Final Result [facility] Department [place] [address] from Last 3 Months or Most Recently Relevant to Health Maintenance Insurance [facility] MEDICARE ADVANTAGE [facility] MEDICARE ADVANTAGE Advance Directives For more information, please contact: [phone] Documents on File Type Date Recorded Patient Rehab Department Manager Expl anation ADVANCE DIRECTIVE 05/09/2024 8:55 AM POLST ADVANCE DIRECTIVE 04/12/2024 9:27 AM POWER OF RETAIL RECEIVING CLERK-MEDICAL ADVANCE DIRECTIVE 04/12/2024 9:27 AM POWER OF RETAIL RECEIVING CLERK-MEDICAL * Full Code (Latest Code Status on File) Date Activated Date Inactivated Comments 04/28/2024 6:17 PM 05/05/2024 8:02 PM * Full Code Date Activated Date Inactivated Comments 04/09/2024 2:02 AM 04/12/2024 6:05 PM Healthcare Agents on File Name Relationship Healthcare Agent Relationshi p Communication Consuelo Merino Daughter Health Care Agent Care Teams Converter Supervisor Relationship Specialty Start Date End Date Navin Arevalo Jr., MARJAN [address] [place] [address] PCP - General Family Practice 04/11/24
[2024-09-14 01:39] LABS: Hematocrit 33.5 % (37.0-46.0); Hemoglobin 11.9 g/dL (12.4-15.3); Immature Granulocyte Percent A 1.0 % (0.0-0.0); Lymphocytes Absolute Auto 1.92 K/mm3 (1.10-4.50); Mean Corpuscular HGB Conc 35.5 g/dL (32-36); Mean Corpuscular Hemoglobin 35.4 pg (27.0-31.0); Mean Corpuscular Volume 99.7 fL (78.0-102.0); Nucleated Red Blood Cells Absolute Auto 0.00 K/mm3 (0.00-0.00); Nucleated Red Blood Cells Perc 0.0 % (0-0.0); Platelet Count Result 430 K/mm3 (150-420); Red Blood Count 3.36 M/mm3 (4.70-6.10); White Blood Count 14.7 K/mm3 (4.8-10.8)
[2024-09-14] MEDS: PANTOPRAZOLE SODIUM IV 40 MG VIAL IV PUSH (01:41)
[2024-09-14] MEDS: LACTATED RINGERS 500 ML 999 ML IV CONT (01:41)
[2024-09-14] MEDS: FOLIC ACID 1 MG TABLET PO (01:41)
--- NOTE | 2024-09-14 01:44 | PC.NURSE ---
pt medicated per order, see MAR. call light within reach. update provided.
[2024-09-14 01:45] LABS: Alanine Aminotransferase 54 U/L (6-50); Albumin Level 3.6 g/dL (3.5-5.1); Alkaline Phosphatase 211 U/L (38-126); Anion Gap 15 mmol/L (4-12); Aspartate Amino Transferase 140 U/L (17-59); Bilirubin,Total 1.6 mg/dL (0.2-1.3); Blood Urea Nitrogen 4 mg/dL (9-20); Calcium 8.4 mg/dL (8.4-10.2); Carbon Dioxide 26 mmol/L (22-30); Chloride 94 mmol/L (98-107); Estimated CRCL calculation 61 ml/min; Estimated Glomerular Filt Rate > 60; Glucose 134 mg/dL (65-110); Lipase 54 U/L (23-300); Osmolality Calculated 278 mOsm/kg (285-295); Sodium 135 mmol/L (137-145); Total Protein 7.0 g/dL (6.3-8.2)
--- NOTE | 2024-09-14 01:45 | PC.NURSE ---
ASKED PATIENT WHY HE IS SO JITTERY. PATIENT ADMITS TO USING METH EARLIER TODAY
--- NOTE | 2024-09-14 01:47 | PC.NURSE ---
PATIENT TRANSPORTED TO CT VIA STRETCHER
[2024-09-14 01:49] LABS: Potassium 2.6 mmol/L (3.4-5.0)
[2024-09-14 01:57] LABS: NT Pro B Type Natriuretic Pept 2110 pg/mL (19.9-100)
[2024-09-14 01:58] LABS: Troponin I 5.120 ng/mL (0.000-0.034)
[2024-09-14] MEDS: POTASSIUM CHLORIDE 20 MEQ ER TABLET 40 MEQ PO (02:01)
[2024-09-14] MEDS: KCL 20 MEQ/SW 100 ML 100 ML 50 MEQ IVPB (02:01)
[2024-09-14] MEDS: MAGNESIUM SULF 2 GM/WATER 50ML 2 GM/50 ML BAG IVPB (02:01)
[2024-09-14 02:06] LABS: Magnesium 1.5 mg/dL (1.6-2.3)
--- NOTE | 2024-09-14 02:25 | PC.NURSE ---
PATIENT IS RESTING ON STRETCHER. AWARE OF TRANSFER PLANS. DENIES CHEST PAIN AT THIS TIME. LAB CURRENTLY AT THE BEDSIDE
--- NOTE | 2024-09-14 03:28 | PC.NURSE ---
RESTING QUIETLY ON STRETCHER. RESP EVEN AND UNLABORED. CONTINUES TO BE ON TRIMMER HAND. NSR 99 BPM. CALL LIGHT IN REACH. PATIENT IS AWARE OF TRANSFER TO [facility] IN [facility].
--- NOTE | 2024-09-17 13:22 | PC.NURSE ---
PRELIMINARY BLOOD CULTURE REPORT; NO GROWTH IN 24 HOURS.
--- NOTE | 2024-09-18 15:43 | PC.NURSE ---
preliminary blood cultures x2: no growth in 48 hours
--- NOTE | 2024-09-21 12:40 | PC.NURSE ---
FINAL BLOOD CULTURE REPORT; NO GROWTH IN FIVE DAYS.
--- NOTE | 2024-09-23 13:05 | PC.NURSE ---
final blood cultures x2 reviewed. no growth after 5 days
== END 2024-09-14 03:59 | disposition short-term general hospital (02) ==
PROVIDERS: Emergency Provider Internal Medicine Critical Care Medicine; PCP Emergency Medicine
DX: I21.4 Non-ST elevation (NSTEMI) myocardial infarction (principal); R41.82 Altered mental status, unspecified; E87.8 Other disorders of electrolyte and fluid balance, not elsewhere classified; K70.10 Alcoholic hepatitis without ascites; F10.129 Alcohol abuse with intoxication, unspecified; Y90.9 Presence of alcohol in blood, level not specified; F15.90 Other stimulant use, unspecified, uncomplicated; J44.9 Chronic obstructive pulmonary disease, unspecified; I48.91 Unspecified atrial fibrillation; E78.5 Hyperlipidemia, unspecified; Z79.01 Long term (current) use of anticoagulants
CPT/HCPCS: 36415; 70450; 71045; 80053; 82077; 83605; 83690; 83735; 83880; 84484; 85025; 93005; 96365; 96366; 96368; 96375; 99285; A9270; J2060; J2470; J3411; J3475; J3480; J7120

== ENCOUNTER 2024-12-12 14:21 | Outpatient (CLI) | payer MEDICARE, SELFPAY ==
--- OUTSIDE RECORDS SUMMARY | 2024-12-12 16:19 | XMS_ITS | Clinical Summary ---
Author Organization [facility] al Address [address] [place] [address] Care Team Providers Care Used Car Lot Attendant Name Role Phone MARJAN Arevalo Jr., Navin [...] 05/04/2024 Assessment & Plan (05/05/2024 2:45 PM PROMOTION MANAGER): Since in family 9mo ago and now decreased physcial abillity, patient has been experiencing decreased appetite, low mood, anhedonia, and increased daytime sleeping. He likely has depression. He denies hx of depression or prior use of antidepressants -sertraline 50mg daily (05/04-current) Assessment & Plan (05/04/2024 5:08 PM PROMOTION MANAGER): Since in family 9mo ago and now decreased physcial abillity, patient has been experiencing decreased appetite, low mood, anhedonia, and increased daytime sleeping. He likely has depression. He denies hx of depression or prior use of antidepressants -sertraline 50mg daily (05/04-current) Macrocytic anemia 05/03/2024 Assessment & Plan (05/05/2024 2:45 PM PROMOTION MANAGER): Hgb at baseline ~9, MCV 100.4; likely related to EtOH use -B12 wnl Assessment & Plan (05/04/2024 5:08 PM PROMOTION MANAGER): Hgb at baseline ~9, MCV 100.4; likely related to EtOH use -B12 pending Assessment & Plan (05/03/2024 4:48 PM PROMOTION MANAGER): Hgb at baseline ~9, MCV 100.4; likely related to EtOH use -B12 pending Noncompliance with medication regimen 05/01/2024 Assessment & Plan (05/05/2024 2:45 PM PROMOTION MANAGER): Pt endorse not taking medications including eliquis for afib Assessment & Plan (05/04/2024 5:08 PM PROMOTION MANAGER): Pt endorse not taking medications including eliquis for afib Assessment & Plan (05/03/2024 4:48 PM PROMOTION MANAGER): Pt endorse not taking medications including eliquis for afib DVT, bilateral lower limbs 05/01/2024 Assessment & Plan (05/05/2024 2:45 PM PROMOTION MANAGER): There are bilateral DVT in lower limbs [...] bid. Assessment & Plan (05/04/2024 5:08 PM PROMOTION MANAGER): There are bilateral DVT in lower limbs [...] bid. Assessment & Plan (05/03/2024 4:48 PM PROMOTION MANAGER): There are bilateral DVT in lower limbs [...] 04/29/2024 Assessment & Plan (05/05/2024 2:45 PM PROMOTION MANAGER): Feet with abrasions that per patient started [...] PRN Assessment & Plan (05/04/2024 5:08 PM PROMOTION MANAGER): Feet with abrasions that per patient started [...] PRN Assessment & Plan (05/03/2024 4:48 PM PROMOTION MANAGER): Feet with abrasions that per patient started [...] 04/28/2024 Assessment & Plan (05/05/2024 2:45 PM PROMOTION MANAGER): Drinks 10 shots fireball daily, last drink 04/28 AM. Increased EtOH use x9mo iso accidental in the family. -s/p valium 10mg in ED -s/p CIWA w/ prn ativan -thiamine, folate, MVI -SW c/s for resources - discussed naltrexone, currently patient favors using sertraline for depression, but if he has alcohol cravings after discharge encouraged to consider naltrexone. Assessment & Plan (05/04/2024 5:08 PM PROMOTION MANAGER): Drinks 10 shots fireball daily, last drink 04/28 AM. Increased EtOH use x9mo iso accidental in the family. -s/p valium 10mg in ED -s/p CIWA w/ prn ativan -thiamine, folate, MVI -SW c/s for resources - discussed naltrexone, currently patient favors using sertraline for depression, but if he has alcohol cravings after discharge encouraged to consider naltrexone. Assessment & Plan (05/03/2024 4:48 PM PROMOTION MANAGER): Drinks 10 shots fireball daily, last drink 04/28 AM. Increased EtOH use x9mo iso accidental in the family. -s/p valium 10mg in ED -s/p CIWA w/ prn ativan -thiamine, folate, MVI -SW c/s for resources -plan for naltrexone on discharge Paroxysmal A-fib 04/28/2024 Assessment & Plan (05/05/2024 2:45 PM PROMOTION MANAGER): -cont Eliquis for now (though if pt ultimately elects to return home instead of rehab, may consider holding in the setting of recurrent falls) -cont home metop Assessment & Plan (05/04/2024 5:08 PM PROMOTION MANAGER): -cont Eliquis for now (though if pt ultimately elects to return home instead of rehab, may consider holding in the setting of recurrent falls) -cont home metop Assessment & Plan (05/03/2024 4:48 PM PROMOTION MANAGER): -cont Eliquis for now (though if pt ultimately elects to return home instead of rehab, may consider holding in the setting of recurrent falls) -cont home metop Severe malnutrition 04/11/2024 Assessment & Plan (05/05/2024 2:45 PM PROMOTION MANAGER): -RD c/, rec ensure plus high protein Assessment & Plan (05/04/2024 5:08 PM PROMOTION MANAGER): -RD c/, rec ensure Assessment & Plan (05/03/2024 4:48 PM PROMOTION MANAGER): -RD c/, rec ensure CAD (coronary artery disease) 04/10/2024 Assessment & Plan (05/05/2024 2:45 PM PROMOTION MANAGER): -cont statin, metop Assessment & Plan (05/04/2024 5:08 PM PROMOTION MANAGER): -cont statin, metop Assessment & Plan (05/03/2024 4:48 PM PROMOTION MANAGER): -cont statin, metop Assessment & Plan (04/10/2024 1:39 PM PROMOTION MANAGER): CAD, multivessel per CT lung cancer screen 07/22, with evidence of anterior OH with scar per MPI 10/22: Atorvastatin, Nitroglycerin, HTN (hypertension) 04/10/2024 Assessment & Plan (05/05/2024 2:45 PM PROMOTION MANAGER): -cont lopressor 25 bid Assessment & Plan (05/04/2024 5:08 PM PROMOTION MANAGER): -cont lopressor 25 bid Assessment & Plan (05/03/2024 4:48 PM PROMOTION MANAGER): -cont lopressor 25 bid Assessment & Plan (04/10/2024 1:40 PM PROMOTION MANAGER): Chronic Metoprolol 25 mg bid Compression fx, thoracic spine 04/09/2024 Assessment & Plan (05/05/2024 2:45 PM PROMOTION MANAGER): He was recently admitted to [facility] 04/08-04/12, where he was found to have T1, T3, T4, and T6 fxs, managed non-operatively, TLSO brace placed for comfort. Has been non-ambulatory/couch-ridden at home related to severe pain and has not been wearing brace. -cont TLSO brace -pain control: APAP PRN -PT/OT c/s: SNF; daughter is considering home with home health rather than current accepting SNF Assessment & Plan (05/04/2024 5:08 PM PROMOTION MANAGER): He was recently admitted to [facility] 04/08-04/12, where he was found to have T1, T3, T4, and T6 fxs, managed non-operatively, TLSO brace placed for comfort. Has been non-ambulatory/couch-ridden at home related to severe pain and has not been wearing brace. -cont TLSO brace -pain control: APAP PRN -PT/OT c/s: SNF; daughter is considering home with home health rather than current accepting SNF Assessment & Plan (05/03/2024 4:48 PM PROMOTION MANAGER): He was recently admitted to [facility] 04/08-04/12, where he was found to have T1, T3, T4, and T6 fxs, managed non-operatively, TLSO brace placed for comfort. Has been non-ambulatory/couch-ridden at home related to severe pain and has not been wearing brace. -cont TLSO brace -pain control: APAP PRN -PT/OT c/s: SNF; daughter is considering home with home health rather than current accepting SNF Assessment & Plan (04/11/2024 7:09 AM PROMOTION MANAGER): Ortho spine consult #Falls - hCT, C-spine CT, CT C/A/P unremarkable aside from T-spine fractures #T1, T3, T4, and T6 fx, age indeterminate 04/09 spine: Total spine MRI w/wo contrast completed 04/10 No operative management Ambulate with assistance 04/11 TLSO brace for comfort Scoli films pending Alcohol abuse 04/09/2024 Assessment & Plan (04/11/2024 12:15 PM PROMOTION MANAGER): #AUD - continue to monitor - phenobarb loading dose given in the ED with plan to transition to diazepam -CD completed 04/09 04/11 no signs of withdrawal, no events overnight Bronchiectasis 11/19/2023 Multiple nodules of lung 11/19/2023 Assessment & Plan (05/05/2024 2:45 PM PROMOTION MANAGER): Seen on imaging last admit:CT 04/08/2024 with indeterminate lung nodules, recommend follow-up in 6 months (~09/2024) -outpatient f/u Assessment & Plan (05/04/2024 5:08 PM PROMOTION MANAGER): Seen on imaging last admit:CT 04/08/2024 with indeterminate lung nodules, recommend follow-up in 6 months (~09/2024) -outpatient f/u Assessment & Plan (05/03/2024 4:48 PM PROMOTION MANAGER): Seen on imaging last admit:CT 04/08/2024 with indeterminate lung nodules, recommend follow-up in 6 months (~09/2024) -outpatient f/u Assessment & Plan (04/10/2024 1:33 PM PROMOTION MANAGER): Hx of same in past Multiple left lower lobe pulmonary nodules, many of which are calcified likely representing old granulomatous disease. A 6 mm noncalcified nodule is indeterminate but may also represent sequela of old granulomatous disease. Follow-up CT in 6 months could be considered if clinically indicated. Chronic obstructive pulmonary disease 09/17/2023 Assessment & Plan (05/05/2024 2:45 PM PROMOTION MANAGER): -cont anoro ellipta, prn albuterol Assessment & Plan (05/04/2024 5:08 PM PROMOTION MANAGER): -cont anoro ellipta, prn albuterol Assessment & Plan (05/03/2024 4:48 PM PROMOTION MANAGER): -cont anoro ellipta, prn albuterol Assessment & Plan (04/10/2024 1:29 PM PROMOTION MANAGER): Home Trelegy Anoro Ellipta 6.25 mcg / 25 mcg Albuterol prn Q 6 hrs No oxygen thearpy Resolved Problems Problem Noted Date Diagnosed Date Resolved Date Open wound of dorsum of foot 04/28/2024 04/29/2024 Assessment & Plan (04/28/2024 6:21 PM PROMOTION MANAGER): BL dorsal food blistering wounds w/ associated swelling/erythema/warmth c/f possible superimposed cellulitis. -cont cefazolin -wound c/s -check LED to r/o DVT Social History Tobacco Use Types Packs/Day Years Used Date Smoking Tobacco: Former Cigarettes 1.3 50 1 974 - 2023 Passive Smoke Exposure: Past Smokeless Tobacco: Never Tobacco Cessation:Counseling Given: Yes [facility] Utilities Answer Date Recorded In the past 12 months has [employer], gas, oil, or water [employer] threatened to shut off services in your home? No 05/03/2024 Social Connection and Isolation Panel Answer Date Recorded In a typical week, how many times do you talk on the phone with family, friends, or neighbors? More than three times a week 05/03/2024 How often do you get togethe r with friends or relatives? More than three times a week 05/03/2024 How often do you attend chur ch or baptism services? Never 05/03/2024 Do you belong to any clubs o r organizations such as roman catholic groups, unions, fraternal or athletic groups, or [...] any time in the past 12 m [facility], were you homeless or living in a care home (including now)? No 05/03/2024 Personal Safety Answer Date Recorded Have you ever been in or are you currently in a harmful physical or emotional relationship or is someone making you feel afraid or unsafe? Denies 04/30/2024 Sex and Gender Information Value Date Recorded Sex Assigned at Not on file Legal Sex Male 8:45 PM PROMOTION MANAGER Gender Identity Not on file Sexual Orientation Not on file Obstetrics History Last Filed Vital Signs Vital Sign Reading Time Taken Comments Blood Pressure 134/94 05/05/2024 9:25 AM PROMOTION MANAGER Pulse 92 05/05/2024 9:25 AM PROMOTION MANAGER Temperature 37.1 C (98.8 F) 05/05/2024 7:24 AM PROMOTION MANAGER Respiratory Rate 19 05/05/2024 7:24 AM PROMOTION MANAGER Oxygen Saturation 99% 05/05/2024 7:24 AM PROMOTION MANAGER Inhaled Oxygen Concentration - - Weight 68.9 kg (152 lb) 04/30/2024 7:01 AM PROMOTION MANAGER Height 188 cm (6' 2) 04/30/2024 7:01 AM PROMOTION MANAGER Body Mass Index 19.52 04/30/2024 7:01 AM PROMOTION MANAGER Plan of Treatment Health Maintenance Due Date [...] HEPATITIS C ANTIBODY Routine 04/12/2024 5:19 AM PROMOTION MANAGER from Last 3 Months or Most Recently Relevant to Health Maintenance Results * Hepatitis C antibody Blood (04/12/2024 5:19 AM PROMOTION MANAGER) Hep C Ab Nonreactive Nonreactive Comment:Antibodies to HCV no t detected. Does NOT exclude the possibility of recent exposure to HCV. Current interpretive data was last revised on 21 Blood 04/12/2024 5:19 AM PROMOTION MANAGER 04/12/2024 5:37 AM PROMOTION MANAGER us Ronan Gipson MD LAB MICROBIOLOGY - GENERAL ORDERABLES Final Result [facility] Department [place] [address] from Last 3 Months or Most Recently Relevant to Health Maintenance Insurance [facility] Address: [address] [place] [id number] [facility] [employer] Address: [address] [place], [place] [id number] Advance Directives For more information, please contact: [phone] Documents on File Type Date Recorded Patient Microbiology Instructor Expl anation ADVANCE DIRECTIVE 05/09/2024 8:55 AM POLST ADVANCE DIRECTIVE 04/12/2024 9:27 AM POWER OF ETCHER APPRENTICE PHOTOENGRAVING-MEDICAL ADVANCE DIRECTIVE 04/12/2024 9:27 AM POWER OF ETCHER APPRENTICE PHOTOENGRAVING-MEDICAL * Full Code (Latest Code Status on File) Date Activated Date Inactivated Comments 04/28/2024 6:17 PM 05/05/2024 8:02 PM * Full Code Date Activated Date Inactivated Comments 04/09/2024 2:02 AM 04/12/2024 6:05 PM Healthcare Agents on File Name Relationship Healthcare Agent Relationshi p Communication Consuelo Wilber Daughter Health Care Agent Care Teams Used Car Lot Attendant Relationship Specialty Start [place] [address] [address] [place] [address] PCP - General Family Practice 04/11/24
--- OUTSIDE RECORDS SUMMARY | 2024-12-12 16:19 | XMS_ITS | Encounter Summary ---
Author Organization [facility] Address [address] [place] [address] Phone Care Team Providers Care Director Voice Name Role Phone Unavailable Primary Care Provider Unavailabl e Encounter Details Date Type Department Care Team (Late st Contact Info) Description 10/24/2024 Nursing Facility [facility] [address] [place] [phone] Marbin Grey APRN, PIECE WORK CHECKER [address] [place] [address] Social History Tobacco Use Types Packs/Day Years Used Date Smoking Tobacco: Never Assessed Sex and Gender Information Value Date Recorded Sex Assigned at Not on file Legal Sex Male 12:14 PM CDT Gender Identity Not on file Sexual Orientation Not on file documented as of this encounter Progress Notes * Marbin Grey, SAMAN, PIECE WORK CHECKER - 10/24/2024 5:53 PM CDT [facility] PROGRESS NOTE Jaylan Melgoza is a 64 y.o. male at [facility] for rehabilitation. Resident with CAD status post CABG x 3, ANMOL clip on 09/26/2024 at [facility]. He was readmitted for acute exacerbation of systolic CHF and treated with diuretics due to his physical deconditioningit was decided patient be admitted to the [facility] for rehabilitation. Subjective: Interval History: I am seeing this resident for routine follow up encounter. Review of Systems: A 14 point comprehensive review of systems was negative except what is documented in interval history above. Objective: Exam: General: well developed well nourished, alert, oriented and in no acute distress Skin: normal coloration and turgor, no rashes HEENT: normocephalic, atraumatic. Pupils equal, round and reactive to light. Extraocular movements intact. Oronasopharynx pink and moist, no lesion or exudate. Neck: Supple. No JVD, lymphadenopathy thyromegaly or carotid bruits auscultated CVS: RRR, S1/S2 normal, no murmurs, gallops or rubs Chest: ML incision with steri strips in place, otherwise, clear to auscultation, no wheezes, rales or rhonchi, symmetric air entry and normal respiratory effort Abdominal: soft, nontender, nondistended. Positive Bowel sounds, no organomegaly appreciated Extremities: no edema, no clubbing or cyanosis Neuro: alert and orient x 3. Moves all extremities well. No neurological deficits noted. Gait not tested Lab Results: None Imaging: None Assessment/Plan: Generalized weakness with physical deconditioning Admitted for PT/OT CAD/status post CABG x 3/ANMOL clip 09/26/24 at [facility] Resume aspirin, statin, metoprolol Follow-up with cardiology at [facility] Chronic systolic CHF Recent hospitalization for acute exacerbation (09/2024) Currently not in exacerbation Continue spironolactone and Bumex Paroxysmal atrial fibrillation History of DVT Continue Eliquis, amiodarone COPD Currently not in exacerbation, continue inhalers Depression Continue sertraline Hypertension/hyperlipidemia BP currently stable, resume home antihypertensives and statin VTE Prophylaxis: Activity By: Marbin Grey APRN, CNP, 10/24/2024 5:53 PM CDT documented in this encounter Plan of Treatment Not on file documented as of this encounter Visit Diagnoses Not on filedocumented in this encounter
--- OUTSIDE RECORDS SUMMARY | 2024-12-12 16:19 | XMS_ITS | Encounter Summary ---
Author Organization [facility] Address [address] [place] [address] Phone Care Team Providers Care Snuff Grinder Name Role Phone Unavailable Primary Care Provider Unavailabl e Encounter Details Date Type Department Care Team (Late st Contact Info) Description 10/26/2024 Nursing Facility [facility] [address] [place] [phone] Marbin Grey APRN, CNP [address] [place] [address] Social History Tobacco Use Types Packs/Day Years Used Date Smoking Tobacco: Never Assessed Sex and Gender Information Value Date Recorded Sex Assigned at Not on file Legal Sex Male 12:14 PM CDT Gender Identity Not on file Sexual Orientation Not on file documented as of this encounter Progress Notes * Marbin Grey APRN, CNP - 10/26/2024 11:59 PM CDT [facility] DISCHARGE SUMMARY Name: Jaylan Melgoza Age: 64 y.o. : 1960 Attending Physician: No att. providers found Admission Date/Time: (Not on file) Expected Discharge Date: Primary Care Physician: No primary care provider on file. Discharging Provider: Marbin Grey APRN, CNP INSTRUCTIONS FOR PHYSICIANS ON FOLLOW UP AFTER DISCHARGE: Follow-up with PCP: No primary care provider on file. in 4 week Discharge Instructions: Discharge Condition: improved Disposition: Home Diet: Cardiac Diet Activity: activity as tolerated Discharge Diagnoses: Generalized weakness with deconditioning CAD s/p CABG Chronic systolic CHF PAF Hx DVT COPD Depression HTN/HLD Admitting Diagnoses: Generalized weakness with deconditioning SKILLED CARE COURSE: Jaylan Melgoza was admitted to [facility] facility for acute care rehabilitation. Resident with CAD status post CABG x 3, ANMOL clip on 09/26/2024 at [facility]. He was readmitted for acute exacerbation of systolic CHF and treated with diuretics due to his physical deconditioningit was decided patient be admitted to the [facility] for rehabilitation. Generalized weakness with physical deconditioning Admitted for PT/OT Completed therapy and decided to return home CAD/status post CABG x 3/ANMOL clip 09/26/24 at [facility] Resume aspirin, statin, metoprolol Follow-up with cardiology at [facility] as scheduled Chronic systolic CHF Recent hospitalization for acute exacerbation (09/2024) Currently not in exacerbation Continue spironolactone and Bumex Paroxysmal atrial fibrillation History of DVT Continue Eliquis, amiodarone COPD Currently not in exacerbation, continue inhalers Depression Continue sertraline Hypertension/hyperlipidemia BP currently stable, resume home antihypertensives and statin Exam Day of Discharge: Vital Signs reviewed and stable Exam: General: well developed well nourished, alert, oriented and in no acute distress Skin: normal coloration and turgor, no rashes HEENT: normocephalic, atraumatic. Pupils equal, round and reactive to light. Extraocular movements intact. Oronasopharynx pink and moist, no lesion or exudate. Neck: Supple. No JVD, lymphadenopathy thyromegaly or carotid bruits auscultated CVS: RRR, S1/S2 normal, no murmurs, gallops or rubs Chest: ML incision healing otherwise, clear to auscultation, no wheezes, rales or rhonchi, symmetric air entry and normal respiratory effort Abdominal: soft, nontender, nondistended. Positive Bowel sounds, no organomegaly appreciated Extremities: no edema, no clubbing or cyanosis Neuro: alert and orient x 3. Moves all extremities well. No neurological deficits noted. Gait not tested Lab / Imaging Review: none DISCHARGE PLAN: Follow up with PCP in 4 weeks and [facility] Tool And Cutter Grinder as scheduled I have spent time coordinating care for this hospital discharge: Greater than 30 minutes spent in coordinating care Signed: Marbin Grey APRN, ASSISTANT HEAD CASHIER, 10/27/2024, 6:27 AM CDT documented in this encounter Plan of Treatment Not on file documented as of this encounter Visit Diagnoses Not on filedocumented in this encounter
--- OUTSIDE RECORDS SUMMARY | 2024-12-12 16:19 | XMS_ITS | Clinical Summary ---
Author Organization [facility] Address [address] [place] [address] Phone Care Team Providers Care Foam Rubber Curer Name Role Phone Unavailable Primary Care Provider Unavailabl e Encounters Date Type Department Care Team Description 10/26/2024 Nursing Facility [facility] [address] [place] [phone] Marbin Grey APRN, CNP 10/24/2024 Nursing [facility] [address] [place] [phone] Marbin Grey APRN, ZE from Last 3 Months Social History Tobacco Use Types Packs/Day Years Used Date Smoking Tobacco: Never Assessed Sex and Gender Information Value Date Recorded Sex Assigned at Not on file Legal Sex Male 12:14 PM CDT Gender Identity Not on file Sexual Orientation Not on file Plan of Treatment Not on file
--- OUTSIDE RECORDS SUMMARY | 2024-12-12 16:19 | XMS_ITS | Clinical Summary ---
Author Organization [facility] Address [address] [place] [address] Phone Care Team Providers Care Refined Syrup Operator Name Role Phone Unavailable Primary Care Provider Unavailabl e Allergies No known active allergies Medications apixaban (Eliquis) 5 mg tablet Take 5 mg by mouth 2 times daily. Active rosuvastatin (CRESTOR) 20 mg tablet Take 1 Tablet (20 mg) by mouth daily at bedtime. 5 Active aspirin (ECOTRIN EC) 81 mg Tablet, Delayed Release (E.C.) Take 1 Tablet (81 mg) by mouth daily. 5 Active bumetanide (BUMEX) 1 mg tablet Take 1 Tablet (1 mg) by mouth daily. Active sertraline (ZOLOFT) 25 mg tablet Take 1 Tablet (25 mg) by mouth daily. Active Additional Information Patient taking differently: 50 mgOral DAILY, Reported on 10/27/2024 amiodarone (CORDARONE) 200 mg tablet Take 1 Tablet (200 mg) by mouth daily. 30 Tablet 1 5 Active umeclidinium-vi lanteroL (ANORO ELLIPTA) 62.5-25 mcg/actuation Disk with Device Take 1 Puff by inhalation daily. Active acetaminophen (TYLENOL) 325 mg tablet Take 2 Tablets (650 mg) by mouth every 6 hours as needed for Other (See Comment) (see admin instructions). 5 Active carvediloL (COREG) 3.125 mg tablet Take 1 Tablet (3.125 mg) by mouth every 12 hours. Hold medication for a documented heart rate of less than 50 BPM or a documented systolic blood pressure of less than 100 mmHg. Active spironolactone (ALDACTONE) 25 mg tablet Take 1 Tablet (25 mg) by mouth daily. Active traMADol (Ultram) 50 mg tabletIndicatio ns:Post-op pain Take 1 Tablet (50 mg) by mouth every 6 hours as needed for Pain. Take 1 Tablet (50 mg) by mouth every 6 hours as needed for Pain. 30 Tablet Active Active Problems Problem Noted Date Diagnosed Date Weakness generalized 10/12/2024 Pleural effusion, right 10/10/2024 COPD exacerbation 10/09/2024 Chest pain 10/09/2024 Bradycardia 10/09/2024 Acute on chronic HFrEF (hear t failure with reduced ejection fraction) 10/09/2024 Coronary artery disease invo lving [place] coronary artery of [place] heart without angina pectoris 10/09/2024 History of coronary artery bypass graft x 3 09/29 Moderate protein malnutrition 09/28/2024 LV dysfunction 09/27/2024 Dyslipidemia, goal LDL below 70 09/27/2024 Acute hypoxic respiratory failure 09/23/2024 Essential hypertension 09/20/2024 Dilated aortic root 09/19/2024 Overview (09/19/2024): 09/14/2024: Aortic root: The root is dilated, measuring 4.3 cm at the sinuses of Valsalva. Pulmonary nodules 09/19/2024 Overview (09/19/2024): 09/14/2024: Left lower lobe juxtapleural 6 mm nodule and right upper lobe sub-4 mm nodule. Recommend follow-up chest CT in one year. Hepatic steatosis 09/19/2024 Calculus of gallbladder with out cholecystitis without obstruction 09/19/[address] scan, bladder 09/19/2024 Overview (09/19/2024): 09/14/2024: 1.6 cm broad-based enhancing mass at the bladder trigone, which could represent mass effect from the prostate (although this is not definitive) versus a primary bladder tumor. Recommend further evaluation with urinalysis and CT urogram with urology consult as indicated. SVT (supraventricular tachycardia) 09/15/2024 Lactic acidosis 09/14/2024 Polysubstance abuse 09/14/2024 Paroxysmal atrial fibrillation 09/14/2024 Hypokalemia 09/14/2024 History of venous thromboembolism 09/14/2024 Elevated troponin 09/14/2024 NSTEMI (non-ST elevated myocardial infarction) 0 09/14/2024 Resolved Problems Problem Noted Date Diagnosed Date Resolved Date NSTEMI (non-ST elevated myoc ardial infarction) 09/14/2024 09/15/2024 Encounters Date Type Department Care Team Description 12/05/2024 External Device Data [facility] ABSTRACTION Provider, Abstract 11/14/2024 External Device Data [facility] ABSTRACTION Provider, Abstract 11/14/2024 External Device Data [facility] ABSTRACTION Provider, Abstract 10/27/2024 2:41 PM CDT - 10/27/2024 11:59 PM CDT Hospital Encounter [facility] [address] [facility] [address] [place] [address] Josiah Peoples MD Discharge Disposition: Home or Self Care 10/27/2024 1:15 PM CDT Office Visit [facility] at [address] [place] [address] Josiah Peoples MD Postoperative examination (Primary Dx); S/P CABG (coronary artery bypass graft) 10/27/2024 Results Follow-Up [facility] at [address] [place] [address] Milton Aponte RN XR CHEST PA AND LATERAL 2 VW 10/17/2024 External Device Data [facility] ABSTRACTION Provider, Abstract 10/13/2024 Telephone [facility] [address] [place] [address] Donya Hayes RN missing items 10/10/2024 External Device Data [facility] ABSTRACTION Provider, Abstract 10/10/2024 External Device Data [facility] ABSTRACTION Provider, Abstract 10/10/2024 Travel 10/09/2024 1:09 AM CDT - 10/12/2024 4:06 PM CDT Hospital Encounter [facility] Cardiac Progressive Care Unit [facility] [address] [phone] Jensen Godwin MD Zhang, Wei, MD Keech, Rachel C, DO Acute hypoxic respiratory failure (CMS/HCC) Discharge Disposition: [facility](SNF) with Medicare Certification in Anticipation of Skilled Care 10/07/2024 Orders Only [facility] at [address] [phone] Debbie Zurita PA Post-op pain (Primary Dx) 10/05/2024 External Device Data [facility] ABSTRACTION Provider, Abstract 10/04/2024 External Device Data [facility] ABSTRACTION Provider, Abstract 09/28/2024 Abstract [facility] at [address] [address] Josiah Peoples MD 09/26/2024 11:45 AM CDT - 09/26/2024 5:14 PM CDT Surgery [facility] CV Operating Room [address] [place] [phone] Josiah Peoples MD CORONARY ARTERY BYPASS GRAFT X4 WITH LEFT INTERNAL MAMMARY ARTERY 09/26/2024 11:12 AM CDT Anesthesia Event [facility] CV Operating Room [address] [place] [phone] Good Heart MD Young, Christopher J, MD 09/26/2024 3:00 AM CDT Ancillary Procedure [facility] CV Operating Room [address] [place] [phone] Josiah Peoples MD 09/26/2024 External Device Data [facility] ABSTRACTION Provider, Abstract 09/26/2024 External Device Data [facility] ABSTRACTION Provider, Abstract 09/26/2024 Orders Only [facility] at [facility] [address] [facility] [address] [place] [address] Josiah Peoples MD Paroxysmal atrial fibrillation (CMS/HCC) (Primary Dx); NSTEMI (non-ST elevated myocardial infarction) (CMS/HCC); SVT (supraventricular tachycardia) 09/25/2024 Results Follow-Up [facility] [address] [place] [address] Caryl Jack, PHARMACIST PTT 09/21/2024 Orders Only [facility] at [facility] [address] [facility] [address] [place] [phone] Josiah Peoples MD 09/20/2024 9:05 AM CDT - 09/20/2024 9:51 AM CDT Surgery [facility] Mental Health Program Manager [address] [place] [address] Juan Fenton MD Left heart cath 09/19/2024 External Device Data [facility] ABSTRACTION Provider, Abstract 09/19/2024 External Device Data [facility] ABSTRACTION Provider, Abstract 09/19/2024 External Device Data [facility] ABSTRACTION Provider, Abstract 09/14/2024 5:26 AM CDT - 10/07/2024 2:46 PM CDT Hospital Encounter [facility] Progressive Care [address] [place] [address] Vasiliy Pemberton MD Weitzel, Laura Jean, MD Keech, Veronica Nascimento, Dexter Yadav, Florecita Singh, Josiah Francois MD Elevated troponin Discharge Disposition: [facility](SNF) with Medicare Certification in Anticipation of Skilled Care 09/14/2024 Travel from Last 3 Months Social History Tobacco Use Types Packs/Day Years Used Date Smoking Tobacco: Former Cigarettes 1 50.8 S tarted: 1975 Tobacco Cessation:Counseling Given: Not Answered Feeling Safe Answer Date Recorded Are you in a relationship wi th someone who hurts you emotionally and/or physically? No 10/10/2024 Food Insecurity Answer Date Recorded Patient needs follow up regardin 09/14/2024 Transportation Needs Answer Date Record ed Patient needs follow up regardin 09/14/2024 Utility Needs Answer Date Recorded Patient needs follow up regardin 09/14/2024 Sex and Gender Information Value Date Recorded Sex Assigned at Not on file Legal Sex Male 2:10 AM CDT Gender Identity Not on file Sexual Orientation Not on file Last Filed Vital Signs Vital Sign Reading Time Taken Comments Blood Pressure 104/60 10/27/2024 1:50 PM CDT Pulse 102 10/27/2024 1:50 PM CDT Temperature 36.6 C (97.8 F) 10/12/2024 12:42 PM CDT Respiratory Rate 17 10/12/2024 12:42 PM CDT Oxygen Saturation 96% 10/27/2024 1:50 PM CDT Inhaled Oxygen Concentration - - Weight 63.5 kg (140 lb) 10/27/2024 1:50 PM CDT Height 188 cm (6' 2) 10/27/2024 1:50 PM CDT Body Mass Index 17.97 10/27/2024 1:50 PM CDT Plan of Treatment Health Maintenance Due Date Last Done Comments DTAP/TDAP/TD VACCINES (1 - Tdap) 1978 PNEUMOCOCCAL VACCINE 50+ YEARS (1 of 2 - PCV) 03/08/18 79 COLORECTAL SCREENING 2004 Colorectal Cancer Screening 2004 FIT-DNA Q 3 years 2004 FIT/FOBT Q 1 year 2004 Flex Sig/CT Colonography Q 5 years 2004 ZOSTER VACCINE (1 of 2) 2009 RSV VACCINE (60+ or ) (1 - Risk 60-74 years 1-dose series) 2019 INFLUENZA VACCINE (#1) 2024 Abdominal Aortic Aneurysm (AAA) Screening Completed 10/21/2023 Medical Devices Implanted Type Area Reel Cart Operator Device Identifier Shelf Expiration Date Model / Serial / Lot Clerical Stock Inspector Ligaclip Sml Mcs20 - [id number] Implanted:Qty : 1 on 09/26/2024 by Tonja Coffey PA at [facility] Clip Left: Leg J[employer]J- [employer] [id number] 07/29/2029 MCS20 / / Clip Ligating Horizon Med Ti [id number] - Csc - [id number] Implanted:Qty : 2 on 09/26/2024 by Josiah Peoples MD at [facility] Clip Chest TELEFLEX- WECK CLOSURE SYS 06/21/2029 [id number] / / [id number] Clip Ligating Horizon Sm Ti [id number] - Csc - [id number] Implanted:Qty : 2 on 09/26/2024 by Josiah Peoples MD at [facility] Clip Chest TELEFLEX INC 11/05/2028 [id number] / / Clerical Stock Inspector Ligaclip Sml Mcs20 - [id number] Implanted:Qty : 1 on 09/26/2024 by Josiah Peoples MD at [facility] Clip Chest [employer]- [employer] [id number] 07/29/2029 MCS20 / / [id number] Clerical Stock Inspector Ligaclip Mca Multi 30 Med 11in Mcm30 - [id number] Implanted:Qty : 1 on 09/26/2024 by Tonja Coffey PA at [facility] Clip Left: Leg [employer]- [employer] [id number] 05/29/2029 MCM30 / / [id number] Atriclip Flex Kyara Exclusion 45mm Ukb255 - [id number] Implanted:Qty : 1 on 09/26/2024 by Josiah Peoples MD at [facility] Clip N/A: Chest ATRICURE INC [id number] 04/01/2027 [id number] / / [id number] Hemostat Surg Snow 2x4in 2081 - [id number] Implanted:Qty : 1 on 09/26/2024 by Josiah Peoples MD at [facility] Hemostatic Chest J[employer]- [employer] [id number] 05/29/2026 2082 / / [id number] Agent Hemostat Surgicel 4x8in - [id number] Implanted:Qty : 1 on 09/26/2024 by Josiah Peoples MD at [facility] Hemostatic Chest J[employer]- [employer] [id number] 02/28/20292S / / [id number] Marker Anastomark Cabg Slcn Fm-Pm-1 - [id number] Implanted:Qty : 2 on 09/26/2024 by Josiah Peoples MD at [facility] Other N/A: Chest [employer] INC [id number] 03/01/2027 FM-PM-1 / / [id number] Procedures Procedure Name Priority Date/Time Associated Diagnosis Comments XR CHEST PA AND LATERAL 2 VW Routine 10/27/2024 3:04 PM CDT NSTEMI (non-ST elevated myocardial infarction) (CMS/HCC) TELEMETRY REPORT 10/20/2024 5:54 PM CDT TELEMETRY REPORT 10/12/2024 1:08 PM CDT PHOSPHORUS Routine 10/12/2024 2:18 AM CDT MAGNESIUM LEVEL Routine 10/12/2024 2:18 AM CDT CBC WITHOUT DIFFERENTIAL Routine 10/12/2024 2:18 AM CDT BASIC METABOLIC PANEL Routine 10/12/2024 2:18 AM CDT TELEMETRY REPORT 10/11/2024 4:10 PM CDT TELEMETRY REPORT 10/11/2024 12:02 PM CDT T4 FREE Routine 10/11/2024 1:53 AM CDT PHOSPHORUS Routine 10/11/2024 1:53 AM CDT MAGNESIUM LEVEL Routine 10/11/2024 1:53 AM CDT CBC WITHOUT DIFFERENTIAL Routine 10/11/2024 1:53 AM CDT BASIC METABOLIC PANEL Routine 10/11/2024 1:53 AM CDT TELEMETRY REPORT 10/10/2024 10:15 PM CDT XR CHEST PA OR AP 1 VW Stat 2:47 PM CDT ECHO LIMITED WO DOPPLER Routine 10/11/19 1:50 PM CDT CYTOLOGY, NON GYNE Pathology 10/10/2024 12:11 PM CDT LACTATE DEHYDROGENASE, BODY FLUID Routine 10/10/2024 12:11 PM CDT PROTEIN, BODY FLUID Routine 10/10/2024 12:11 PM CDT CELL COUNT WITH DIFFERENTIAL, BODY FLUID Routine 10/10/2024 12:11 PM CDT ANAEROBIC/AEROBIC CULTURE W GRAM STAIN Routine 10/10/2024 12:11 PM CDT TSH Routine 10/10/2024 10:23 AM CDT PROTEIN TOTAL Routine 10/10/2024 10:23 AM CDT LACTATE DEHYDROGENASE Routine 10/10/2024 10:23 AM CDT UNFRACTIONATED HEPARIN ACTIVITY Timed Study 10/10/2024 5:40 AM CDT PTT Stat 10/10/2024 5:40 AM CDT PHOSPHORUS Routine 10/10/2024 2:18 AM CDT MAGNESIUM LEVEL Routine 10/10/2024 2:18 AM CDT CBC WITHOUT DIFFERENTIAL Routine 10/10/2024 2:18 AM CDT BASIC METABOLIC PANEL Routine 10/10/2024 2:18 AM CDT CTA CHEST W AND/OR WO CONTRAST Routine 10/09/2024 3:13 PM CDT PTT Routine 10/09/2024 2:40 PM CDT XR CHEST PA OR AP 1 VW Routine 9:01 AM CDT TROPONIN 6 HR, 5TH GEN Timed Study 8:40 AM CDT UNFRACTIONATED HEPARIN ACTIVITY Stat 10/09/2024 6:42 AM CDT PTT Routine 10/09/2024 6:42 AM CDT BRAIN NATRIURETIC PEPTIDE, BNP OR PROBNP Routine 10/09/2024 6:41 AM CDT CBC WITHOUT DIFFERENTIAL Routine 10/09/2024 6:41 AM CDT TROPONIN 2 HR, 5TH GEN Timed Study 6:41 AM CDT BASIC METABOLIC PANEL Stat 10/09/2024 2:46 AM CDT MAGNESIUM LEVEL Stat 10/09/2024 2:46 AM CDT TROPONIN BASELINE, 5TH GEN Stat 10/09/2024 2:46 AM CDT EKG 12-LEAD Stat 10/09/2024 1:50 AM CDT POC GLUCOSE Routine 10/07/2024 7:51 AM CDT BASIC METABOLIC PANEL Routine 10/06/2024 1:11 AM CDT CBC WITHOUT DIFFERENTIAL Routine 10/06/2024 1:11 AM CDT POC GLUCOSE Routine 10/06/2024 12:42 AM CDT POC GLUCOSE Routine 10/05/2024 9:36 PM CDT XR VIDEO SWALLOW W SPEECH Routine 10/05/2024 2:[address] UROGRAPHY Routine 10/05/2024 11:02 AM CDT POC GLUCOSE Routine 10/05/2024 7:53 AM CDT POC GLUCOSE Routine 10/04/2024 6:18 PM CDT ECHO LIMITED W CONTRAST AND WO DOPPLER AND COLOR Routine 10/04/2024 4:04 PM CDT POC GLUCOSE Routine 10/04/2024 1:02 PM CDT XR CHEST PA OR AP 1 VW Stat 11:01 AM CDT POC GLUCOSE Routine 10/04/2024 8:03 AM CDT BASIC METABOLIC PANEL Routine 10/04/2024 3:13 AM CDT POC GLUCOSE Routine 10/03/2024 8:36 PM CDT POC GLUCOSE Routine 10/03/2024 4:38 PM CDT POC GLUCOSE Routine 10/03/2024 12:31 PM CDT EKG 12-LEAD Stat 10/03/2024 8:56 AM CDT POC GLUCOSE Routine 10/03/2024 8:20 AM CDT BASIC METABOLIC PANEL Routine 10/03/2024 5:18 AM CDT MAGNESIUM LEVEL Routine 10/03/2024 12:05 AM CDT BASIC METABOLIC PANEL Routine 10/03/2024 12:05 AM CDT POC GLUCOSE Routine 10/02/2024 8:03 PM CDT POC GLUCOSE Routine 10/02/2024 5:03 PM CDT POC GLUCOSE Routine 10/02/2024 12:35 PM CDT POC GLUCOSE Routine 10/02/2024 8:33 AM CDT POC GLUCOSE Routine 10/02/2024 8:31 AM CDT COMPREHENSIVE METABOLIC PANEL Routine 10/02/2024 4:28 AM CDT POC GLUCOSE Routine 10/01/2024 7:58 PM CDT POC GLUCOSE Routine 10/01/2024 5:48 PM CDT POC GLUCOSE Routine 10/01/2024 12:27 PM CDT POC GLUCOSE Routine 10/01/2024 8:37 AM CDT DIFFERENTIAL, MANUAL Routine 10/01/2024 4:53 AM CDT BASIC METABOLIC PANEL Routine 10/01/2024 4:53 AM CDT CBC WITH DIFFERENTIAL Routine 10/01/2024 4:53 AM CDT POC GLUCOSE Routine 09/30/2024 9:50 PM CDT POC GLUCOSE Routine 09/30/2024 9:25 PM CDT POC GLUCOSE Routine 09/30/2024 5:58 PM CDT POC GLUCOSE Routine 09/30/2024 12:40 PM CDT POC GLUCOSE Routine 09/30/2024 10:22 AM CDT XR CHEST PA OR AP 1 VW Routine 5:32 AM CDT DIFFERENTIAL, MANUAL Routine 09/30/2024 3:38 AM CDT COMPREHENSIVE METABOLIC PANEL Routine 09/30/2024 3:38 AM CDT CBC WITH DIFFERENTIAL Routine 09/30/2024 3:38 AM CDT POC GLUCOSE Routine 09/29/2024 9:56 PM CDT POC GLUCOSE Routine 09/29/2024 5:26 PM CDT BASIC METABOLIC PANEL Routine 09/29/2024 2:58 PM CDT POC GLUCOSE Routine 09/29/2024 12:24 PM CDT POC LACTIC ACID Routine 09/29/2024 12:16 PM CDT OXIMETRY Routine 09/29/2024 12:16 PM CDT METHEMOGLOBIN QUANTITATIVE Routine 09/29/2024 12:16 PM CDT CARBOXYHEMOGLOBIN Routine 09/29/2024 12:16 PM CDT BLOOD GAS,(INCL. H+H, LYTES, GLUC) Routine 09/29/2024 12:16 PM CDT POC GLUCOSE Routine 09/29/2024 9:02 AM CDT XR CHEST PA OR AP 1 VW Stat 5:08 AM CDT DIFFERENTIAL, MANUAL Stat 09/29/2024 3:58 AM CDT CBC WITH DIFFERENTIAL Stat 09/29/2024 3:58 AM CDT BASIC METABOLIC PANEL Routine 09/29/2024 3:58 AM CDT POC LACTIC ACID Routine 09/29/2024 3:40 AM CDT BLOOD GAS,(INCL. H+H, LYTES, GLUC) Routine 09/29/2024 3:40 AM CDT POC GLUCOSE Routine 09/28/2024 9:59 PM CDT COMPREHENSIVE METABOLIC PANEL Stat 09/28/2024 6:36 PM CDT URINE CULTURE Routine 09/28/2024 6:17 PM CDT POC GLUCOSE Routine 09/28/2024 3:34 PM CDT ECHO LIMITED W CONTRAST Stat 09/29/19 2:59 PM CDT XR CHEST PA OR AP 1 VW Stat 2:39 PM CDT POC LACTIC ACID Routine 09/28/2024 2:09 PM CDT BLOOD GAS ARTERIAL Stat 09/28/2024 2: 09 PM CDT BLOOD CULTURE Routine 09/28/2024 1:57 PM CDT BLOOD CULTURE Routine 09/28/2024 1:57 PM CDT BASIC METABOLIC PANEL Stat 09/28/2024 1:50 PM CDT MAGNESIUM LEVEL Routine 09/28/2024 1:50 PM CDT EKG 12-LEAD Stat 09/28/2024 1:14 PM CDT POC GLUCOSE Routine 09/28/2024 11:34 AM CDT POC GLUCOSE Routine 09/28/2024 7:34 AM CDT BLOOD CULTURE Routine 09/28/2024 5:55 AM CDT BLOOD CULTURE Routine 09/28/2024 5:55 AM CDT URINALYSIS W/REFLEX MICROSCOPIC Routine 09/28/2024 5:22 AM CDT LACTIC ACID Stat 09/28/2024 5:18 AM CDT BASIC METABOLIC PANEL Routine 09/28/2024 5:18 AM CDT CBC WITH DIFFERENTIAL Routine 09/28/2024 5:18 AM CDT MAGNESIUM LEVEL Stat 09/27/2024 11:04 PM CDT BASIC METABOLIC PANEL Stat 09/27/2024 11:04 PM CDT POC GLUCOSE Routine 09/27/2024 9:20 PM CDT POC GLUCOSE Routine 09/27/2024 4:27 PM CDT DIFFERENTIAL, MANUAL Routine 09/27/2024 12:59 PM CDT CBC WITH DIFFERENTIAL Routine 09/27/2024 12:59 PM CDT POC GLUCOSE Routine 09/27/2024 12:09 PM CDT POC GLUCOSE Routine 09/27/2024 7:16 AM CDT XR CHEST PA OR AP 1 VW Routine 6:40 AM CDT POC GLUCOSE Routine 09/27/2024 6:08 AM CDT POC GLUCOSE Routine 09/27/2024 5:03 AM CDT DIFFERENTIAL, MANUAL Routine 09/27/2024 4:38 AM CDT COMPREHENSIVE METABOLIC PANEL Routine 09/27/2024 4:38 AM CDT CBC WITH DIFFERENTIAL Routine 09/27/2024 4:38 AM CDT POC GLUCOSE Routine 09/27/2024 4:11 AM CDT POC GLUCOSE Routine 09/27/2024 3:06 AM CDT POC GLUCOSE Routine 09/27/2024 2:09 AM CDT POC GLUCOSE Routine 09/27/2024 1:15 AM CDT POC GLUCOSE Routine 09/27/2024 12:09 AM CDT POC GLUCOSE Routine 09/26/2024 11:04 PM CDT POC GLUCOSE Routine 09/26/2024 10:15 PM CDT POC GLUCOSE Routine 09/26/2024 9:09 PM CDT EXTUBATION Routine 09/26/2024 8:35 PM CDT POC GLUCOSE Routine 09/26/2024 8:03 PM CDT BLOOD GAS ARTERIAL Routine 09/26/2024 7: 57 PM CDT POC GLUCOSE Routine 09/26/2024 6:58 PM CDT POC GLUCOSE Routine 09/26/2024 6:39 PM CDT XR CHEST PA OR AP 1 VW Stat 5:08 PM CDT POC LACTIC ACID Routine 09/26/2024 5:03 PM CDT OXIMETRY Routine 09/26/2024 5:03 PM CDT METHEMOGLOBIN QUANTITATIVE Routine 09/26/2024 5:03 PM CDT CARBOXYHEMOGLOBIN Routine 09/26/2024 5:0 3 PM CDT BLOOD GAS,(INCL. H+H, LYTES, GLUC) Routine 09/26/2024 5:03 PM CDT DIFFERENTIAL, MANUAL Stat 09/26/2024 4:59 PM CDT COMPREHENSIVE METABOLIC PANEL Stat 09/26/2024 4:59 PM CDT PROTIME-INR Stat 09/26/2024 4:59 PM CDT PTT Stat 09/26/2024 4:59 PM CDT CBC WITH DIFFERENTIAL Stat 09/26/2024 4:59 PM CDT MAGNESIUM LEVEL Stat 09/26/2024 4:59 PM CDT POC GLUCOSE Routine 09/26/2024 4:57 PM CDT POC HEPARIN PROTAMINE TITRATION Routine 09/26/2024 4:18 PM CDT POC HIGH RANGE ACTIVATED CLOTTING TIME Routine 09/26/2024 4:18 PM CDT POC LACTIC ACID Routine 09/26/2024 4:17 PM CDT BLOOD GAS,(INCL. H+H, LYTES, GLUC) Routine 09/26/2024 4:17 PM CDT POC TEG STANDARD A Routine 09/26/2024 3: 54 PM CDT POC HEPARIN PROTAMINE TITRATION Routine 09/26/2024 3:50 PM CDT POC HIGH RANGE ACTIVATED CLOTTING TIME Routine 09/26/2024 3:50 PM CDT POC LACTIC ACID Routine 09/26/2024 3:49 PM CDT BLOOD GAS,(INCL. H+H, LYTES, GLUC) Routine 09/26/2024 3:49 PM CDT POC HEPARIN PROTAMINE TITRATION Routine 09/26/2024 3:25 PM CDT POC HIGH RANGE ACTIVATED CLOTTING TIME Routine 09/26/2024 3:25 PM CDT POC LACTIC ACID Routine 09/26/2024 3:23 PM CDT BLOOD GAS,(INCL. H+H, LYTES, GLUC) Routine 09/26/2024 3:23 PM CDT POC HEPARIN PROTAMINE TITRATION Routine 09/26/2024 3:04 PM CDT POC HIGH RANGE ACTIVATED CLOTTING TIME Routine 09/26/2024 3:04 PM CDT POC LACTIC ACID Routine 09/26/2024 3:02 PM CDT BLOOD GAS,(INCL. H+H, LYTES, GLUC) Routine 09/26/2024 3:02 PM CDT POC HEPARIN PROTAMINE TITRATION Routine 09/26/2024 2:28 PM CDT POC HIGH RANGE ACTIVATED CLOTTING TIME Routine 09/26/2024 2:28 PM CDT POC LACTIC ACID Routine 09/26/2024 2:26 PM CDT BLOOD GAS,(INCL. H+H, LYTES, GLUC) Routine 09/26/2024 2:26 PM CDT POC LACTIC ACID Routine 09/26/2024 1:58 PM CDT BLOOD GAS,(INCL. H+H, LYTES, GLUC) Routine 09/26/2024 1:58 PM CDT POC HEPARIN PROTAMINE TITRATION Routine 09/26/2024 1:48 PM CDT POC HIGH RANGE ACTIVATED CLOTTING TIME Routine 09/26/2024 1:48 PM CDT POC LACTIC ACID Routine 09/26/2024 1:46 PM CDT BLOOD GAS,(INCL. H+H, LYTES, GLUC) Routine 09/26/2024 1:46 PM CDT POC HEPARIN PROTAMINE TITRATION Routine 09/26/2024 1:26 PM CDT POC HIGH RANGE ACTIVATED CLOTTING TIME Routine 09/26/2024 1:26 PM CDT POC LACTIC ACID Routine 09/26/2024 1:24 PM CDT BLOOD GAS,(INCL. H+H, LYTES, GLUC) Routine 09/26/2024 1:24 PM CDT MD ECHO TRANSESOPHAG R-T 2D W/PRB IMG ACQUISJ I&R Routine 09/26/2024 12:39 PM CDT MD ANES INSERT CATH, ART, PERCUT, SHORTTERM Routine 09/26/2024 12:25 PM CDT CENTRAL LINE ADULT QUAD LUMEN Routine 09/26/2024 12:25 PM CDT MD ANES INSERT TUNNELED CV CATH W/O PORT OR PUMP Routine 09/26/2024 12:25 PM CDT TRANSFUSE PACKED RED BLOOD CELLS Routine 09/26/2024 12:14 PM CDT POC TEG STANDARD A Routine 09/26/2024 12:07 PM CDT POC LACTIC ACID Routine 09/26/2024 12:05 PM CDT BLOOD GAS,(INCL. H+H, LYTES, GLUC) Routine 09/26/2024 12:05 PM CDT TRANSFUSE PACKED RED BLOOD CELLS Routine 09/26/2024 11:59 AM CDT POC HEPARIN DOSE RESPONSE Routine 09/26/2024 11:58 AM CDT POC LACTIC ACID Routine 09/26/2024 11:57 AM CDT BLOOD GAS,(INCL. H+H, LYTES, GLUC) Routine 09/26/2024 11:57 AM CDT TRANSESOPHAGEAL ECHOCARDIOGRAM 09/26/2024 11:45 AM CDT Coronary artery disease involving [place] coronary artery of [place] heart, unspecified whether angina present MD COMPRE EP EVAL ABLTJ ATR FIB PULM VEIN ISOLATION 09/26/2024 11:45 AM CDT Coronary artery disease involving [place] coronary artery of [place] heart, unspecified whether angina present ATRIAL APPENDAGE EXCLUSION LEFT WITH CLIP 09/26/2024 11:45 AM CDT Coronary artery disease involving [place] coronary artery of [place] heart, unspecified whether angina present MD INCISION DEEP OPENING BONE CORTEX THORAX 09/26/2024 11:45 AM CDT Coronary artery disease involving [place] coronary artery of [place] heart, unspecified whether angina present VEIN HARVEST ENDOSCOPIC 09/27/19 11:45 AM CDT Coronary artery disease involving [place] coronary artery of [place] heart, unspecified whether angina present CORONARY ARTERY BYPASS GRAFT WITH KOBY 09/26/2024 11:45 AM CDT Coronary artery disease involving [place] coronary artery of [place] heart, unspecified whether angina present MD ANES INSERT ENDOTRACHEAL AIRWAY Routine 09/26/2024 11:24 AM CDT MD ANES INSERT CATH, ART, PERCUT, SHORTTERM Routine 09/26/2024 11:14 AM CDT POC LACTIC ACID Routine 09/26/2024 11:04 AM CDT BLOOD GAS,(INCL. H+H, LYTES, GLUC) Routine 09/26/2024 11:04 AM CDT PREPARE RED BLOOD CELLS Routine 09/27/19 9:04 AM CDT PREPARE RED BLOOD CELLS Routine 09/27/19 9:04 AM CDT PREPARE RED BLOOD CELLS Routine 09/27/19 9:04 AM CDT PREPARE RED BLOOD CELLS Routine 09/27/19 9:04 AM CDT US GUIDE NEEDLE PLACEMENT Routine 09/26/2024 8:26 AM CDT POC GLUCOSE Routine 09/26/2024 8:14 AM CDT POC GLUCOSE Routine 09/26/2024 5:01 AM CDT PTT Routine 09/26/2024 3:36 AM CDT PHOSPHORUS Routine 09/26/2024 3:36 AM CDT MAGNESIUM LEVEL Routine 09/26/2024 3:36 AM CDT COMPREHENSIVE METABOLIC PANEL Routine 09/26/2024 3:36 AM CDT CBC WITH DIFFERENTIAL Routine 09/26/2024 3:36 AM CDT PREPARE RED BLOOD CELLS Routine 09/27/19 2:58 AM CDT PREPARE RED BLOOD CELLS Routine 09/27/19 2:58 AM CDT PREPARE RED BLOOD CELLS Routine 09/27/19 2:58 AM CDT PREPARE RED BLOOD CELLS Routine 09/27/19 2:58 AM CDT PREPARE RED BLOOD CELLS Routine 09/27/19 2:58 AM CDT PREPARE RED BLOOD CELLS Routine 09/27/19 2:58 AM CDT CVOR TRANSESOPHAGEAL STUDY Routine 09/26/2024 2:58 AM CDT TYPE AND SCREEN Routine 09/26/2024 12:44 AM CDT POC GLUCOSE Routine 09/26/2024 12:29 AM CDT PREPARE RED BLOOD CELLS Routine 09/26/19 10:24 PM CDT PREPARE RED BLOOD CELLS Routine 09/26/19 10:24 PM CDT PTT Routine 09/25/2024 7:32 PM CDT PTT Routine 09/25/2024 1:28 PM CDT PTT Routine 09/25/2024 5:23 AM CDT EKG 12-LEAD Routine 09/24/2024 10:02 AM CDT PTT Routine 09/24/2024 6:16 AM CDT PHOSPHORUS Routine 09/24/2024 6:16 AM CDT MAGNESIUM LEVEL Routine 09/24/2024 6:16 AM CDT COMPREHENSIVE METABOLIC PANEL Routine 09/24/2024 6:16 AM CDT CBC WITH DIFFERENTIAL Routine 09/24/2024 6:16 AM CDT TROPONIN 6 HR, 5TH GEN Timed Study 2:34 PM CDT DRUG SCREEN, URINE Routine 09/23/2024 1: 14 PM CDT URINALYSIS W/REFLEX MICROSCOPIC Routine 09/23/2024 1:14 PM CDT ECHO LIMITED W CONTRAST Stat 09/24/19 11:11 AM CDT TROPONIN 2 HR, 5TH GEN Timed Study 10:59 AM CDT VERIFICATION BLOOD GROUP Stat 09/23/2024 9:54 AM CDT Encounter for blood typing TYPE AND SCREEN Routine 09/23/2024 8:52 AM CDT BRAIN NATRIURETIC PEPTIDE, BNP OR PROBNP Stat 09/23/2024 8:52 AM CDT TROPONIN BASELINE, 5TH GEN Stat 09/23/2024 8:52 AM CDT LACTIC ACID Stat 09/23/2024 8:52 AM CDT COMPREHENSIVE METABOLIC PANEL Stat 09/23/2024 8:52 AM CDT CBC WITH DIFFERENTIAL Stat 09/23/2024 8:52 AM CDT PTT Timed Study 09/23/2024 8:52 AM CDT BLOOD GAS ARTERIAL Timed Study 09/23/2024 5: 59 AM CDT XR CHEST PA OR AP 1 VW Stat 4:46 AM CDT POC BLOOD GAS AND LACTIC ACID Routine 09/23/2024 4:24 AM CDT POC GLUCOSE Routine 09/23/2024 4:21 AM CDT EKG 12-LEAD Routine 09/23/2024 4:20 AM CDT PTT Routine 09/22/2024 9:08 PM CDT PTT Timed Study 09/22/2024 12:23 PM CDT PTT Timed Study 09/22/2024 1:49 AM CDT COMPREHENSIVE METABOLIC PANEL Routine 09/22/2024 1:49 AM CDT PHOSPHORUS Routine 09/22/2024 1:49 AM CDT MAGNESIUM LEVEL Routine 09/22/2024 1:49 AM CDT CBC WITH DIFFERENTIAL Routine 09/22/2024 1:49 AM CDT PTT Timed Study 09/22/2024 1:49 AM CDT PTT Timed Study 09/21/2024 5:06 PM CDT PTT Timed Study 09/21/2024 10:54 AM CDT PTT Timed Study 09/21/2024 1:52 AM CDT COMPREHENSIVE METABOLIC PANEL Routine 09/21/2024 1:52 AM CDT PHOSPHORUS Routine 09/21/2024 1:52 AM CDT MAGNESIUM LEVEL Routine 09/21/2024 1:52 AM CDT CBC WITH DIFFERENTIAL Routine 09/21/2024 1:52 AM CDT PTT Routine 09/20/2024 11:05 PM CDT US RADIAL ARTERY IMAGING BILATERAL Pending Discharge 09/20/2024 4:03 PM CDT US ELA DOPPLER MAPPING LEGS BILAT Pending Discharge 09/20/2024 4:02 PM CDT US CAROTID DOPPLER Pending Discharge 09/20/2024 4:02 PM CDT PULMONARY FUNCTION TEST Pending Discharge 09/20/2024 12:42 PM CDT LEFT HEART CATH Routine 09/20/2024 8:56 AM CDT NSTEMI (non-ST elevated myocardial infarction) (CMS/HCC) PROTIME-INR Routine 09/20/2024 5:52 AM CDT VITAMIN B12 AND FOLATE Routine 5:52 AM CDT C-REACTIVE PROTEIN Routine 09/20/2024 5: 52 AM CDT PTT Timed Study 09/20/2024 5:52 AM CDT COMPREHENSIVE METABOLIC PANEL Routine 09/20/2024 5:52 AM CDT PHOSPHORUS Routine 09/20/2024 5:52 AM CDT MAGNESIUM LEVEL Routine 09/20/2024 5:52 AM CDT HEMOGLOBIN A1C Routine 09/20/2024 5:51 AM CDT CBC WITH DIFFERENTIAL Routine 09/20/2024 5:51 AM CDT FERRITIN Routine 09/19/2024 5:04 AM CDT IRON, TIBC, AND PERCENT SATURATION Routine 09/19/2024 5:04 AM CDT PTT Timed Study 09/19/2024 5:04 AM CDT COMPREHENSIVE METABOLIC PANEL Routine 09/19/2024 5:04 AM CDT PHOSPHORUS Routine 09/19/2024 5:04 AM CDT MAGNESIUM LEVEL Routine 09/19/2024 5:04 AM CDT CBC WITH DIFFERENTIAL Routine 09/19/2024 5:04 AM CDT XR CHEST PA OR AP 1 VW Stat 7:23 PM CDT XR ABDOMEN 1 VW Stat 09/18/2024 7:23 PM CDT EKG 12-LEAD Stat 09/18/2024 4:50 PM CDT C-REACTIVE PROTEIN Routine 09/18/2024 5: 52 AM CDT PTT Timed Study 09/18/2024 5:52 AM CDT COMPREHENSIVE METABOLIC PANEL Routine 09/18/2024 5:52 AM CDT PHOSPHORUS Routine 09/18/2024 5:52 AM CDT MAGNESIUM LEVEL Routine 09/18/2024 5:52 AM CDT CBC WITH DIFFERENTIAL Routine 09/18/2024 5:52 AM CDT URINALYSIS W/REFLEX MICROSCOPIC Stat 09/18/2024 1:53 AM CDT URINE CULTURE Routine 09/18/2024 1:53 AM CDT PTT Timed Study 09/17/2024 1:42 PM CDT PTT Timed Study 09/17/2024 8:08 AM CDT COMPREHENSIVE METABOLIC PANEL Routine 09/17/2024 7:11 AM CDT PHOSPHORUS Routine 09/17/2024 7:11 AM CDT MAGNESIUM LEVEL Routine 09/17/2024 7:11 AM CDT CBC WITH DIFFERENTIAL Routine 09/17/2024 7:11 AM CDT PTT Timed Study 09/16/2024 11:47 PM CDT PTT Timed Study 09/16/2024 4:18 PM CDT POC GLUCOSE Routine 09/16/2024 12:07 PM CDT POC GLUCOSE Routine 09/16/2024 8:28 AM CDT PTT Timed Study 09/16/2024 7:50 AM CDT COMPREHENSIVE METABOLIC PANEL Routine 09/16/2024 5:15 AM CDT PHOSPHORUS Routine 09/16/2024 5:15 AM CDT MAGNESIUM LEVEL Routine 09/16/2024 5:15 AM CDT CBC WITH DIFFERENTIAL Routine 09/16/2024 5:15 AM CDT POC GLUCOSE Routine 09/16/2024 4:50 AM CDT POC GLUCOSE Routine 09/16/2024 12:55 AM CDT PTT Timed Study 09/15/2024 11:29 PM CDT POC GLUCOSE Routine 09/15/2024 8:49 PM CDT POC GLUCOSE Routine 09/15/2024 5:24 PM CDT PTT Timed Study 09/15/2024 4:52 PM CDT POC GLUCOSE Routine 09/15/2024 1:24 PM CDT XR SHOULDER 2+ VW LEFT Routine 10:54 AM CDT LACTIC ACID Timed Study 09/15/2024 9:40 AM CDT PTT Timed Study 09/15/2024 9:40 AM CDT POC GLUCOSE Routine 09/15/2024 7:58 AM CDT PHOSPHORUS Routine 09/15/2024 7:07 AM CDT TROPONIN 6 HR, 5TH GEN Timed Study 7:07 AM CDT MAGNESIUM LEVEL Routine 09/15/2024 7:07 AM CDT BASIC METABOLIC PANEL Routine 09/15/2024 7:07 AM CDT POC GLUCOSE Routine 09/15/2024 4:56 AM CDT TROPONIN 2 HR, 5TH GEN Timed Study 3:07 AM CDT LACTIC ACID Timed Study 09/15/2024 2:58 AM CDT CBC WITH DIFFERENTIAL Routine 09/15/2024 2:14 AM CDT PTT Timed Study 09/15/2024 2:14 AM CDT POC GLUCOSE Routine 09/15/2024 2:08 AM CDT XR CHEST PA OR AP 1 VW Stat 1:56 AM CDT MAGNESIUM LEVEL Routine 09/15/2024 1:25 AM CDT TROPONIN BASELINE, 5TH GEN Timed Study 09/15/2024 1:25 AM CDT DRUG SCREEN, URINE Routine 09/15/2024 1: 12 AM CDT EKG 12-LEAD Stat 09/15/2024 1:04 AM CDT EKG 12-LEAD Stat 09/15/2024 12:56 AM CDT POC GLUCOSE Routine 09/15/2024 12:06 AM CDT LACTIC ACID Timed Study 09/14/2024 8:20 PM CDT PTT Routine 09/14/2024 8:20 PM CDT POC GLUCOSE Routine 09/14/2024 5:32 PM CDT LACTIC ACID Timed Study 09/14/2024 4:41 PM CDT PTT Routine 09/14/2024 12:32 PM CDT TROPONIN 6 HR, 5TH GEN Timed Study 12:32 PM CDT LACTIC ACID Timed Study 09/14/2024 12:32 PM CDT LIPID PANEL Routine 09/14/2024 10:28 AM CDT TROPONIN 2 HR, 5TH GEN Timed Study 10:28 AM CDT ECHOCARDIOGRAM W/ CONTRAST AGENT Stat 09/14/2024 9:39 AM CDT CTA CHEST ABD PELVIS W WO CONTRAST Stat 09/14/2024 8:37 AM CDT BRAIN NATRIURETIC PEPTIDE, BNP OR PROBNP Routine 09/14/2024 6:54 AM CDT LIPASE Routine 09/14/2024 6:54 AM CDT EXTRA TUBE (GREEN) Routine 09/14/2024 6: 54 AM CDT EXTRA TUBE Routine 09/14/2024 6:54 AM CDT PTT Routine 09/14/2024 6:54 AM CDT TROPONIN BASELINE, 5TH GEN Stat 09/14/2024 6:54 AM CDT MAGNESIUM LEVEL Routine 09/14/2024 6:54 AM CDT LACTIC ACID Stat 09/14/2024 6:54 AM CDT COMPREHENSIVE METABOLIC PANEL Stat 09/14/2024 6:54 AM CDT CBC WITHOUT DIFFERENTIAL Stat 09/14/2024 6:54 AM CDT EKG 12-LEAD Routine 09/14/2024 6:18 AM CDT from Last 3 Months Results * XR CHEST PA AND LATERAL 2 VW (10/27/2024 3:04 PM CDT) Anatomical Region Laterality Modality Chest Computed Radiogr aphy 10/27/2024 3:05 PM CDT Impressions 10/27/2024 3:13 PM CDT IMPRESSION: Pulmonary vascular congestion and possible mild interstitial pulmonary edema. DICTATION LOCATION: Location 4 Narrative 10/27/2024 3:13 PM CDT EXAMINATION: PA and lateral chest radiograph DATE: 10/27/2024 3:04 PM. HISTORY: Non-ST elevation myocardial infarction. COMPARISON: Chest radiograph from 10/10/[address] from 10/09/2024. FINDINGS: There are median sternotomy wires and there is a left atrial appendage clip. There is pulmonary vascular congestion and there is mild bilateral interstitial prominence. There is no evidence of a pleural effusion or pneumothorax. The cardiomediastinal silhouette is stable. There is atherosclerotic calcification of the thoracic aorta. There is no evidence of an acute osseous abnormality. Procedure Note Abraham Belcher MD - 10/27/2024 EXAMINATION: PA and lateral chest radiograph DATE: 10/27/2024 3:04 PM. HISTORY: Non-ST elevation myocardial infarction. COMPARISON: Chest radiograph from 10/10/[address] from 10/09/2024. FINDINGS: There are median sternotomy wires and there is a left atrial appendage clip. There is pulmonary vascular congestion and there is mild bilateral interstitial prominence. There is no evidence of a pleural effusion or pneumothorax. The cardiomediastinal silhouette is stable. There is atherosclerotic calcification of the thoracic aorta. There is no evidence of an acute osseous abnormality. IMPRESSION: Pulmonary vascular congestion and possible mild interstitial pulmonary edema. DICTATION LOCATION: Location 4 Josiah Rohit Peoples MD DIAGNOSTIC IMAGING ORDERAB LES Final Result * TELEMETRY REPORT (10/20/2024 5:54 PM CDT) Only the most recent of5 resultswithin the time period is included. Provider Scanning ECG ORDERABLES Final Result * (ABNORMAL) CBC WITHOUT DIFFERENTIAL (10/12/2024 2:18 AM CDT) Only the most recent of6 resultswithin the time period is included. WBC 13.2(H) 4.0 - 9.8 K/uL 10/12/2024 3:14 AM CDT [facility] RBC 3.34(L) 4.50 - 5.40 M/uL 10/12/2024 3:14 AM CDT [facility] HEMOGLOBIN 10.7(L) 13.6 - 16.5 g/dL 10/12/2024 3:14 AM CDT [facility] HEMATOCRIT 33.4(L) 40.0 - 48.0 % 10/12/2024 3:14 AM CDT [facility] MCV 100.0(H) 82.0 - 99.0 fL 10/12/2024 3:14 AM CDT [facility] MCH 32.0 27.2 - 32.6 pg 10/12/2024 3:14 AM CDT [facility] MCHC 32.0 31.5 - 35.5 g/dL 10/12/2024 3:14 AM CDT [facility] PLATELETS 522(H) 140 - 350 K/uL 10/12/2024 3:14 AM CDT [facility] MPV 10.7 9.3 - 12.4 fL 10/12/2024 3:14 AM CDT [facility] RDW 16.1(H) 11.5 - 14.5 % 10/12/2024 3:14 AM CDT [facility] RDW-STDEV 58.4(H) 37.1 - 48.7 fL 10/12/2024 3:14 AM CDT [facility] Blood Venipuncture / Unknown 10/12/2024 2:18 AM CDT 10/12/2024 2:54 AM CDT Veronica Ware DO HEMATOLOGY ORDERABLES Final Re sult Performing Organization Address City/[facility]/ZIP Co de Phone Number [facility] [id number] [address] [place] [address] * PHOSPHORUS (10/12/2024 2:18 AM CDT) Only the most recent of13 resultswithin the time period is included. PHOSPHORUS 4.0 2.5 - 4.5 mg/dL 10/12/2024 3:32 AM CDT [facility] Blood Venipuncture / Unknown 10/12/2024 2:18 AM CDT 10/12/2024 2:54 AM CDT Veronica Ware DO CHEMISTRY ORDERABLES Final Res ult Performing Organization Address [facility] de Phone Number [facility]# [id number] [address] [place] [address] * MAGNESIUM LEVEL (10/12/2024 2:18 AM CDT) Only the most recent of20 resultswithin the time period is included. MAGNESIUM 2.2 1.6 - 2.4 mg/dL 10/12/2024 3:32 AM CDT [facility] Blood Venipuncture / Unknown 10/12/2024 2:18 AM CDT 10/12/2024 2:54 AM CDT Veronica Ware DO CHEMISTRY ORDERABLES Final Res ult Performing Organization Address [facility] Co de Phone Number [facility] [id number] [address] [place] [address] * (ABNORMAL) BASIC METABOLIC PANEL (10/12/2024 2:18 AM CDT) Only the most recent of15 resultswithin the time period is included. Pathologist [facility] SODIUM 137 136 - 145 mmol/L 10/12/2024 3:32 AM T [facility] POTASSIUM 4.2 3.5 - 5.0 mmol/L 10/12/2024 3:32 AM T [facility] CHLORIDE 100 98 - 107 mmol/L 10/12/2024 3:32 AM T [facility] CO2 27 22 - 29 mmol/L 10/12/2024 3:32 AM T [facility] CALCIUM 8.9 8.6 - 10.2 mg/dL 10/12/2024 3:32 AM T [facility] BUN 20 8 - 23 mg/dL 10/12/2024 3:32 AM [facility] CREATININE 0.82 0.67 - 1.17 mg/dL 10/12/2024 3:32 AM [facility] GLUCOSE 112(H) 74 - 99 mg/dL 10/12/2024 3:32 AM T [facility] GFR >60 >=60 mL/min/1.7 3 sq meter 10/12/2024 3:32 AM [facility] Comment:eGFR calculated with 2020 CKD-EPI equation. Vegetarian diet, extremely high or low muscle mass, and may affect results. Cystatin C with Glomerular Filtration Rate is a suitable alternative for these patients. ANION GAP 10 8 - 16 mmol/L 10/12/2024 3:32 AM [facility] Blood Venipuncture / Unknown 10/12/2024 2:18 AM CDT 10/12/2024 2:54 AM CDT us Veronica Ware DO CHEMISTRY ORDERABLES Final Res ult [facility] CLIA# [id number] [address] [facility] [place] [address] * T4 FREE (10/11/2024 1:53 AM CDT) T4 FREE 1.37 0.90 - 1.70 ng/dL 10/11/2024 7:52 AM CDT [facility] [employer] [facility] Blood Venipuncture / Unknown 10/11/2024 1:53 AM CDT 10/11/2024 2:23 AM CDT Veronica Ware DO CHEMISTRY ORDERABLES Final Res ult [facility] [employer] [facility] CLIA# [id number] [address] [place] [address] * XR CHEST PA OR AP 1 VW (10/10/2024 2:47 PM CDT) Only the most recent of11 resultswithin the time period is included. Anatomical Region Laterality Modality Chest Computed Radiogr aphy 10/10/2024 2:48 PM CDT Impressions 10/10/2024 3:07 PM CDT IMPRESSION: Interval decrease left-sided effusion. No pneumothorax is seen. INCIDENTAL FINDINGS: None. DICTATION LOCATION: Location 4 Narrative 10/10/2024 3:07 PM CDT Single view chest INDICATION: Thoracentesis. AP upright chest compared to study from one day earlier. Heart and mediastinum are unchanged. There is decrease in the left-sided effusion. No pneumothorax. No change on the right. Procedure Note Rc Khan MD - 10/10/2024 Single view chest INDICATION: Thoracentesis. AP upright chest compared to study from one day earlier. Heart and mediastinum are unchanged. There is decrease in the left-sided effusion. No pneumothorax. No change on the right. IMPRESSION: Interval decrease left-sided effusion. No pneumothorax is seen. INCIDENTAL FINDINGS: None. DICTATION LOCATION: Location 4 James Sher MD DIAGNOSTIC IMAGING ORDERABLE S Final Result * ECHO LIMITED WO DOPPLER (10/10/2024 1:50 PM CDT) EJECTION FRACTION 66 INTERFACE SYSTEM 10/10/2024 1:40 PM CDT Narrative INTERFACE SYSTEM - 10/10/2024 2:[address] PM [address]T [address] [address] [email or web address] Transthoracic Echocardiogram Patient: Jaylan Melgoza Study ID: ECHO COMPLETE - Gender: M : 1960 Age: 64 Race: Height 188cm Study Date: 10/10/2024 Weight: 65.8kg Access. #: [id number] BP: *Referring Physician:* Veronica Ware *Ordering Physician:* Veronica Ware roving marker: Nurse: Indications: Limited study for LV function, pericardial effusion. STUDY CONCLUSIONS: SUMMARY: - Left ventricle: The cavity size was normal. Wall thickness was normal. Global systolic function is vigorous. The estimated ejection fraction is 65-70%. For Epic reporting: the left ventricular ejection fraction is 66% . The apical septal/apical anterior/LV apex are hypokinetic. Interventricular septum shows dyssynergy, consistent with previous thoracotomy, conduction delay or RV pacing. - Right ventricle: Not optimally evaluated on this limited study - Left atrium: The atrium is normal in size. - Pericardium: A small pericardial effusion is identified posterior to the heart. There is no evidence of hemodynamic compromise. Cardiac Anatomy: LEFT VENTRICLE: The cavity size was normal. Wall thickness was normal. Global systolic function is vigorous. The estimated ejection fraction is 65-70%. For Epic reporting: the left ventricular ejection fraction is 66% . The apical septal/apical anterior/LV apex are hypokinetic. Interventricular septum shows dyssynergy, consistent with previous thoracotomy, conduction delay or RV pacing. LEFT ATRIUM: The atrium is normal in size. RIGHT VENTRICLE: Not optimally evaluated on this limited study RIGHT ATRIUM: The atrium was normal in size. PERICARDIUM: A small pericardial effusion is identified posterior to the heart. There is no evidence of hemodynamic compromise. Measurements Left ventricle Value Ref 10/04/2024 IVS, ED, LAX (N) 1.0 cm 0.6 - 1.0 JINNY, LAX (L) 2.7 cm 4.2 - 5.8 JINNY/bsa, LAX (L) 1.4 cm/m^2 2.2 - 3.0 JINNY, LAX chord (L) 4.0 cm 4.2 - 5.8 ESD, LAX chord (N) 2.7 cm 2.5 - 4.0 JINNY/bsa, LAX chord (L) 2.1 cm/m^2 2.2 - 3.0 ESD/bsa, LAX chord (N) 1.4 cm/m^2 1.3 - 2.1 FS, LAX chord (N) 33 % 25 - 43 IVS, ED (N) 1.0 cm 0.6 - 1.0 PW, ED (H) 1.3 cm 0.6 - 1.0 EDV, 2-p (N) 141 ml 62 - 150 100 ESV, 2-p (N) 48 ml 21 - 61 62 EF, 2-p (N) 66 % 52 - 72 38 SV, 2-p 94 ml --------- 38 SV/bsa, 2-p 49.2 ml/m^2 --------- 19.7 Legend: (L) and (H) dexter values outside specified reference range. (N) danielson values inside specified reference range. Procedure data: Procedure information: A transthoracic echocardiogram was performed. Scanning was performed from the parasternal, apical, and subcostal acoustic windows. Transthoracic echocardiogram. Complete 2D, complete spectral Doppler, and color Doppler. Birthdate: Patient birthdate: 1960. Age: Patient is 64year(s) old. Sex: gender: male. Height: 188cm. 74in. Weight: 65.8kg. 145lb. Body mass index: 18.6kg/m^2. Body surface area: 1.9m^2. Study date: Study date: 10/10/2024. Study time: 01:40 PM. Prepared and Electronically Authenticated Raymond Cisse [id number] Procedure Note Raymond Cisse MD - 10/10/[address] [address] [email or web address] Transthoracic Echocardiogram Patient: Jaylan Melgoza Study ID: ECHO COMPLETE - Gender: M : 1960 Age: 64 Race: Height 188cm Study Date: 10/10/2024 Weight: 65.8kg Access. #: [id number] BP: *Referring Physician:* Veronica Ware *Ordering Physician:* Veronica Wrae roving marker: Nurse: Indications: Limited study for LV function, pericardial effusion. STUDY CONCLUSIONS: SUMMARY: - Left ventricle: The cavity size was normal. Wall thickness was normal. Global systolic function is vigorous. The estimated ejection fractionis 65-70%. For Epic reporting: the left ventricular ejection fraction is66% . The apical septal/apical anterior/LV apex are hypokinetic.Interventricular septum shows dyssynergy, consistent with previous thoracotomy,conduction delay or RV pacing. - Right ventricle: Not optimally evaluated on this limited study - Left atrium: The atrium is normal in size. - Pericardium: A small pericardial effusion is identified posterior tothe heart. There is no evidence of hemodynamic compromise. Cardiac Anatomy: LEFT VENTRICLE: The cavity size was normal. Wall thickness was normal.Global systolic function is vigorous. The estimated ejection fraction is 65-70%.For Epic reporting: the left ventricular ejection fraction is 66% . Theapical septal/apical anterior/LV apex are hypokinetic. Interventricular septumshows dyssynergy, consistent with previous thoracotomy, conduction delay or RV pacing. LEFT ATRIUM: The atrium is normal in size. RIGHT VENTRICLE: Not optimally evaluated on this limited study RIGHT ATRIUM: The atrium was normal in size. PERICARDIUM: A small pericardial effusion is identified posterior tothe heart. There is no evidence of hemodynamic compromise. Measurements Left ventricle Value Ref 10/04/2024 IVS, ED, LAX (N) 1.0 cm 0.6 - 1.0 JINNY, LAX (L) 2.7 cm 4.2 - 5.8 JINNY/bsa, LAX (L) 1.4 cm/m^2 2.2 - 3.0 JINNY, LAX chord (L) 4.0 cm 4.2 - 5.8 ESD, LAX chord (N) 2.7 cm 2.5 - 4.0 JINNY/bsa, LAX chord (L) 2.1 cm/m^2 2.2 - 3.0 ESD/bsa, LAX chord (N) 1.4 cm/m^2 1.3 - 2.1 FS, LAX chord (N) 33 % 25 - 43 IVS, ED (N) 1.0 cm 0.6 - 1.0 PW, ED (H) 1.3 cm 0.6 - 1.0 EDV, 2-p (N) 141 ml 62 - 150 100 ESV, 2-p (N) 48 ml 21 - 61 62 EF, 2-p (N) 66 % 52 - 72 38 SV, 2-p 94 ml --------- 38 SV/bsa, 2-p 49.2 ml/m^2 --------- 19.7 Legend: (L) and (H) dexter values outside specified reference range. (N) danielson values inside specified reference range. Procedure data: Procedure information: A transthoracic echocardiogram was performed.Scanning was performed from the parasternal, apical, and subcostal acousticwindows. Transthoracic echocardiogram. Complete 2D, complete spectralDoppler, and color Doppler. Birthdate: Patient birthdate: 1960. Age:Patient is 64year(s) old. Sex: gender: male. Height: 188cm. 74in.Weight: 65.8kg. 145lb. Body mass index: 18.6kg/m^2. Body surface area:1.9m^2. Study date: Study date: 10/10/2024. Study time: 01:40 PM. Preparedand Electronically Authenticated Raymond Cisse [id number] Veronica Ware DO US ORDERABLES Final Result INTERFACE SYSTEM Refer to clinic/hospital department * ANAEROBIC/AEROBIC CULTURE W GRAM STAIN (10/10/2024 12:11 PM CDT) CULTURE No aerobic or anaerobic growth 10/15/2024 11:19 AM CDT [facility] GRAM STAIN No organisms observed 10/15/2024 11:19 AM CDT [facility] GRAM STAIN 3+ (Moderate) Polymorphonuclear WBC 10/15/2024 11:19 AM CDT [employer] [facility] Body fluid (Pleura, left) Collection / Unknown 10/10/2024 12:11 PM CDT 10/10/2024 12:37 PM CDT Veronica Ware DO MICROBIOLOGY - GENERAL ORDERAB LES Final Result [facility] [employer] [facility] CLIA# [id number] [address] [facility] [place] [place] [address] * (ABNORMAL) CELL COUNT WITH DIFFERENTIAL, BODY FLUID (10/10/2024 12:11 PM CDT) APPEARANCE, BODY FLUID Slightly Cloudy 10/10/2024 2:10 PM CDT [employer] SERVICES - . [facility] COLOR, FLD Red 10/10/2024 2:10 PM CDT [facility] - [facility] TOTAL NUCLEATED CELLS, FLD (AUTO) 1,200 1,395 - 3,734 /ul 10/10/2024 2:10 PM CDT [employer] [facility] - [facility] TOTAL RBC'S, FLD (AUTO) 34,000 No Ref Range Estab /ul 10/10/2024 2:10 PM CDT [employer] [facility] - . [facility] NEUTROPHILS, FLD 9(H) 0 - 1 % 10/10/2024 2:10 PM CDT [employer] [facility] - . [facility] LYMPHOCYTE, FLD 33 18 - 36 % 2:10 PM CDT [facility] MONOCYTE/MACROP FRANTZ, FLD 52(L) 64 - 80 % 10/10/2024 2:10 PM CDT [facility] - [facility] MESOTHELIAL FLD 7(H) 0 - 2 % 2:10 PM CDT [facility] Body fluid (Pleura, left) Collection / Unknown 10/10/2024 12:11 PM CDT 10/10/2024 12:37 PM CDT Veronicaafua Ware DO BODY FLUIDS AND STOOLS Final R esult Performing Organization Address City/[facility]/ZIP Co de Phone Number [facility] CLIA# [id number] [address] [place] [address] * PROTEIN, BODY FLUID (10/10/2024 12:11 PM CDT) Pathologist [facility] PROTEIN, FLD 2.8 g/dL 10/10/2024 1:17 PM CDT [facility] Body fluid (Pleura, left) Collection / Unknown 10/10/2024 12:11 PM CDT 10/10/2024 12:37 PM CDT Narrative [facility] - [facility] - 10/10/2024 1:17 PM CDT Interpretive Criteria: Transudate: <2.0 g/dL Exudate: >2.0 g/dL The reference range and other method performance specifications are unavailable for this body fluid. Comparison of this result with the concentration in the blood, serum, or plasma is recommended. Veronica Ware DO BODY FLUIDS AND STOOLS Final R esult Performing Organization Address City/[facility]/ZIP Co de Phone Number [facility] CLIA# [id number] [address] [place] [address] * LACTATE DEHYDROGENASE, BODY FLUID (10/10/2024 12:11 PM CDT) Pathologist [facility] LD, FLD 174 U/L 10/10/2024 1:17 PM CDT [facility] Body fluid (Pleura, left) Collection / Unknown 10/10/2024 12:11 PM CDT 10/10/2024 12:37 PM CDT Narrative [facility] - 10/10/2024 1:17 PM CDT Interpretive Criteria: Transudate: < 200 U/L or Fluid/Serum Ratio < 0.6 Exudate: > 200 U/L or Fluid/Serum Ratio > 0.6 The reference range and other method performance specifications are unavailable for this body fluid. Comparison of this result with the concentration in the blood, serum or plasma is recommended. us Veronica Ware DO BODY FLUIDS AND STOOLS Final R esult [facility]# [id number] 5 [facility] [place] [address] * CYTOLOGY, NON GYNE (10/10/2024 12:11 PM CDT) Pathologist Maggy CASE REPORT Medical Cytology Report Case: [id number] Authorizing Provider: Veronica Ware DO Collected: 10/10/2024 12:11 PM Ordering Location: [facility] Received: 10/11/2024 07:35 AM [facility] Cardiac Progressive Care Unit Pathologist: Nida Smith MD Specimen: Pleural fluid, left 9:23 AM CDT [facility] FINAL DIAGNOSIS Left pleural fluid: - Negative for malignancy. See microscopic description. 9:23 AM CDT [facility] at 0923 CDT GROSS DESCRIPTION Received is a container labeled Jaylna Melgoza and left pleural fluid. It contains 1000 mL of cloudy red fluid. One ThinPrep and 1 cell block made. One Frazier-stained cytospin slide received from Hematology. 9:23 AM CDT [facility] MICROSCOPIC DESCRIPTION The slides are labeled [id number] and Jaylan Melgoza. The ThinPrep, cytospin and cell block slides show reactive mesothelial cells and mild chronic inflammation. No malignancy is identified. 9:23 AM CDT [facility] CLINICAL INFORMATION No Dx found. 9:23 AM CDT [facility] COMMENT Special stain, immunohistochemical, and/or in situ hybridization results are interpreted with controls that demonstrate appropriate staining reactions. Note on use of immunohistochemistry reagents and in situ hybridization probes: These tests were developed and their performance characteristics determined by [facility]. It has not been cleared or approved by the U.S. Food and Drug Administration. The FDA has determined that such clearance or approval is not necessary. The test is used for clinical purposes. It should not be regarded as investigational or for research. This laboratory is certified to perform high complexity testing. Cases may have been signed out in part or completely in the following laboratories: [facility], CLIA #[id number] [address] [place] [id number] [place] [address]/[place], CLIA #[id number] [address] [place] [address]. 9:23 AM CDT [facility] Body fluid PLEURAL FLUID SPECIMEN / Unknown Collection / Unknown 10/10/2024 12:11 PM CDT 10/11/2024 7:35 AM CDT Veronica Ware DO PATHOLOGY/CYTOLOGY ORDERABLES Final Result [facility] CLIA# [id number] [address] [place] [id number] * (ABNORMAL) TSH (10/10/2024 10:23 AM CDT) TSH 5.17(H) 0.27 - 4.20 uIU/mL 10/11/2024 7:21 AM CDT [facility] Blood Venipuncture / Unknown 10/10/2024 10:23 AM CDT 10/10/2024 10:40 AM CDT Veronica C SkemA DO CHEMISTRY ORDERABLES Final Res ult Performing Organization Address [facility]/ZIP Co de Phone Number [facility] [employer] [facility] CLIA# [id number] [address] [place] [address] * (ABNORMAL) PROTEIN TOTAL (10/10/2024 10:23 AM CDT) TOTAL PROTEIN 6.1(L) 6.7 - 8.6 g/dL 10/10/2024 11:17 AM CDT [facility] [employer] [facility] Blood Venipuncture / Unknown 10/10/2024 10:23 AM CDT 10/10/2024 10:40 AM CDT Veronica ValentinoWhodini DO CHEMISTRY ORDERABLES Final Res ult Performing Organization Address [facility]/ZIP Co de Phone Number [facility] [employer] [facility] CLIA# [id number] [address] [place] [address] * (ABNORMAL) LACTATE DEHYDROGENASE (10/10/2024 10:23 AM CDT) LD (LACTATE DEHYDROGENASE) 248(H) 135 - 225 U/L 10/10/2024 11:17 AM CDT [facility] [employer] [facility] Blood Venipuncture / Unknown 10/10/2024 10:23 AM CDT 10/10/2024 10:40 AM CDT Veronica Nascimento SkemA DO CHEMISTRY ORDERABLES Final Res ult [facility] [employer] [facility] CLIA# [id number] [address] [place] [address] * (ABNORMAL) UNFRACTIONATED HEPARIN MONITORING (10/10/2024 5:40 AM CDT) Only the most recent of2 resultswithin the time period is included. ANTI-XA UNFRAC HEP >1.10(HH) See Interpreta tion. IU/mL 10/10/2024 6:48 AM CDT [facility] Blood Venipuncture / Unknown 10/10/2024 5:40 AM CDT 10/10/2024 6:15 AM CDT Narrative [facility] - 10/10/2024 6:48 AM CDT Unfractionated Heparin Therapeutic Range: 0.30-0.70 IU/ml Refer to pharmacy adult heparin protocol for further recommendation. The reference range for this test is specific to the anticoagulant and is not appropriate for monitoring patients on a DOAC protocol. Veronica Ware DO HEMATOLOGY ORDERABLES Final Re sult [facility]# [id number] [address] [facility] [place] [address] * (ABNORMAL) PTT (10/10/2024 5:40 AM CDT) Only the most recent of33 resultswithin the time period is included. Pathologist [facility] PTT 49.4(H) 24.4 - 36.4 seconds 10/10/2024 6:44 AM CDT [facility] Comment: PTT Therapeutic Range: Heparin Level PTT (seconds) <0.10 units/mL <55.8 0.10 - 0.30 units/mL 55.8 - 74.3 0.30 - 0.70 units/mL* 74.3 - 111.2* 0.70 - 1.00 units/mL 111.2 - 138.9 *corresponds to therapeutic range for unfractionated heparin Blood Venipuncture / Unknown 10/10/2024 5:40 AM CDT 10/10/2024 6:15 AM CDT [employer] DO HEMATOLOGY ORDERABLES Final Re sult [facility]# [id number] [address] [place] [address] * CTA CHEST W AND/OR WO CONTRAST (10/09/2024 3:13 PM CDT) Anatomical Region Laterality Modality Chest Computed Tomogra phy 10/09/2024 3:06 PM CDT Impressions 10/09/2024 3:56 PM CDT IMPRESSION: 1. No pulmonary embolism. 2. Moderate right and large left pleural effusions. 3. Mild diffuse pulmonary edema. DICTATION LOCATION: Location 1 - [facility] Narrative 10/09/2024 3:56 PM CDT EXAMINATION: CTA OF THE CHEST WITH INTRAVENOUS CONTRAST DATE: 10/09/2024 3:13 PM TECHNIQUE: CT angiography of the chest was performed following the administration of intravenous contrast according to the pulmonary embolism protocol. The examination was performed with the adjustment of mA according to the patient size and/or the use of Iterative Reconstruction Technique. Maximum intensity projection (MIP) images were reconstructed in multiple obliquities and sent to the workstation for review. CONTRAST: IOPAMIDOL 61 % INTRAVENOUS SOLUTION (MULTI-DOSE BULK PACK) Given:90 mL HISTORY: 64 years-old Male with shortness of breath. COMPARISON: 09/14/2024 FINDINGS: There is mild diffuse pulmonary edema. There are moderate right and large left pleural effusions. There is moderate atelectasis in the right middle and left upper lobes. Bronchiectasis in the right lower lobe is unchanged. No pneumothorax is seen. There are changes of recent sternotomy. The central airways are widely patent. The aorta is of normal course and ectatic with mild atherosclerotic calcification. No supraclavicular, axillary, mediastinal, or hilar lymphadenopathy is seen. The heart is enlarged without pericardial effusion. There is coronary artery calcification. There is no central, segmental or subsegmental pulmonary embolism. Limited images of the upper abdomen are unremarkable. No suspicious lytic or blastic osseous lesion or acute fracture. Procedure Note Abraham Larson MD - 10/09/2024 EXAMINATION: CTA OF THE CHEST WITH INTRAVENOUS CONTRAST DATE: 10/09/2024 3:13 PM TECHNIQUE: CT angiography of the chest was performed following the administration of intravenous contrast according to the pulmonary embolism protocol. The examination was performed with the adjustment of mA according to the patient size and/or the use of Iterative Reconstruction Technique. Maximum intensity projection (MIP) images were reconstructed in multiple obliquities and sent to the workstation for review. CONTRAST: IOPAMIDOL 61 % INTRAVENOUS SOLUTION (MULTI-DOSE BULK PACK) Given:90 mL HISTORY: 64 years-old Male with shortness of breath. COMPARISON: 09/14/2024 FINDINGS: There is mild diffuse pulmonary edema. There are moderate right and large left pleural effusions. There is moderate atelectasis in the right middle and left upper lobes. Bronchiectasis in the right lower lobe is unchanged. No pneumothorax is seen. There are changes of recent sternotomy. The central airways are widely patent. The aorta is of normal course and ectatic with mild atherosclerotic calcification. No supraclavicular, axillary, mediastinal, or hilar lymphadenopathy is seen. The heart is enlarged without pericardial effusion. There is coronary artery calcification. There is no central, segmental or subsegmental pulmonary embolism. Limited images of the upper abdomen are unremarkable. No suspicious lytic or blastic osseous lesion or acute fracture. IMPRESSION: 1. No pulmonary embolism. 2. Moderate right and large left pleural effusions. 3. Mild diffuse pulmonary edema. DICTATION LOCATION: Location 1 - [facility] Veronica Ware DO CT ORDERABLES Final Result * (ABNORMAL) TROPONIN 6 HR, 5TH GEN (10/09/2024 8:40 AM CDT) Only the most recent of4 resultswithin the time period is included. TROPONIN T, 6 HR 5TH GEN 142(HH) <=15 ng/L 10/09/2024 9:43 AM [facility] DELTA 6HR TROPONIN T % -18 See Interp. % 10/09/2024 9:43 AM T [facility] [employer] [facility] Blood Venipuncture / Unknown 10/09/2024 8:40 AM CDT 10/09/2024 9:00 AM CDT [facility] [facility] - 10/09/2024 9:43 AM CDT Troponin elevated. Delay in collection of timed specimen beyond recommended collection interval. Results must be interpreted in clinical context. Delta not changing. us Patricio Washington MD CHEMISTRY ORDERABLES Final Resul t Performing Organization Address [facility] Co de Phone Number [facility] [employer] [facility] CLIA# [id number] [address] [place] [address] * (ABNORMAL) TROPONIN 2 HR, 5TH GEN (10/09/2024 6:41 AM CDT) Only the most recent of4 resultswithin the time period is included. TROPONIN T, 2 HR 5TH GEN 146(HH) <=15 ng/L 10/09/2024 7:32 AM CDT [facility] [employer] [facility] DELTA 2HR TROPONIN T % -16 See Interp. % 10/09/2024 7:32 AM CDT [facility] [employer] Blood Venipuncture / Unknown 10/09/2024 6:41 AM CDT 10/09/2024 6:52 AM CDT Narrative [facility] [employer] [facility] - 10/09/2024 7:32 AM CDT Troponin elevated. Delay in collection of timed specimen beyond recommended collection interval. Results must be interpreted in clinical context. Delta not changing. us Patricio Washington MD CHEMISTRY ORDERABLES Final Resul t Performing Organization Address [facility] Co de Phone Number [facility] [employer] [facility] CLIA# [id number] [address] [place] [address] * (ABNORMAL) BRAIN NATRIURETIC PEPTIDE, BNP OR PROBNP (10/09/2024 6:41 AM CDT) Only the most recent of3 resultswithin the time period is included. PROBNP, N TERMINAL 6,150(H) <124 pg/mL 10/09/2024 8:40 AM CDT [facility] [employer] [facility] Comment: INTERPRETIVE COMMENT based on diagnosis: Diagnostic NT pro-BNP cutoffs for Heart Failure in the absence of renal failure is suggested for the following ranges <75 years: <125 pg/mL >=75 years: <450 pg/mL Exclusionary rule out cut-point for Acute Decompensated Heart Failure(ADHF) All ages: <300 pg/mL Diagnostic NT pro-BNP cutoffs for Acute Decompensated Heart Failure(ADHF) in the absence of renal failure is suggested for the following ages <50 years: > 450 pg/mL 50-75 years: > 900 pg/mL >75 years: >1800 pg/mL Blood Venipuncture / Unknown 10/09/2024 6:41 AM CDT 10/09/2024 6:52 AM CDT Noah Richard MD CHEMISTRY ORDERABLES Final Result Performing Organization Address [facility] Co de Phone Number [facility] [employer] [facility]# [id number] [address] [place] [address] * (ABNORMAL) TROPONIN BASELINE, 5TH GEN (10/09/2024 2:46 AM CDT) Only the most recent of4 resultswithin the time period is included. TROPONIN T, BASELINE 5TH GEN 173(HH) <=15 ng/L 10/09/2024 4:45 AM CDT [facility] [employer] [facility] Blood Venipuncture / Unknown 10/09/2024 2:46 AM CDT 10/09/2024 3:58 AM CDT Narrative [facility] [employer] [facility] - 10/09/2024 4:45 AM CDT Troponin elevated. Patricio Washington MD CHEMISTRY ORDERABLES Final Resul t Performing Organization Address [facility]/ZIP Co de Phone Number [facility]# [id number] [address] [place] [address] * EKG 12-LEAD (10/09/2024 1:50 AM CDT) Only the most recent of9 resultswithin the time period is included. 10/09/2024 1:50 AM CDT Narrative INTERFACE SYSTEM - 10/09/2024 6:37 AM CDT [place] [id number] Test Date: 2024-10-09 Pat Name: JAYLAN MELGOZA Department: 100 Room: [facility] Gender: Male [employer] Associate: : 1960 Requested By: JENSEN GODWIN Order Number: [id number] Reading MD: Kevin Mckenzie Measurements Intervals [place] Rate: 85 P: 88 MD: 184 QRS: 119 QRSD: 98 T: 85 QT: 386 QTc: 461 Interpretive Statements SINUS RHYTHM WITH FREQUENT SUPRAVENTRICULAR PREMATURE COMPLEXES PVC LOW QRS VOLTAGE Poor R wave progression Electronically Signed On 10-09-2024 6:37:23 CDT by Kevin Mckenzie Procedure Note Provider, Historical - 10/09/[address] [place] [address] [address] Test Date: 2024-10-09 Pat Name: JAYLAN MELGOZA Department: 100 Room: [facility] Gender: Male [employer] Associate: : 1960 Requested By: JENSEN GODWIN Order Number: [id number] Reading : Kevin Mckenzie Measurements Intervals [place] Rate: 85 P: 88 MD: 184 QRS: 119 QRSD: 98 T: 85 QT: 386 QTc: 461 Interpretive Statements SINUS RHYTHM WITH FREQUENT SUPRAVENTRICULAR PREMATURE COMPLEXES PVC LOW QRS VOLTAGE Poor R wave progression Electronically Signed On 10-09-2024 6:37:23 CDT by Kevin Mckenzie us Patricio Washington MD ECG ORDERABLES Final Result INTERFACE SYSTEM Refer to clinic/hospital department * (ABNORMAL) POC GLUCOSE (10/07/2024 7:51 AM CDT) Only the most recent of67 resultswithin the time period is included. GLUCOSE POC 70(L) 74 - 99 mg/dL 10/07/2024 7:51 AM CDT [facility] SPECIMEN SOURCE, GLUCOSE POC Whole Blood 10/07/2024 7:51 AM CDT [facility] Blood, whole 10/07/2024 7:51 AM CDT 10/07/2024 8:11 AM CDT Josiah Pepoles MD POINT OF CARE TESTING Kandace flor Result [facility] CLIA# [id number] [address] [place] [address] * XR VIDEO SWALLOW W SPEECH (10/05/2024 2:19 PM CDT) Anatomical Region Laterality Modality Chest Computed Radiogr aphy 10/05/2024 2:20 PM CDT Impressions 10/05/2024 3:14 PM CDT IMPRESSION: Fluoroscopy for modified barium swallow as described above. DICTATION LOCATION: Location [address] [place] [address] Narrative 10/05/2024 3:14 PM CDT XR VIDEO SWALLOW W SPEECH DATE: 10/05/2024 2:19 PM PERFORMED BY: GAY Pittman HISTORY: Difficulty swallowing . REFERENCE AIR KERMA DOSE: 5.5 mGy FLUOROSCOPY TIME: 1.8 minutes FINDINGS: Fluoroscopy was provided during a modified barium swallow for speech therapy evaluation. Please refer to the speech therapy report for results and additional clinical data. Procedure Note Guero Stephen MD - 10/05/2024 XR VIDEO SWALLOW W SPEECH DATE: 10/05/2024 2:19 PM PERFORMED BY: GAY Pittman HISTORY: Difficulty swallowing . REFERENCE AIR KERMA DOSE: 5.5 mGy FLUOROSCOPY TIME: 1.8 minutes FINDINGS: Fluoroscopy was provided during a modified barium swallow for speech therapy evaluation. Please refer to the speech therapy report for results and additional clinical data. IMPRESSION: Fluoroscopy for modified barium swallow as described above. DICTATION LOCATION: Location - [facility] Josiah Peoples MD DIAGNOSTIC IMAGING ORDERAB LES Final Result * CT UROGRAPHY (10/05/2024 11:02 AM CDT) Anatomical Region Laterality Modality Abdomen, Pelvis Computed Tomogra phy 10/05/2024 10:4 6 AM CDT Impressions 10/05/2024 12:47 PM CDT IMPRESSION: Bilateral renal cortical scarring. Bilateral renal cysts. Gallstones/sludge in gallbladder. Diverticulosis without evidence of diverticulitis. Bladder mass about 1.8 cm in size very suspicious for bladder carcinoma. Cystoscopy recommended to further evaluate. Probable incidental hemangioma of left lobe of liver unchanged. Secure chat message sent to CARMEL Upton at time of this dictation (12:22 PM). Dictation Location 4 The patient was scanned with iterative reconstruction to minimize radiation dose. Narrative 10/05/2024 12:[address] UROGRAPHY 10/05/2024 AT 11:02 AM HISTORY: Renal mass/cyst indeterminate. COMPARISON STUDY: CTA chest, abdomen and pelvis 09/14/2024. IV CONTRAST: 115 cc Isovue-300. FINDINGS: Since prior examination, heart size has increased and patient has developed large pleural effusions. There is thickening of bronchial lee to the lower lobes which may be due to bronchiolitis or bronchitis. Large bilateral lower lobe bullae are noted. Subsegmental atelectasis noted in right lower lobe. Sternotomy wires partially included on these images. Gastroesophageal junction is normal. Dependent calcified/radiodense sludge is seen in the gallbladder. Pancreas is not enlarged. No pancreatic masses are seen. Enhancing mass is again suggested at the point of intersection between hepatic segments 2 and 4. This measures about 1.9 cm. Liver density is increased since prior exam. Normal hepatic venous and hepatic portal venous enhancement seen. Adrenal glands are normal. Some left renal cortical scarring is noted. Upper pole right renal cyst again noted. Spleen is normal in appearance. Bilateral lobulation noted. Bilateral areas of cortical scarring are affecting the kidneys. Pancreas shows no abnormalities. Aortoiliac atherosclerotic calcification noted. No free intraperitoneal air is seen. Retroperitoneum shows no adenopathy. Appendix is not visualized. Descending and sigmoid colon diverticulosis is seen without evidence of diverticulitis. A mass was suggested in the bladder on the prior examination. This is again noted and measures about 1.8 cm in size. This is compatible with bladder polyp or bladder carcinoma. Calcified pelvic phleboliths noted. Procedure Note Devan Snyder MD - 10/05/2024 CT UROGRAPHY 10/05/2024 AT 11:02 AM HISTORY: Renal mass/cyst indeterminate. COMPARISON STUDY: CTA chest, abdomen and pelvis 09/14/2024. IV CONTRAST: 115 cc Isovue-300. FINDINGS: Since prior examination, heart size has increased and patient has developed large pleural effusions. There is thickening of bronchial lee to the lower lobes which may be due to bronchiolitis or bronchitis. Large bilateral lower lobe bullae are noted. Subsegmental atelectasis noted in right lower lobe. Sternotomy wires partially included on these images. Gastroesophageal junction is normal. Dependent calcified/radiodense sludge is seen in the gallbladder. Pancreas is not enlarged. No pancreatic masses are seen. Enhancing mass is again suggested at the point of intersection between hepatic segments 2 and 4. This measures about 1.9 cm. Liver density is increased since prior exam. Normal hepatic venous and hepatic portal venous enhancement seen. Adrenal glands are normal. Some left renal cortical scarring is noted. Upper pole right renal cyst again noted. Spleen is normal in appearance. Bilateral lobulation noted. Bilateral areas of cortical scarring are affecting the kidneys. Pancreas shows no abnormalities. Aortoiliac atherosclerotic calcification noted. No free intraperitoneal air is seen. Retroperitoneum shows no adenopathy. Appendix is not visualized. Descending and sigmoid colon diverticulosis is seen without evidence of diverticulitis. A mass was suggested in the bladder on the prior examination. This is again noted and measures about 1.8 cm in size. This is compatible with bladder polyp or bladder carcinoma. Calcified pelvic phleboliths noted. IMPRESSION: Bilateral renal cortical scarring. Bilateral renal cysts. Gallstones/sludge in gallbladder. Diverticulosis without evidence of diverticulitis. Bladder mass about 1.8 cm in size very suspicious for bladder carcinoma. Cystoscopy recommended to further evaluate. Probable incidental hemangioma of left lobe of liver unchanged. Secure chat message sent to CARMEL Upton at time of this dictation (12:22 PM). Dictation Location 4 The patient was scanned with iterative reconstruction to minimize radiation dose. us Lynn BURT CT ORDERABLES Final Result * ECHO LIMITED W CONTRAST AND WO DOPPLER AND COLOR (10/04/2024 4:04 PM CDT) EJECTION FRACTION EF: INTERFACE SYSTEM 10/04/2024 3:18 PM CDT Narrative INTERFACE SYSTEM - 10/04/2024 4:06 PM CDT [address] [address] [email or web address] Echocardiogram Patient: Jaylan Melgoza Study ID: ECHO COMPLETE - Gender: M : 1960 Age: 64 Race: Height 188cm Study Date: 10/04/2024 Weight: 70kg Access. #: [id number] BP: *Referring Physician:Traci Giraldo Kyle *Ordering Physician:Traci Giraldo roving marker: Nurse: Indications: eval EF. STUDY CONCLUSIONS: SUMMARY: - Left ventricle: The cavity size was normal. Wall thickness was normal. Severe hypokinesis of distal septum, anterior wall and apex. EF 38%. No thrombus noted. - Aortic valve: Trileaflet. The leaflets are moderately calcified. - Left atrium: The atrium is moderately dilated. - Right ventricle: The cavity size is normal. Systolic function is normal. Cardiac Anatomy: LEFT VENTRICLE: The cavity size was normal. Wall thickness was normal. Severe hypokinesis of distal septum, anterior wall and apex. EF 38%. No thrombus noted. AORTIC VALVE: Trileaflet. The leaflets are moderately calcified. No significant regurgitation. AORTA: Aortic root: The root is normal-sized. MITRAL VALVE: Structurally normal valve. No significant regurgitation. LEFT ATRIUM: The atrium is moderately dilated. RIGHT VENTRICLE: The cavity size is normal. Systolic function is normal. PULMONIC VALVE: Structurally normal valve. No significant regurgitation. TRICUSPID VALVE: Structurally normal valve. No significant regurgitation. RIGHT ATRIUM: The atrium was normal in size. SYSTEMIC VEINS: Inferior vena cava: The IVC is normal-sized. PERICARDIUM: There is no pericardial effusion. Measurements Left ventricle Value Ref 09/28/2024 EDV, 2-p (N) 100 ml 62 - 150 89 ESV, 2-p (H) 62 ml 21 - 61 61 EF, 2-p (L) 38 % 52 - 72 31 SV, 2-p 38 ml --------- 28 SV/bsa, 2-p 19.7 ml/m^2 --------- 15.1 Right ventricle Value Ref 09/28/2024 JINNY minor ax, A4C base (N) 2.6 cm 2.5 - 4.1 Legend: (L) and (H) dexter values outside specified reference range. (N) danielson values inside specified reference range. Procedure data: Procedure information: A transthoracic echocardiogram was performed. Scanning was performed from the parasternal, apical, and subcostal acoustic windows. Intravenous contrast (Definity) was administered. Transthoracic echocardiogram. Complete 2D, complete spectral Doppler, and color Doppler. Birthdate: Patient birthdate: 1960. Age: Patient is 64year(s) old. Sex: gender: male. Height: 188cm. 74in. Weight: 70kg. 154.4lb. Body mass index: 19.8kg/m^2. Body surface area: 1.95m^2. Study date: Study date: 10/04/2024. Study time: 03:18 PM. Prepared and Electronically Authenticated Good Colón [id number] Procedure Note Good Colón MD - 10/04/2024 [place] [address] [email or web address] Transthoracic Echocardiogram Patient: Jaylan Melgoza Study ID: ECHO COMPLETE - Gender: M : 1960 Age: 64 Race: Height 188cm Study Date: 10/04/2024 Weight: 70kg Access. #: [id number] BP: *Referring Physician:* Traci Charles Kyle *Ordering Physician:* Traci Charles roving marker: Nurse: Indications: eval EF. STUDY CONCLUSIONS: SUMMARY: - Left ventricle: The cavity size was normal. Wall thickness was normal. Severe hypokinesis of distal septum, anterior wall and apex. EF 38%.No thrombus noted. - Aortic valve: Trileaflet. The leaflets are moderately calcified. - Left atrium: The atrium is moderately dilated. - Right ventricle: The cavity size is normal. Systolic function isnormal. Cardiac Anatomy: LEFT VENTRICLE: The cavity size was normal. Wall thickness was normal.Severe hypokinesis of distal septum, anterior wall and apex. EF 38%. Nothrombus noted. AORTIC VALVE: Trileaflet. The leaflets are moderately calcified. No significant regurgitation. AORTA: Aortic root: The root is normal-sized. MITRAL VALVE: Structurally normal valve. No significantregurgitation. LEFT ATRIUM: The atrium is moderately dilated. RIGHT VENTRICLE: The cavity size is normal. Systolic function isnormal. PULMONIC VALVE: Structurally normal valve. No significantregurgitation. TRICUSPID VALVE: Structurally normal valve. No significantregurgitation. RIGHT ATRIUM: The atrium was normal in size. SYSTEMIC VEINS: Inferior vena cava: The IVC is normal-sized. PERICARDIUM: There is no pericardial effusion. Measurements Left ventricle Value Ref 09/28/2024 EDV, 2-p (N) 100 ml 62 - 150 89 ESV, 2-p (H) 62 ml 21 - 61 61 EF, 2-p (L) 38 % 52 - 72 31 SV, 2-p 38 ml --------- 28 SV/bsa, 2-p 19.7 ml/m^2 --------- 15.1 Right ventricle Value Ref 09/28/2024 JINNY minor ax, A4C base (N) 2.6 cm 2.5 - 4.1 Legend: (L) and (H) dexter values outside specified reference range. (N) danielson values inside specified reference range. Procedure data: Procedure information: A transthoracic echocardiogram was performed.Scanning was performed from the parasternal, apical, and subcostal acousticwindows. Intravenous contrast (Definity) was administered. Transthoracic echocardiogram. Complete 2D, complete spectral Doppler, and colorDoppler. Birthdate: Patient birthdate: 1960. Age: Patient is 64year(s)old. Sex: gender: male. Height: 188cm. 74in. Weight: 70kg.154.4lb. Body mass index: 19.8kg/m^2. Body surface area: 1.95m^2. Studydate: Study date: 10/04/2024. Study time: 03:18 PM. Prepared andElectronically Authenticated Good Colón [id number] us Traci Charles AUTO FORMER MACHINE OPERATOR US ORDERABLES Final Result INTERFACE SYSTEM Refer to clinic/hospital department * (ABNORMAL) COMPREHENSIVE METABOLIC PANEL (10/02/2024 4:28 AM CDT) Only the most recent of16 resultswithin the time period is included. SODIUM 139 136 - 145 mmol/L 10/02/2024 5:14 AM CDT [facility] . [facility] POTASSIUM 3.6 3.5 - 5.0 mmol/L 10/02/2024 5:14 AM CDT [facility] CHLORIDE 99 98 - 107 mmol/L 10/02/2024 5:14 AM T [facility] - . [facility] CO2 30(H) 22 - 29 mmol/L 10/02/2024 5:14 AM CDT [facility] . [facility] CALCIUM 8.7 8.6 - 10.2 mg/dL 10/02/2024 5:14 AM T [facility] - . [facility] BUN 23 8 - 23 mg/dL 10/02/2024 5:14 AM T [facility] - . [facility] CREATININE 0.83 0.67 - 1.17 mg/dL 10/02/2024 5:14 AM T [facility] - . [facility] GLUCOSE 112(H) 74 - 99 mg/dL 10/02/2024 5:14 AM T [facility] - . [facility] TOTAL PROTEIN 5.5(L) 6.7 - 8.6 g/dL 10/02/2024 5:14 AM [employer] [facility] . [facility] ALBUMIN 2.8(L) 3.5 - 5.2 g/dL 10/02/2024 5:14 AM CDT [facility] . [facility] BILIRUBIN TOTAL 0.4 0.0 - 1.1 mg/dL 10/02/2024 5:14 AM [employer] [facility] . [facility] ALKALINE PHOSPHATASE 200(H) 40 - 129 U/L 10/02/2024 5:14 AM CDT [facility] . [facility] AST 23 <41 U/L 10/02/2024 5:14 AM CDT [facility] ALT 24 <42 U/L 10/02/2024 5:14 AM [facility] GFR >60 >=60 mL/min/1.7 3 sq meter 10/02/2024 5:14 AM [facility] Comment:eGFR calculated with 2020 CKD-EPI equation. Vegetarian diet, extremely high or low muscle mass, and may affect results. Cystatin C with Glomerular Filtration Rate is a suitable alternative for these patients. ANION GAP 10 8 - 16 mmol/L 10/02/2024 5:14 AM [facility] Blood Venipuncture / Unknown 10/02/2024 4:28 AM CDT 10/02/2024 4:33 AM CDT [facility] - 10/02/2024 5:14 AM CDT Samples containing indocyanine green cause interferences on Total and/or Direct Bilirubin and must not be measured. Debbie PHILLIP CHEMISTRY ORDERABLES Kandace ray Result [facility]# [id number] [address] [facility] [place] [address] * (ABNORMAL) MANUAL DIFFERENTIAL (10/01/2024 4:53 AM CDT) Only the most recent of6 resultswithin the time period is included. SEGMENTED NEUTROPHILS 85 % 10/01/2024 7:36 AM T [facility] LYMPHOCYTES RELATIVE 2(L) 43 - 53 % 10/01/2024 7:36 AM [facility] ATYPICAL LYMPHOCYTES RELATIVE 1 0 - 5 % 10/01/2024 7:[facility] MONOCYTES RELATIVE 9 % 10/01/2024 7:36 AM CDT [facility] EOSINOPHILS RELATIVE 2 % 10/01/2024 7:36 AM [facility] BASOPHILS RELATIVE 1 % 10/01/2024 7:36 AM CDT [facility] NEUTROPHILS ABSOLUTE COUNT 8.20(H) 1.90 - 7.00 K/uL 10/01/2024 7:36 AM CDT [facility] LYMPHOCYTES ABSOLUTE 0.17(L) 0.70 - 4.50 K/uL 10/01/2024 7:36 AM CDT [facility] MONOCYTES ABSOLUTE 0.87 0.10 - 1.30 K/uL 10/01/2024 7:36 AM CDT [facility] EOSINOPHILS ABSOLUTE 0.17 0.00 - 0.70 K/uL 10/01/2024 7:36 AM CDT [facility] BASOPHILS ABSOLUTE 0.09 0.00 - 0.20 K/uL 10/01/2024 7:36 AM T [facility] TOTAL CELLS COUNTED IN DIFF 110 10/01/2024 7:36 AM T [facility] RBC MORPHOLOGY abnormal 10/01/2024 7:36 AM CDT [facility] PLATELET EST. Consistent w Count 10/01/2024 7:36 AM T [facility] PLATELET MORPHOLOGY abnormal 10/01/2024 7:36 AM T [facility] ANISOCYTOSIS 1+ /hpf 10/01/2024 7:36 AM T [facility] MACROCYTES 1+ /hpf 10/01/2024 7:36 AM T [facility] HYPOCHROMIA 1+ /hpf 10/01/2024 7:36 AM T [facility] GIANT PLATELETS Present 7:36 AM T [facility] Blood Venipuncture / Unknown 10/01/2024 4:53 AM CDT 10/01/2024 5:18 AM CDT Debbie PHILLIP HEMATOLOGY ORDERABLES COM Final Result [facility] CLIA# [id number] [address] [place] [address] * (ABNORMAL) CBC WITH DIFFERENTIAL (10/01/2024 4:53 AM CDT) Only the most recent of18 resultswithin the time period is included. WBC 9.6 4.0 - 9.8 K/uL 10/01/2024 5:19 AM CDT [facility] . [facility] RBC 2.89(L) 4.50 - 5.40 M/uL 10/01/2024 5:19 AM CDT [facility] HEMOGLOBIN 9.5(L) 13.6 - 16.5 g/dL 10/01/2024 5:19 AM CDT [facility] HEMATOCRIT 28.6(L) 40.0 - 48.0 % 10/01/2024 5:19 AM CDT [facility] . [facility] MCV 99.0 82.0 - 99.0 fL 10/01/2024 5:19 AM CDT [facility] MCH 32.9(H) 27.2 - 32.6 pg 10/01/2024 5:19 AM CDT [facility] . [facility] MCHC 33.2 31.5 - 35.5 g/dL 10/01/2024 5:19 AM CDT [facility] - . [facility] RDW 18.0(H) 11.5 - 14.5 % 10/01/2024 5:19 AM CDT [facility] - . [facility] RDW-STDEV 64.5(H) 37.1 - 48.7 fL 10/01/2024 5:19 AM CDT [facility] . [facility] PLATELETS 238 140 - 350 K/uL 10/01/2024 5:19 AM CDT [facility] MPV 11.8 9.3 - 12.4 fL 10/01/2024 5:19 AM CDT [facility] . [facility] Blood Venipuncture / Unknown 10/01/2024 4:53 AM CDT 10/01/2024 5:18 AM CDT Debbie PHILLIP HEMATOLOGY ORDERABLES Fin al Result Performing Organization Address [facility] Co de Phone Number [facility] CLIA# [id number] [address] [place] [address] * POC LACTIC ACID (09/29/2024 12:16 PM CDT) Only the most recent of15 resultswithin the time period is included. LACTIC ACID POC 1.2 <=2.0 mmol/L 09/29/2024 12:16 PM CDT [facility] SPECIMEN SOURCE, GASES POC Arterial 09/29/2024 12:16 PM CDT [facility] COMMENT, GASES POC Responsible Clinical Caregiver notified 09/29/2024 12:16 PM CDT [facility] Blood 09/29/2024 12:1 6 PM CDT 09/29/2024 12:17 PM CDT Josiah Rohit Peoples MD POINT OF CARE TESTING Kandace l Result Performing Organization Address [facility] Co de Phone Number [facility] CLIA# [id number] [address] [place] [address] * (ABNORMAL) BLOOD GAS,(INCL. H+H, LYTES, GLUC) (09/29/2024 12:16 PM CDT) Only the most recent of14 resultswithin the time period is included. PH BLOOD POC 7.34(L) 7.35 - 7.45 09/29/2024 12:16 PM CDT [facility] PCO2 POC 46 35 - 48 mm Hg 09/29/2024 12:16 PM CDT [facility] PO2 POC 111(H) 83 - 108 mm Hg 09/29/2024 12:16 PM CDT [facility] TCO2 (CALC) POC 26(H) 19 - 24 mmol/L 09/29/2024 12:16 PM CDT [facility] HCO3 (CALC) POC 25 22 - 26 mmol/L 09/29/2024 12:16 PM [facility] O2 SATURATION POC 99(H) 94 - 98 % 025 12:16 PM [facility] BASE EXCESS POC -1 -2 - 3 mmol/L 09/29/2024 12:16 PM [facility] HEMOGLOBIN POC 10.2(L) 13.6 - 16.5 g/dL 09/29/2024 12:16 PM [facility] HEMATOCRIT POC 31(L) 40 - 48 % 09/29/2024 12:16 PM [facility] Comment:Estimated Value GLUCOSE POC 153(H) 74 - 99 mg/dL 09/29/2024 12:16 PM [facility] SODIUM POC 129(L) 136 - 145 mmol/L 09/29/2024 12:16 PM [facility] POTASSIUM POC 5.2(H) 3.5 - 5.0 mmol/L 09/29/2024 12:16 PM [facility] CHLORIDE POC 103 98 - 107 mmol/L 09/29/2024 12:16 PM [facility] CALCIUM IONIZED POC 5.1 4.7 - 5.1 mg/dL 09/29/2024 12:16 PM [facility] PH TEMP CORRECT 7.34(L) 7.35 - 7.45 09/29/2024 12:16 PM [facility] PCO2 TEMP CORRECT 46 35 - 48 mm Hg 09/29/2024 12:16 PM [facility] PO2 TEMP CORRECT 111(H) 83 - 108 mm Hg 09/29/2024 12:16 PM [facility] SPECIMEN SOURCE, GASES POC Arterial 09/29/2024 12:16 PM [facility] PATIENT'S TEMPERATURE POC 37.0 degrees 09/29/2024 12:16 PM [facility] COMMENT, GASES POC Responsible Clinical Caregiver notified 09/29/2024 12:16 PM T [facility] FIO2 40.0 21.0 - 100.0 % 09/29/2024 12:16 PM [facility] P/F RATIO POC 278 09/29/2024 12:16 PM [facility] Comment: P/F Ratio Interpretation ARDS SEVERITY PaO2/FiO2 Mild 200-300 Moderate 100-200 Severe <100 LITER FLOW 5.0 L/min 09/29/2024 12:16 PM [facility] PAO2 POC 228 09/29/2024 12:16 PM [facility] CCO2 POC 14.7 09/29/2024 12:16 PM [facility] OXYGEN CONTENT POC 14.0(L) 15.0 - 23.0 mL/dL 09/29/2024 12:16 PM [facility] ARTERIAL/ALVEOLAR O2 RATIO 0.4900 09/29/2024 12:16 PM [facility] CAO2 POC 14.0 09/29/2024 12:16 PM [facility] Comment:Normal CaO2 is appro ximately 20 mL O2/dL O2 SATURATION CALCULATED POC 98 94 - 98 % 09/29/2024 12:16 PM T [facility] Comment:Calculated sO2 may b e less accurate due to the factors affecting the oxygen dissociation curve. Measured sO2 by Co-oximetry is unaffected by these factors. Clinical correlation is suggested. Blood, arterial 09/29/2024 1 2:16 PM CDT 09/29/2024 12:[address] [facility] Rohit Peoples MD ABG ORDERABLES Final [facility] lt [id number] [address] [facility] [place] [address] [address] * (ABNORMAL) OXIMETRY (09/29/2024 12:16 PM CDT) Only the most recent of2 resultswithin the time period is included. OXYHEMOGLOBIN POC 96.2 94.0 - 97.0 % 09/29/2024 12:16 PM CDT [facility] HEMOGLOBIN POC 10.2(L) 13.6 - 16.5 g/dL 09/29/2024 12:16 PM T [facility] OXYGEN CONTENT POC 14.0(L) 15.0 - 23.0 mL/dL 09/29/2024 12:16 PM CDT [facility] O2 SATURATION POC 99(H) 94 - 98 % 09/29/2024 12:16 PM T [facility] SPECIMEN SOURCE, GASES POC Arterial 09/29/2024 12:16 PM T [facility] SAMPLE SITE, GASES POC N-SY 09/29/2024 12:16 PM T [facility] COMMENT, GASES POC Responsible Clinical Caregiver notified 09/29/2024 12:16 PM T [facility] Blood 09/29/2024 12:1 6 PM CDT 09/29/2024 12:[address] [facility] Rohit Peoples MD ABG ORDERABLES Final Resu lt [facility]# [id number] [address] [facility] [place] [address] * (ABNORMAL) METHEMOGLOBIN QUANTITATIVE (09/29/2024 12:16 PM CDT) Only the most recent of2 resultswithin the time period is included. Pathologist [facility] METHEMOGLOBIN QUANT POC 1.0 <1.5 % 09/29/2024 12:16 PM CDT [facility] HEMOGLOBIN POC 10.2(L) 13.6 - 16.5 g/dL 09/29/2024 12:16 PM CDT [facility] COMMENT, GASES POC Responsible Clinical Caregiver notified 09/29/2024 12:16 PM CDT [facility] Blood 09/29/2024 12:1 6 PM CDT 09/29/2024 12:17 PM CDT Josiah Peoples MD ABG ORDERABLES Final Resu lt Performing Organization Address [facility] Co de Phone Number [facility] CLIA# [id number] [address] [place] [address] * (ABNORMAL) CARBOXYHEMOGLOBIN (09/29/2024 12:16 PM CDT) Only the most recent of2 resultswithin the time period is included. CARBOXYHEMOGLOBIN POC 1.3 <=7.0 % 09/29/2024 12:16 PM T [facility] Comment: Reference Range: Non-Smokers: 0-2% Smokers: < or = 9% Toxic: > 15% HEMOGLOBIN POC 10.2(L) 13.6 - 16.5 g/dL 09/29/2024 12:16 PM CDT [facility] COMMENT, GASES POC Responsible Clinical Caregiver notified 09/29/2024 12:16 PM T [facility] Blood 09/29/2024 12:1 6 PM CDT 09/29/2024 12:17 PM CDT Josiah Peoples MD ABG ORDERABLES Final Resu lt Performing Organization Address [facility]/ZIP Co de Phone Number [facility] CLIA# [id number] [address] [place] [address] * URINE CULTURE (09/28/2024 6:17 PM CDT) Only the most recent of2 resultswithin the time period is included. CULTURE No growth at 24 hours 09/30/2024 7:43 AM T [facility] Urine (Urine, indwelling (Medina) catheter) Collection / Unknown 09/28/2024 6:17 PM CDT 09/28/2024 6:22 PM CDT Debbie PHILLIP MICROBIOLOGY - GENERAL OR DERABLES Final Result [facility]# [id number] [address] [place], [place] [id number] * ECHO LIMITED W CONTRAST (09/28/2024 2:59 PM CDT) Only the most recent of2 resultswithin the time period is included. EJECTION FRACTION EF: INTERFACE SYSTEM 09/28/2024 2:28 PM CDT Narrative INTERFACE SYSTEM - 09/28/2024 3:[address]T [address] [address] [email or web address] Transthoracic Echocardiogram Patient: Jaylan Melgoza Study ID: ECHO LIMITED WO Gender: M : 1960 Age: 64 Race: Height 188cm Study Date: 09/28/2024 Weight: 61.2kg Access. #: [id number] BP: *Referring Physician:* Debbie Zurita *Ordering Physician:* roving marker: Nurse: Indications: CHF; limited study. STUDY CONCLUSIONS: SUMMARY: - Technically difficult study. - Left ventricle: Wall thickness is not well established. LV cavity size is normal. The LV function is severely reduced. LVEF is 31%. The inferior/inferolateral wall is severely hypokinetic. 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 - Right ventricle: Not optimally evaluated. - Pericardium: There is no pericardial effusion. - Limited evaluation of other structures. Cardiac Anatomy: LEFT VENTRICLE: Wall thickness is not well established. LV cavity size is normal. The LV function is severely reduced. LVEF is 31%. The inferior/inferolateral wall is severely hypokinetic. 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 RIGHT VENTRICLE: Not optimally evaluated. PERICARDIUM: There is no pericardial effusion. Measurements Left ventricle Value Ref 09/23/2024 IVS, ED, LAX (H) 1.3 cm 0.6 - 1.0 0.7 JINNY, LAX (L) 3.4 cm 4.2 - 5.8 3.6 JINNY/bsa, LAX (L) 1.8 cm/m^2 2.2 - 3.0 1.8 JINNY, LAX chord (N) 4.8 cm 4.2 - 5.8 4.4 ESD, LAX chord (N) 3.4 cm 2.5 - 4.0 3.6 JINNY/bsa, LAX chord (N) 2.6 cm/m^2 2.2 - 3.0 2.2 ESD/bsa, LAX chord (N) 1.8 cm/m^2 1.3 - 2.1 1.8 FS, LAX chord (N) 29 % 25 - 43 18 IVS, ED (H) 1.3 cm 0.6 - 1.0 0.7 PW, ED (H) 1.3 cm 0.6 - 1.0 0.8 EDV, 2-p (N) 89 ml 62 - 150 164 ESV, 2-p (N) 61 ml 21 - 61 82 EF, 2-p (L) 31 % 52 - 72 50 SV, 2-p 28 ml --------- 82 SV/bsa, 2-p 15.1 ml/m^2 --------- 41.3 Legend: (L) and (H) dexter values outside specified reference range. (N) danielson values inside specified reference range. Procedure data: Procedure information: A transthoracic echocardiogram was performed. Scanning was performed from the parasternal, apical, and subcostal acoustic windows. Intravenous contrast (Definity) was administered. Transthoracic echocardiogram. Complete 2D, complete spectral Doppler, and color Doppler. Birthdate: Patient birthdate: 1960. Age: Patient is 64year(s) old. Sex: gender: male. Height: 188cm. 74in. Weight: 61.2kg. 135lb. Body mass index: 17.3kg/m^2. Body surface area: 1.84m^2. Study date: Study date: 09/28/2024. Study time: 02:28 PM. Prepared and Electronically Authenticated Raymond Cisse [id number] Procedure Note Raymond Cisse MD - 10/02/[address] [address] [email or web address] Transthoracic Echocardiogram Patient: Jaylan Melgoza Study ID: ECHO LIMITED WO Gender: M : 1960 Age: 64 Race: Height 188cm Study Date: 09/28/2024 Weight: 61.2kg Access. #: [id number] BP: *Referring Physician:* Debbie Zurita *Ordering Physician:* roving marker: Nurse: Indications: CHF; limited study. STUDY CONCLUSIONS: SUMMARY: - Technically difficult study. - Left ventricle: Wall thickness is not well established. LV cavity sizeis normal. The LV function is severely reduced. LVEF is 31%. The inferior/inferolateral wall is severely hypokinetic. 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 - Right ventricle: Not optimally evaluated. - Pericardium: There is no pericardial effusion. - Limited evaluation of other structures. Cardiac Anatomy: LEFT VENTRICLE: Wall thickness is not well established. LV cavity sizeis normal. The LV function is severely reduced. LVEF is 31%. The inferior/inferolateral wall is severely hypokinetic. 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 RIGHT VENTRICLE: Not optimally evaluated. PERICARDIUM: There is no pericardial effusion. Measurements Left ventricle Value Ref 09/23/2024 IVS, ED, LAX (H) 1.3 cm 0.6 - 1.0 0.7 JINNY, LAX (L) 3.4 cm 4.2 - 5.8 3.6 JINNY/bsa, LAX (L) 1.8 cm/m^2 2.2 - 3.0 1.8 JINNY, LAX chord (N) 4.8 cm 4.2 - 5.8 4.4 ESD, LAX chord (N) 3.4 cm 2.5 - 4.0 3.6 JINNY/bsa, LAX chord (N) 2.6 cm/m^2 2.2 - 3.0 2.2 ESD/bsa, LAX chord (N) 1.8 cm/m^2 1.3 - 2.1 1.8 FS, LAX chord (N) 29 % 25 - 43 18 IVS, ED (H) 1.3 cm 0.6 - 1.0 0.7 PW, ED (H) 1.3 cm 0.6 - 1.0 0.8 EDV, 2-p (N) 89 ml 62 - 150 164 ESV, 2-p (N) 61 ml 21 - 61 82 EF, 2-p (L) 31 % 52 - 72 50 SV, 2-p 28 ml --------- 82 SV/bsa, 2-p 15.1 ml/m^2 --------- 41.3 Legend: (L) and (H) dexter values outside specified reference range. (N) danielson values inside specified reference range. Procedure data: Procedure information: A transthoracic echocardiogram was performed.Scanning was performed from the parasternal, apical, and subcostal acousticwindows. Intravenous contrast (Definity) was administered. Transthoracic echocardiogram. Complete 2D, complete spectral Doppler, and colorDoppler. Birthdate: Patient birthdate: 1960. Age: Patient is 64year(s)old. Sex: gender: male. Height: 188cm. 74in. Weight: 61.2kg.135lb. Body mass index: 17.3kg/m^2. Body surface area: 1.84m^2. Studydate: Study date: 09/28/2024. Study time: 02:28 PM. Prepared andElectronically Authenticated Raymond Cisse [id number] us Debbie PHILLIP US ORDERABLES Final Res ult INTERFACE SYSTEM Refer to clinic/hospital department * (ABNORMAL) BLOOD GAS ARTERIAL (09/28/2024 2:09 PM CDT) Only the most recent of3 resultswithin the time period is included. PH BLOOD POC 7.30(L) 7.35 - 7.45 09/28/2024 2:09 PM CDT [facility] PCO2 POC 47 35 - 48 mm Hg 09/28/2024 2:09 PM CDT [facility] PO2 POC 95 83 - 108 mm Hg 09/28/2024 2:09 PM CDT [facility] HCO3 (CALC) POC 23 22 - 26 mmol/L 09/28/2024 2:09 PM [facility] BASE EXCESS POC -4(L) -2 - 3 mmol/L 09/28/2024 2:09 PM [facility] PH TEMP CORRECT 7.30(L) 7.35 - 7.45 09/28/2024 2:09 PM [facility] PCO2 TEMP CORRECT 47 35 - 48 mm Hg 09/28/2024 2:09 PM [facility] [facility] PO2 TEMP CORRECT 95 83 - 108 mm Hg 09/28/2024 2:09 PM [facility] SPECIMEN SOURCE, GASES POC Arterial 09/28/2024 2:09 PM [facility] COMMENT, GASES POC Responsible Clinical Caregiver notified 09/28/2024 2:09 PM [facility] TCO2 (CALC) POC 25(H) 19 - 24 mmol/L 09/28/2024 2:09 PM [facility] FIO2 28.0 21.0 - 100.0 % 09/28/2024 2:09 PM [facility] P/F RATIO POC 339 09/28/2024 2:09 PM [facility] Comment: P/F Ratio Interpretation ARDS SEVERITY PaO2/FiO2 Mild 200-300 Moderate 100-200 Severe <100 LITER FLOW 2.0 L/min 09/28/2024 2:09 PM [facility] PATIENT'S TEMPERATURE POC 37.0 degrees 09/28/2024 2:09 PM [facility] PAO2 POC 141 09/28/2024 2:09 PM [facility] ARTERIAL/ALVEOLAR O2 RATIO 0.6700 09/28/2024 2:09 PM [facility] O2 SATURATION CALCULATED POC 97 94 - 98 % 09/28/2024 2:09 PM [facility] Comment:Calculated sO2 may b e less accurate due to the factors affecting the oxygen dissociation curve. Measured sO2 by Co-oximetry is unaffected by these factors. Clinical correlation is suggested. Blood, arterial 09/28/2024 2 :09 PM CDT 09/28/2024 2:11 PM CDT Debbie PHILLIP ABG ORDERABLES Final Res ult Performing Organization Address [facility]/ZIP Co de Phone Number [facility]# [id number] [address] [place] [address] * BLOOD CULTURE (09/28/2024 1:57 PM CDT) Only the most recent of2 resultswithin the time period is included. BLOOD CULTURE No growth 10/03/2024 5:09 PM CDT [facility] Blood (Peripheral) Venipuncture / Unknown 09/28/2024 1:57 PM CDT 09/28/2024 2:40 PM CDT Narrative [facility] - 10/03/2024 5:09 PM CDT Specimen processed with suboptimal blood volume collected. Grzegorz Suazo MD MICROBIOLOGY - GENERAL ORDER TIMOTHY Final Result Performing Organization Address [facility] Co de Phone Number [facility]# [id number] [address] [place] [address] * (ABNORMAL) URINALYSIS WITH REFLEX MICROSCOPIC (09/28/2024 5:22 AM CDT) Only the most recent of3 resultswithin the time period is included. COLOR UA Dark Yellow Pale to Dark Yellow 09/28/2024 6:06 AM CDT [facility] CLARITY UA Cloudy(A) Clear 09/28/2024 6:06 AM CDT [facility] SPECIFIC GRAVITY UA 1.027 1.003 - 1.035 09/28/2024 6:06 AM CDT [facility] PH UA 5.0 5.0 - 8.0 09/28/2024 6:06 AM [facility] - [facility] LEUKOCYTE ESTERASE UA Trace(A) Negative 09/28/2024 6:06 AM [facility] - [facility] NITRITE UA Negative Negative 09/28/2024 6:06 AM [facility] PROTEIN UA 3+(A) Negative 09/28/2024 6:06 AM [facility] - [facility] GLUCOSE UA Negative Negative 09/28/2024 6:06 AM [facility] - [facility] KETONES UA Negative Negative 09/28/2024 6:06 AM [facility] - [facility] UROBILINOGEN UA Normal <2.0 mg/dL 6:06 AM [facility] BILIRUBIN UA Negative Negative 09/28/2024 6:06 AM [facility] BLOOD UA 3+(A) Negative 09/28/2024 6:06 AM [facility] WBC UA 3-5(A) 0 - 2 /hpf 09/28/2024 6:06 AM [facility] RBC UA >100(A) 0 - 2 /hpf 09/28/2024 6:06 AM [facility] BACTERIA UA 1+(A) Negative /hpf 09/28/2024 6:06 AM [facility] EPITHELIAL CELLS, URINE 0-5 0 - 5 /hpf 09/28/2024 6:06 AM [facility] SERVICES - [facility] HYALINE CAST 0-2 None Seen, 0-2 /lpf 09/28/2024 6:06 AM [facility] Urine (Urine, indwelling (Mednia) catheter) Collection / Unknown 09/28/2024 5:22 AM CDT 09/28/2024 5:46 AM CDT us Grzegorz Suazo MD URINE ORDERABLES Final Resul t [facility]# [id number] [address] [place] [address] * LACTIC ACID (09/28/2024 5:18 AM CDT) Only the most recent of8 resultswithin the time period is included. LACTIC ACID 1.0 <=2.0 mmol/L 09/28/2024 6:11 AM CDT [facility] Blood Venipuncture / Unknown 09/28/2024 5:18 AM CDT 09/28/2024 5:37 AM CDT Grzegorz Suazo MD CHEMISTRY ORDERABLES Final R esult [facility]# [id number] [address] [place] [address] * (ABNORMAL) PROTIME-INR (09/26/2024 4:59 PM CDT) Only the most recent of2 resultswithin the time period is included. PROTIME 18.6(H) 12.7 - 15.1 Seconds 09/26/2024 5:33 PM CDT [facility] INR 1.6(H) 0.9 - 1.1 09/26/2024 5:33 PM CDT [facility] Blood Venipuncture / Unknown 09/26/2024 4:59 PM CDT 09/26/2024 5:11 PM CDT Narrative [facility] - 09/26/2024 5:33 PM CDT INR Therapeutic Range: Adult: 2.0 - 3.0 for pulmonary embolism or prophylaxis against venous thrombosis or systemic embolization. 2.0 - 3.0 for patients with tissue heart valves. 2.5 - 3.5 for patients with mechanical heart valves or post [place]. Pediatric (12 years and under): 1.5 - 3.0 Although the target range in children is not well established, INR values of 1.5 - 3.0 are recommended for most patients. Higher values have been used in children with prosthetic cardiac valves and hereditary clotting disorders. (<3 days) therapeutic ranges have not been established. David PHILLIP HEMATOLOGY ORDERABLES Final Resu lt Performing Organization Address [facility] Co de Phone Number [facility]# [id number] [address] [place] [address] * POC HIGH RANGE ACTIVATED CLOTTING TIME (09/26/2024 4:18 PM CDT) Only the most recent of7 resultswithin the time period is included. ACT AVERAGE POC 121 See Comment SECS 09/26/2024 4:18 PM CDT [facility] Comment: Reference range for initiation of bypass procedures in the CVOR: >/= 480 seconds Reference range for post bypass procedures (back to baseline): 100-140 seconds Reference range for ECMO patients: 180-220 seconds HEPARIN CONC POC 0.0 See comment mg/kg 09/26/2024 4:18 PM CDT [facility] Comment:Heparin assay cartri dges measure heparin levels from 0 to 6.0 mg/kg body weight or 0 to 8.2 units/mL 09/26/2024 4:18 PM CDT 09/26/2024 4:19 PM CDT Florecita Jacobs DO POINT OF CARE TESTING Final Result Performing Organization Address [facility] Co de Phone Number [facility]# [id number] [address] [place] [address] * POC HEPARIN PROTAMINE TITRATION (09/26/2024 4:18 PM CDT) Only the most recent of7 resultswithin the time period is included. HEPARIN CONC POC 0.0 See comment mg/kg 09/26/2024 4:18 PM CDT [facility] Comment:Heparin assay cartri dges measure heparin levels from 0 to 6.0 mg/kg body weight or 0 to 8.2 units/mL Blood 09/26/2024 4:18 PM CDT 09/26/2024 4:19 PM CDT Florecita Jacobs DO POINT OF CARE TESTING Final Result [facility] SERVICES [facility]# [id number] [address] [facility] [address] [place] [address] * POC TEG STANDARD A (09/26/2024 3:54 PM CDT) Only the most recent of2 resultswithin the time period is included. [facility] CITRATED [place] REACTION TIME (CK-R) POC 8.2 4.6 - 9.1 min 09/26/2024 3:54 PM CDT [facility] CITRATED KAOLIN ANGLE (CK-A) POC 77.9 63.0 - 78.0 deg 09/26/2024 3:54 PM CDT [facility] CITRATED [place] MAXIMUM AMPLITUDE(CK-MA ) POC 66.8 52.0 - 69.0 mm 09/26/2024 3:54 PM CDT [facility] CITRATED RAPID MAXIMUM AMPLITUDE (APPLICATIONS PROGRAMMER-MA) POC 66 52 - 70 mm 09/26/2024 3:54 PM T [facility] - . [facility] CITRATED [place] HEPARINASE REACTION TIME (CKH-R) POC 7.0 4.3 - 8.3 min 09/26/2024 3:54 PM CDT [facility] - . [facility] CITRATE FUNCTIONAL FIBRINOGEN MAX AMPLITUDE, CFF-MA POC 27 15 - 32 mm 09/26/2024 3:54 PM T [facility] - . [facility] CITRATED FUNCTIONAL FIBRINOGEN (CFF-FLEV) POC 489 278 - 581 mg/dl 09/26/2024 3:54 PM CDT [facility] SERVICES - [facility] CITRATED KAOLIN KINETICS (CK-K) POC 0.8 0.8 - 2.1 min 09/26/2024 3:54 PM CDT [facility] SERVICES - [facility] NALINI 09/26/2024 3:54 PM CDT 09/26/2024 4:19 PM CDT Narrative [facility] - 09/26/2024 3:54 PM CDT For TEG result interpretation guidance, please review results in TEG Supervisor [employer]. For [place], refer to [email or web address]. For Francine Torre or [place], refer to [email or web address]. Florecita Jacobs DO POINT OF CARE TESTING Final Result [facility] PRAKASH# [id number] [address] [place] [address] * MD ECHO TRANSESOPHAG R-T 2D W/PRB IMG ACQUISJ I&R (09/26/2024 12:39 PM CDT) Narrative [facility] MD - 09/26/2024 12:39 PM CDT [facility] MD 09/26/2024 4:05 PM Procedure Performed: CHEMO Start Time: End Time: Probe Insertion Time:09/26/2024 11:26 AM Probe Removal Time: Staffing Performed: Anesthesiologist (/) Authorized by: [facility] MD Performed by: [facility] MD Preanesthesia Checklist: Patient identified, IV assessed, risks and benefits discussed, monitors and equipment assessed, procedure being performed at surgeon's request and anesthesia consent obtained. General Procedure Information Diagnostic Indications for Echo: assessment of surgical repair and hemodynamic monitoring Physician Requesting Echo: Josiah Peoples MD Location performed: OR Intubated Bite block not placed Heart visualized Probe Insertion: Easy Probe Type: Multiplane Modalities: 2-D, color flow, continuous wave Doppler and pulse wave Doppler Echocardiographic and Doppler Measurements Ventricles Right Ventricle: Cavity size normal. Hypertrophy not present. Thrombus not present. Global function normal. Left Ventricle: Cavity size dilated. Hypertrophy not present. Thrombus not present. Global Function mildly impaired. Ejection Fraction 45%. Ventricular Regional Function: Wall Motion Comments: Anterolat and inferolat HK, basal inf HK, apical ant and apical HK Valves Aortic Valve: Annulus normal. Stenosis not present. Regurgitation absent. Leaflets normal. Leaflet motions normal. Mitral Valve: Annulus dilated. Stenosis not present. Regurgitation absent. Leaflets normal. Leaflet motions normal. Tricuspid Valve: Annulus normal. Stenosis not present. Regurgitation absent. Leaflets normal. Leaflet motions normal. Pulmonic Valve: Annulus normal. Regurgitation absent. Leaflets normal. normal Aorta Ascending Aorta: Size normal. Diameter 3.68 cm. Dissection not present. Plaque thickness less than 3 mm. Mobile plaque not present. Aortic Arch: Size normal. Dissection not present. Plaque thickness less than 3 mm. Mobile plaque not present. Descending Aorta: Size normal. Diameter 2.36 cm. Dissection not present. Plaque thickness less than 3 mm. Mobile plaque not present. Other Aortic Findings: Sinuses of Valsalva 3.6 cm in diastole, ST jxn 2.96 cm LVOT diam 22 mm Atria Right Atrium: Size normal. Spontaneous echo contrast not present. Thrombus not present. Tumor not present. Device not present. Left Atrium: Size dilated. Spontaneous echo contrast not present. Thrombus not present. Tumor not present. Device not present. Left atrial appendage normal. Septa Atrial Septum: Intra-atrial septal morphology normal. Ventricular Septum: Intra-ventricular septum morphology normal. Diastolic Function Measurements: Diastolic Dysfunction Grade= I E= 61 ms A= 74 ms E/A Ratio= 0.82 DT= ms S/D= IVRT= E/e'= 12 E'= 5 A'= Other Findings Pericardium: normal Pleural Effusion: none Pulmonary Venous Flow: blunted (decreased) systolic flow Post Interventional Exam: No significant air noted prior to discontinuation of CPB, No aortic dissection noted Post Interventional Exam: RWMA: inf base HK LV Function:mild decreased EF 45% RV Function: normal All Findings Discussed with:Dr Peoples Post-CPB Exam Performed by: [facility] MD patient tolerated procedure well with no complications Echocardiogram Comments: S/p CABG X 4, PVI, KYARA occlusion No AI, no TR Initially mod MR (central jet and post jet) decreased to trace-mild MR KYARA no longer visualized us [facility] MD PROCEDURE/MINOR SURGICAL ORD ERABLES Edited Result - Final * MD ANES INSERT CATH, ART, PERCUT, SHORTTERM (09/26/2024 12:25 PM CDT) Narrative [facility] MD - 09/26/2024 12:25 PM CDT [facility] MD 09/26/2024 12:25 PM PA Catheter Insertion Performed by: [facility] MD Authorized by: [facility] MD Patient Location: OR End time: 09/26/2024 11:35 PM Performed by: Anesthesiologist (/) Indications: Mixed venous oxygen saturation monitoring and central pressure monitoring Hand hygiene performed prior to procedure antiseptic used during central venous catheter insertion cap gloves gown mask sterile sheet Preparation: Skin prepped with ChloraPrep Skin prep agent dried: Skin prep agent completely dried prior to procedure Time out: Time out performed Patient position: Trendelenburg Location: Right internal jugular vein Introducer Catheter: Cordis introducer - single lumen Cordis introducer size: 9 Fr [place] Identification: Ultrasound guided Ultrasound- Sterile Gel Used: Yes Ultrasound- Sterile Probe Cover Used: Yes Number of attempts: 1 Guidewire status: guidewire removed Techniques to confirm placement of introducer: venous blood return and verified by ultrasound PA catheter size: 8 Fr Techniques to confirm placement of tip of catheter in pulmonary artery: Non-pulsatile flow, transduced waveform, CHEMO and color of blood consistent with venous placement Successful placement: Yes X-ray: X-ray will be performed Complications: Other Procedure: Procedure uneventful Post-procedure: Dressing applied, line secured and line sutured Comments: Guidewire removed [facility] MD PROCEDURE/MINOR SURGICAL ORD ERABLES Final Result * MD ANES INSERT TUNNELED CV CATH W/O PORT OR PUMP, CENTRAL LINE ADULT QUAD LUMEN (09/26/2024 12:25 PM CDT) Narrative [facility] MD - 09/26/2024 12:25 PM CDT [facility] MD 09/26/2024 12:25 PM Central Line Insertion End Time: 09/26/2024 11:35 AM Patient location during procedure: OR Staffing Performed: Anesthesiologist (/) Authorized by: [facility] MD Performed by: [facility] MD Indications: central pressure monitoring, vasoactive infusions, IV medication and vascular access Procedure details: Sterile techniques used: hand hygiene performed prior to central venous catheter insertion, antiseptic used, cap, gloves, gown, mask, sterile sheet and eye protection Preparation: Skin prepped with ChloraPrep Skin prep agent dried: skin prep agent completely dried prior to procedure time out called Patient position: Trendelenburg Location Side: Right Location: Internal jugular vein Catheter type: Quad lumen Catheter size: 8.5 Fr [place] Identification: ultrasound guided Sterile gel used in ultrasound-guided central venous catheter insertion Sterile probe cover used in ultrasound-guided central venous catheter insertion Number of attempts: 1 Successful placement: yes Techniques to confirm venous canulation: non-pulsatile flow, ultrasound and color of blood consistent with venous placement Tip Location: SVC x-ray will be performed Guidewire removed Complications: none Breath sounds/airway entry unchanged Procedure uneventful Post-procedure: dressing applied, line secured and line sutured [facility] MD PROCEDURE/MINOR SURGICAL ORD ERABLES Final Result * TRANSFUSE RED BLOOD CELLS (09/26/2024 12:15 PM CDT) Only the most recent of2 resultswithin the time period is included. [facility] MD BLOOD TRANSFUSION ORDERABLES Final Result * POC HEPARIN DOSE RESPONSE (09/26/2024 11:58 AM CDT) BASELINE ACT POC 136 See Comment secs 09/26/2024 11:58 AM CDT [facility] Comment: Reference range for initiation of bypass procedures in the CVOR: >/= 480 seconds Reference range for post bypass procedures (back to baseline): 100-140 seconds Reference range for ECMO patients: 180-220 seconds HDR SLOPE POC 79 See comment secs/unit/ml 09/26/2024 11:58 AM CDT [facility] Comment: [place] range is calculated with every 50 patients performed; there may be minor variation based on patient clinical condition. Low HDR slope: 0-53 High HDR slope: 139-227 Blood 09/26/2024 11:5 8 AM CDT 09/26/2024 12:10 PM CDT Florecita Jacobs DO POINT OF CARE TESTING Final Result Performing Organization Address City/State/[facility] Co de Phone Number [facility]# [id number] [address] [place] [address] * MD ANES INSERT ENDOTRACHEAL AIRWAY (09/26/2024 11:24 AM CDT) Narrative [facility] MD - 09/26/2024 11:24 AM CDT [facility] MD 09/26/2024 12:23 PM Airway Date/Time: 09/26/2024 11:24 AM Location: OR Plan: routine intubation Patient Identity Confirmed by: Verbally with patient and armband Airway: not difficult Staffing Performed: Anesthesiologist (/) Authorized by: [facility] MD Performed by: [facility] MD Indications and Patient Condition: Indications for Airway Management: Anesthesia Sedation Level: general anesthesia Preoxygenated: yes Patient Position: Sniffing Mask Difficulty Assessment: 0 - not attempted Plan to extubate at end of case: Yes Final Airway Details: Final Airway Type: Endotracheal airway ETT Cuffed: Yes Technique Used for Successful ETT Placement: Direct laryngoscopy Devices/Methods Used in Placement: Cricoid pressure Blade Type: curved blade Blade Size: 3 Insertion Site: Oral ETT Size (mm): 8.0 Measured from: Lips ETT to Lips (cm): 23 Tube secured with: Tape Placement Verified by: auscultation, end tidal CO2 and chest rise Cormack-Lehane Classification: Grade I - full view of glottis Number of Attempts at Approach: 1 Additional Procedure Information: atraumatic [facility] MD PROCEDURE/MINOR SURGICAL ORD ERABLES Final Result * MD ANES INSERT CATH, ART, PERCUT, SHORTTERM (09/26/2024 11:14 AM CDT) Narrative [facility] MD - 09/26/2024 11:14 AM CDT [facility] MD 09/26/2024 11:15 AM Arterial Line Insertion End Time: 09/26/2024 11:01 AM Patient location during procedure: Pre-op Staffing Performed: Anesthesiologist (CLAY) Authorized by: [facility] MD Performed by: [facility] MD time out called Patient was prepped and draped in usual sterile fashion Indications: multiple ABGs and hemodynamic monitoring Local Anesthetic: lidocaine 2% without epinephrine Anesthetic total: 1 mL Hand hygiene performed prior to procedure Sterile Barriers: gloves, cap and mask Preparation: skin prepped with ChloraPrep Skin prep agent dried: skin prep agent completely dried prior to procedure Patient position: flat Location: left radial Catheter size: 20 G [place] Identification: palpation technique Number of attempts: 1 Successful placement: yes Assessment: blood return through port Procedure uneventful Post-procedure: dressing applied and line secured [facility] MD PROCEDURE/MINOR SURGICAL ORD ERABLES Final Result * PREPARE RED BLOOD CELLS (09/26/2024 9:04 AM CDT) Only the most recent of12 resultswithin the time period is included. COMPONENT TYPE [id number] [facility] -- [facility] COMPONENT IDENTIFICATION [id number] [facility] UNIT ABO O [facility] UNIT RH POS [facility] CROSSMATCH Compatible [facility] -- [facility] COMPONENT STATUS Transfused ME [facility] SERVICES -- .[facility] COMPONENT EXPIRATION DATE/TIME [id number] [facility] -- [facility] COMPONENT CODING SYSTEM 5100 [facility] -- [facility] VOLUME, BLOOD PRODUCT 350 [facility] -- [facility] 09/26/2024 9:04 AM CDT Josiah Peoples MD LAB TRANSFUSION ORDERABLES Edited Result - Final [facility] -- [facility] CLIA# [id number] [facility] [address] [address] * US GUIDE NEEDLE PLACEMENT (09/26/2024 8:26 AM CDT) Narrative 09/26/2024 8:26 AM CDT Order information only. Exam was auto-finalized. Josiah Peoples MD US ORDERABLES Final Resu lt * CVOR TRANSESOPHAGEAL STUDY (09/26/2024 2:58 AM CDT) Narrative 09/26/2024 2:58 AM CDT Order Auto Finalized. Please see associated Operative Report/Progress Note/Procedure Note from the same date. Josiah Peoples MD ECHO ORDERABLES Final Resu lt * TYPE AND SCREEN (09/26/2024 12:44 AM CDT) Only the most recent of2 resultswithin the time period is included. ABO GROUP O 09/26/2024 2:04 AM CDT [facility] -- [facility] RH (D) TYPE Positive 09/26/2024 2:04 AM CDT [facility] ANTIBODY SCREEN Negative 09/26/2024 2:04 AM CDT [facility] Blood Venipuncture / Unknown 09/26/2024 12:44 AM CDT 09/26/2024 12:58 AM CDT Dexter Naranjo DO BLOOD BANK ORDERABLES Edited Res ult - Final [facility] -- [facility]# [id number] [address] [facility] [place] [place] [address] * DRUG SCREEN, URINE (09/23/2024 1:14 PM CDT) Only the most recent of2 resultswithin the time period is included. AMPHETAMINE QUAL, URINE Negative Negative 09/23/2024 2:12 PM CDT [facility] - [facility] BARBITURATE QUAL, URINE Negative Negative 09/23/2024 2:12 PM CDT [facility] - [facility] BENZODIAZEPINE QUAL, URINE Negative Negative 09/23/2024 2:12 PM CDT [facility] - [facility] COCAINE QUAL URINE Negative Negative 2024 2:12 PM CDT [facility] - [facility] OPIATE QUAL, URINE Negative Negative 2024 2:12 PM CDT [facility] CANNABINOIDS QUAL, URINE Negative Negative 09/23/2024 2:12 PM T [facility] PCP QUAL, URINE Negative Negative 2:12 PM T [facility] [facility] OXYCOD[facility]AL, URINE Negative Negative 09/23/2024 2:12 PM T [facility] METHADONE QUAL, URINE Negative Negative 09/23/2024 2:12 PM T [facility] FENTANYL QUAL, URINE Negative Negative 09/23/2024 2:12 PM T [facility] CREATININE, URINE 56.3 40.0 - 278.0 mg/dL 09/23/2024 2:12 PM [facility] Comment:Reference Range vari es with fluid intake and diet. Urine URINE SPECIMEN OBTAINED BY CLEAN CATCH PROCEDURE / Unknown Collection / Unknown 09/23/2024 1:14 PM CDT 09/23/2024 1:32 PM CDT [facility] - 09/23/2024 2:12 PM CDT This test is a qualitative screen. The presumptive positive results should not be used for legal purposes. If confirmation of results is desired, the lab must be contacted without delay. Drug Ref. Range Screening Threshold Amphetamines Negative 500 ng/mL Barbiturates Negative 200 ng/mL Benzodiazepines Negative 100 ng/mL Cannabinoids Negative 50 ng/mL Cocaine Negative 150 ng/mL Methadone Negative 300 ng/mL Opiates Negative 300 ng/mL Oxycodone Negative 100 ng/mL Phencyclidine Negative 25 ng/mL Fentanyl Negative 5 ng/mL us Dexter R Jose A DO URINE ORDERABLES Final Result [facility]# [id number] [address] [place] [id number] * VERIFICATION BLOOD GROUP (09/23/2024 9:54 AM CDT) ABO GROUP O 09/23/2024 10:31 AM T [facility] RH (D) TYPE Positive 09/23/2024 10:31 AM T [facility] [facility] -- .[facility] Blood Venipuncture / Unknown 09/23/2024 9:54 AM CDT 09/23/2024 9:54 AM CDT Tal Hopper MD BLOOD BANK ORDERABLES Final Result [facility] -- [facility] CLIA# [id number] [address] [place] [address] * (ABNORMAL) POC BLOOD GAS AND LACTIC ACID (09/23/2024 4:24 AM CDT) PH BLOOD POC 7.29(L) 7.35 - 7.45 09/23/2024 4:24 AM [facility] - . [facility] PCO2 POC 62(H) 35 - 48 mm Hg 09/23/2024 4:24 AM [facility] - . [facility] PO2 POC 25(LL) 83 - 108 mm Hg 09/23/2024 4:24 AM [facility] - . [facility] TCO2 (CALC) POC 32(H) 19 - 24 mmol/L 09/23/2024 4:24 AM [facility] - . [facility] HCO3 (CALC) POC 30(H) 22 - 26 mmol/L 09/23/2024 4:24 AM [facility] - . [facility] BASE EXCESS POC 2 -2 - 3 mmol/L 09/23/2024 4:24 AM [facility] O2 SATURATION POC 38(L) 94 - 98 % 09/23/2024 4:24 AM [facility] - . [facility] LACTIC ACID POC 1.1 <=2.0 mmol/L 09/23/2024 4:24 AM [facility] - . [facility] SPECIMEN SOURCE, GASES POC Arterial 09/23/2024 4:24 AM [facility] - . [facility] COMMENT, GASES POC Licensed caregiver notified and read back verified 09/23/2024 4:24 AM CDT [employer] [facility] Blood, arterial 09/23/2024 4 :24 AM CDT 09/23/2024 4:29 AM CDT us Dexter Jonny Naranjo DO ABG ORDERABLES Final Result Performing Organization Address City/State/[facility] Co de Phone Number [facility] CLIA# [id number] [address] [place] [address] [place] [address] * US RADIAL ARTERY IMAGING BILATERAL (09/20/2024 4:03 PM CDT) Anatomical Region Laterality Modality Upper Extremity Ultrasound 09/20/2024 2:42 PM CDT Narrative 09/20/2024 6:07 PM CDT [facility] [address] [place] [address] [email or web address] Artery Mapping Radial Artery Patient: Jaylan Melgoza Study ID: [id number] Gender: M : 1960 Age: 64 Race: Height Study Date: 09/20/2024 Weight: Access. #: [id number] *Referring Physician:David Cleary Kyle *Ordering Physician:David Cleary *Nutrition Manager:* Sheree Chavez Indications: Preoperative. Study data: [facility] Study status: Routine. Radial artery mapping Doppler flow study including spectral analysis, color and nguyen scale imaging and vessel mapping. Birthdate: Patient birthdate: 1960. Age: Patient is 64year(s) old. Sex: gender: male. Study date: Study date: 09/20/2024. Study time: 02:42 PM. Location: Vascular laboratory. Patient status: Inpatient. Impressions 1. Patent bilateral Mercado Arch. 2. No significant stenosis, calcifications, or anatomical variants present in bilateral radial arteries. Tables: Arterial flow: + +-----+------+ !Location !V sys!D AP! + +-----+------+ !Right brachial - distal!44 !0.63 ! + +-----+------+ !Right radial - proximal!41 !0.49 ! + +-----+------+ !Right radial - mid !41 !0.36 ! + +-----+------+ !Right radial - distal !53 !0.28 ! + +-----+------+ !Left brachial - distal !49 !0.56 ! + +-----+------+ !Left radial - proximal !67 !0.23 ! + +-----+------+ !Left radial - mid !61 !0.34 ! + +-----+------+ !Left radial - distal !51 !0.28 ! + +-----+------+ *Velocities are expressed in cm/s, Diameters are expressed in cm Prepared and Electronically Authenticated Julian Lawson M.D. [id number]:07:13 Procedure Note Julian Lawson MD - 09/20/2024 [address] [address] [place] [address] [email or web address]/stlouismo Artery Mapping Radial Artery Patient: aJylan Melgoza Study ID:[id number] Gender: M :1960 Age: 64 Race: Height Study Date:09/20/2024 Weight: Access. #:[id number] *Referring Physician:David Cleary Kyle *Ordering Physician:David Cleary *Nutrition Manager:Sheree Ortiz Indications: Preoperative. Study data: New node Study status: Routine. Radial artery mapping Doppler flow study including spectral analysis, color and nguyen scaleimaging and vessel mapping. Birthdate: Patient birthdate: 1960. Age:Patient is 64year(s) old. Sex: gender: male. Study date: Study date: 09/20/2024. Study time: 02:42 PM. Location: Vascular laboratory.Patient status: Inpatient. Impressions 1. Patent bilateral Mercado Arch. 2. No significant stenosis, calcifications, or anatomical variants presentin bilateral radial arteries. Tables: Arterial flow: + +-----+------+ !Location !V sys!D AP! + +-----+------+ !Right brachial - distal!44 !0.63 ! + +-----+------+ !Right radial - proximal!41 !0.49 ! + +-----+------+ !Right radial - mid !41 !0.36 ! + +-----+------+ !Right radial - distal !53 !0.28 ! + +-----+------+ !Left brachial - distal !49 !0.56 ! + +-----+------+ !Left radial - proximal !67 !0.23 ! + +-----+------+ !Left radial - mid !61 !0.34 ! + +-----+------+ !Left radial - distal !51 !0.28 ! + +-----+------+ *Velocities are expressed in cm/s, Diameters are expressed in cm Prepared and Electronically Authenticated Julian Lawson M.D. [id number]:07:13 us David PHILLIP US ORDERABLES Final Result * US ELA DOPPLER MAPPING LEGS BILAT (09/20/2024 4:02 PM CDT) Anatomical Region Laterality Modality Lower Extremity Ultrasound 09/20/2024 3:03 PM CDT Narrative 09/20/2024 6:06 PM CDT [address] [address] [employer] Vein Mapping Complete Lower Extremity Patient: Jaylan Melgoza Study ID: [id number] Gender: M : 1960 Age: 64 Race: Height Study Date: 09/20/2024 Weight: Access. #: [id number] *Referring Physician:David Cleary Kyle *Ordering Physician:David Cleary *Nutrition Manager:Sheree Ortiz Indications: Preoperative. Study data: New node Study status: Routine. Procedure: A vascular evaluation was performed with the patient in the supine position. Image quality was good. Bilateral lower extremity vein mapping Vessel mapping. Birthdate: Patient birthdate: 1960. Age: Patient is 64year(s) old. Sex: gender: male. Study date: Study date: 09/20/2024. Study time: 03:03 PM. Location: Vascular laboratory. Patient status: Inpatient. Impressions 1. The bilateral great saphenous veins and the left small saphenous vein appear adequate for conduit throughout their lengths. Portions of the right small saphenous vein appear small and may not be suitable for vein conduit. Clinical correlation is suggested. 2. Wall thickening noted in the left small saphenous vein. Tables: Venous flow: + +----+-------+--------+ + !Location !Zone!Overall!D AP !Flow properties! + +----+-------+--------+ + !Right great saphenous -!1 !Patent !AP: 4.90!Compressible ! + +----+-------+--------+ + !Right great saphenous -!2 !Patent !AP: 4.30!Compressible ! + +----+-------+--------+ + !Right great saphenous -!3 !Patent !AP: 3.40!Compressible ! + +----+-------+--------+ + !Right great saphenous -!4 !Patent !AP: 2.60!Compressible ! + +----+-------+--------+ + !Right great saphenous -!5 !Patent !AP: 2.70!Compressible ! + +----+-------+--------+ + !Right great saphenous -!6 !Patent !AP: 2.70!Compressible ! + +----+-------+--------+ + !Right great saphenous -!7 !Patent !AP: 2.50!Compressible ! + +----+-------+--------+ + !Right small saphenous -!4 !Patent !AP: 3.40!Compressible ! + +----+-------+--------+ + !Right small saphenous -!5 !Patent !AP: 2.40!Compressible ! + +----+-------+--------+ + !Right small saphenous -!6 !Patent !AP: 2.50!Compressible ! + +----+-------+--------+ + !Right small saphenous -!7 !Patent !AP: 2.80!Compressible ! + +----+-------+--------+ + !Left great saphenous - !1 !Patent !AP: 5.80!Compressible ! + +----+-------+--------+ + !Left great saphenous - !2 !Patent !AP: 3.50!Compressible ! + +----+-------+--------+ + !Left great saphenous - !3 !Patent !AP: 3.20!Compressible ! + +----+-------+--------+ + !Left great saphenous - !4 !Patent !AP: 3.40!Compressible ! + +----+-------+--------+ + !Left great saphenous - !5 !Patent !AP: 2.50!Compressible ! + +----+-------+--------+ + !Left great saphenous - !6 !Patent !AP: 2.90!Compressible ! + +----+-------+--------+ + !Left great saphenous - !7 !Patent !AP: 2.70!Compressible ! + +----+-------+--------+ + !Left small saphenous - !4 !Patent !AP: 2.90!Compressible ! + +----+-------+--------+ + !Left small saphenous - !5 !Patent !AP: 2.70!Compressible ! + +----+-------+--------+ + !Left small saphenous - !6 !Patent !AP: 3.10!Compressible ! + +----+-------+--------+ + !Left small saphenous - !7 !Patent !AP: 2.50!Compressible ! + +----+-------+--------+ + *Velocities are expressed in cm/s, Diameters are expressed in mm Prepared and Electronically Authenticated Julian Lawson M.D. [id number]:06:47 Procedure Note Julian Lawson MD - 09/20/[address] [place] [address] [email or web address].[email or web address]ismo Vein Mapping Complete Lower Extremity Patient: Jaylan Melgoza Study ID:[id number] Gender: M :1960 Age: 64 Race: Height Study Date:09/20/2024 Weight: Access. #:[id number] *Referring Physician:David Cleary Kyle *Ordering Physician:David ClearyNutrition Manager:Sheree Ortiz Indications: Preoperative. Study data: New node Study status: Routine. Procedure: A vascular evaluation was performed with the patient in the supine position. Image quality was good. Bilateral lower extremity vein mapping Vessel mapping. Birthdate: Patient birthdate: 1960. Age: Patient is 64year(s) old. Sex: gender: male. Study date: Study date: 09/20/2024. Study time: 03:03 PM. Location: Vascular laboratory.Patient status: Inpatient. Impressions 1. The bilateral great saphenous veins and the left small saphenous vein appear adequate for conduit throughout their lengths. Portions of theright small saphenous vein appear small and may not be suitable for veinconduit. Clinical correlation is suggested. 2. Wall thickening noted in the left small saphenous vein. Tables: Venous flow: + +----+-------+--------+ + !Location !Zone!Overall!D AP !Flow properties! + +----+-------+--------+ + !Right great saphenous -!1 !Patent !AP: 4.90!Compressible ! + +----+-------+--------+ + !Right great saphenous -!2 !Patent !AP: 4.30!Compressible ! + +----+-------+--------+ + !Right great saphenous -!3 !Patent !AP: 3.40!Compressible ! + +----+-------+--------+ + !Right great saphenous -!4 !Patent !AP: 2.60!Compressible ! + +----+-------+--------+ + !Right great saphenous -!5 !Patent !AP: 2.70!Compressible ! + +----+-------+--------+ + !Right great saphenous -!6 !Patent !AP: 2.70!Compressible ! + +----+-------+--------+ + !Right great saphenous -!7 !Patent !AP: 2.50!Compressible ! + +----+-------+--------+ + !Right small saphenous -!4 !Patent !AP: 3.40!Compressible ! + +----+-------+--------+ + !Right small saphenous -!5 !Patent !AP: 2.40!Compressible ! + +----+-------+--------+ + !Right small saphenous -!6 !Patent !AP: 2.50!Compressible ! + +----+-------+--------+ + !Right small saphenous -!7 !Patent !AP: 2.80!Compressible ! + +----+-------+--------+ + !Left great saphenous - !1 !Patent !AP: 5.80!Compressible ! + +----+-------+--------+ + !Left great saphenous - !2 !Patent !AP: 3.50!Compressible ! + +----+-------+--------+ + !Left great saphenous - !3 !Patent !AP: 3.20!Compressible ! + +----+-------+--------+ + !Left great saphenous - !4 !Patent !AP: 3.40!Compressible ! + +----+-------+--------+ + !Left great saphenous - !5 !Patent !AP: 2.50!Compressible ! + +----+-------+--------+ + !Left great saphenous - !6 !Patent !AP: 2.90!Compressible ! + +----+-------+--------+ + !Left great saphenous - !7 !Patent !AP: 2.70!Compressible ! + +----+-------+--------+ + !Left small saphenous - !4 !Patent !AP: 2.90!Compressible ! + +----+-------+--------+ + !Left small saphenous - !5 !Patent !AP: 2.70!Compressible ! + +----+-------+--------+ + !Left small saphenous - !6 !Patent !AP: 3.10!Compressible ! + +----+-------+--------+ + !Left small saphenous - !7 !Patent !AP: 2.50!Compressible ! + +----+-------+--------+ + *Velocities are expressed in cm/s, Diameters are expressed in mm Prepared and Electronically Authenticated Julian Lawson M.D. [id number]:06:47 us David PHILLIP US ORDERABLES Final Result * US CAROTID DOPPLER (09/20/2024 4:02 PM CDT) Anatomical Region Laterality Modality Neck Ultrasound 09/20/2024 3:16 PM CDT Narrative 09/20/2024 6:05 [place] [address] [email or web address] Cerebrovascular Exam Carotid Duplex Patient: Jaylan Melgoza Study ID: [id number] Gender: M : 1960 Age: 64 Race: Height Study Date: 09/20/2024 Weight: Access. #: [id number] *Referring Physician:David Cleary Kyle *Ordering Physician:David Cleary *Nutrition Manager:Sheree Ortiz Indications: Preoperative. History: PMH: No prior study is available for comparison. Risk factors: Former tobacco use; date of cessation unknown. Coronary artery disease. Study data: [facility] Study status: Routine. Procedure: A vascular evaluation was performed. Image quality was good. Carotid duplex study was performed using real-time imaging coupled with Doppler flow analysis. Carotid duplex study. Complete study and Doppler flow study including spectral analysis, color and nguyen scale imaging. Birthdate: Patient birthdate: 1960. Age: Patient is 64year(s) old. Sex: gender: male. Study date: Study date: 09/20/2024. Study time: 03:16 PM. Location: Vascular laboratory. Patient status: Inpatient. Impressions - Right internal carotid: Stenosis: There is a 0-49% stenosis. There is minimal smooth plaque. Ratio may be unreliable due to elevated velocites caused by tortuous vessel in the mid to distal portion. - Left internal carotid: Stenosis: There is a 0-49% stenosis. There is irregularheterogeneous plaque. The bilateral vertebral arteries are patent with normal antegrade flow. Aorta and systemic arteries: Right internal carotid: Stenosis: There is a 0-49% stenosis. There is minimal smooth plaque. Ratio may be unreliable due to elevated velocites caused by tortuous vessel in the mid to distal portion. Left internal carotid: Stenosis: There is a 0-49% stenosis. There is irregularheterogeneous plaque. Tables: Arterial flow: + +-----+----+ !Location !V sys!V ed! + +-----+----+ !Right CCA - proximal!73 !19 ! + +-----+----+ !Right CCA - distal !47 !8 ! + +-----+----+ !Right ICA - proximal!41 !14 ! + +-----+----+ !Right ICA - mid !98 !34 ! + +-----+----+ !Right ICA - distal !57 !22 ! + +-----+----+ !Right ECA !72 !----! + +-----+----+ !Right vertebral !57 !----! + +-----+----+ !Left CCA - proximal !68 !20 ! + +-----+----+ !Left CCA - distal !55 !20 ! + +-----+----+ !Left ICA - proximal !50 !22 ! + +-----+----+ !Left ICA - mid !58 !25 ! + +-----+----+ !Left ICA - distal !68 !32 ! + +-----+----+ !Left ECA !70 !----! + +-----+----+ !Left vertebral !53 !----! + +-----+----+ *Velocities are expressed in cm/s, Diameters are expressed in cm Velocity ratios: + +-----+-----+ ! !R PSV!L PSV! + +-----+-----+ !Max ICA/distal CCA!2.09 !1.24 ! + +-----+-----+ Prepared and Electronically Authenticated Julian Lawson M.D. [id number]:05:39 Procedure Note Julian Lawson MD - 09/20/[address] [address] [email or web address] Cerebrovascular Exam Carotid Duplex Patient: Jaylan Melgoza Study ID:[id number] Gender: M :1960 Age: 64 Race: Height Study Date:09/20/2024 Weight: Access. #:[id number] *Referring Physician:David Cleary Kyle *Ordering Physician:David Cleary *Nutrition Manager:Sheree Ortiz Indications: Preoperative. History: PMH: No prior study is available for comparison. Riskfactors: Former tobacco use; date of cessation unknown. Coronary artery disease. Study data: [facility] Study status: Routine. Procedure: A vascular evaluation was performed. Image quality was good. Carotid duplex studywas performed using real-time imaging coupled with Doppler flow analysis. Carotid duplex study. Complete study and Doppler flow studyincluding spectral analysis, color and nguyen scale imaging. Birthdate: Patient birthdate: 1960. Age: Patient is 64year(s) old. Sex: Birthgender: male. Study date: Study date: 09/20/2024. Study time: 03:16 PM.Location: Vascular laboratory. Patient status: Inpatient. Impressions - Right internal carotid: Stenosis: There is a 0-49% stenosis. There is minimal smooth plaque. Ratio may be unreliable due to elevatedvelocites caused by tortuous vessel in the mid to distal portion. - Left internal carotid: Stenosis: There is a 0-49% stenosis. There is irregularheterogeneous plaque. The bilateral vertebral arteries are patent with normal antegrade flow. Aorta and systemic arteries: Right internal carotid: Stenosis: There is a 0-49% stenosis. There isminimal smooth plaque. Ratio may be unreliable due to elevated velocites causedby tortuous vessel in the mid to distal portion. Left internal carotid: Stenosis: There is a 0-49% stenosis. There is irregularheterogeneous plaque. Tables: Arterial flow: + +-----+----+ !Location !V sys!V ed! + +-----+----+ !Right CCA - proximal!73 !19 ! + +-----+----+ !Right CCA - distal !47 !8 ! + +-----+----+ !Right ICA - proximal!41 !14 ! + +-----+----+ !Right ICA - mid !98 !34 ! + +-----+----+ !Right ICA - distal !57 !22 ! + +-----+----+ !Right ECA !72 !----! + +-----+----+ !Right vertebral !57 !----! + +-----+----+ !Left CCA - proximal !68 !20 ! + +-----+----+ !Left CCA - distal !55 !20 ! + +-----+----+ !Left ICA - proximal !50 !22 ! + +-----+----+ !Left ICA - mid !58 !25 ! + +-----+----+ !Left ICA - distal !68 !32 ! + +-----+----+ !Left ECA !70 !----! + +-----+----+ !Left vertebral !53 !----! + +-----+----+ *Velocities are expressed in cm/s, Diameters are expressed in cm Velocity ratios: + +-----+-----+ ! !R PSV!L PSV! + +-----+-----+ !Max ICA/distal CCA!2.09 !1.24 ! + +-----+-----+ Prepared and Electronically Authenticated Julian Lawson M.D. [id number]:05:39 us David PHILLIP ORDERABLES Final Result * PULMONARY FUNCTION TEST (09/20/2024 12:42 PM CDT) 09/20/2024 12:4 2 PM CDT Narrative INTERFACE SYSTEM - 09/21/2024 10:56 PM CDT [facility] [address] [place] [address] Test Date: 2024-09-20 Pat Name: JAYLAN MELGOZA Department: Room: [facility] Gender: M [employer] Associate: : 1960 Requested By: VASILIY TAYLOR Order Number: [id number] Reading MD: Cisco Oviedo Interpretive Statements This patient is a 64 year old Male, height 182.88 cm. and weight of 68.04 kgs. The indication for the pulmonary function test is CAD. Testing data quality was acceptable, flow volume loops demonstrated marked terminal flattening of the expiratory limb consistent with an obstructive physiology. SPIROMETRY revealed an FVC of 2.59 L, 55 % predicted. The FEV1 is 0.75 L, 21 % of predicted, the FEV1/FVC ratio is 0.29 . IMPRESSION: Very severe obstructive ventilatory impairment. Electronically Signed On 09-21-2024 22:56:44 CDT by Cisco Oviedo Procedure Note Provider, Historical - 09/21/[address] [facility] [address] [place] [address] Test Date: 2024-09-20 Pat Name: JAYLAN MELGOZA Department: Room: [facility] Gender: M [employer] Associate: : 1960 Requested By: VASILIY LARIOS Order Number: [id number] Reading MD: Cisco Oviedo Interpretive Statements This patient is a 64 year old Male, height 182.88 cm. andweight of 68.04 kgs. The indication for the pulmonary function test is CAD. Testing data quality was acceptable, flow volume loops demonstrated marked terminal flattening of the expiratory limb consistent with an obstructive physiology. SPIROMETRY revealed an FVC of 2.59 L, 55 % predicted. The FEV1 is 0.75 L,21 % of predicted, the FEV1/FVC ratio is 0.29 . IMPRESSION: Very severe obstructive ventilatory impairment. Electronically Signed On 09-21-2024 22:56:44 CDT by Cisco Oviedo David PHILLIP PFT ORDERABLES Final Result Performing Organization Address City/[facility]/ZIP Co de Phone Number INTERFACE SYSTEM Refer to clinic/hospital department * LEFT HEART CATH (09/20/2024 8:56 AM CDT) Narrative [facility] - 09/20/2024 9:01 AM CDT Dist LM lesion is 80% stenosed. Mid LAD lesion is 45% stenosed. 3rd Diag lesion is 85% stenosed. Mid Cx lesion is 90% stenosed. Mid RCA-2 lesion is 60% stenosed. Mid RCA-1 lesion is 50% stenosed. MVCAD including distal LM, D3, and CX. LVEDP 19 with NO LV to AO gradient. CTS consult Routine TR band care. Coronary Findings Diagnostic Dominance: Right Left Main: Dist LM lesion is 80% stenosed. The lesion is type C and located proximal to the major branch. Left Anterior Descending: Mid LAD lesion is 45% stenosed. The lesion is tubular. Third Diagonal Branch: The vessel is moderate in size. 3rd Diag lesion is 85% stenosed. The lesion is tubular. Left Circumflex: The vessel is small. Mid Cx lesion is 90% stenosed. The lesion is tubular. Right Coronary Artery: The vessel is large. Mid RCA-1 lesion is 50% stenosed. The lesion is tubular. Mid RCA-2 lesion is 60% stenosed. The lesion is tubular. Intervention No interventions have been documented. Estimated Blood Loss There was minimal blood loss during procedure. Maia Baker MONORAIL CRANE OPERATOR CUP CATH ORDERABLES Final Resul t [facility] CLIA# [id number] [address] [place] [address] * VITAMIN B12 AND FOLATE (09/20/2024 5:52 AM CDT) VITAMIN B12 1,112 232 - 1,245 pg/mL 09/20/2024 7:08 AM CDT [facility] [employer] [facility] Comment:It has been reported that between 5 to 10% of patients with values between 200 and 400 pg/mL may experience neuropsychiatric and hematologic abnormalities due to occult B12 deficiency. Less than 1% of patients with values above 400 pg/mL will have symptoms. FOLATE, SERUM 10.4 >4.5 ng/mL 09/20/2024 7:08 AM CDT [facility] [employer] [facility] Blood Venipuncture / Unknown 09/20/2024 5:52 AM CDT 09/20/2024 5:58 AM CDT Dexter Naranjo DO CHEMISTRY ORDERABLES Final Resul t Performing Organization Address City/[facility]/ZIP Co de Phone Number [facility] CLIA# [id number] [address] [place] [address] * (ABNORMAL) C-REACTIVE PROTEIN (09/20/2024 5:52 AM CDT) Only the most recent of2 resultswithin the time period is included. CRP 21.9(H) <5.0 mg/L 09/20/2024 6:52 AM T [facility] Blood Venipuncture / Unknown 09/20/2024 5:52 AM CDT 09/20/2024 5:58 AM CDT Noah Richard MD CHEMISTRY ORDERABLES Final Result [facility] CLIA# [id number] [address] [address] * HEMOGLOBIN A1C (09/20/2024 5:51 AM CDT) HEMOGLOBIN A1C 5.0 <5.7 % 09/20/2024 10:27 AM CDT [facility] EST. AVG GLUCOSE, A1C 97 mg/dL 09/20/2024 10:27 AM CDT [facility] Blood Venipuncture / Unknown 09/20/2024 5:51 AM CDT 09/20/2024 5:58 AM CDT Narrative [facility] - 09/20/2024 10:27 AM CDT HGB A1C INTERPRETATION NORMAL: <5.7% PRE-DIABETES: 5.7 - 6.4% DIABETES: 6.5% OR GREATER David PHILLIP CHEMISTRY ORDERABLES Final Resul t [facility] CLIA# [id number] [address] [place] [id number] * (ABNORMAL) IRON, TIBC, AND PERCENT SATURATION (09/19/2024 5:04 AM CDT) IRON 43(L) 59 - 158 ug/dL 09/19/2024 6:41 PM CDT [facility] TIBC 120(L) 250 - 450 ug/dL 09/19/2024 6:41 PM CDT [facility] IRON % SATURATION 36 20 - 50 % 09/19/2024 6:41 PM CDT [facility] TRANSFERRIN 94(L) 200 - 360 mg/dL 09/19/2024 6:41 PM CDT [facility] Blood Venipuncture / Unknown 09/19/2024 5:04 AM CDT 09/19/2024 5:27 AM CDT Dexter Naranjo DO CHEMISTRY ORDERABLES Final Resul t [facility] CLIA# [id number] [address] [place] [address] * (ABNORMAL) FERRITIN (09/19/2024 5:04 AM CDT) FERRITIN 2,372.0(H) 30.0 - 400.0 ng/mL 09/19/2024 7:02 PM CDT [facility] Blood Venipuncture / Unknown 09/19/2024 5:04 AM CDT 09/19/2024 5:27 AM CDT us Dexter Naranjo DO CHEMISTRY ORDERABLES Final Resul t [facility] CLIA# [id number] [address] [place] [address] * XR ABDOMEN 1 VW (09/18/2024 7:23 PM CDT) Anatomical Region Laterality Modality Abdomen Computed Radiogr aphy 09/18/2024 7:23 PM CDT Impressions 09/18/2024 7:38 PM CDT IMPRESSION: 1. Normal bowel gas pattern. DICTATION LOCATION: Location 4. Narrative 09/18/2024 7:38 PM CDT EXAMINATION: XR ABDOMEN 1 VW DATE: 09/18/2024 7:23 PM INDICATION: Epigastric abdominal pain. TECHNIQUE: A supine view of the abdomen on 2 radiographs was obtained. COMPARISON: None. FINDINGS: There are no dilated loops of bowel. There is a small volume of stool in the colon. There are two calcifications measuring up to 4 mm overlying left kidney that may be stones. Procedure Note Deric Liao MD - 09/18/2024 EXAMINATION: XR ABDOMEN 1 VW DATE: 09/18/2024 7:23 PM INDICATION: Epigastric abdominal pain. TECHNIQUE: A supine view of the abdomen on 2 radiographs was obtained. COMPARISON: None. FINDINGS: There are no dilated loops of bowel. There is a small volume of stool in the colon. There are two calcifications measuring up to 4 mm overlying left kidney that may be stones. IMPRESSION: 1. Normal bowel gas pattern. DICTATION LOCATION: Location 4. us Veronica Ware DO DIAGNOSTIC IMAGING ORDERABLES Final Result * XR SHOULDER 2+ VW LEFT (09/15/2024 10:54 AM CDT) Anatomical Region Laterality Modality Upper Extremity Computed Radiogr aphy 09/15/2024 10:5 4 AM CDT Narrative 09/15/2024 11:03 AM CDT Left Shoulder radiograph DATE: 09/15/2024 10:54 AM NUMBER OF FILMS AVAILABLE FOR INTERPRETATION: Three HISTORY: Fall, Pain . Presents with pain. COMPARISON: None FINDINGS: Acute mildly displaced fracture of the left distal clavicle which does not appear to extend into the acromioclavicular joint. No additional fracture is seen. Dictation location: [address] [place] [address] Procedure Note Yarely Odell MD - 09/15/2024 Left Shoulder radiograph DATE: 09/15/2024 10:54 AM NUMBER OF FILMS AVAILABLE FOR INTERPRETATION: Three HISTORY: Fall, Pain . Presents with pain. COMPARISON: None FINDINGS: Acute mildly displaced fracture of the left distal clavicle which does not appear to extend into the acromioclavicular joint. No additional fracture is seen. Dictation location: [address] [place] [address] Veronica Ware DO DIAGNOSTIC IMAGING ORDERABLES Final Result * (ABNORMAL) LIPID PANEL (09/14/2024 10:28 AM CDT) CHOLESTEROL 112 <200 mg/dL 09/14/2024 11:20 AM T [facility] TRIGLYCERIDE 100 <150 mg/dL 09/14/2024 11:20 AM T [facility] HDL 64(H) 40 - 59 mg/dL 09/14/2024 11:20 AM T [facility] LDL CALCULATED 28 <100 mg/dL 09/14/2024 11:20 AM CDT [facility] NON-HDL CHOLESTEROL 48 <130 mg/dL 09/14/2024 11:20 AM T [facility] Blood Venipuncture / Unknown 09/14/2024 10:28 AM CDT 09/14/2024 10:33 AM CDT Narrative [facility] - 09/14/2024 11:20 AM CDT TOTAL CHOLESTEROL mg/dL Desirable <200 Borderline high 200-239 High >=240 TRIGLYCERIDES mg/dL Normal <150 Borderline high 150-199 High 200-499 Very high >=500 HDL CHOLESTEROL mg/dL Low <40 Normal 40-59 Desirable >=60 NON HDL CHOLESTEROL mg/dL Optimal <130 Near Optimal 130-159 Borderline High 160-189 Very High >=190 CALCULATED LDL mg/dL LDL <70, OPTIMAL if have Atherosclerotic cardiovascular disease (ASCVD) or intermediate or higher (>7.5%) 10 year risk of ASCVD including most adults with diabetes. LDL <100, Optimal in adult patients with low (<7.5%) 10 year ASCVD risk LDL 100-160, Suboptimal LDL >160, High LDL >190, Very high LDL calculated using the Friedewald equation. ATPIII Guidelines Reference Ranges for Lipid Panels (NCEP/AMA) . us Veronica Ware DO CHEMISTRY ORDERABLES Final Res ult [facility]# [id number] [address] [place], [place] [id number] * ECHOCARDIOGRAM W/ CONTRAST AGENT (09/14/2024 9:39 AM CDT) EJECTION FRACTION EF: INTERFACE SYSTEM 09/14/2024 8:17 AM CDT Narrative INTERFACE SYSTEM - 09/14/2024 10:00 AM CDT [facility] [address] [place] [address] [email or web address] Transthoracic Echocardiogram (Report amended ) Patient: Jaylan Melgoza Study ID: ECHO COMPLETE - Gender: M : 1960 Age: 64 Race: Height 188cm Study Date: 09/14/2024 Weight: 67.1kg Access. #: [id number] BP: *Referring Physician:Veronica Hoffmann *Ordering Physician:Veronica Hoffmann roving marker: Nurse: Indications: Elevated troponin. STUDY CONCLUSIONS: SUMMARY: - Left ventricle: The cavity size was normal. Wall thickness was normal. Global systolic function is at the lower limits of normal. The estimated ejection fraction is 50-55%. Images were inadequate for regional LV wall motion assessment. Possible apical hypokinesis. - Aortic valve: Not well visualized. Thickened, calcified leaflets. Possibly bicuspid but unable to definitively determine. - Aortic root: The root is dilated, measuring 4.3 cm at the sinuses of Valsalva. - Mitral valve: The leaflets are mildly thickened. Mild regurgitation. - Left atrium: The atrium is normal in size. - Right ventricle: The cavity size is normal. Systolic function is normal. - Pulmonary arteries: The peak systolic pressure is 15mm Hg. - Technically difficult study. Cardiac Anatomy: LEFT VENTRICLE: The cavity size was normal. Wall thickness was normal. Global systolic function is at the lower limits of normal. The estimated ejection fraction is 50-55%. Images were inadequate for regional LV wall motion assessment. Possible apical hypokinesis. AORTIC VALVE: Not well visualized. Thickened, calcified leaflets. Possibly bicuspid but unable to definitively determine. No significant regurgitation. The mean systolic gradient is 3mm Hg. The peak systolic gradient is 4mm Hg. The LVOT to aortic valve VTI ratio is 0.76. The valve area is 2.4cm^2. The ratio of LVOT to aortic valve peak velocity is 0.75. AORTA: Aortic root: The root is dilated, measuring 4.3 cm at the sinuses of Valsalva. MITRAL VALVE: The leaflets are mildly thickened. Mild regurgitation. The mean diastolic gradient is 2mm Hg. The peak diastolic gradient is 5mm Hg. LEFT ATRIUM: The atrium is normal in size. RIGHT VENTRICLE: The cavity size is normal. Systolic function is normal. PULMONIC VALVE: Not well visualized. No significant regurgitation. TRICUSPID VALVE: Structurally normal valve. Trivial regurgitation. RIGHT ATRIUM: The atrium was normal in size. SYSTEMIC VEINS: Inferior vena cava: The IVC is normal-sized. PERICARDIUM: There is no pericardial effusion. Measurements Left ventricle Value Ref IVS, ED, LAX (N) 1.0 cm 0.6 - 1.0 JINNY, LAX (L) 3.0 cm 4.2 - 5.8 JINNY/bsa, LAX (L) 1.6 cm/m^2 2.2 - 3.0 JINNY, LAX chord (N) 4.4 cm 4.2 - 5.8 ESD, LAX chord (N) 3.0 cm 2.5 - 4.0 JINNY/bsa, LAX chord (N) 2.3 cm/m^2 2.2 - 3.0 ESD/bsa, LAX chord (N) 1.6 cm/m^2 1.3 - 2.1 FS, LAX chord (N) 33 % 25 - 43 IVS, ED (N) 1.0 cm 0.6 - 1.0 PW, ED (N) 0.8 cm 0.6 - 1.0 EDV, 2-p (N) 115 ml 62 - 150 ESV, 2-p (N) 47 ml 21 - 61 EF, 2-p (N) 59 % 52 - 72 SV, 2-p 68 ml --------- SV/bsa, 2-p 35.8 ml/m^2 --------- E', lat david, TDI (N) 11.0 cm/sec >=10.0 E/e', lat david, TDI (N) 11 <=13 E', med david, TDI (N) 15.2 cm/sec >=7.0 E/e', med david, TDI 8 --------- E', avg, TDI 13.1 cm/sec --------- E/e', avg, TDI (N) 10 <=14 LVOT Value Ref Diam, S 2.0 cm --------- Area 3.1 cm^2 --------- Peak evangelista, S 0.77 m/sec --------- VTI, S 13.1 cm --------- Right ventricle Value Ref JINNY minor ax, A4C base (N) 3.3 cm 2.5 - 4.1 JINNY minor ax, A4C mid (N) 3.2 cm 1.9 - 3.5 TAPSE, MM (N) 1.9 cm >=1.7 Pressure, S 17 mm Hg --------- S' lateral (N) 13.1 cm/sec >=9.5 Left atrium Value Ref AP dim, ES (N) 3.6 cm 3.0 - 4.0 AP dim index, ES (N) 1.9 cm/m^2 1.5 - 2.3 SI dim, A4C 4.2 cm --------- Area ES, A4C (N) 12 cm^2 <=20 Area/bsa ES, A4C 6.23 cm^2/m^2 --------- SI dim, A2C 5.1 cm --------- SI dim, shorter 4.2 cm --------- Vol, ES, 1-p A2C (N) 47 ml 18 - 58 Vol/bsa, ES, 1-p A2C (N) 25 ml/m^2 11 - 43 Vol, ES, 2-p 37 ml --------- Vol/bsa, ES, 2-p (N) 19 ml/m^2 16 - 34 LA/Ao root ratio 0.84 --------- Right atrium Value Ref SI dim, ES, A4C (N) 4.2 cm 3.4 - 5.3 SI dim/bsa, ES, A4C (N) 2.2 cm/m^2 1.8 - 3.0 Area, ES, A4C (N) 14 cm^2 10 - 18 Vol, ES, 1-p A4C 39 ml --------- Vol/bsa, ES, 1-p A4C (N) 20 ml/m^2 11 - 39 Aortic valve Value Ref Peak v, S 1 m/sec --------- Mean v, S 0.78 m/sec --------- VTI, S 17.3 cm --------- Mean grad, S 3 mm Hg --------- Peak grad, S 4 mm Hg --------- LVOT/AV, VTI ratio 0.76 --------- TAMMY, VTI 2.4 cm^2 --------- TAMMY/bsa, VTI 1.25 cm^2/m^2 --------- LVOT/AV, Vpeak ratio 0.75 --------- TAMMY, Vmax 2.4 cm^2 --------- TAMMY/bsa, Vmax 1.24 cm^2/m^2 --------- Mitral valve Value Ref Mean v, D 0.68 m/sec --------- Peak E 1.25 m/sec --------- Decel time 112 ms --------- PHT 34 ms --------- Mean grad, D 2 mm Hg --------- Peak grad, D 5 mm Hg --------- A-VTI 15.0 cm --------- MVA, PHT 6.5 cm^2 --------- MVA/bsa, PHT 3.39 cm^2/m^2 --------- Pulmonic valve Value Ref Peak v, S 0.74 m/sec --------- Peak grad, S 2 mm Hg --------- Tricuspid valve Value Ref TR peak v (N) 1.7 m/sec <=2.8 Peak RV-RA grad, S 12 mm Hg --------- Aortic root Value Ref Root diam, 4.3 cm --------- Pulmonary artery Value Ref Pressure, S 15 mm Hg --------- Systemic veins Value Ref Estimated RA pressure 5 mm Hg --------- Legend: (L) and (H) dexter values outside specified reference range. (N) danielson values inside specified reference range. Procedure data: Procedure information: A transthoracic echocardiogram was performed. Scanning was performed from the parasternal, apical, and subcostal acoustic windows. Intravenous contrast (Definity) was administered. Transthoracic echocardiogram. Complete 2D, complete spectral Doppler, and color Doppler. Birthdate: Patient birthdate: 1960. Age: Patient is 64year(s) old. Sex: gender: male. Height: 188cm. 74in. Weight: 67.1kg. 148lb. Body mass index: 19kg/m^2. Body surface area: 1.91m^2. Study date: Study date: 09/14/2024. Study time: 08:17 AM. Tino Myers [id number] Procedure Note Tino Cobb MD - 09/14/[address] [address] [email or web address] Transthoracic Echocardiogram (Report amended ) Patient: Jaylan Melgoza Study ID: ECHO COMPLETE - Gender: M : 1960 Age: 64 Race: Height 188cm Study Date: 09/14/2024 Weight: 67.1kg Access. #: [id number] BP: *Referring Physician:* Veronica Ware *Ordering Physician:* Veronica Ware roving marker: Nurse: Indications: Elevated troponin. STUDY CONCLUSIONS: SUMMARY: - Left ventricle: The cavity size was normal. Wall thickness was normal. Global systolic function is at the lower limits of normal. Theestimated ejection fraction is 50-55%. Images were inadequate for regional LVwall motion assessment. Possible apical hypokinesis. - Aortic valve: Not well visualized. Thickened, calcified leaflets.Possibly bicuspid but unable to definitively determine. - Aortic root: The root is dilated, measuring 4.3 cm at the sinuses of Valsalva. - Mitral valve: The leaflets are mildly thickened. Mild regurgitation. - Left atrium: The atrium is normal in size. - Right ventricle: The cavity size is normal. Systolic function isnormal. - Pulmonary arteries: The peak systolic pressure is 15mm Hg. - Technically difficult study. Cardiac Anatomy: LEFT VENTRICLE: The cavity size was normal. Wall thickness was normal.Global systolic function is at the lower limits of normal. The estimatedejection fraction is 50-55%. Images were inadequate for regional LV wall motion assessment. Possible apical hypokinesis. AORTIC VALVE: Not well visualized. Thickened, calcified leaflets.Possibly bicuspid but unable to definitively determine. No significantregurgitation. The mean systolic gradient is 3mm Hg. The peak systolic gradient is 4mmHg. The LVOT to aortic valve VTI ratio is 0.76. The valve area is 2.4cm^2.The ratio of LVOT to aortic valve peak velocity is 0.75. AORTA: Aortic root: The root is dilated, measuring 4.3 cm at the sinuses ofValsalva. MITRAL VALVE: The leaflets are mildly thickened. Mild regurgitation.The mean diastolic gradient is 2mm Hg. The peak diastolic gradient is 5mmHg. LEFT ATRIUM: The atrium is normal in size. RIGHT VENTRICLE: The cavity size is normal. Systolic function isnormal. PULMONIC VALVE: Not well visualized. No significant regurgitation. TRICUSPID VALVE: Structurally normal valve. Trivial regurgitation. RIGHT ATRIUM: The atrium was normal in size. SYSTEMIC VEINS: Inferior vena cava: The IVC is normal-sized. PERICARDIUM: There is no pericardial effusion. Measurements Left ventricle Value Ref IVS, ED, LAX (N) 1.0 cm 0.6 - 1.0 JINNY, LAX (L) 3.0 cm 4.2 - 5.8 JINNY/bsa, LAX (L) 1.6 cm/m^2 2.2 - 3.0 JINNY, LAX chord (N) 4.4 cm 4.2 - 5.8 ESD, LAX chord (N) 3.0 cm 2.5 - 4.0 JINNY/bsa, LAX chord (N) 2.3 cm/m^2 2.2 - 3.0 ESD/bsa, LAX chord (N) 1.6 cm/m^2 1.3 - 2.1 FS, LAX chord (N) 33 % 25 - 43 IVS, ED (N) 1.0 cm 0.6 - 1.0 PW, ED (N) 0.8 cm 0.6 - 1.0 EDV, 2-p (N) 115 ml 62 - 150 ESV, 2-p (N) 47 ml 21 - 61 EF, 2-p (N) 59 % 52 - 72 SV, 2-p 68 ml --------- SV/bsa, 2-p 35.8 ml/m^2 --------- E', lat david, TDI (N) 11.0 cm/sec >=10.0 E/e', lat david, TDI (N) 11 <=13 E', med david, TDI (N) 15.2 cm/sec >=7.0 E/e', med david, TDI 8 --------- E', avg, TDI 13.1 cm/sec --------- E/e', avg, TDI (N) 10 <=14 LVOT Value Ref Diam, S 2.0 cm --------- Area 3.1 cm^2 --------- Peak evangelista, S 0.77 m/sec --------- VTI, S 13.1 cm --------- Right ventricle Value Ref JINNY minor ax, A4C base (N) 3.3 cm 2.5 - 4.1 JINNY minor ax, A4C mid (N) 3.2 cm 1.9 - 3.5 TAPSE, MM (N) 1.9 cm >=1.7 Pressure, S 17 mm Hg --------- S' lateral (N) 13.1 cm/sec >=9.5 Left atrium Value Ref AP dim, ES (N) 3.6 cm 3.0 - 4.0 AP dim index, ES (N) 1.9 cm/m^2 1.5 - 2.3 SI dim, A4C 4.2 cm --------- Area ES, A4C (N) 12 cm^2 <=20 Area/bsa ES, A4C 6.23 cm^2/m^2 --------- SI dim, A2C 5.1 cm --------- SI dim, shorter 4.2 cm --------- Vol, ES, 1-p A2C (N) 47 ml 18 - 58 Vol/bsa, ES, 1-p A2C (N) 25 ml/m^2 11 - 43 Vol, ES, 2-p 37 ml --------- Vol/bsa, ES, 2-p (N) 19 ml/m^2 16 - 34 LA/Ao root ratio 0.84 --------- Right atrium Value Ref SI dim, ES, A4C (N) 4.2 cm 3.4 - 5.3 SI dim/bsa, ES, A4C (N) 2.2 cm/m^2 1.8 - 3.0 Area, ES, A4C (N) 14 cm^2 10 - 18 Vol, ES, 1-p A4C 39 ml --------- Vol/bsa, ES, 1-p A4C (N) 20 ml/m^2 11 - 39 Aortic valve Value Ref Peak v, S 1 m/sec --------- Mean v, S 0.78 m/sec --------- VTI, S 17.3 cm --------- Mean grad, S 3 mm Hg --------- Peak grad, S 4 mm Hg --------- LVOT/AV, VTI ratio 0.76 --------- TAMMY, VTI 2.4 cm^2 --------- TAMMY/bsa, VTI 1.25 cm^2/m^2 --------- LVOT/AV, Vpeak ratio 0.75 --------- TAMMY, Vmax 2.4 cm^2 --------- TAMMY/bsa, Vmax 1.24 cm^2/m^2 --------- Mitral valve Value Ref Mean v, D 0.68 m/sec --------- Peak E 1.25 m/sec --------- Decel time 112 ms --------- PHT 34 ms --------- Mean grad, D 2 mm Hg --------- Peak grad, D 5 mm Hg --------- A-VTI 15.0 cm --------- MVA, PHT 6.5 cm^2 --------- MVA/bsa, PHT 3.39 cm^2/m^2 --------- Pulmonic valve Value Ref Peak v, S 0.74 m/sec --------- Peak grad, S 2 mm Hg --------- Tricuspid valve Value Ref TR peak v (N) 1.7 m/sec <=2.8 Peak RV-RA grad, S 12 mm Hg --------- Aortic root Value Ref Root diam, 4.3 cm --------- Pulmonary artery Value Ref Pressure, S 15 mm Hg --------- Systemic veins Value Ref Estimated RA pressure 5 mm Hg --------- Legend: (L) and (H) dexter values outside specified reference range. (N) danielson values inside specified reference range. Procedure data: Procedure information: A transthoracic echocardiogram was performed.Scanning was performed from the parasternal, apical, and subcostal acousticwindows. Intravenous contrast (Definity) was administered. Transthoracic echocardiogram. Complete 2D, complete spectral Doppler, and colorDoppler. Birthdate: Patient birthdate: 1960. Age: Patient is 64year(s)old. Sex: gender: male. Height: 188cm. 74in. Weight: 67.1kg.148lb. Body mass index: 19kg/m^2. Body surface area: 1.91m^2. Study date: Study date: 09/14/2024. Study time: 08:17 AM. Amended Tino Cobb [id number] us Veronica Ware DO US ORDERABLES Edited Result - Final INTERFACE SYSTEM Refer to clinic/hospital department * CTA CHEST ABD PELVIS W AND/OR WO CONTRAST (09/14/2024 8:37 AM CDT) Anatomical Region Laterality Modality Chest, Abdomen, Pelvis Computed Tomography 09/14/2024 8:2 7 AM CDT Impressions 09/14/2024 9:06 AM CDT IMPRESSION: No acute aortic syndrome or pulmonary embolism identified. 1.6 cm broad-based enhancing mass at the bladder trigone, which could represent mass effect from the prostate (although this is not definitive) versus a primary bladder tumor. Recommend further evaluation with urinalysis and CT urogram with urology consult as indicated. Bilateral lower lung predominant bronchiectasis and bronchial wall thickening with bibasilar bullous disease. No pulmonary consolidation. Left lower lobe juxtapleural 6 mm nodule and right upper lobe sub-4 mm nodule. Recommend follow-up chest CT in one year. Distended gallbladder with mild layering gallstones/biliary sludge, however no convincing CT evidence of acute cholecystitis. Hepatic steatosis, colonic diverticulosis and additional findings as above. DICTATION LOCATION: Location [address] [place] [address] The examination was performed with the adjustment of mA according to the patient size and/or the use of Iterative Reconstruction Technique. Narrative 09/14/2024 9:06 AM CDT CTA CHEST ABD PELVIS W AND/OR WO CONTRAST HISTORY: Male of 64 years of age presenting with Significant epigastric abdominal with radiation to back and to rule out PE.See Reason for Exam TECHNIQUE: Axial images of the chest, abdomen and pelvis were obtained according to triple phase protocol. Maximum intensity projection images as well as 3-D images and reconstruction images were performed on a separate workstation and submitted for interpretation. COMPARISON: No relevant imaging available. ANGIOGRAPHIC FINDINGS: The thoracoabdominal aorta is normal in caliber with the ascending aorta at the upper limits of normal. No aortic dissection, intramural hematoma or penetrating ulcer. The visible supra aortic branches are patent. The celiac, mesenteric, renal and iliac arteries are patent. Inferior accessory left renal artery is noted. There is irregular noncalcified plaque along the anterior aspect of the infrarenal aorta mild luminal stenosis. No acute pulmonary embolism identified. NON-ANGIOGRAPHIC FINDINGS: Lungs/Airways/Pleura: No pulmonary consolidation, pleural effusion or pneumothorax. Left lower lobe juxtapleural 6 mm nodule. Medial right upper lobe subpleural 4 mm nodule. Multiple left lower lobe calcified granulomata. Bibasilar bullous disease. Bilateral lower lung predominant bronchiectasis and wall thickening. Heart/Pericardium: Normal heart size without pericardial effusion. Heavy multivessel coronary artery calcification. Mediastinum/Leyla: No lymphadenopathy. Chest wall/lower neck: Symmetric bilateral gynecomastia. No lymphadenopathy. Liver: Severe hepatic steatosis. Subtle enhancing 1.5 cm lesion in hepatic segment 2/4 A, likely flash filling hemangioma. Biliary system: Distended gallbladder with mild layering gallstones/sludge. No gallbladder wall thickening or pericholecystic inflammatory changes. No biliary ductal dilatation. Spleen: Radiologically unremarkable for age. Pancreas: Radiologically unremarkable for age. Adrenal glands: Radiologically unremarkable for age. Kidneys/Ureters: Small right renal cyst, otherwise unremarkable. Pelvic organs: 1.6 x 1.0 cm broad-based enhancing mass at the bladder trigone. Bowel: Nondilated bowel and appendix. Colonic diverticulosis without diverticulitis. Peritoneum/retroperitoneum: No free air or fluid. No lymphadenopathy. Body wall soft tissues: Radiologically unremarkable for age. Osseous structures: Degenerative changes of the spine and both hips. Procedure Note Sonido Vaughan MD - 09/14/2024 CTA CHEST ABD PELVIS W AND/OR WO CONTRAST HISTORY: Male of 64 years of age presenting with Significant epigastric abdominal with radiation to back and to rule out PE.See Reason for Exam TECHNIQUE: Axial images of the chest, abdomen and pelvis were obtained according to triple phase protocol. Maximum intensity projection images as well as 3-D images and reconstruction images were performed on a separate workstation and submitted for interpretation. COMPARISON: No relevant imaging available. ANGIOGRAPHIC FINDINGS: The thoracoabdominal aorta is normal in caliber with the ascending aorta at the upper limits of normal. No aortic dissection, intramural hematoma or penetrating ulcer. The visible supra aortic branches are patent. The celiac, mesenteric, renal and iliac arteries are patent. Inferior accessory left renal artery is noted. There is irregular noncalcified plaque along the anterior aspect of the infrarenal aorta mild luminal stenosis. No acute pulmonary embolism identified. NON-ANGIOGRAPHIC FINDINGS: Lungs/Airways/Pleura: No pulmonary consolidation, pleural effusion or pneumothorax. Left lower lobe juxtapleural 6 mm nodule. Medial right upper lobe subpleural 4 mm nodule. Multiple left lower lobe calcified granulomata. Bibasilar bullous disease. Bilateral lower lung predominant bronchiectasis and wall thickening. Heart/Pericardium: Normal heart size without pericardial effusion. Heavy multivessel coronary artery calcification. Mediastinum/Leyla: No lymphadenopathy. Chest wall/lower neck: Symmetric bilateral gynecomastia. No lymphadenopathy. Liver: Severe hepatic steatosis. Subtle enhancing 1.5 cm lesion in hepatic segment 2/4 A, likely flash filling hemangioma. Biliary system: Distended gallbladder with mild layering gallstones/sludge. No gallbladder wall thickening or pericholecystic inflammatory changes. No biliary ductal dilatation. Spleen: Radiologically unremarkable for age. Pancreas: Radiologically unremarkable for age. Adrenal glands: Radiologically unremarkable for age. Kidneys/Ureters: Small right renal cyst, otherwise unremarkable. Pelvic organs: 1.6 x 1.0 cm broad-based enhancing mass at the bladder trigone. Bowel: Nondilated bowel and appendix. Colonic diverticulosis without diverticulitis. Peritoneum/retroperitoneum: No free air or fluid. No lymphadenopathy. Body wall soft tissues: Radiologically unremarkable for age. Osseous structures: Degenerative changes of the spine and both hips. IMPRESSION: No acute aortic syndrome or pulmonary embolism identified. 1.6 cm broad-based enhancing mass at the bladder trigone, which could represent mass effect from the prostate (although this is not definitive) versus a primary bladder tumor. Recommend further evaluation with urinalysis and CT urogram with urology consult as indicated. Bilateral lower lung predominant bronchiectasis and bronchial wall thickening with bibasilar bullous disease. No pulmonary consolidation. Left lower lobe juxtapleural 6 mm nodule and right upper lobe sub-4 mm nodule. Recommend follow-up chest CT in one year. Distended gallbladder with mild layering gallstones/biliary sludge, however no convincing CT evidence of acute cholecystitis. Hepatic steatosis, colonic diverticulosis and additional findings as above. DICTATION LOCATION: Location [address] [place] [address] The examination was performed with the adjustment of mA according to the patient size and/or the use of Iterative [employer]construction Technique. Veronica Ware DO CT ORDERABLES Final Result * EXTRA TUBE (GREEN) (09/14/2024 6:54 AM CDT) Blood Venipuncture / Unknown 09/14/2024 6:54 AM CDT 09/14/2024 7:14 AM CDT External Provider [facility] CHEMISTRY ORDERABLES Fin al Result Performing Organization Address City/[facility]/ZIP Co de Phone Number [facility] Pay-Me [facility]# [id number] [address] [place] [address] * (ABNORMAL) LIPASE (09/14/2024 6:54 AM CDT) LIPASE 10(L) 13 - 60 U/L 09/14/2024 8:11 AM CDT [facility] [employer] [facility] Blood Venipuncture / Unknown 09/14/2024 6:54 AM CDT 09/14/2024 7:10 AM CDT Veronica Ware DO CHEMISTRY ORDERABLES Final Res ult [facility]# [id number] [address] [place] [id number] from Last 3 Months Insurance [facility] [id number] [id number] Advance Directives For more information, please contact: [phone] * Full Code (Latest Code Status on File) Date Activated Date Inactivated Comments 10/09/2024 2:08 AM 10/12/2024 7:08 PM * Full Code Date Activated Date Inactivated Comments 09/26/2024 4:33 PM 10/07/2024 4:51 PM * Full Code Date Activated Date Inactivated Comments 09/25/2024 10:24 PM 09/26/2024 4:33 PM * Full Code Date Activated Date Inactivated Comments 09/14/2024 6:18 AM 09/25/2024 10:24 PM
== END 2024-12-12 14:22 | disposition home or self-care (01) ==
LOC: CHSLAB 14:24
PROVIDERS: PCP Emergency Medicine
DX: R79.89 Other specified abnormal findings of blood chemistry (principal); E83.10 Disorder of iron metabolism, unspecified
CPT/HCPCS: 81256